=== PATIENT | male | born 1955 | race Caucasian/White ===

== ENCOUNTER 2016-10-28 03:43 | Inpatient (IN) | payer BC, OTHER ==
--- NOTE | 2016-10-28 03:54 | PDOC ---
History of Present Illness - General History Source: Patient Exam Limitations: No Limitations - History of Present Illness Initial Comments: 10/28/16 04:31 The patient is a 60 year old male with significant past medical history of a-fib , CAD (s/p stents), CHF, hypertension, hyperlipidemia, and COPD who presents to the ED with 4 days of worsening SOB. Patient reports he is normally short of breath, however over the past 4 days his SOB exacerbated. He also reports nonproductive cough and chest tightness. He denies fever, chills, diaphoresis, chest pain, jaw pain, shoulder pain, and arm pain. The patient denies abdominal pain, nausea, vomiting, and diarrhea. Allergies: NKDA Social History: No alcohol, tobacco, or drug use reported. Past Surgical History: s/p cardiac stents PCP: Dr. Elisabet Martinez <Suzan Carpenter - Last Filed: 10/28/16 05:56> - General History Source: Patient <Vadim Khan - Last Filed: 10/28/16 06:00> - General Chief Complaint: Shortness of Breath Stated Complaint: DIFFICULTY BREATHING Time Seen by Provider: 10/28/16 03:51 Past History <Suzan Carpenter - Last Filed: 10/28/16 05:56> - Past Medical History Anemia: No Asthma: No Cancer: No Cardiac Disorders: Yes (A Fib) CVA: No COPD: No CHF: No Dementia: No Diabetes: No GI Disorders: Yes (ACID REFLUX) Disorders: No HTN: Yes Hypercholesterolemia: Yes Liver Disease: No Suicide Attempt (Hx): No Seizures: No Thyroid Disease: No - Surgical History Abdominal Surgery: Yes (HERNIA) Appendectomy: No Cardiac Surgery: Yes (STENTS , 2010,, 13) Cholecystectomy: No Lung Surgery: No Neurologic Surgery: No Orthopedic Surgery: No - Immunization History Immunization Up to Date: Yes - Psycho/Social/Smoking Cessation Hx Anxiety: No Suicidal Ideation: No Smoking Status: No Smoking History: Never smoked Have you smoked in the past 12 months: No Number of Cigarettes Smoked Daily: 0 Hx Alcohol Use: Yes Drug/Substance Use Hx: No Substance Use Type: None Hx Substance Use Treatment: No <Vadim Khan - Last Filed: 10/28/16 06:00> - Past Medical History Allergies/Adverse Reactions: Allergies Allergy/AdvReac Type Severity Reaction Status Date / Time lactose Allergy Mild Verified 08/29/16 12:37 Home Medications: Ambulatory Orders Apixaban [Eliquis] 5 mg PO BID 08/29/16 Folic Acid 1 mg PO DAILY 08/29/16 Metoprolol Succinate [Toprol Xl] 150 mg PO DAILY 08/29/16 Rabeprazole Sodium [Aciphex] 20 mg PO DAILY 08/29/16 Ranolazine [Ranexa] 500 mg PO BID 08/29/16 Ramipril [Altace] 2.5 mg PO DAILY #30 capsule 09/08/16 Rosuvastatin Calcium [Crestor] 10 mg PO HS #30 09/08/16 Review of Systems - Review of Systems Able to Perform ROS?: Yes Comments:: 10/28/16 04:31 CONSTITUTIONAL: Absent: fever, chills, diaphoresis, generalized weakness, malaise, loss of appetite HEENT: Absent: rhinorrhea, nasal congestion, throat pain, throat swelling, difficulty swallowing, mouth swelling, ear pain, eye pain, visual Changes CARDIOVASCULAR: Absent: chest pain, syncope, palpitations, irregular heart rate, lightheadedness , peripheral edema RESPIRATORY: +cough, shortness of breath Absent: dyspnea with exertion, orthopnea, wheezing, stridor, hemoptysis GASTROINTESTINAL: Absent: abdominal pain, abdominal distension, nausea, vomiting, diarrhea, constipation, melena, hematochezia GENITOURINARY: Absent: dysuria, frequency, urgency, hesitancy, hematuria, flank pain, genital pain MUSCULOSKELETAL: Absent: myalgia, arthralgia, joint swelling SKIN: Absent: rash, itching, pallor NEUROLOGIC: Absent: headache, focal weakness or paresthesias, dizziness, unsteady gait, seizure, mental status changes, bladder or bowel incontinence PSYCHIATRIC: Absent: anxiety, depression, suicidal or homicidal ideation, hallucinations. <Suzan Carpenter - Last Filed: 10/28/16 05:56> *Physical Exam - Vital Signs Last Vital Signs Temp Pulse Resp BP Pulse Ox 97.8 F 95 H 23 181/91 88 L 10/28/16 03:51 10/28/16 03:51 10/28/16 03:51 10/28/16 03:51 10/28/16 03:51 - Physical Exam Comments: 10/28/16 04:31 GENERAL: Well developed, well nourished. Awake and alert. No acute distress. HEENT: Normocephalic, atraumatic. PERRLA, EOMI. No conjunctival pallor. Sclera are non- icteric. Moist mucous membranes. Oropharynx is clear. NECK: Supple. Full ROM. No JVD. Carotid pulses 2+ and symmetric, without bruits. No thyromegaly. No lymphadenopathy. CARDIOVASCULAR: Tachycardia. Regular rhythm. No murmurs, rubs, or gallops. Distal pulses are 2+ and symmetric. PULMONARY: Decreased breath sounds. Scattered wheezing bilaterally. ABDOMINAL: Soft. Non-tender. Obese. No rebound or guarding. No organomegaly. Normoactive bowel sounds. MUSCULOSKELETAL Normal range of motion at all joints. No bony deformities or tenderness. No CVA tenderness. EXTREMITIES: Venous stasis changes of the lower extremities bilaterally. No cyanosis. No clubbing. No edema. No calf tenderness. SKIN: Warm and dry. Normal capillary refill. No rashes. No jaundice. NEUROLOGICAL: Alert, awake, appropriate. Cranial nerves 2-12 intact. Moving all extremities. No focal neurological deficits. PSYCHIATRIC: Cooperative. Good eye contact. Appropriate mood and affect. <Suzan Carpenter - Last Filed: 10/28/16 05:56> Heart Score/ECG Review - ECG Impressions Comment:: 10/28/16 04:32 A-fib with premature ventricular or aberrantly conducted complexes @77bpm Nonspecific ST abnormality Prolonged QT Abnormal ECG <Suzan Carpenter - Last Filed: 10/28/16 05:56> ED Treatment Course - LABORATORY CBC & Chemistry Diagram: 10/28/16 04:10 10/28/16 04:10 - ADDITIONAL ORDERS Additional order review: 10/28/16 04:10 RBC 4.97 MCV 73.9 L MCHC 30.3 L RDW 19.7 H MPV 7.7 D Neutrophils % 84.3 H Lymphocytes % 7.7 L Monocytes % 6.6 Eosinophils % 0.9 Basophils % 0.5 - Medications Given in the ED: ED Medications Discontinued Medications Generic Name Dose Route Start Last Admin Trade Name Freq PRN Reason Stop Dose Admin Albuterol/Ipratropium 1 amp 10/28/16 03:56 10/28/16 04:17 Duoneb - NEB 10/28/16 03:57 1 amp ONCE STA Administration Albuterol/Ipratropium 1 amp 10/28/16 03:56 10/28/16 04:23 Duoneb - NEB 10/28/16 03:57 1 amp ONCE STA Administration Magnesium Sulfate 2 gm 10/28/16 03:55 10/28/16 04:26 Magnesium Sulfate IVPB 10/28/16 03:56 2 gm ONCE ONE Administration Methylprednisolone Sodium Succinate 125 mg 10/28/16 03:55 10/28/16 04:17 Solu-Medrol - IVPB 10/28/16 03:56 125 mg ONCE ONE Administration <Suzan Carpenter - Last Filed: 10/28/16 05:56> - LABORATORY CBC & Chemistry Diagram: 10/28/16 04:10 10/28/16 04:10 <Vadim Khan - Last Filed: 10/28/16 06:00> Medical Decision Making - Medical Decision Making 10/28/16 05:[address] Elisabet Martinez (via answering service) at 5:56 and patient's case was discussed. <Suzan Carpenter - Last Filed: 10/28/16 05:56> - Medical Decision Making 10/28/16 06:00 Dr. Khan: The scribe's documentation has been prepared under my direction and personally reviewed by me in its entirery. I confirm that the note above accurately reflects all work, treatment, procedures, and medical decision making performed by me. <Vadim Khan - Last Filed: 10/28/16 06:00> *DC/Admit/Observation/Transfer - Attestations Scribe Attestion: 10/28/16 04:33 Documentation prepared by Suzan Carpenter, acting as director medical economics for Vadim Khan MD <Suzan Carpenter - Last Filed: 10/28/16 05:56> - Discharge Dispostion Admit: Yes <Vadim Khan - Last Filed: 10/28/16 06:00> Diagnosis at time of Disposition: CHF (congestive heart failure) COPD (chronic obstructive pulmonary disease) Qualifiers: COPD type: unspecified COPD Qualified Code(s): J44.9 - Chronic obstructive pulmonary disease, unspecified - Discharge Dispostion Condition at time of disposition: Stable - Referrals Referrals: Elisabet Martinez MD [Primary Care Provider] -
[2016-10-28 03:55] VITALS: BMI 39.1
[2016-10-28] MEDS ORDERED: methylPREDNISolone NA SUCC 125 MG/2 ML VIAL IVPB ONE (03:55)
[2016-10-28] MEDS ORDERED: MAGNESIUM SULF 50% (8.12 MEQ/2 ML-1 GM VIAL) IVPB ONE (03:55)
[2016-10-28] MEDS ORDERED: ALBUTEROL SO4 2.5/IPRATROPIUM 0.5 INH SOL 3 ML VIAL.NEB. NEB STA ×3 (03:56→04:54)
[2016-10-28] MEDS ORDERED: methylPREDNISolone NA SUCC 125 MG/2 ML VIAL ONE (04:13)
[2016-10-28] MEDS ORDERED: MAGNESIUM SULF 50% (8.12 MEQ/2 ML-1 GM VIAL) ONE (04:13)
[2016-10-28 04:18] LABS: BASOPHIL 0.5 % (0-2.0); EOSINOPHIL 0.9 % (0-4.5); MCH 22.4 pg (25.7-33.7); MCHC 30.3 g/dl (32.0-35.9); MEAN CELL VOLUME 73.9 fl (80-96); MEAN PLT VOLUME 7.7 fl (7.5-11.1); NEUTROPHILS 84.3 % (42.8-82.8); PLATELET COUNT 176 K/MM3 (134-434); RDW 19.7 % (11.9-15.9); WHITE BLOOD COUNT 8.6 K/mm3 (4.0-10.0)
[2016-10-28 04:30] LABS: INR 2.01 (0.82-1.09); PROTHROMBIN TIME (PATIENT) 22.4 SEC (9.98-11.88)
[2016-10-28 04:55] LABS: ALBUMIN 3.8 g/dl (3.4-5.0); ANION GAP 10 (8-16); BILIRUBIN,TOTAL 0.7 mg/dL (0.2-1.0); CALCIUM 7.9 mg/dL (8.5-10.1); CO2 28 mmol/L (21-32); CREATININE 0.9 mg/dL (0.7-1.3); GLUCOSE,RANDOM 132 mg/dL (74-106); SGOT/AST 11 U/L (15-37); SGPT/ALT 12 U/L (12-78); TOT PROT 7.6 g/dl (6.4-8.2)
[2016-10-28 04:58] LABS: ALK PHOS 78 U/L (45-117); TROPONIN I < 0.02 ng/ml (0.00-0.05)
[2016-10-28] MEDS ORDERED: FUROSEMIDE 40 MG/4 ML INJECTABLE VIAL IVPUSH ONE (06:14)
[2016-10-28] MEDS ORDERED: FUROSEMIDE 40 MG/4 ML INJECTABLE VIAL ONE (06:18)
[2016-10-28] MEDS ORDERED: AZITHROMYCIN 250 MG TABLET (FP) PO ONE (07:21)
[2016-10-28] MEDS: methylPREDNISolone NA SUCC 40 MG/1 ML VIAL IVPB SCH ×3 (07:41→18:20)
--- NOTE | 2016-10-28 09:10 | PN ---
Progress Note (short form) - Note Progress Note: Cardiology Consult Dictated Known to me from office. 1. Chronic AF 2. CAD w/ previous PCI 3. Chronic diastolic CHF Missed two days of lasix, now presents with increased TIPTON. CXR c/w CHF, markedly elevated BNP. REC: 1. Agree w/ IV Lasix 2. Telemetry 3. Repeat echo to assure no change in LVEF 4. Cycle cardiac enzymes
[2016-10-28] MEDS: METOPROLOL SUCCINATE 50 MG TAB.SR.24H (FP) PO SCH (09:28)
[2016-10-28] MEDS: RAMIPRIL 2.5 MG CAPSULE (FP) PO SCH (09:29)
[2016-10-28] MEDS: APIXABAN 5 MG TABLET PO SCH ×2 (09:29→22:12)
[2016-10-28] MEDS: RANOLAZINE E.R. 500 MG TABLET (FP) PO SCH ×2 (09:29→22:12)
[2016-10-28] MEDS: FUROSEMIDE 40 MG/4 ML INJECTABLE VIAL IVPB SCH (09:31)
--- NOTE | 2016-10-28 09:33 | EKG ---
Test Reason : Blood Pressure : / mmHG Vent. Rate : 077 BPM Atrial Rate : 092 BPM P-R Int : 000 ms QRS Dur : 100 ms QT Int : 434 ms P-R-T Axes : 000 058 035 degrees QTc Int : 491 ms ATRIAL FIBRILLATION WITH PREMATURE VENTRICULAR OR ABERRANTLY CONDUCTED COMPLEXES NONSPECIFIC ST ABNORMALITY PROLONGED QT ABNORMAL ECG WHEN COMPARED WITH ECG OF 29-AUG-2016 20:16, BORDERLINE CRITERIA FOR INFERIOR INFARCT ARE NO LONGER PRESENT NON-SPECIFIC CHANGE IN ST SEGMENT IN INFERIOR LEADS NONSPECIFIC T WAVE ABNORMALITY NO LONGER EVIDENT IN LATERAL LEADS Confirmed by ANYA LOUIS, MCKAY ([id number]) on 10/28/2016 9:32:56 AM Referred By: Confirmed By:MCKAY JOYNER MD
[2016-10-28] MEDS ORDERED: METOPROLOL SUCCINATE 50 MG TAB.SR.24H (FP) PO SCH (10:00)
[2016-10-28] MEDS ORDERED: APIXABAN 5 MG TABLET PO SCH (10:00)
[2016-10-28] MEDS ORDERED: RAMIPRIL 2.5 MG CAPSULE (FP) PO SCH (10:00)
[2016-10-28] MEDS ORDERED: ARFORMOTEROL TARTRATE 15 MCG/2 ML VIAL NEB SCH (10:00)
[2016-10-28] MEDS ORDERED: FUROSEMIDE 40 MG/4 ML INJECTABLE VIAL IVPB SCH (10:00)
[2016-10-28] MEDS ORDERED: RANOLAZINE E.R. 500 MG TABLET (FP) PO SCH (10:00)
[2016-10-28] MEDS ORDERED: CEFTRIAXONE 100 ML IVPB SCH (10:00)
--- NOTE | 2016-10-28 10:01 | CONS ---
DATE OF CONSULTATION: 10/28/2016 REQUESTING PHYSICIAN: Elisabet Martinez MD REASON FOR CONSULTATION: Congestive heart failure. CHIEF COMPLAINT: Shortness of breath. HISTORY OF PRESENT ILLNESS: This is a 60-year-old male known to me from office with past medical history of chronic atrial fibrillation on anticoagulation, coronary artery disease status post PCI, obesity, chronic diastolic CHF, hypertension, hyperlipidemia, who presents to the emergency room with several hours of increased dyspnea on exertion. This occurs in the context of him missing 2 doses of Lasix on consecutive days earlier this week because he was going to be traveling. He denies chest pain, cough, fever, chills, palpitations. We have recently lowered his Toprol dose due to orthostatic hypotensive symptoms. He denies syncope. He did have PND symptoms last night prompting him to come to the emergency department. He was given IV Lasix and is currently urinating and is starting to feel better. PAST MEDICAL HISTORY: Is as above. ALLERGIES: He is allergic to LACTOSE. MEDICATIONS: His current medications include Eliquis 5 mg p.o. b.i.d., Brovana for COPD, ceftriaxone started for possible early pneumonia, Lasix 40 mg IV daily, Solu-Medrol 40 mg IV q.8, Toprol XL 150 mg daily, Ramipril 2.5 mg p.o. daily, Ranexa 500 mg p.o. b.i.d., and Crestor 10 mg p.o. at bedtime. FAMILY HISTORY: Noncontributory. It should be noted that his mother was noted to have a cerebral aneurysm and recently in her 90s. SOCIAL HISTORY: He drinks alcohol daily, usually 2-3 drinks per day. He denies history of smoking. 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 PHYSICAL EXAMINATION: Vital signs: He is afebrile with temperature of 97.8, blood pressure 161/89 this morning, O2 saturation 98 on 3 L. Neck: No JVD. Heart: S1, S2, irregular. Chest: With rales at the bases 1/3 up. Abdomen: Obese, soft, nontender.. Extremities: With chronic venous stasis changes and 1+ edema bilaterally. His EKG showed atrial fibrillation at 77 beats per minute with rare VPCs and nonspecific ST changes. Telemetry has shown controlled atrial fibrillation with VPCs. No elevated rates. LABORATORIES: White count 8.6, hematocrit 36.7, platelets 176. INR 2. Sodium 144, BUN 16, creatinine 0.9, magnesium 1.0 which was repleted and a morning value is currently pending, repeat value is pending. Troponin was negative x1. BNP was 2910. Chest x-ray showed increased pulmonary vascular congestion. IMPRESSION: This is a 60-year-old male with a past medical history of chronic atrial fibrillation on Eliquis, coronary artery disease status post percutaneous coronary intervention greater than 1 year ago, chronic diastolic congestive heart failure, now presents with acute on chronic diastolic congestive heart failure in the setting of missing 2 doses of Lasix. His chest x-ray, brain natriuretic peptide level and exam are consistent with mildly decompensated congestive heart failure. RECOMMENDATIONS: 1. Agree with IV Lasix for several days. 2. Continue telemetry to assure atrial fibrillation is well controlled. 3. Will repeat echo today to assure no change in ejection fraction or valve status. 4. Will cycle cardiac enzymes to assure no ischemia. Thank you for the consultation. JB ORO M.D. [id number] MTDD
[2016-10-28 10:16] LABS: ANION GAP 10 (8-16); CALCIUM 8.3 mg/dL (8.5-10.1); CO2 28 mmol/L (21-32); GLUCOSE,RANDOM 241 mg/dL (74-106); MAGNESIUM 1.5 mg/dL (1.8-2.4)
--- NOTE | 2016-10-28 10:31 | HP ---
Admitting History and Physical - Primary Care Physician PCP: Elisabet Martinez - Admission Chief Complaint: AE CHF. AE COPD. PNA History Source: Medical Record - Past Medical History Cardiovascular: Yes: AFIB, CAD (s/p stents), CHF, HTN, Hyperlipdemia Pulmonary: Yes: Sleep Apnea - Past Surgical History Past Surgical History: Yes: Stent - Smoking History Smoking history: Never smoked Have you smoked in the past 12 months: No Aproximately how many cigarettes per day: 0 - Alcohol/Substance Use Hx Alcohol Use: Yes - Social History ADL: Independent History of Recent Travel: No Home Medications - Allergies Allergies/Adverse Reactions: Allergies Allergy/AdvReac Type Severity Reaction Status Date / Time lactose Allergy Mild Verified 08/29/16 12:37 - Home Medications Home Medications: Ambulatory Orders Apixaban [Eliquis] 5 mg PO BID 08/29/16 Folic Acid 1 mg PO DAILY 08/29/16 Metoprolol Succinate [Toprol Xl] 150 mg PO DAILY 08/29/16 Rabeprazole Sodium [Aciphex] 20 mg PO DAILY 08/29/16 Ranolazine [Ranexa] 500 mg PO BID 08/29/16 Ramipril [Altace] 2.5 mg PO DAILY #30 capsule 09/08/16 Rosuvastatin Calcium [Crestor] 10 mg PO HS #30 09/08/16 Review of Systems - Review of Systems Constitutional: denies: Chills, Fever Cardiovascular: denies: Chest Pain Respiratory: reports: SOB Gastrointestinal: denies: Abdominal Pain Physical Examination Vital Signs: Vital Signs Temperature 98.6 F 10/28/16 09:33 Pulse Rate 88 10/28/16 09:33 Respiratory Rate 20 10/28/16 09:33 Blood Pressure 137/79 10/28/16 09:33 O2 Sat by Pulse Oximetry (%) 98 10/28/16 09:33 Constitutional: Yes: Calm Cardiovascular: Yes: Regular Rate and Rhythm, S1, S2 Respiratory: Yes: Diminished Gastrointestinal: Yes: Normal Bowel Sounds, Soft Edema: LLE: Trace, RLE: Trace Labs: CBC, BMP 10/28/16 09:40 Imaging - Results Chest X-ray: Report Reviewed EKG: Report Reviewed Problem List - Problems (1) CHF (congestive heart failure) Code(s): I50.9 - HEART FAILURE, UNSPECIFIED (2) Chronic atrial fibrillation Code(s): I48.2 - CHRONIC ATRIAL FIBRILLATION (3) COPD (chronic obstructive pulmonary disease) Code(s): J44.9 - CHRONIC OBSTRUCTIVE PULMONARY DISEASE, UNSPECIFIED Qualifiers : COPD type: unspecified COPD Qualified Code(s): J44.9 - Chronic obstructive pulmonary disease, unspecified (4) GERD (gastroesophageal reflux disease) Code(s): K21.9 - GASTRO-ESOPHAGEAL REFLUX DISEASE WITHOUT ESOPHAGITIS (5) HTN (hypertension) Code(s): I10 - ESSENTIAL (PRIMARY) HYPERTENSION (6) PNA (pneumonia) Code(s): J18.9 - PNEUMONIA, UNSPECIFIED ORGANISM Assessment/Plan The patient is a 60 year old male with significant past medical history of a-fib , CAD (s/p stents), CHF, hypertension, hyperlipidemia, and COPD who presents to the ED with 4 days of worsening SOB. Patient reports he is normally short of breath, however over the past 4 days his SOB exacerbated. He also reports nonproductive cough and chest tightness. He denies fever, chills, diaphoresis, chest pain, jaw pain, shoulder pain, and arm pain. The patient denies abdominal pain, nausea, vomiting, and diarrhea. Allergies: NKDA Social History: No alcohol, tobacco, or drug use reported. Past Surgical History: s/p cardiac stents PCP: Dr. Elisabet Martinez (1) CHF (congestive heart failure) Code(s): I50.9 - HEART FAILURE, UNSPECIFIED TROP NEG -> F/U BNP 2300 CXr -> CONGESTION CHANGES CARDIO CONSULTED (2) Chronic atrial fibrillation Code(s): I48.2 - CHRONIC ATRIAL FIBRILLATION INR THERAPEUTIC (3) COPD (chronic obstructive pulmonary disease) Code(s): J44.9 - CHRONIC OBSTRUCTIVE PULMONARY DISEASE, UNSPECIFIED Qualifiers : COPD type: unspecified COPD Qualified Code(s): J44.9 - Chronic obstructive pulmonary disease, unspecified IV STEROIDS & ABx PULM CONSULTED (4) GERD (gastroesophageal reflux disease) Code(s): K21.9 - GASTRO-ESOPHAGEAL REFLUX DISEASE WITHOUT ESOPHAGITIS IV PPI (5) HTN (hypertension) Code(s): I10 - ESSENTIAL (PRIMARY) HYPERTENSION (6) PNA (pneumonia) Code(s): J18.9 - PNEUMONIA, UNSPECIFIED ORGANISM ID CONSULTED IV ABx MANAGER RISK MANAGEMENT FM
[2016-10-28] MEDS ORDERED: PNEUMOCOCCAL 23 VACCINE 0.5 ML VIAL IM ONE (11:30)
[2016-10-28] MEDS ORDERED: PNEUMOC 13-VAL CONJ-DIP CRM/PF 0.5 ML DISP.SYRIN IM ONE (11:30)
[2016-10-28] MEDS: ARFORMOTEROL TARTRATE 15 MCG/2 ML VIAL NEB SCH ×2 (11:38→22:15)
--- NOTE | 2016-10-28 11:41 | PN ---
Progress Note (short form) - Note Progress Note: ID consult dictated imp/reccd 60 year old man with chf/copd- had stopped his lasix on Wednesday and Wednesday, resumed Wednesday but developed worsening SOB minimal chronic cough no fevers or chills/no leukocytosis PE and history most c/w CHF/COPD- feels markedly improved after iv steroids and lasix cxray c/w congestion can d/c rocephin continue treatment for chf/copd plese call back if needed Problem List - Problems (1) CHF (congestive heart failure) Code(s): I50.9 - HEART FAILURE, UNSPECIFIED (2) COPD (chronic obstructive pulmonary disease) Code(s): J44.9 - CHRONIC OBSTRUCTIVE PULMONARY DISEASE, UNSPECIFIED Qualifiers : COPD type: unspecified COPD Qualified Code(s): J44.9 - Chronic obstructive pulmonary disease, unspecified
[2016-10-28] MEDS: PANTOPRAZOLE SODIUM 100 ML IVPB SCH (12:14)
[2016-10-28] MEDS: MAGNESIUM OXIDE 400 MG TABLET (FP) PO SCH ×2 (12:14→22:12)
--- NOTE | 2016-10-28 12:17 | CONSULT ---
Consult Consult Specialty:: PULMONARY Referred by:: CHITRA Reason for Consultation:: SOB - History of Present Illness Chief Complaint: SOB History of Present Illness: The patient is a 60 year old male with significant past medical history of a-fib , CAD (s/p stents), CHF, hypertension, hyperlipidemia, and COPD who presents to the ED with 4 days of worsening SOB. Patient reports he is normally short of breath, however over the past 4 days his SOB exacerbated. He also reports nonproductive cough and chest tightness. He denies fever, chills, diaphoresis, chest pain, jaw pain, shoulder pain, and arm pain.The patient denies abdominal pain, nausea, vomiting, and diarrhea. Admits to noncompliance with diuretics and inhalers for a number of days. 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 Cardio/Vascular: Yes: AFIB, CAD (s/p stents), CHF, HTN, Hyperlipdemia Pulmonary: Yes: Sleep Apnea Hepatobiliary: No: Cirrhosis Renal/: No: Renal Failure Heme/Onc: No: Anemia Infectious Disease: No: AIDS Psych: No: Addictions - Past Surgical History Past Surgical History: Yes: Stent - Alcohol/Substance Use Hx Alcohol Use: Yes - Smoking History Smoking history: Never smoked Have you smoked in the past 12 months: No Aproximately how many cigarettes per day: 0 - Social History ADL: Independent History of Recent Travel: No Home Medications - Allergies Allergies/Adverse Reactions: Allergies Allergy/AdvReac Type Severity Reaction Status Date / Time lactose Allergy Mild Verified 08/29/16 12:37 - Home Medications Home Medications: Ambulatory Orders Apixaban [Eliquis] 5 mg PO BID 08/29/16 Folic Acid 1 mg PO DAILY 08/29/16 Metoprolol Succinate [Toprol Xl] 150 mg PO DAILY 08/29/16 Rabeprazole Sodium [Aciphex] 20 mg PO DAILY 08/29/16 Ranolazine [Ranexa] 500 mg PO BID 08/29/16 Ramipril [Altace] 2.5 mg PO DAILY #30 capsule 09/08/16 Rosuvastatin Calcium [Crestor] 10 mg PO HS #30 09/08/16 Family Disease History - Family Disease History Family History: Unremarkable Review of Systems - Review of Systems Constitutional: denies: Fever Eyes: denies: Blurred Vision HENT: denies: Difficult Swallowing Neck: denies: Decreased ROM Cardiovascular: denies: Chest Pain Respiratory: reports: SOB on Exertion. denies: Cough Gastrointestinal: reports: No Symptoms Genitourinary: reports: No Symptoms Breasts: reports: No Symptoms Reported Neurological: reports: No Symptoms Endocrine: reports: No Symptoms Hematology/Lymphatic: reports: No Symptoms Physical Exam Vital Sings: Vital Signs Temperature 98.6 F 10/28/16 09:33 Pulse Rate 88 10/28/16 09:33 Respiratory Rate 20 10/28/16 09:33 Blood Pressure 137/79 10/28/16 09:33 O2 Sat by Pulse Oximetry (%) 98 10/28/16 09:33 Constitutional: Yes: Calm Eyes: Yes: EOM Intact HENT: Yes: Normocephalic Neck: Yes: Trachea Midline Cardiovascular: Yes: Pulse Irregular, S1, S2 Respiratory: Yes: Rales (BIBASILAR) Gastrointestinal: Yes: Soft, Abdomen, Obese Edema: LLE: 2+, RLE: 2+ Neurological: Yes: Alert Labs: CBC, BMP 10/28/16 09:40 REST REVIEWED Imaging - Results Chest X-ray: Image Reviewed EKG: Report Reviewed Problem List - Problems (1) CHF (congestive heart failure) Code(s): I50.9 - HEART FAILURE, UNSPECIFIED (2) COPD (chronic obstructive pulmonary disease) Code(s): J44.9 - CHRONIC OBSTRUCTIVE PULMONARY DISEASE, UNSPECIFIED Qualifiers : COPD type: unspecified COPD Qualified Code(s): J44.9 - Chronic obstructive pulmonary disease, unspecified (3) GERD (gastroesophageal reflux disease) Code(s): K21.9 - GASTRO-ESOPHAGEAL REFLUX DISEASE WITHOUT ESOPHAGITIS (4) HTN (hypertension) Code(s): I10 - ESSENTIAL (PRIMARY) HYPERTENSION (5) Acute on chronic diastolic (congestive) heart failure Code(s): I50.33 - ACUTE ON CHRONIC DIASTOLIC (CONGESTIVE) HEART FAILURE (6) Afib Code(s): I48.91 - UNSPECIFIED ATRIAL FIBRILLATION Assessment/Plan LIKELY ACUTE ON CHRONIC DECOMPENSATED CHF DUE TO MED/DIETARY NONCOMPLIANCE NO NEED FOR STEROIDS/ANTIBIOTICS WOULD CONTINUE TO TREAT FOR CHF O2/DIURETICS/ANTICOAGULATION/BRONCHODILATORS PRN WILL FOLLOW THANK YOU Kassy HIGGINS MD
[2016-10-28 12:49] LABS: TROPONIN I < 0.02 ng/ml (0.00-0.05)
--- NOTE | 2016-10-28 13:43 | CONS ---
DATE OF CONSULTATION: 10/28/2016 REQUESTING PHYSICIAN: Shakeel Jaeger MD HISTORY OF PRESENT ILLNESS: This is a 60-year-old man with a past medical history of heart failure and COPD. He was recently hospitalized in August when he developed severe constipation and partial small bowel obstruction secondary to constipation. He now comes in. He had self-discontinued his Lasix on Wednesday and Wednesday basically because he was busy and he did not want to be urinating extra. On Wednesday, he went out, and the weather was very cold. He started having some difficulty with his breathing. He put himself back on his Lasix, but the breathing difficulty persisted. He noticed he was getting extremely dyspneic just getting up and walking to the bathroom, and given the fact his symptoms were progressing, he came to the emergency room. There was no chest pain. There was minimal cough, which he always has, and there were no fevers or chills. In the ER, he was treated with Solu-Medrol with nebulizers and IV diuretics as well as a dose of antibiotics. I am asked to see him for further antibiotic management. I came in early this morning at 4:00 a.m. He reports already marked improvement in his symptoms. He is able to ambulate to the bathroom and back, which he was not able to do before. PAST MEDICAL HISTORY: Notable for history of chronic atrial fibrillation, coronary artery disease, he had multiple stents, obesity, chronic diastolic heart failure , hypertension, hyperlipidemia, history of partial small bowel obstruction, history of lumbar compression fracture with recent fall. ALLERGIES: He is allergic to LACTOSE. MEDICATIONS: His medications at home include Crestor, Ranexa, Ramipril, aciphex , Toprol XL, folic acid, Eliquis, and Lasix. His current medications include Eliquis, Brovana, Lasix, magnesium oxide, Solu-Medrol, Toprol, Protonix, Ranexa, Crestor, and ceftriaxone. FAMILY HISTORY: Noncontributory. 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 There is no history of cigarette use. He drinks several drinks a day. REVIEW OF SYSTEMS: He has had no more constipation. He has no abdominal pain. He reports his breathing has markedly improved since arriving in the emergency room earlier this morning. PHYSICAL EXAMINATION: General: He is awake and alert. Vital signs: Temperature 98.6, pulse of 83, blood pressure 137/79, stated weight is 265, respiratory rate 20. HEENT: He is normocephalic. His eyes are anicteric. Neck: Supple. Lungs: Have bibasilar crackles. Heart: Regular rate and rhythm. Abdomen: Soft, nontender. Extremities: Have 1+ pitting edema. LABORATORIES: Notable for a white count of 8.6, hemoglobin 11.1, platelets are 176. INR is 2. BUN 16, creatinine 1. Chest x-ray reveals bilateral congestion. SUMMARY: This is a 60-year-old man admitted with worsening shortness of breath, dyspnea on exertion, with mild chronic cough. He has had marked improvement with intravenous steroids and Lasix. Chest x-ray is consistent with congestion. I would suggest we stop his Rocephin and continue treatment for CHF and COPD. Would suggest please call us back if needed. MANSOOR FLEMING M.D. [id number] MTDD
[2016-10-28 20:49] LABS: TROPONIN I < 0.02 ng/ml (0.00-0.05)
[2016-10-28] MEDS ORDERED: ROSUVASTATIN CA 10 MG TABLET (FP) PO SCH (22:00)
[2016-10-28] MEDS ORDERED: LORATADINE 10 MG TABLET PO SCH (22:00)
[2016-10-28] MEDS: guaiFENesin 200 MG/10 ML 10 ML UNIT-DOSE CUPS PO PRN (22:12)
[2016-10-29] MEDS: methylPREDNISolone NA SUCC 40 MG/1 ML VIAL IVPB SCH ×2 (02:18→09:38)
[2016-10-29 07:35] LABS: MCH 23.7 pg (25.7-33.7); MEAN CELL VOLUME 74.2 fl (80-96); MEAN PLT VOLUME 8.2 fl (7.5-11.1); PLATELET COUNT 179 K/MM3 (134-434); RDW 19.9 % (11.9-15.9); WHITE BLOOD COUNT 10.5 K/mm3 (4.0-10.0)
[2016-10-29 08:26] LABS: ALBUMIN 3.7 g/dl (3.4-5.0); ALK PHOS 70 U/L (45-117); ANION GAP 8 (8-16); BILIRUBIN,TOTAL 0.5 mg/dL (0.2-1.0); CALCIUM 8.9 mg/dL (8.5-10.1); CO2 29 mmol/L (21-32); CREATININE 0.8 mg/dL (0.7-1.3); GLUCOSE,RANDOM 153 mg/dL (74-106); SGOT/AST 8 U/L (15-37); SGPT/ALT 14 U/L (12-78); TOT PROT 7.3 g/dl (6.4-8.2)
[2016-10-29 09:35] VITALS: BP 146/82; PULSE 88; TEMP 98.2
[2016-10-29] MEDS: PANTOPRAZOLE SODIUM 100 ML IVPB SCH (09:37)
[2016-10-29] MEDS: RAMIPRIL 2.5 MG CAPSULE (FP) PO SCH (09:38)
[2016-10-29] MEDS: FUROSEMIDE 40 MG/4 ML INJECTABLE VIAL IVPB SCH (09:38)
[2016-10-29] MEDS: APIXABAN 5 MG TABLET PO SCH (09:39)
[2016-10-29] MEDS: MAGNESIUM OXIDE 400 MG TABLET (FP) PO SCH (09:39)
[2016-10-29] MEDS: METOPROLOL SUCCINATE 50 MG TAB.SR.24H (FP) PO SCH (09:39)
[2016-10-29] MEDS: RANOLAZINE E.R. 500 MG TABLET (FP) PO SCH (09:40)
[2016-10-29] MEDS: guaiFENesin 200 MG/10 ML 10 ML UNIT-DOSE CUPS PO PRN (09:52)
[2016-10-29] MEDS ORDERED: ALBUTEROL SO4 6.7 GM HFA INHALER IH PRN (10:46)
--- NOTE | 2016-10-29 10:48 | DS ---
Physical Examination Vital Signs: Vital Signs Temperature 98.2 F 10/29/16 08:05 Pulse Rate 88 10/29/16 08:05 Respiratory Rate 16 10/29/16 08:05 Blood Pressure 146/82 10/29/16 08:05 O2 Sat by Pulse Oximetry (%) 95 10/29/16 06:00 Constitutional: Yes: Well Nourished Eyes: Yes: WNL HENT: Yes: WNL Neck: Yes: WNL Cardiovascular: Yes: Pulse Irregular Respiratory: Yes: WNL Gastrointestinal: Yes: WNL Musculoskeletal: Yes: WNL Extremities: Yes: WNL Edema: Yes Peripheral Pulses WNL: Yes Integumentary: Yes: WNL Wound/Incision: Yes: Clean/Dry Neurological: Yes: WNL ...Motor Strength: WNL Psychiatric: Yes: WNL Labs: CBC, BMP 10/29/16 05:35 Discharge Summary Reason For Visit: COPD CHF Current Active Problems CHF (congestive heart failure) (Acute) COPD (chronic obstructive pulmonary disease) (Acute) GERD (gastroesophageal reflux disease) (Acute) HTN (hypertension) (Acute) PNA (pneumonia) (Acute) Procedures: Principal: cxr Other Procedures: labs Hospital Course: cardiac and pulmonary workup , tlemetry, given iv lasix, steroids, dc home f/u outpatient Condition: Improved - Instructions Diet, Activity, Other Instructions: low sodium Referrals: Elisabet Martinez MD [Primary Care Provider] - Disposition: HOME - Home Medications Comprehensive Discharge Medication List: Ambulatory Orders Apixaban [Eliquis] 5 mg PO BID 08/29/16 Folic Acid 1 mg PO DAILY 08/29/16 Metoprolol Succinate [Toprol Xl] 150 mg PO DAILY 08/29/16 Rabeprazole Sodium [Aciphex] 20 mg PO DAILY 08/29/16 Ranolazine [Ranexa] 500 mg PO BID 08/29/16 Ramipril [Altace] 2.5 mg PO DAILY #30 capsule 09/08/16 Rosuvastatin Calcium [Crestor] 10 mg PO HS #30 09/08/16
--- NOTE | 2016-10-29 12:21 | PN ---
Progress Note, Physician History of Present Illness: seen and examined today in nad. states he is feeling back to baseline. sob has improved. wants to go home. - Objective Vital Signs: Vital Signs Temperature 98.2 F 10/29/16 08:05 Pulse Rate 88 10/29/16 08:05 Respiratory Rate 16 10/29/16 08:05 Blood Pressure 146/82 10/29/16 08:05 O2 Sat by Pulse Oximetry (%) 94 L 10/29/16 11:35 Constitutional: Yes: No Distress, Calm, Obese Eyes: Yes: WNL, Conjunctiva Clear, EOM Intact, PERRL HENT: Yes: WNL, Atraumatic, Normocephalic Neck: Yes: WNL, Supple, Trachea Midline Cardiovascular: Yes: Pulse Irregular, Murmur, S1, S2. No: Regular Rate and Rhythm, Bradycardia, Tachycardia, Bruit, JVD, Gallop, Rub, S3, S4, Varicosities Respiratory: Yes: WNL, Regular, CTA Bilaterally. No: Rales, Rhonchi, Wheezes Gastrointestinal: Yes: WNL, Normal Bowel Sounds, Soft. No: Distention, Tenderness Musculoskeletal: Yes: WNL Extremities: Yes: WNL Edema: Yes Edema: LLE: Trace, RLE: Trace Peripheral Pulses WNL: Yes Peripheral Pulses: Left Doralis Pedis: 2+, Right Dorsalis Pedis: 2+ Integumentary: Yes: WNL Neurological: Yes: WNL, Alert, Oriented, Cran Nerves II-XII Intact ...Motor Strength: WNL Psychiatric: Yes: WNL, Alert, Oriented Labs: CBC, BMP 10/29/16 05:35 10/29/16 05:35 INR, PTT INR 2.01 (0.82-1.09) H 10/28/16 04:18 - ....Imaging Chest X-ray: Report Reviewed, Image Reviewed EKG: Report Reviewed, Image Reviewed Other: Report Reviewed, Image Reviewed (tele-Afib, HR controlled, PVCs, Couplets ) Problem List - Problems (1) Acute on chronic diastolic (congestive) heart failure Code(s): I50.33 - ACUTE ON CHRONIC DIASTOLIC (CONGESTIVE) HEART FAILURE (2) Afib Code(s): I48.91 - UNSPECIFIED ATRIAL FIBRILLATION (3) CAD (coronary artery disease) Code(s): I25.10 - ATHSCL HEART DISEASE OF [place] CORONARY ARTERY W/O ANG PCTRS (4) CHF (congestive heart failure) Code(s): I50.9 - HEART FAILURE, UNSPECIFIED (5) COPD (chronic obstructive pulmonary disease) Code(s): J44.9 - CHRONIC OBSTRUCTIVE PULMONARY DISEASE, UNSPECIFIED Qualifiers : COPD type: unspecified COPD Qualified Code(s): J44.9 - Chronic obstructive pulmonary disease, unspecified (6) Chest pain Code(s): R07.9 - CHEST PAIN, UNSPECIFIED (7) Chronic atrial fibrillation Code(s): I48.2 - CHRONIC ATRIAL FIBRILLATION (8) HTN (hypertension) Code(s): I10 - ESSENTIAL (PRIMARY) HYPERTENSION (9) SOB (shortness of breath) Code(s): R06.02 - SHORTNESS OF BREATH Assessment/Plan 1. Chronic AF 2. CAD w/ previous PCI 3. Chronic diastolic CHF Missed two days of lasix, presents with acute on chronic diastolic CHF REC: Currently euvolemic at his baseline Echo stable with grossly normal LV systolic function Cardiac enyzmes wnl Ok for discharge from a cardiac standpoint Transition back to po Lasix He will follow up within 1 week in the office
[2016-10-31] MEDS ORDERED: METOLAZONE 2.5 MG TABLET (FP) PO SCH (10:00)
== END 2016-10-29 11:36 | disposition home or self-care (01) | DRG 291 ==
LOC: JER 03:43 → JERBED 06:14 → J4W 08:09
PROVIDERS: ADMIT Family Medicine; ATTEND Family Medicine
DX: I50.33 Acute on chronic diastolic (congestive) heart failure (principal); J18.9 Pneumonia, unspecified organism; J44.1 Chronic obstructive pulmonary disease with (acute) exacerbation; I48.91 Unspecified atrial fibrillation; K21.9 Gastro-esophageal reflux disease without esophagitis; R07.9 Chest pain, unspecified; I10 Essential (primary) hypertension; I25.10 Atherosclerotic heart disease of native coronary artery without angina pectoris; Z98.61 Coronary angioplasty status; E78.5 Hyperlipidemia, unspecified
CPT/HCPCS: 36415; 71010-TC; 80048; 80053; 82550; 83735; 83880; 84484; 85025; 85027; 85610; 90732; 93005; 93010; 93306-TC; 94640; 99284-25; G0009

== ENCOUNTER 2017-10-31 18:51 | Emergency (ER) | payer BC, OTHER ==
[2017-10-31 19:06] VITALS: BP 155/85; PULSE 83; TEMP 97.9; BMI 39.9
[2017-10-31] MEDS ORDERED: ALBUTEROL SO4 2.5/IPRATROPIUM 0.5 INH SOL 3 ML VIAL.NEB. NEB ONE ×2 (19:29→19:39)
--- NOTE | 2017-10-31 19:31 | PDOC ---
History of Present Illness - History of Present Illness Initial Comments: 10/31/17 20:01 History of Present Illness: 61 y/o M with a PMH of COPD, CAD (6 stents), presents to the ED with productive cough and chest congestion for 3 days. Patient has not been able to eat or sleep for the past three days, due to symptoms. Patient has take NyQuil and Robitussin with no relief. Patient reports associated rib pain due to coughing. Denies fever, chills. Denies nausea, vomiting, diarrhea. PCP: Dr. Elisabet Martinez Buggyman: Dr. Paddy Steiner Network Solutions Architect: Dr. Kurt Domingo Review of Systems: CONSTITUTIONAL: Absent: fever, chills, diaphoresis, generalized weakness, malaise, loss of appetite HEENT: Absent: rhinorrhea, nasal congestion, throat pain, throat swelling, difficulty swallowing, mouth swelling, ear pain, eye pain, visual changes CARDIOVASCULAR: Absent: chest pain, syncope, palpitations, irregular heart rate , lightheadedness, peripheral edema RESPIRATORY:+productive cough, chest congestion. Absent: shortness of breath, dyspnea with exertion, orthopnea, wheezing, stridor, hemoptysis GASTROINTESTINAL: Absent: abdominal pain, abdominal distension, nausea, vomiting , diarrhea, constipation, melena, hematochezia GENITOURINARY: Absent: dysuria, frequency, urgency, hesitancy, hematuria, flank pain, genital pain MUSCULOSKELETAL: +rib pain Absent: myalgia, arthralgia, joint swelling SKIN: Absent: rash, itching, pallor HEMATOLOGIC/IMMUNOLOGIC: Absent: easy bleeding, easy bruising, lymphadenopathy, frequent infections ENDOCRINE: Absent: unexplained weight gain, unexplained weight loss, heat intolerance, cold intolerance NEUROLOGIC: Absent: headache, focal weakness or paresthesias, dizziness, unsteady gait, seizure, mental status changes, bladder or bowel incontinence PSYCHIATRIC: Absent: anxiety, depression, suicidal or homicidal ideation, hallucinations. <Eneida Robles - Last Filed: 10/31/17 20:02> - History of Present Illness Initial Comments: 10/31/17 19:36 Physical exam: Alert and oriented well-developed well-nourished no acute distress cheerful and cooperative. No tachypnea or dyspnea Afebrile, vital signs stable, with respiratory rate of 18 and unlabored and oxygen saturation 95% room air HEENT clear Neck supple without bruit mass or nodes Breath sounds are clear bilaterally, no wheezes rales or rhonchi CV S1 and S2 distant without murmur rub or gallop pulses full and symmetric no JVD or edema no bruits Abdomen: Significant truncal obesity, however soft without masses tenderness organomegaly Neurological intact Skin clear, no rash, adequate turgor and wet mucous membranes Extremities no CCE Impression: COPD, acute exacerbation, possibly influenza, rule out pneumonia. No significant respiratory distress or hypoxemia. Plan: Nebulizer, chest x-ray, and further medical management depending on results. <Tomy Carter - Last Filed: 10/31/17 20:05> - General Chief Complaint: Cold Symptoms Stated Complaint: COUGH,SORE THROAT Time Seen by Provider: 10/31/17 19:29 Past History <Eneida Robles - Last Filed: 10/31/17 20:02> - Past Medical History Anemia: No Asthma: No Cancer: No Cardiac Disorders: Yes (A Fib) CVA: No COPD: No CHF: No Dementia: No Diabetes: No GI Disorders: Yes (ACID REFLUX) Disorders: No HTN: Yes Hypercholesterolemia: Yes Liver Disease: No Seizures: No Thyroid Disease: No - Surgical History Abdominal Surgery: Yes (HERNIA) Appendectomy: No Cardiac Surgery: Yes (STENTS , 2010,, ) Cholecystectomy: No Lung Surgery: No Neurologic Surgery: No Orthopedic Surgery: No - Immunization History Immunization Up to Date: Yes - Suicide/Smoking/Psychosocial Hx Smoking Status: No Smoking History: Current some day smoker Have you smoked in the past 12 months: Yes Number of Cigarettes Smoked Daily: 0 Cigars Per Day: 1 Information on smoking cessation initiated: Yes 'Breaking Loose' booklet given: 10/31/17 Hx Alcohol Use: No Drug/Substance Use Hx: No Substance Use Type: None Hx Substance Use Treatment: No <Tomy Carter - Last Filed: 10/31/17 20:05> - Past Medical History Allergies/Adverse Reactions: Allergies Allergy/AdvReac Type Severity Reaction Status Date / Time lactose Allergy Mild Verified 08/29/16 12:37 Home Medications: Ambulatory Orders Apixaban [Eliquis] 5 mg PO BID 08/29/16 Rabeprazole Sodium [Aciphex] 20 mg PO DAILY 08/29/16 Ranolazine [Ranexa] 500 mg PO BID 08/29/16 Albuterol Sulfate Inhaler - [Ventolin HFA Inhaler -] 2 puff IH Q4H PRN #1 inhaler 10/29/16 Arformoterol Tartrate [Brovana -] 1 amp NEB BID amp 10/29/16 Loratadine [Claritin -] 10 mg PO HS tablet 10/29/16 Metolazone [Zaroxolyn -] 2.5 mg PO Q2D@1000 #15 tablet 10/29/16 Ramipril [Altace] 2.5 mg PO DAILY capsule 10/29/16 Rosuvastatin [Crestor -] 10 mg PO HS tablet 10/29/16 Febuxostat [Uloric] 40 mg PO DAILY 10/31/17 Furosemide [Lasix] 40 mg PO DAILY 10/31/17 Guaifenesin AC [Robitussin-AC] 1 - 2 tsp PO Q4HWA PRN #120 ml MDD 8 10/31/17 Metoprolol Succinate [Toprol XL -] 100 mg PO DAILY 10/31/17 Oseltamivir Phosphate [Tamiflu] 75 mg PO BID #10 capsule 10/31/17 *Physical Exam - Vital Signs Last Vital Signs Temp Pulse Resp BP Pulse Ox 97.9 F 83 20 155/85 95 10/31/17 18:52 10/31/17 18:52 10/31/17 18:52 10/31/17 18:52 10/31/17 18:52 <Eneida Robles - Last Filed: 10/31/17 20:02> - Vital Signs Last Vital Signs Temp Pulse Resp BP Pulse Ox 97.9 F 83 20 155/85 95 10/31/17 18:52 10/31/17 18:52 10/31/17 18:52 10/31/17 18:52 10/31/17 18:52 <Tomy Carter - Last Filed: 10/31/17 20:05> Medical Decision Making - Medical Decision Making 10/31/17 19:55 X-ray: Increased interstitial markings, no sign of acute infiltrate/pneumonia Patient feels much better after nebulizer treatment. Respiratory rate 16 and 18 unlabored, O2 saturation remains at 95-96% on room air. Encouraged to continue home nebulizers on a regular basis, treated for influenza , stronger cough suppressant for rest, especially at night. Return to ER if eating worsens, otherwise follow-up with grain merchandiser Dr. Steiner early next week. 10/31/17 20:05 <Tomy Carter - Last Filed: 10/31/17 20:05> *DC/Admit/Observation/Transfer - Attestations Scribe Attestion: 10/31/17 20:02 Documentation prepared by Eneida Robles, acting as medical office specialist for Tomy Bejarano MD. <Eneida Robles - Last Filed: 10/31/17 20:02> - Discharge Dispostion Admit: No <Tomy Carter - Last Filed: 10/31/17 20:05> Diagnosis at time of Disposition: Viral bronchitis - Discharge Dispostion Disposition: HOME Condition at time of disposition: Improved - Prescriptions Prescriptions: Guaifenesin AC [Robitussin-AC] 1 - 2 tsp PO Q4HWA PRN #120 ml MDD 8 PRN Reason: Cough Oseltamivir Phosphate [Tamiflu] 75 mg PO BID #10 capsule - Patient Instructions Printed Discharge Instructions: DI for Acute Bronchitis Additional Instructions: Rest, fluids, Tylenol, cough medication, antiviral drug as directed. Return to ER if there is chest pain or shortness of breath, or high fever. Otherwise follow-up with your grain merchandiser early next week.
== END 2017-10-31 20:12 | disposition home or self-care (01) ==
LOC: FER 18:51
PROC: 3E0F7GC Introduction of Other Therapeutic Substance into Respiratory Tract, Via Natural or Artificial Opening (ICD-10-PCS; principal; 2017-10-31)
DX: J20.8 Acute bronchitis due to other specified organisms (principal); B97.89 Other viral agents as the cause of diseases classified elsewhere; J44.9 Chronic obstructive pulmonary disease, unspecified; I25.10 Atherosclerotic heart disease of native coronary artery without angina pectoris; Z95.5 Presence of coronary angioplasty implant and graft
CPT/HCPCS: 71046-TC; 99282-25

== ENCOUNTER 2017-11-25 13:07 | Observation (INO) | payer BC, OTHER ==
[2017-11-25 13:18] VITALS: BMI 39.9
--- NOTE | 2017-11-25 14:10 | PDOC ---
History of Present Illness <Melissa Sinha - Last Filed: 11/25/17 16:34> - History of Present Illness Initial Comments: 11/25/17 14:06 62 y.o. male with a PMH of CAD (s/p stent x6), HTN, CHF, and COPD (2/2 to secondhand smoke) and morbid obesity presents to our ED c/o witnessed syncopal episode yesterday with head trauma and LOC. Patient notes he was feeling lightheaded yesterday during a cab ride from [place] to [facility]. Patient attended a sporting event and drank 2-3 beers over the course of 4 hours. Patient stated he left the game and a friend told him he fell to the ground hitting his head. Patient is unsure how long he was down and denies any pre-syncopal chest pain, dyspnea or palpitations. Patient further notes that 2- 3 years ago he experienced similar episodes w/LOC that stopped after his Beta lila dose was adjusted. 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 Patient denies any chest pain, shortness of breath, abdominal pain, fevers/ chills, nausea/vomiting and diarrhea/constipation NKDA Surgical: s/p stent x6 Social: denies cigarettes, 3-4 alcoholic drinks weekly, denies recreational drugs PMD: Dr. Martinez, Cardiology: Dr. Domingo <Meryl Landaverde - Last Filed: 11/25/17 18:43> - General Chief Complaint: Syncope/Near Syncope Stated Complaint: INJURY, HEADACHE Time Seen by Provider: 11/25/17 13:40 Past History <Melissa Sinha - Last Filed: 11/25/17 16:34> - Past Medical History Anemia: No Asthma: No Cancer: No Cardiac Disorders: Yes (A Fib) CVA: No COPD: No CHF: No Dementia: No Diabetes: No GI Disorders: Yes (ACID REFLUX) Disorders: No HTN: Yes Hypercholesterolemia: Yes Liver Disease: No Seizures: No Thyroid Disease: No - Surgical History Abdominal Surgery: Yes (HERNIA) Appendectomy: No Cardiac Surgery: Yes (STENTS , 2010,, ) Cholecystectomy: No Lung Surgery: No Neurologic Surgery: No Orthopedic Surgery: No - Immunization History Immunization Up to Date: Yes - Suicide/Smoking/Psychosocial Hx Smoking Status: No Smoking History: Never smoked Have you smoked in the past 12 months: Yes Number of Cigarettes Smoked Daily: 0 Cigars Per Day: 1 'Breaking Loose' booklet given: 10/31/17 Hx Alcohol Use: Yes Drug/Substance Use Hx: No Substance Use Type: None Hx Substance Use Treatment: No <Meryl Landaverde - Last Filed: 11/25/17 18:43> - Past Medical History Allergies/Adverse Reactions: Allergies Allergy/AdvReac Type Severity Reaction Status Date / Time lactose Allergy Mild Verified 11/25/17 13:18 Home Medications: Ambulatory Orders Apixaban [Eliquis] 5 mg PO BID 08/29/16 Rabeprazole Sodium [Aciphex] 20 mg PO DAILY 08/29/16 Ranolazine [Ranexa] 500 mg PO BID 08/29/16 Albuterol Sulfate Inhaler - [Ventolin HFA Inhaler -] 2 puff IH Q4H PRN #1 inhaler 10/29/16 Arformoterol Tartrate [Brovana -] 1 amp NEB BID amp 10/29/16 Loratadine [Claritin -] 10 mg PO HS tablet 10/29/16 Metolazone [Zaroxolyn -] 2.5 mg PO Q2D@1000 #15 tablet 10/29/16 Ramipril [Altace] 2.5 mg PO DAILY capsule 10/29/16 Rosuvastatin [Crestor -] 10 mg PO HS tablet 10/29/16 Febuxostat [Uloric] 40 mg PO DAILY 10/31/17 Furosemide [Lasix] 40 mg PO DAILY 10/31/17 Metoprolol Succinate [Toprol XL -] 100 mg PO DAILY 10/31/17 Review of Systems - Review of Systems Constitutional: No: Chills, Fever HEENTM: No: Recent change in vision Respiratory: No: Shortness of Breath Cardiac (ROS): No: Chest Pain ABD/GI: No: Constipated, Diarrhea, Nausea, Vomiting : No: Burning, Dysuria <Meryl Landaverde - Last Filed: 11/25/17 18:43> *Physical Exam - Vital Signs Last Vital Signs Temp Pulse Resp BP Pulse Ox 98.2 F 75 22 131/92 95 11/25/17 13:14 11/25/17 13:14 11/25/17 13:14 11/25/17 13:14 11/25/17 13:14 <Melissa Sinha - Last Filed: 11/25/17 16:34> - Vital Signs Last Vital Signs Temp Pulse Resp BP Pulse Ox 98.2 F 75 22 131/92 95 11/25/17 13:14 11/25/17 13:14 11/25/17 13:14 11/25/17 13:14 11/25/17 13:14 - Physical Exam Comments: 11/25/17 16:32 GENERAL: Awake, alert, moving all 4 extremities HEAD: L parietal/occipital 2 cm hematoma, no lacerations, lesions, (-) Bernabe sign EYES: PERRLA, EOMI, sclera anicteric, conjunctiva clear ENT: oropharynx clear without exudates. Moist mucosa NECK: Normal ROM, supple, no lymphadenopathy, JVD, or masses LUNGS: Breath sounds equal, clear to auscultation bilaterally. No wheezes, and no crackles HEART: Regular rate and rhythm, normal S1 and S2, no murmurs, rubs or gallops ABDOMEN: Soft, protuberant nontender, normoactive bowel sounds. No guarding, no rebound. No masses EXTREMITIES: Normal range of motion, no edema. No clubbing or cyanosis. BACK: No midline spinal tenderness in cervical/thoracic/lumbar region NEUROLOGICAL: Normal speech, cranial nerves intact, intact DTR, non-ataxic, non- antalgic gait, cerebellar finger to nose intact SKIN: Warm, Dry, normal turgor, no rashes or lesions noted. <SaimaMeryl young - Last Filed: 11/25/17 18:43> ED Treatment Course - LABORATORY CBC & Chemistry Diagram: 11/25/17 14:10 11/25/17 14:13 - ADDITIONAL ORDERS Additional order review: Laboratory Results 11/25/17 11/25/17 11/25/17 15:11 14:13 14:13 PT with INR 23.80 H INR 2.11 H B-Natriuretic Peptide 1913.85 H Blood Type A POSITIVE Antibody Screen Negative 11/25/17 14:10 RBC 4.91 MCV 68.0 L MCHC 31.2 L RDW 22.2 H D MPV 8.3 Neutrophils % 82.1 Lymphocytes % 8.3 Monocytes % 8.2 Eosinophils % 0.6 Basophils % 0.8 <Melissa Sinha - Last Filed: 11/25/17 16:34> - LABORATORY CBC & Chemistry Diagram: 11/25/17 14:10 11/25/17 14:13 - RADIOLOGY Radiology Studies Ordered: Category Date Time Status HEAD CT WITHOUT CONTRAST [CT] Stat CT Scan 11/25/17 14:05 Ordered CHEST PA & LAT [RAD] Stat Radiology 11/25/17 14:05 Ordered <SaimaMeryl - Last Filed: 11/25/17 18:43> Medical Decision Making - Medical Decision Making Patient is a 62 y.o. male who presents to ED c/o syncopal episode with head trauma and LOC. CT Head negative for acute bleed. Patient ambulatory, neurologically intact with normal gait. As patient has h/o of CHF and BNP > 4000, as well as no pre-snycopal prodrome, concern for ventricular arrhythmia. Will admit for further cardiac evaluation. Patient accepted by Dr. Carmichael for inpatient telemetry. 11/25/17 18:41 Patient to be signed out to Dr. Holland (Resident) and Dr. Khan (Attending) for continued monitoring while in ED/pending physical transfer to inpatient medicine floor. <Meryl Landaverde - Last Filed: 11/25/17 18:43> *DC/Admit/Observation/Transfer <Jaron Sinhaie - Last Filed: 11/25/17 16:34> - Discharge Dispostion Admit: Yes <Meryl Landaverde - Last Filed: 11/25/17 18:43> Diagnosis at time of Disposition: Syncope - Discharge Dispostion Condition at time of disposition: Fair - Referrals Referrals: Elisabet Martinez MD [Primary Care Provider] -
[2017-11-25 14:18] LABS: BASO % 0.8 % (0-2.0); EOS % 0.6 % (0-4.5); HEMATOCRIT 33.4 % (35.4-49); HEMOGLOBIN 10.4 GM/dL (11.7-16.9); LYMPH % 8.3 % (8-40); MCH 21.2 pg (25.7-33.7); MCHC 31.2 g/dl (32.0-35.9); MEAN PLT VOLUME 8.3 fl (7.5-11.1); MONO % 8.2 % (3.8-10.2); NEUT % 82.1 % (42.8-82.8); PLATELET COUNT 162 K/MM3 (134-434); RBC 4.91 M/mm3 (4.00-5.60); RDW 22.2 % (11.9-15.9); WHITE BLOOD COUNT 8.1 K/mm3 (4.0-10.0)
[2017-11-25 14:22] LABS: ADD RBC MORPHOLOGY YES
[2017-11-25 14:33] LABS: INR 2.11 (0.82-1.09); PROTHROMBIN TIME (PATIENT) 23.8 SEC (9.98-11.88)
[2017-11-25 16:45] LABS: ALBUMIN 3.4 g/dl (3.4-5.0); ALK PHOS 70 U/L (45-117); ANION GAP 15 (8-16); BILIRUBIN,TOTAL 0.7 mg/dL (0.2-1.0); BLOOD UREA NITROGEN 20 mg/dL (7-18); CALCIUM 7.4 mg/dL (8.5-10.1); CHLORIDE 92 mmol/L (98-107); CO2 27 mmol/L (21-32); GLUCOSE,RANDOM 104 mg/dL (74-106); POTASSIUM 3.3 mmol/L (3.5-5.1); SGOT/AST 20 U/L (15-37); SGPT/ALT 17 U/L (12-78); SODIUM 134 mmol/L (136-145)
--- NOTE | 2017-11-25 17:48 | PDOC ---
Attending Attestation - Resident Resident Name: Meryl Landaverde - ED Attending Attestation I have performed the following: I have examined & evaluated the patient, The case was reviewed & discussed with the resident, I agree w/resident's findings & plan, Exceptions are as noted - HPI HPI: 11/25/17 17:56 62 M with h/o CAD (s/p stent x6), HTN, CHF, and COPD (2/2 to secondhand smoke) and morbid obesity, presenting to ED with syncopal episode yesterday. Pt reports that he had a few drinks prior. He was talking to his friend, who witnessed the episode. He denies any prodrome of lightheadedness, dizziness. Denies CP/SOB/palpitations. States that he remembers waking up on the ground. Denies tongue biting or incontinence. Friend states that he suddenly lost consciousness while talking. Pt endorses hitting his head on the ground. Denies any GREEN currently. Denies N/V. - Physicial Exam PE: 11/25/17 18:10 "GENERAL: Awake, alert, and fully oriented, in no acute distress HEAD: No signs of trauma EYES: PERRLA, EOMI, sclera anicteric, conjunctiva clear ENT: Auricles normal inspection, hearing grossly normal, nares patent, oropharynx clear without exudates. Moist mucosa NECK: Nontender, no stepoffs, Normal ROM, supple, no lymphadenopathy, JVD, or masses LUNGS: Breath sounds equal, clear to auscultation bilaterally. No wheezes, and no crackles HEART: Regular rate and rhythm, normal S1 and S2, no murmurs, rubs or gallops ABDOMEN: Soft, nontender, normoactive bowel sounds. No guarding, no rebound. No masses EXTREMITIES: Normal range of motion, no edema. No clubbing or cyanosis. No cords, erythema, or tenderness NEUROLOGICAL: Cranial nerves II through XII intact. 5/5 strength and sensation in all extremities, Normal speech, normal gait SKIN: Warm, Dry, normal turgor, no rashes or lesions noted. " - Medical Decision Making 11/25/17 18:10 62 M with syncopal episode. EKG with no signs of arrhythmia. However, drop syncope concerning for cardiac etiology, especially given pt significant cardiac history. - Labs, trop - CTH - Admit tele
[2017-11-25 20:07] LABS: ANISOCYTOSIS 3+; PLATELET ESTIMATE ADEQUATE
--- NOTE | 2017-11-25 23:53 | HP ---
Admitting History and Physical - Primary Care Physician PCP: Elisabet Martinez - Admission Chief Complaint: Dizziness History of Present Illness: This is a 62 y/o man with a significant medical history of HTN, HLD, Afib (on eliquis), CAD s/p stents x6, CHF, Sleep Apnea. Who presents to the ED with dizziness, SOB, Syncopal episode, and s/p fall x today. Patient reports feeling dizzy during the morning. He reports +LOC after falling, denies blurred vision. He also reports increased SOB since having the flu 2-3 weeks ago. Patient denies fever, chills, GREEN, CP, palpitations, AP, N/V/D, constipation, dysuria. History Source: Patient Limitations to Obtaining History: No Limitations - Past Medical History Cardiovascular: Yes: AFIB, CAD (s/p stents), CHF, HTN, Hyperlipdemia Pulmonary: Yes: Sleep Apnea - Past Surgical History Past Surgical History: Yes: Stent - Smoking History Smoking history: Never smoked Have you smoked in the past 12 months: Yes Aproximately how many cigarettes per day: 0 - Alcohol/Substance Use Hx Alcohol Use: Yes - Social History ADL: Independent History of Recent Travel: No Home Medications - Allergies Allergies/Adverse Reactions: Allergies Allergy/AdvReac Type Severity Reaction Status Date / Time lactose Allergy Mild Verified 11/25/17 13:18 - Home Medications Home Medications: Ambulatory Orders Apixaban [Eliquis] 5 mg PO BID 08/29/16 Rabeprazole Sodium [Aciphex] 20 mg PO DAILY 08/29/16 Ranolazine [Ranexa] 500 mg PO BID 08/29/16 Albuterol Sulfate Inhaler - [Ventolin HFA Inhaler -] 2 puff IH Q4H PRN #1 inhaler 10/29/16 Arformoterol Tartrate [Brovana -] 1 amp NEB BID amp 10/29/16 Ramipril [Altace] 2.5 mg PO DAILY capsule 10/29/16 Rosuvastatin [Crestor -] 10 mg PO HS tablet 10/29/16 Febuxostat [Uloric] 40 mg PO DAILY 10/31/17 Furosemide [Lasix] 40 mg PO DAILY 10/31/17 Metoprolol Succinate [Toprol XL -] 100 mg PO DAILY 10/31/17 Budesonide/Formeterol Fumarate [SYMBICORT 80/4.5mcg -] 1 inh PO DAILY 11/25/17 Fexofenadine HCl [Nicole Allergy] 60 mg PO DAILY 11/25/17 Family Disease History - Family Disease History Family Disease History: Heart Disease: Mother Review of Systems - Review of Systems Constitutional: reports: No Symptoms Eyes: reports: No Symptoms HENT: reports: No Symptoms Neck: reports: No Symptoms Cardiovascular: reports: Shortness of Breath Respiratory: reports: SOB, SOB on Exertion Gastrointestinal: reports: Diarrhea Genitourinary: reports: No Symptoms, Testicular Pain Musculoskeletal: reports: No Symptoms Integumentary: reports: No Symptoms Neurological: reports: Dizziness, Syncope, Unsteady Gait Endocrine: reports: No Symptoms Hematology/Lymphatic: reports: No Symptoms Psychiatric: reports: No Symptoms Physical Examination Vital Signs: Vital Signs Temperature 98.2 F 11/25/17 13:14 Pulse Rate 70 11/25/17 23:16 Respiratory Rate 18 11/25/17 23:16 Blood Pressure 123/54 11/25/17 23:16 O2 Sat by Pulse Oximetry (%) 97 11/25/17 23:16 Constitutional: Yes: Well Nourished, No Distress, Calm, Obese Eyes: Yes: WNL, Conjunctiva Clear, EOM Intact, PERRL HENT: Yes: WNL, Atraumatic, Normocephalic Neck: Yes: WNL, Supple, Trachea Midline Cardiovascular: Yes: Pulse Irregular, S1, S2 Respiratory: Yes: WNL, Regular, CTA Bilaterally Gastrointestinal: Yes: Soft, Abdomen, Obese ...Rectal Exam: Yes: Deferred Renal/: Yes: WNL Breast(s): Yes: WNL Musculoskeletal: Yes: WNL Extremities: Yes: WNL Edema: Yes Edema: LLE: 3+, RLE: 3+ Peripheral Pulses WNL: Yes Neurological: Yes: WNL, Alert, Oriented, Cran Nerves II-XII Intact ...Motor Strength: WNL Psychiatric: Yes: WNL, Alert, Oriented Labs: CBC, BMP 11/25/17 14:10 11/25/17 14:13 Laboratory Results - last 24 hr 11/25/17 11/25/17 11/25/17 14:10 14:13 14:13 WBC 8.1 RBC 4.91 Hgb 10.4 L Hct 33.4 L MCV 68.0 L MCH 21.2 L MCHC 31.2 L RDW 22.2 H D Plt Count 162 MPV 8.3 Neutrophils % 82.1 Lymphocytes % 8.3 Monocytes % 8.2 Eosinophils % 0.6 Basophils % 0.8 Hypochromia 2+ Platelet Estimate Adequate Platelet Comment No clotting detected Polychromasia 1+ Poikilocytosis 1+ Anisocytosis 3+ Microcytosis 2+ PT with INR 23.80 H INR 2.11 H Sodium 134 L Potassium 3.3 L Chloride 92 L D Carbon Dioxide 27 Anion Gap 15 BUN 20 H Creatinine 1.0 D Creat Clearance w eGFR > 60 Random Glucose 104 D Hemoglobin A1c % Calcium 7.4 L Phosphorus Magnesium Total Bilirubin 0.7 D AST 20 D ALT 17 D Alkaline Phosphatase 70 Creatine Kinase Troponin I B-Natriuretic Peptide Total Protein 7.0 Albumin 3.4 Triglycerides Cholesterol Total LDL Cholesterol HDL Cholesterol Blood Type Antibody Screen 11/25/17 11/25/17 11/25/17 14:13 15:11 15:30 WBC RBC Hgb Hct MCV MCH MCHC RDW Plt Count MPV Neutrophils % Lymphocytes % Monocytes % Eosinophils % Basophils % Hypochromia Platelet Estimate Platelet Comment Polychromasia Poikilocytosis Anisocytosis Microcytosis PT with INR INR Sodium Potassium Chloride Carbon Dioxide Anion Gap BUN Creatinine Creat Clearance w eGFR Random Glucose Hemoglobin A1c % Calcium Phosphorus Magnesium Total Bilirubin AST ALT Alkaline Phosphatase Creatine Kinase 122 Troponin I < 0.02 B-Natriuretic Peptide 1913.85 H Total Protein Albumin Triglycerides Cholesterol Total LDL Cholesterol HDL Cholesterol Blood Type A POSITIVE Antibody Screen Negative 11/26/17 11/26/17 11/26/17 00:45 06:05 06:05 WBC 7.9 RBC 5.03 Hgb 10.6 L Hct 34.9 L MCV 69.5 L MCH 21.1 L MCHC 30.3 L RDW 22.1 H Plt Count 149 MPV 8.5 Neutrophils % 82.7 Lymphocytes % 6.8 L Monocytes % 9.5 Eosinophils % 0.7 Basophils % 0.3 Hypochromia Platelet Estimate Platelet Comment Polychromasia Poikilocytosis Anisocytosis Microcytosis PT with INR INR Sodium 137 Potassium 2.9 L* Chloride 94 L Carbon Dioxide 36 H D Anion Gap 7 L BUN 16 Creatinine 0.8 Creat Clearance w eGFR Random Glucose 103 Hemoglobin A1c % Calcium 8.0 L Phosphorus 2.9 Magnesium 1.4 L Total Bilirubin AST ALT Alkaline Phosphatase Creatine Kinase 110 Troponin I < 0.02 B-Natriuretic Peptide Total Protein Albumin Triglycerides 203 H D Cholesterol 136 Total LDL Cholesterol 81 HDL Cholesterol 32 L Blood Type Antibody Screen 11/26/17 11/26/17 06:05 06:05 WBC RBC Hgb Hct MCV MCH MCHC RDW Plt Count MPV Neutrophils % Lymphocytes % Monocytes % Eosinophils % Basophils % Hypochromia Platelet Estimate Platelet Comment Polychromasia Poikilocytosis Anisocytosis Microcytosis PT with INR INR Sodium Potassium Chloride Carbon Dioxide Anion Gap BUN Creatinine Creat Clearance w eGFR Random Glucose Hemoglobin A1c % 6.4 H D Calcium Phosphorus Magnesium Total Bilirubin AST ALT Alkaline Phosphatase Creatine Kinase 97 Troponin I < 0.02 B-Natriuretic Peptide Total Protein Albumin Triglycerides Cholesterol Total LDL Cholesterol HDL Cholesterol Blood Type Antibody Screen Intake & Output 11/23/17 11/24/17 11/25/17 11/26/17 23:59 23:59 23:59 23:59 Weight 122.47 kg Current Medications Generic Name Dose Route Start Last Admin Trade Name Freq PRN Reason Stop Dose Admin Apixaban 5 mg 11/26/17 00:30 11/26/17 01:18 Eliquis - PO 5 mg BID SELIN Administration Arformoterol Tartrate 1 amp 11/26/17 00:30 11/26/17 01:19 Brovana (Restricted To Pulmonology/Resp) - NEB 1 amp BID SELIN Administration Budesonide/Formoterol Fumarate 1 puff 11/26/17 10:00 Symbicort 80/4.5mcg - IH BID SELIN Febuxostat 40 mg 11/26/17 10:00 Uloric - PO DAILY SELIN Furosemide 40 mg 11/26/17 10:00 Lasix - PO DAILY SELIN Loratadine 10 mg 11/26/17 10:00 Claritin - PO DAILY SELIN Metoprolol Succinate 100 mg 11/26/17 10:00 Toprol Xl - PO DAILY SELIN Pantoprazole Sodium 40 mg 11/26/17 10:00 Protonix - PO DAILY SELIN Ramipril 2.5 mg 11/26/17 10:00 Altace - PO DAILY SELIN Ranolazine 500 mg 11/26/17 00:30 11/26/17 01:19 Ranexa - PO 500 mg BID SELIN Administration Rosuvastatin Calcium 10 mg 11/26/17 00:24 11/26/17 01:18 Crestor - PO 10 mg HS SELIN Administration Imaging - Results Chest X-ray: Report Reviewed, Image Reviewed Cat Scan: Report Reviewed, Image Reviewed EKG: Image Reviewed Problem List - Problems (1) Syncope Code(s): R55 - SYNCOPE AND COLLAPSE (2) Fall Code(s): W19.XXXA - UNSPECIFIED FALL, INITIAL ENCOUNTER (3) Head trauma Code(s): S09.90XA - UNSPECIFIED INJURY OF HEAD, INITIAL ENCOUNTER (4) Acute on chronic diastolic (congestive) heart failure Code(s): I50.33 - ACUTE ON CHRONIC DIASTOLIC (CONGESTIVE) HEART FAILURE (5) Afib Code(s): I48.91 - UNSPECIFIED ATRIAL FIBRILLATION (6) CAD (coronary artery disease) Code(s): I25.10 - ATHSCL HEART DISEASE OF [place] CORONARY ARTERY W/O ANG PCTRS (7) COPD (chronic obstructive pulmonary disease) Code(s): J44.9 - CHRONIC OBSTRUCTIVE PULMONARY DISEASE, UNSPECIFIED Qualifiers: COPD type: unspecified COPD Qualified Code(s): J44.9 - Chronic obstructive pulmonary disease, unspecified (8) GERD (gastroesophageal reflux disease) Code(s): K21.9 - GASTRO-ESOPHAGEAL REFLUX DISEASE WITHOUT ESOPHAGITIS (9) HTN (hypertension) Code(s): I10 - ESSENTIAL (PRIMARY) HYPERTENSION (10) DVT prophylaxis Code(s): [id number] - Assessment/Plan This is a 62 y/o man with a PMHx of: HTN, HLD, CAD (stent x6), CHF, Afib (on Eliquis), TO. Placed on Tele Observation for Syncope. Plan: 1. Syncope - Cardiac monitoring - Head CT- neg ICH, mass or lesion - Serial Enzymes - Echo - Carotid Doppler - Appreciate Cardiology consult - Monitor CBC, BMP - Continue Asa - Fall Precautions 2. Fall - See Above 3. Atrial Fibrillation - Stable - Continue Eliquis - [id number] 3 - EKG- Afib rate controlled, no change compared to prior study 4. CAD - s/p stents x6 - Continue home meds 5. CHF - Acute on Chronic HF - BNP 3 improved from last year (2909) - Chest Xray- cardiomegaly, no pulm volume congestion - Continue home meds - Daily weights - Strict INOs - Elevate extremities 6. Hypertension - Stable - Continue Metoprolol with parameters 7. HLD - Continue Lipitor - Monitor LFTs 8. TO - not on CPAP - Recommend sleep study in outpatient setting 9. FEN - Fluid restrictions - Replete lytes prn - Low Na, Low Cholesterol Diet 10. DVT Prophylaxis - OOB - Continue Eliquis Code Status: Full Code Dispo: Tele Observation Visit type - Emergency Visit Emergency Visit: Yes ED Registration Date: 11/25/17 Care time: The patient presented to the Emergency Department on the above date and was hospitalized for further evaluation of their emergent condition. - New Patient This patient is new to me today: Yes Date on this admission: 11/25/17 - Critical Care Critical Care patient: No
[2017-11-26] MEDS: ROSUVASTATIN CA 10 MG TABLET (FP) PO SCH ×2 (01:18→22:24)
[2017-11-26] MEDS: APIXABAN 5 MG TABLET PO SCH ×3 (01:18→22:23)
[2017-11-26] MEDS: ARFORMOTEROL TARTRATE 15 MCG/2 ML VIAL NEB SCH ×3 (01:19→21:17)
[2017-11-26] MEDS: RANOLAZINE E.R. 500 MG TABLET (FP) PO SCH ×3 (01:19→22:23)
[2017-11-26 07:17] LABS: ANION GAP 7 (8-16); BLOOD UREA NITROGEN 16 mg/dL (7-18); CHLORIDE 94 mmol/L (98-107); CHOLESTEROL 136 mg/dL (50-200); CO2 36 mmol/L (21-32); CREATININE 0.8 mg/dL (0.7-1.3); GLUCOSE,RANDOM 103 mg/dL (74-106); LDL CHOLESTEROL (ONLY SJRH) 81 mg/dL (5-100); MAGNESIUM 1.4 mg/dL (1.8-2.4); PHOSPHOROUS 2.9 mg/dL (2.5-4.9); SODIUM 137 mmol/L (136-145); TRIGLYCERIDES 203 mg/dL (35-160)
[2017-11-26 07:19] LABS: HDL CHOLESTEROL 32 mg/dL (40-60)
[2017-11-26 07:58] LABS: POTASSIUM 2.9 mmol/L (3.5-5.1)
[2017-11-26 08:03] LABS: BASO % 0.3 % (0-2.0); EOS % 0.7 % (0-4.5); HEMATOCRIT 34.9 % (35.4-49); HEMOGLOBIN 10.6 GM/dL (11.7-16.9); LYMPH % 6.8 % (8-40); MCH 21.1 pg (25.7-33.7); MCHC 30.3 g/dl (32.0-35.9); MEAN CELL VOLUME 69.5 fl (80-96); MEAN PLT VOLUME 8.5 fl (7.5-11.1); MONO % 9.5 % (3.8-10.2); NEUT % 82.7 % (42.8-82.8); PLATELET COUNT 149 K/MM3 (134-434); RBC 5.03 M/mm3 (4.00-5.60); RDW 22.1 % (11.9-15.9); WHITE BLOOD COUNT 7.9 K/mm3 (4.0-10.0)
--- NOTE | 2017-11-26 09:00 | CON.CARD ---
Consult Consult Specialty:: Cardilogy Referred by:: Dr. Martinez Reason for Consultation:: Syncope - History of Present Illness Chief Complaint: I passed out History of Present Illness: 62 M well known to me: Chronic AF on AC Chronic diastolic CHF CAD s/p PCI COPD Morbid Obesity HTN GERD Went to [employer] (now [employer] and floyd syncopal episode getting out of cab. States he had been drinking "some" and denies antecedent chest pain, SOB, palps. Came to ER to get head CT, because he is on AC and knows to do that from prior falls. He wants to go home, but has significant electrolyte derangements: markedly low K+, Mg2+ with prolonged QT on ECG likely from electrolytes. - History Source History Provided By: Patient, Medical Record - Past Medical History Cardio/Vascular: Yes: AFIB, CAD (s/p stents), CHF (chronic diatolic. ), HTN, Hyperlipdemia Pulmonary: Yes: Sleep Apnea Gastrointestinal: Yes: GERD - Past Surgical History Past Surgical History: Yes: Stent - Alcohol/Substance Use Hx Alcohol Use: Yes - Smoking History Smoking history: Never smoked Have you smoked in the past 12 months: Yes Aproximately how many cigarettes per day: 0 - Social History ADL: Independent History of Recent Travel: No Home Medications - Allergies Allergies/Adverse Reactions: Allergies Allergy/AdvReac Type Severity Reaction Status Date / Time lactose Allergy Mild Verified 11/25/17 13:18 - Home Medications Home Medications: Ambulatory Orders Apixaban [Eliquis] 5 mg PO BID 08/29/16 Rabeprazole Sodium [Aciphex] 20 mg PO DAILY 08/29/16 Ranolazine [Ranexa] 500 mg PO BID 08/29/16 Albuterol Sulfate Inhaler - [Ventolin HFA Inhaler -] 2 puff IH Q4H PRN #1 inhaler 10/29/16 Arformoterol Tartrate [Brovana -] 1 amp NEB BID amp 10/29/16 Ramipril [Altace] 2.5 mg PO DAILY capsule 10/29/16 Rosuvastatin [Crestor -] 10 mg PO HS tablet 10/29/16 Febuxostat [Uloric] 40 mg PO DAILY 10/31/17 Furosemide [Lasix] 40 mg PO DAILY 10/31/17 Metoprolol Succinate [Toprol XL -] 100 mg PO DAILY 10/31/17 Budesonide/Formeterol Fumarate [SYMBICORT 80/4.5mcg -] 1 inh PO DAILY 11/25/17 Fexofenadine HCl [Nicole Allergy] 60 mg PO DAILY 11/25/17 Family Disease History - Family Disease History Family History: Unremarkable Review of Systems - Review of Systems Cardiovascular: reports: Shortness of Breath (chronic TIPTON) Respiratory: reports: SOB on Exertion (chronic TIPTON, unchanged) Neurological: reports: No Symptoms Endocrine: reports: No Symptoms Hematology/Lymphatic: reports: No Symptoms Psychiatric: reports: No Symptoms - Risk Factors Known Risk Factors: Yes: Diabetes Mellitus, Hypercholesterolemia, Hypertension, Other (known CAD) Vital Signs: Vital Signs Temperature 98.6 F 11/26/17 07:27 Pulse Rate 73 11/26/17 07:27 Respiratory Rate 16 11/26/17 07:27 Blood Pressure 150/74 11/26/17 07:27 O2 Sat by Pulse Oximetry (%) 97 11/26/17 07:27 Constitutional: Yes: Calm Eyes: Yes: Conjunctiva Clear, EOM Intact HENT: Yes: Atraumatic, Normocephalic Neck: Yes: Supple, Trachea Midline Respiratory: Yes: CTA Bilaterally Gastrointestinal: Yes: Soft, Abdomen, Obese Cardiovascular: Yes: Pulse Irregular JVD: No Carotid Bruit: No PMI: Non-Displaced Heart Sounds: Yes: S1, S2 (irregular) Edema: Yes Edema: LLE: 1+, RLE: 1+ Neurological: Yes: Alert, Oriented ...Motor Strength: WNL - Other Data Labs, Other Data: CBC, BMP 11/26/17 06:05 11/26/17 06:05 INR, PTT INR 2.11 (0.82-1.09) H 11/25/17 14:13 Troponin, BNP 11/25/17 11/25/17 11/26/17 15:11 15:30 00:45 Troponin I < 0.02 < 0.02 B-Natriuretic Peptide 1913.85 H 11/26/17 06:05 Troponin I < 0.02 B-Natriuretic Peptide Troponin, BNP 11/25/17 11/25/17 11/26/17 15:11 15:30 00:45 Troponin I < 0.02 < 0.02 B-Natriuretic Peptide 1913.85 H 11/26/17 06:05 Troponin I < 0.02 B-Natriuretic Peptide Laboratory Tests 11/25/17 11/25/17 11/26/17 14:13 15:30 00:45 WBC Hgb Plt Count INR 2.11 H Potassium Creatinine Magnesium Creatine Kinase 122 110 Troponin I < 0.02 < 0.02 11/26/17 11/26/17 11/26/17 06:05 06:05 06:05 WBC 7.9 Hgb 10.6 L Plt Count 149 INR Potassium 2.9 L* Creatinine 0.8 Magnesium 1.4 L Creatine Kinase 97 Troponin I < 0.02 AF, NSST changes. Prolonged QT Echo: Pending Prior Cardiac Procedures: PTCA with Stent Ejection Fraction %: LVEF > or = 40 % Imaging - Results Chest X-ray: Image Reviewed EKG: Image Reviewed Assessment/Plan IMP: AF on AC CAD s/p PCI Chronic diastolic CHF COPD Syncopal episode: ?alcohol related? vs. orthostasis vs. arrhythmia Hypokalemia and hypomagnesemia REC: Tele x 24 hours Repleting K+ and Mg2+ Serial ECGs to assure QT normalizes with electrolyte correction Echo Counselling on maintaining adequate hydration and ETOH.
[2017-11-26] MEDS ORDERED: MAGNESIUM 1GM/D5W - 1 GM/100 ML IVPB IVPB ONE (09:45)
[2017-11-26] MEDS: KCL 10 MEQ IVPB 10 MEQ/100 ML INFUS.BAG IVPB SCH ×2 (09:57→22:22)
[2017-11-26] MEDS ORDERED: KCL 10 MEQ IVPB 10 MEQ/100 ML INFUS.BAG IVPB ONE (09:58)
[2017-11-26] MEDS ORDERED: MAGNESIUM SULF 50% (8.12 MEQ/2 ML-1 GM VIAL) ONE (09:58)
[2017-11-26] MEDS ORDERED: BUDESONIDE/FORMETEROL FUMARATE 80/4.5 mcg INHALER IH SCH (10:00)
[2017-11-26] MEDS: PANTOPRAZOLE 40 MG TABLET (FP) PO SCH (10:00)
[2017-11-26] MEDS: BUDESONIDE/FORMETEROL FUMARATE 80/4.5 mcg INHALER IH SCH ×2 (10:00→22:23)
[2017-11-26] MEDS ORDERED: PANTOPRAZOLE 40 MG TABLET (FP) ONE (10:01)
[2017-11-26] MEDS: FEBUXOSTAT 40 MG TAB PO SCH (10:02)
[2017-11-26] MEDS: LORATADINE 10 MG TABLET PO SCH (10:02)
[2017-11-26] MEDS: RAMIPRIL 2.5 MG CAPSULE (FP) PO SCH (10:03)
--- NOTE | 2017-11-26 14:16 | EKG ---
Test Reason : Blood Pressure : / mmHG Vent. Rate : 062 BPM Atrial Rate : 074 BPM P-R Int : 000 ms QRS Dur : 096 ms QT Int : 480 ms P-R-T Axes : 000 062 129 degrees QTc Int : 487 ms ATRIAL FIBRILLATION NONSPECIFIC ST AND T WAVE ABNORMALITY PROLONGED QT ABNORMAL ECG WHEN COMPARED WITH ECG OF 28-OCT-2016 03:55, INVERTED T WAVES HAVE REPLACED NONSPECIFIC T WAVE ABNORMALITY IN ANTERIOR LEADS Confirmed by JB ORO MD ([id number]) on 11/26/2017 2:16:10 PM Referred By: Confirmed By:JB ORO MD
[2017-11-26] MEDS ORDERED: POTASSIUM CHLORIDE TABS 20 MEQ TABLET.ER (FP) PO ONE ×2 (14:45→18:30)
[2017-11-26 17:32] LABS: ANION GAP 9 (8-16); CHLORIDE 94 mmol/L (98-107); CO2 33 mmol/L (21-32); CREATININE 0.9 mg/dL (0.7-1.3); GLUCOSE,RANDOM 186 mg/dL (74-106); MAGNESIUM 1.7 mg/dL (1.8-2.4); SODIUM 136 mmol/L (136-145)
--- NOTE | 2017-11-26 17:34 | PN ---
Progress Note, Physician Chief Complaint: awake alert denies dizziness - Current Medication List Current Medications: Active Medications Apixaban (Eliquis -) 5 mg PO BID [facility] Last Admin: 11/26/17 10:05 Dose: 5 mg Arformoterol Tartrate (Brovana (Restricted To Pulmonology/Resp) -) 1 amp NEB BID [facility] Last Admin: 11/26/17 10:04 Dose: 1 amp Aspirin (Asa -) 81 mg PO DAILY [facility] Budesonide/Formoterol Fumarate (Symbicort 80/4.5mcg -) 1 puff IH BID [facility] Last Admin: 11/26/17 10:00 Dose: Not Given Febuxostat (Uloric -) 40 mg PO DAILY [facility] Last Admin: 11/26/17 10:02 Dose: 40 mg Furosemide (Lasix -) 40 mg PO DAILY [facility] Loratadine (Claritin -) 10 mg PO DAILY [facility] Last Admin: 11/26/17 10:02 Dose: 10 mg Metoprolol Succinate (Toprol Xl -) 100 mg PO DAILY [facility] Last Admin: 11/26/17 10:02 Dose: 100 mg Pantoprazole Sodium (Protonix -) 40 mg PO DAILY [facility] Last Admin: 11/26/17 10:00 Dose: 40 mg Ramipril (Altace -) 2.5 mg PO DAILY [facility] Last Admin: 11/26/17 10:03 Dose: 2.5 mg Ranolazine (Ranexa -) 500 mg PO BID [facility] Last Admin: 11/26/17 10:05 Dose: 500 mg Rosuvastatin Calcium (Crestor -) 10 mg PO [facility] Last Admin: 11/26/17 01:18 Dose: 10 mg - Objective Vital Signs: Vital Signs Temperature 98.2 F 11/26/17 11:48 Pulse Rate 84 11/26/17 16:15 Respiratory Rate 18 11/26/17 11:48 Blood Pressure 125/64 11/26/17 16:15 O2 Sat by Pulse Oximetry (%) 97 11/26/17 07:27 Constitutional: Yes: Mild Distress Eyes: Yes: WNL HENT: Yes: WNL Neck: Yes: WNL Cardiovascular: Yes: Pulse Irregular Respiratory: Yes: WNL Gastrointestinal: Yes: WNL Genitourinary: Yes: WNL Musculoskeletal: Yes: WNL Extremities: Yes: WNL Edema: Yes Peripheral Pulses WNL: Yes Integumentary: Yes: WNL Wound/Incision: Yes: Clean/Dry Neurological: Yes: WNL ...Motor Strength: WNL Psychiatric: Yes: WNL Labs: CBC, BMP 11/26/17 06:05 INR, PTT INR 2.11 (0.82-1.09) H 11/25/17 14:13 Problem List - Problems (1) DVT prophylaxis Code(s): [id number] - (2) Syncope Code(s): R55 - SYNCOPE AND COLLAPSE Qualifiers: Syncope type: unspecified Qualified Code(s): R55 - Syncope and collapse (3) Afib Code(s): I48.91 - UNSPECIFIED ATRIAL FIBRILLATION Qualifiers: Atrial fibrillation type: paroxysmal Qualified Code(s): I48.0 - Paroxysmal atrial fibrillation Assessment/Plan monitor on telemetry for observation cardiology eval echo/carotid pending dc planning tomorrow if normal results
[2017-11-26 17:49] LABS: BLOOD UREA NITROGEN 14 mg/dL (7-18); CALCIUM 8.1 mg/dL (8.5-10.1)
--- NOTE | 2017-11-26 17:57 | HOSP ---
Physical Examination Vital Signs: Vital Signs Temperature 98.2 F 11/26/17 11:48 Pulse Rate 84 11/26/17 16:15 Respiratory Rate 18 11/26/17 11:48 Blood Pressure 125/64 11/26/17 16:15 O2 Sat by Pulse Oximetry (%) 97 11/26/17 07:27 Findings/Remarks: Called by RN that repeat BMP at 4pm shows potassium of 3, magnesium of 1.7. Kdur 40meq given at 4:05pm Replete Mg with MgOx 400mg po once. Recheck BMP, Mg in AM Labs: CBC, BMP 11/26/17 06:05 11/26/17 16:00
[2017-11-26] MEDS ORDERED: MAGNESIUM OXIDE 400 MG TABLET (FP) PO ONE (18:00)
[2017-11-26 22:52] LABS: ALBUMIN 3.2 g/dl (3.4-5.0); ALK PHOS 64 U/L (45-117); ANION GAP 6 (8-16); BILIRUBIN,TOTAL 0.6 mg/dL (0.2-1.0); BLOOD UREA NITROGEN 12 mg/dL (7-18); CALCIUM 7.9 mg/dL (8.5-10.1); CHLORIDE 98 mmol/L (98-107); CO2 34 mmol/L (21-32); GLUCOSE,RANDOM 118 mg/dL (74-106); POTASSIUM 3.4 mmol/L (3.5-5.1); SGOT/AST 13 U/L (15-37); SGPT/ALT 16 U/L (12-78); SODIUM 138 mmol/L (136-145); TOT PROT 6.7 g/dl (6.4-8.2)
[2017-11-27 06:42] LABS: HEMATOCRIT 32.9 % (35.4-49); HEMOGLOBIN 10.3 GM/dL (11.7-16.9); MCH 21.7 pg (25.7-33.7); MCHC 31.4 g/dl (32.0-35.9); MEAN CELL VOLUME 69.1 fl (80-96); MEAN PLT VOLUME 8.9 fl (7.5-11.1); PLATELET COUNT 164 K/MM3 (134-434); RBC 4.76 M/mm3 (4.00-5.60); RDW 22.2 % (11.9-15.9); WHITE BLOOD COUNT 6.7 K/mm3 (4.0-10.0)
[2017-11-27 07:01] LABS: ANION GAP 8 (8-16); BLOOD UREA NITROGEN 12 mg/dL (7-18); CALCIUM 8.8 mg/dL (8.5-10.1); CHLORIDE 100 mmol/L (98-107); CO2 33 mmol/L (21-32); GLUCOSE,RANDOM 114 mg/dL (74-106); MAGNESIUM 1.7 mg/dL (1.8-2.4); POTASSIUM 3.5 mmol/L (3.5-5.1); SODIUM 141 mmol/L (136-145)
[2017-11-27 07:03] LABS: CREATININE 0.8 mg/dL (0.7-1.3)
[2017-11-27] MEDS ORDERED: PT OWN MED DRAWER 7, Y5N ONE (08:35)
--- NOTE | 2017-11-27 09:04 | PN ---
Progress Note, Physician History of Present Illness: Chronic AF on AC Chronic diastolic CHF CAD s/p PCI COPD Morbid Obesity HTN GERD Went to [employer] and floyd syncopal episode getting out of cab. States he had been drinking "some" and denies antecedent chest pain, SOB, palps. Came to ER to get head CT, because he is on AC and knows to do that from prior falls. He wants to go home, but has significant electrolyte derangements: markedly low K+, Mg2+ with prolonged QT on ECG likely from electrolytes. - Current Medication List Current Medications: Active Medications Apixaban (Eliquis -) 5 mg PO BID [facility] Last Admin: 11/26/17 22:23 Dose: 5 mg Arformoterol Tartrate (Brovana (Restricted To Pulmonology/Resp) -) 1 amp NEB BID [facility] Last Admin: 11/26/17 21:17 Dose: 1 amp Aspirin (Asa -) 81 mg PO DAILY [facility] Budesonide/Formoterol Fumarate (Symbicort 80/4.5mcg -) 1 puff IH BID [facility] Last Admin: 11/26/17 22:23 Dose: 1 puff Febuxostat (Uloric -) 40 mg PO DAILY [facility] Last Admin: 11/26/17 10:02 Dose: 40 mg Furosemide (Lasix -) 40 mg PO DAILY [facility] Loratadine (Claritin -) 10 mg PO DAILY [facility] Last Admin: 11/26/17 10:02 Dose: 10 mg Metoprolol Succinate (Toprol Xl -) 100 mg PO DAILY [facility] Last Admin: 11/26/17 10:02 Dose: 100 mg Pantoprazole Sodium (Protonix -) 40 mg PO DAILY [facility] Last Admin: 11/26/17 10:00 Dose: 40 mg Ramipril (Altace -) 2.5 mg PO DAILY [facility] Last Admin: 11/26/17 10:03 Dose: 2.5 mg Ranolazine (Ranexa -) 500 mg PO BID [facility] Last Admin: 11/26/17 22:23 Dose: 500 mg Rosuvastatin Calcium (Crestor -) 10 mg PO HS [facility] Last Admin: 11/26/17 22:24 Dose: 10 mg - Objective Vital Signs: Vital Signs Temperature 98.1 F 11/27/17 02:00 Pulse Rate 81 11/27/17 06:00 Respiratory Rate 18 11/27/17 06:00 Blood Pressure 144/88 11/27/17 06:00 O2 Sat by Pulse Oximetry (%) 97 11/26/17 07:27 Eyes: Yes: WNL, Conjunctiva Clear, EOM Intact HENT: Yes: WNL, Atraumatic, Normocephalic Neck: Yes: WNL, Supple, Trachea Midline Cardiovascular: Yes: Pulse Irregular Respiratory: Yes: WNL, Regular, CTA Bilaterally Gastrointestinal: Yes: WNL, Normal Bowel Sounds Genitourinary: Yes: WNL Musculoskeletal: Yes: WNL Extremities: Yes: WNL Edema: No Integumentary: Yes: WNL Neurological: Yes: WNL, Alert, Oriented ...Motor Strength: WNL Psychiatric: Yes: WNL Labs: CBC, BMP 11/27/17 05:05 11/27/17 05:05 INR, PTT INR 2.11 (0.82-1.09) H 11/25/17 14:13 Assessment/Plan IMP: AF on AC CAD s/p PCI Chronic diastolic CHF COPD Syncopal episode: ?alcohol related? vs. orthostasis vs. arrhythmia Hypokalemia and hypomagnesemia REC: Tele x 24 hours Repleting K+ and Mg2+ Serial ECGs to assure QT normalizes with electrolyte correction Echo Counselling on maintaining adequate hydration and ETOH.
[2017-11-27] MEDS: RANOLAZINE E.R. 500 MG TABLET (FP) PO SCH ×2 (09:18→21:33)
[2017-11-27] MEDS: FEBUXOSTAT 40 MG TAB PO SCH (09:19)
[2017-11-27] MEDS: PANTOPRAZOLE 40 MG TABLET (FP) PO SCH (09:19)
[2017-11-27] MEDS: ASPIRIN 81 MG CHEWABLE TABLETS PO SCH (09:19)
[2017-11-27] MEDS: APIXABAN 5 MG TABLET PO SCH ×2 (09:19→21:33)
[2017-11-27] MEDS: LORATADINE 10 MG TABLET PO SCH (09:19)
[2017-11-27] MEDS: RAMIPRIL 2.5 MG CAPSULE (FP) PO SCH (09:19)
[2017-11-27] MEDS: BUDESONIDE/FORMETEROL FUMARATE 80/4.5 mcg INHALER IH SCH ×2 (09:20→21:33)
[2017-11-27] MEDS: ARFORMOTEROL TARTRATE 15 MCG/2 ML VIAL NEB SCH ×2 (09:30→20:35)
[2017-11-27] MEDS: FUROSEMIDE 40 MG TABLET (FP) PO SCH (10:31)
[2017-11-27] MEDS ORDERED: MAGNESIUM 1GM/D5W 100ML - 100 ML IVPB IVPB ONE (13:10)
--- NOTE | 2017-11-27 13:14 | PN ---
Progress Note, Physician History of Present Illness: no complaints wants to go home - Current Medication List Current Medications: Active Medications Apixaban (Eliquis -) 5 mg PO BID [facility] Last Admin: 11/27/17 09:19 Dose: 5 mg Arformoterol Tartrate (Brovana (Restricted To Pulmonology/Resp) -) 1 amp NEB BID [facility] Last Admin: 11/27/17 09:30 Dose: 1 amp Aspirin (Asa -) 81 mg PO DAILY [facility] Last Admin: 11/27/17 09:19 Dose: 81 mg Budesonide/Formoterol Fumarate (Symbicort 80/4.5mcg -) 1 puff IH BID [facility] Last Admin: 11/27/17 09:20 Dose: 1 puff Febuxostat (Uloric -) 40 mg PO DAILY [facility] Last Admin: 11/27/17 09:19 Dose: 40 mg Furosemide (Lasix -) 40 mg PO DAILY [facility] Last Admin: 11/27/17 10:31 Dose: 40 mg Loratadine (Claritin -) 10 mg PO DAILY [facility] Last Admin: 11/27/17 09:19 Dose: 10 mg Magnesium Sulfate (Magnesium Sulfate) 1 gm IVPB ONCE ONE Stop: 11/27/17 13:11 Metoprolol Succinate (Toprol Xl -) 100 mg PO DAILY [facility] Last Admin: 11/27/17 09:19 Dose: 100 mg Pantoprazole Sodium (Protonix -) 40 mg PO DAILY [facility] Last Admin: 11/27/17 09:19 Dose: 40 mg Potassium Chloride (K-Dur -) 20 meq PO DAILY [facility] Ramipril (Altace -) 2.5 mg PO DAILY [facility] Last Admin: 11/27/17 09:19 Dose: 2.5 mg Ranolazine (Ranexa -) 500 mg PO BID [facility] Last Admin: 11/27/17 09:18 Dose: 500 mg Rosuvastatin Calcium (Crestor -) 10 mg PO HS [facility] Last Admin: 11/26/17 22:24 Dose: 10 mg - Objective Vital Signs: Vital Signs Temperature 98.4 F 11/27/17 10:00 Pulse Rate 84 11/27/17 10:34 Respiratory Rate 18 11/27/17 10:00 Blood Pressure 144/82 11/27/17 10:34 O2 Sat by Pulse Oximetry (%) 97 11/26/17 07:27 Cardiovascular: Yes: S1, S2 Respiratory: Yes: Regular, CTA Bilaterally Gastrointestinal: Yes: Normal Bowel Sounds, Soft Labs: CBC, BMP 11/27/17 05:05 11/27/17 05:05 INR, PTT INR 2.11 (0.82-1.09) H 11/25/17 14:13 Problem List - Problems (1) Electrolyte abnormality Assessment/Plan: correct k and mag follow labs Code(s): E87.8 - OTH DISORDERS OF ELECTROLYTE AND FLUID BALANCE, NEC (2) Prolonged QT interval Assessment/Plan: maybe due to electrolytes follow ekg Code(s): R94.31 - ABNORMAL ELECTROCARDIOGRAM [ECG] [EKG] (3) Syncope Assessment/Plan: recurrent tele cardio Code(s): R55 - SYNCOPE AND COLLAPSE Qualifiers: Syncope type: unspecified Qualified Code(s): R55 - Syncope and collapse (4) Afib Assessment/Plan: on Coumadin therapeutic rate controlled Code(s): I48.91 - UNSPECIFIED ATRIAL FIBRILLATION Qualifiers: Atrial fibrillation type: paroxysmal Qualified Code(s): I48.0 - Paroxysmal atrial fibrillation
[2017-11-27] MEDS: POTASSIUM CHLORIDE TABS 20 MEQ TABLET.ER (FP) PO SCH (13:46)
--- NOTE | 2017-11-27 16:04 | EKG ---
Test Reason : Blood Pressure : / mmHG Vent. Rate : 081 BPM Atrial Rate : 375 BPM P-R Int : 000 ms QRS Dur : 096 ms QT Int : 482 ms P-R-T Axes : 000 075 082 degrees QTc Int : 559 ms ATRIAL FIBRILLATION NONSPECIFIC ST AND T WAVE ABNORMALITY PROLONGED QT ABNORMAL ECG WHEN COMPARED WITH ECG OF 25-NOV-2017 13:43, CURRENT UNDETERMINED RHYTHM PRECLUDES RHYTHM COMPARISON, NEEDS REVIEW T WAVE INVERSION NO LONGER EVIDENT IN ANTERIOR LEADS QT HAS LENGTHENED Confirmed by ANYA LOUIS, MCKAY ([id number]) on 11/27/2017 4:04:07 PM Referred By: Confirmed By:MCKAY JOYNER MD
--- NOTE | 2017-11-27 16:06 | EKG ---
Test Reason : Blood Pressure : / mmHG Vent. Rate : 079 BPM Atrial Rate : 101 BPM P-R Int : 000 ms QRS Dur : 096 ms QT Int : 428 ms P-R-T Axes : 000 044 064 degrees QTc Int : 490 ms ATRIAL FIBRILLATION WITH A COMPETING JUNCTIONAL PACEMAKER WITH PREMATURE VENTRICULAR OR ABERRANTLY CONDUCTED COMPLEXES NONSPECIFIC ST AND T WAVE ABNORMALITY PROLONGED QT ABNORMAL ECG WHEN COMPARED WITH ECG OF 26-NOV-2017 17:45, QT HAS SHORTENED Confirmed by ANYA LOUIS, MCKAY ([id number]) on 11/27/2017 4:05:42 PM Referred By: Confirmed By:MCKAY JOYNER MD
[2017-11-27] MEDS: ROSUVASTATIN CA 10 MG TABLET (FP) PO SCH (21:33)
[2017-11-28 06:06] VITALS: TEMP 98.1
[2017-11-28 06:46] LABS: ANION GAP 7 (8-16); BLOOD UREA NITROGEN 13 mg/dL (7-18); CALCIUM 8.2 mg/dL (8.5-10.1); CHLORIDE 100 mmol/L (98-107); CO2 32 mmol/L (21-32); CREATININE 0.9 mg/dL (0.7-1.3); GLUCOSE,RANDOM 111 mg/dL (74-106); MAGNESIUM 1.4 mg/dL (1.8-2.4); SODIUM 139 mmol/L (136-145)
[2017-11-28] MEDS ORDERED: PT OWN MED DRAWER 7, Y5N ONE ×2 (08:58→11:03)
--- NOTE | 2017-11-28 09:08 | PN ---
Progress Note, Physician History of Present Illness: Chronic AF on AC Chronic diastolic CHF CAD s/p PCI COPD Morbid Obesity HTN GERD Went to [employer] and [place] syncopal episode getting out of cab. States he had been drinking "some" and denies antecedent chest pain, SOB, palps. Came to ER to get head CT, because he is on AC and knows to do that from prior falls. He wants to go home, but has significant electrolyte derangements: markedly low K+, Mg2+ with prolonged QT on ECG likely from electrolytes. - Current Medication List Current Medications: Active Medications Apixaban (Eliquis -) 5 mg PO BID [facility] Last Admin: 11/27/17 21:33 Dose: 5 mg Arformoterol Tartrate (Brovana (Restricted To Pulmonology/Resp) -) 1 amp NEB BID [facility] Last Admin: 11/27/17 20:35 Dose: 1 amp Aspirin (Asa -) 81 mg PO DAILY [facility] Last Admin: 11/27/17 09:19 Dose: 81 mg Budesonide/Formoterol Fumarate (Symbicort 80/4.5mcg -) 1 puff IH BID [facility] Last Admin: 11/27/17 21:33 Dose: 1 puff Febuxostat (Uloric -) 40 mg PO DAILY [facility] Last Admin: 11/27/17 09:19 Dose: 40 mg Furosemide (Lasix -) 40 mg PO DAILY [facility] Last Admin: 11/27/17 10:31 Dose: 40 mg Loratadine (Claritin -) 10 mg PO DAILY [facility] Last Admin: 11/27/17 09:19 Dose: 10 mg Metoprolol Succinate (Toprol Xl -) 100 mg PO DAILY [facility] Last Admin: 11/27/17 09:19 Dose: 100 mg Pantoprazole Sodium (Protonix -) 40 mg PO DAILY [facility] Last Admin: 11/27/17 09:19 Dose: 40 mg Potassium Chloride (K-Dur -) 20 meq PO DAILY [facility] Last Admin: 11/27/17 13:46 Dose: 20 meq Ramipril (Altace -) 2.5 mg PO DAILY [facility] Last Admin: 11/27/17 09:19 Dose: 2.5 mg Ranolazine (Ranexa -) 500 mg PO BID [facility] Last Admin: 11/27/17 21:33 Dose: 500 mg Rosuvastatin Calcium (Crestor -) 10 mg PO HS [facility] Last Admin: 11/27/17 21:33 Dose: 10 mg - Objective Vital Signs: Vital Signs Temperature 98.1 F 11/28/17 06:00 Pulse Rate 76 11/28/17 06:00 Respiratory Rate 20 11/28/17 06:00 Blood Pressure 141/78 11/28/17 06:00 O2 Sat by Pulse Oximetry (%) 96 11/27/17 23:00 Eyes: Yes: WNL, Conjunctiva Clear, EOM Intact HENT: Yes: WNL, Atraumatic, Normocephalic Neck: Yes: WNL, Supple, Trachea Midline Cardiovascular: Yes: WNL, Regular Rate and Rhythm Respiratory: Yes: WNL, Regular, CTA Bilaterally Gastrointestinal: Yes: WNL, Normal Bowel Sounds Genitourinary: Yes: WNL Musculoskeletal: Yes: WNL Extremities: Yes: WNL Edema: No Integumentary: Yes: WNL Neurological: Yes: WNL, Alert, Oriented ...Motor Strength: WNL Psychiatric: Yes: WNL Labs: CBC, BMP 11/27/17 05:05 11/28/17 05:00 INR, PTT INR 2.11 (0.82-1.09) H 11/25/17 14:13 Assessment/Plan IMP: AF on AC CAD s/p PCI Chronic diastolic CHF COPD Syncopal episode: ?alcohol related? vs. orthostasis vs. arrhythmia Hypokalemia and hypomagnesemia REC: Tele x 24 hours Repleting K+ and Mg2+ Serial ECGs to assure QT normalizes with electrolyte correction Echo Counselling on maintaining adequate hydration and ETOH.
[2017-11-28] MEDS: ARFORMOTEROL TARTRATE 15 MCG/2 ML VIAL NEB SCH (09:10)
[2017-11-28] MEDS: RANOLAZINE E.R. 500 MG TABLET (FP) PO SCH (09:19)
[2017-11-28] MEDS: PANTOPRAZOLE 40 MG TABLET (FP) PO SCH (09:19)
[2017-11-28] MEDS: FUROSEMIDE 40 MG TABLET (FP) PO SCH (09:19)
[2017-11-28] MEDS: POTASSIUM CHLORIDE TABS 20 MEQ TABLET.ER (FP) PO SCH (09:19)
[2017-11-28] MEDS: ASPIRIN 81 MG CHEWABLE TABLETS PO SCH (09:19)
[2017-11-28] MEDS: APIXABAN 5 MG TABLET PO SCH (09:19)
[2017-11-28] MEDS: LORATADINE 10 MG TABLET PO SCH (09:19)
[2017-11-28] MEDS: FEBUXOSTAT 40 MG TAB PO SCH (09:19)
[2017-11-28] MEDS: RAMIPRIL 2.5 MG CAPSULE (FP) PO SCH (09:19)
[2017-11-28] MEDS: BUDESONIDE/FORMETEROL FUMARATE 80/4.5 mcg INHALER IH SCH (09:22)
--- NOTE | 2017-11-28 10:17 | PN ---
Progress Note, Physician Chief Complaint: syncope History of Present Illness: NAD - Current Medication List Current Medications: Active Medications Apixaban (Eliquis -) 5 mg PO BID [facility] Last Admin: 11/28/17 09:19 Dose: 5 mg Arformoterol Tartrate (Brovana (Restricted To Pulmonology/Resp) -) 1 amp NEB BID [facility] Last Admin: 11/28/17 09:10 Dose: 1 amp Aspirin (Asa -) 81 mg PO DAILY [facility] Last Admin: 11/28/17 09:19 Dose: 81 mg Budesonide/Formoterol Fumarate (Symbicort 80/4.5mcg -) 1 puff IH BID [facility] Last Admin: 11/28/17 09:22 Dose: 1 puff Febuxostat (Uloric -) 40 mg PO DAILY [facility] Last Admin: 11/28/17 09:19 Dose: 40 mg Furosemide (Lasix -) 40 mg PO DAILY [facility] Last Admin: 11/28/17 09:19 Dose: 40 mg Loratadine (Claritin -) 10 mg PO DAILY [facility] Last Admin: 11/28/17 09:19 Dose: 10 mg Metoprolol Succinate (Toprol Xl -) 100 mg PO DAILY [facility] Last Admin: 11/28/17 09:20 Dose: 100 mg Pantoprazole Sodium (Protonix -) 40 mg PO DAILY [facility] Last Admin: 11/28/17 09:19 Dose: 40 mg Potassium Chloride (K-Dur -) 20 meq PO DAILY [facility] Last Admin: 11/28/17 09:19 Dose: 20 meq Ramipril (Altace -) 2.5 mg PO DAILY [facility] Last Admin: 11/28/17 09:19 Dose: 2.5 mg Ranolazine (Ranexa -) 500 mg PO BID [facility] Last Admin: 11/28/17 09:19 Dose: 500 mg Rosuvastatin Calcium (Crestor -) 10 mg PO HS [facility] Last Admin: 11/27/17 21:33 Dose: 10 mg - Objective Vital Signs: Vital Signs Temperature 98.1 F 11/28/17 06:00 Pulse Rate 76 11/28/17 06:00 Respiratory Rate 20 11/28/17 06:00 Blood Pressure 141/78 11/28/17 06:00 O2 Sat by Pulse Oximetry (%) 96 11/27/17 23:00 Constitutional: Yes: Well Nourished, No Distress, Calm Cardiovascular: Yes: Regular Rate and Rhythm Respiratory: Yes: Regular Gastrointestinal: Yes: Normal Bowel Sounds, Soft Musculoskeletal: Yes: WNL Extremities: Yes: WNL Edema: No Peripheral Pulses WNL: Yes Neurological: Yes: Alert, Oriented Psychiatric: Yes: Alert, Oriented Labs: CBC, BMP 11/27/17 05:05 11/28/17 05:00 INR, PTT INR 2.11 (0.82-1.09) H 11/25/17 14:13 Problem List - Problems (1) Syncope Assessment/Plan: echo reviewed and unremarkable seen by Cardiology Code(s): R55 - SYNCOPE AND COLLAPSE Qualifiers: Syncope type: unspecified Qualified Code(s): R55 - Syncope and collapse (2) Hypokalemia Assessment/Plan: -Kdur daily, ordered to pharmacy Code(s): E87.6 - HYPOKALEMIA (3) Hypomagnesemia Assessment/Plan: -mg oxide 400 mg po BID, ordered to pharmacy Code(s): E83.42 - HYPOMAGNESEMIA Assessment/Plan see problem list D/C home
[2017-11-28 11:59] VITALS: BP 137/84; PULSE 88
--- NOTE | 2017-11-29 23:30 | EKG ---
Test Reason : Blood Pressure : / mmHG Vent. Rate : 086 BPM Atrial Rate : 086 BPM P-R Int : 000 ms QRS Dur : 090 ms QT Int : 402 ms P-R-T Axes : 000 079 047 degrees QTc Int : 481 ms ATRIAL FIBRILLATION WITH OCCASIONAL PREMATURE VENTRICULAR COMPLEXES NONSPECIFIC ST ABNORMALITY PROLONGED QT ABNORMAL ECG WHEN COMPARED WITH ECG OF 27-NOV-2017 10:14, T WAVE VARIATION Confirmed by KAVEH LOUIS, VICKIE ([id number]) on 11/29/2017 11:30:07 PM Referred By: Juan PETERSON Confirmed By:VICKIE LINN MD
== END 2017-11-28 12:05 | disposition home or self-care (01) ==
LOC: JER 13:07 → INTOOBSV 18:09 → JERBED 18:09 → UNDOADMOB 18:09 → JERBED 11-26 06:26 → J4W 11-26 11:45
PROVIDERS: ADMIT Student in an Organized Health Care Education/Training Program; ATTEND Student in an Organized Health Care Education/Training Program
PROC: 3E033GC Introduction of Other Therapeutic Substance into Peripheral Vein, Percutaneous Approach (ICD-10-PCS; principal; 2017-11-26)
PROC: 3E0F7GC Introduction of Other Therapeutic Substance into Respiratory Tract, Via Natural or Artificial Opening (ICD-10-PCS; 2017-11-26)
PROC: 3E0F7GC Introduction of Other Therapeutic Substance into Respiratory Tract, Via Natural or Artificial Opening (ICD-10-PCS; 2017-11-26)
DX: R55 Syncope and collapse (principal); S09.90XA Unspecified injury of head, initial encounter; I10 Essential (primary) hypertension; I25.10 Atherosclerotic heart disease of native coronary artery without angina pectoris; I50.33 Acute on chronic diastolic (congestive) heart failure; I48.91 Unspecified atrial fibrillation; R94.31 Abnormal electrocardiogram [ECG] [EKG]; E78.5 Hyperlipidemia, unspecified; E83.42 Hypomagnesemia; E87.8 Other disorders of electrolyte and fluid balance, not elsewhere classified; J44.9 Chronic obstructive pulmonary disease, unspecified; K21.9 Gastro-esophageal reflux disease without esophagitis; E66.01 Morbid (severe) obesity due to excess calories; Z68.41 Body mass index [BMI] 40.0-44.9, adult; Z95.5 Presence of coronary angioplasty implant and graft; Z91.011 Allergy to milk products; Z79.01 Long term (current) use of anticoagulants; W18.39XA Other fall on same level, initial encounter; Y93.01 Activity, walking, marching and hiking; Y92.89 Other specified places as the place of occurrence of the external cause
CPT/HCPCS: 36415; 70450-TC; 71046-TC-FY; 80048; 80053; 80061; 82550; 83036; 83721; 83735; 83880; 84100; 84484; 85025; 85027; 85610; 86850; 86900; 86901; 93005; 93010; 93306-TC; 93880-TC; 94640; 99285-25; G0378

== ENCOUNTER 2018-11-16 07:14 | Emergency (ER) | payer BC, OTHER ==
[2018-11-16 07:30] VITALS: BMI 39.1
--- NOTE | 2018-11-16 07:44 | PDOC ---
History of Present Illness - History of Present Illness Initial Comments: This is a 62 y/o man with a significant medical history of HTN, HLD, Afib (on eliquis), CAD s/p stents x6, CHF, COPD(2/2 to secondhand smoke), and Sleep Apnea who presents with right arm pain & weakness since last night. Patient states that he was at a hockey game last night when he suddenly had pain and weakness in his upper right arm. Patient denies any injury. He states that he took one of his brothers percocets for the pain.He states that he never has felt this before. He states that he slept in his recliner last night due to the pain. He describes the weakness similar to when one's arm falls asleep. Patient also reports unrelated sob that he attributes to his copd and the cold weather. PCP: Dr. Elisabet Martinez Shipping Weigher: Dr. Paddy Steiner Clinical Rehab Liaison: Dr. Kurt Domingo <Pilar Newby - Last Filed: 11/16/18 11:13> <Efren Choi - Last Filed: 11/16/18 12:24> - General Chief Complaint: Weakness Stated Complaint: RIGHT ARM PAIN Time Seen by Provider: 11/16/18 07:44 Past History <Pilar Newby - Last Filed: 11/16/18 11:13> - Past Medical History Anemia: No Asthma: No Cancer: No Cardiac Disorders: Yes (A Fib) CVA: No COPD: No CHF: No Dementia: No Diabetes: No GI Disorders: Yes (ACID REFLUX) Disorders: No HTN: Yes Hypercholesterolemia: Yes Liver Disease: No Seizures: No Thyroid Disease: No - Surgical History Abdominal Surgery: Yes (HERNIA) Appendectomy: No Cardiac Surgery: Yes (STENTS 6, 2010,, ) Cholecystectomy: No Lung Surgery: No Neurologic Surgery: No Orthopedic Surgery: No - Immunization History Immunization Up to Date: Yes - Suicide/Smoking/Psychosocial Hx Smoking Status: No Smoking History: Never smoked Have you smoked in the past 12 months: No Number of Cigarettes Smoked Daily: 0 Cigars Per Day: 1 Information on smoking cessation initiated: No 'Breaking Loose' booklet given: 10/31/17 Hx Alcohol Use: No Drug/Substance Use Hx: No Substance Use Type: None Hx Substance Use Treatment: No <Efren Choi - Last Filed: 11/16/18 12:24> - Past Medical History Allergies/Adverse Reactions: Allergies Allergy/AdvReac Type Severity Reaction Status Date / Time lactose Allergy Mild Verified 11/25/17 13:18 Home Medications: Ambulatory Orders Apixaban [Eliquis] 5 mg PO BID 08/29/16 Rabeprazole Sodium [Aciphex] 20 mg PO DAILY 08/29/16 Ranolazine [Ranexa] 500 mg PO BID 08/29/16 Albuterol Sulfate Inhaler - [Ventolin HFA Inhaler -] 2 puff IH Q4H PRN #1 inhaler 10/29/16 Arformoterol Tartrate [Brovana -] 1 amp NEB BID amp 10/29/16 Ramipril [Altace] 2.5 mg PO DAILY capsule 10/29/16 Rosuvastatin [Crestor -] 10 mg PO HS tablet 10/29/16 Febuxostat [Uloric] 40 mg PO DAILY 10/31/17 Furosemide [Lasix] 40 mg PO DAILY 10/31/17 Metoprolol Succinate [Toprol XL -] 100 mg PO DAILY 10/31/17 Budesonide/Formeterol Fumarate [SYMBICORT 80/4.5mcg -] 1 inh PO DAILY 11/25/17 Fexofenadine HCl [Nicole Allergy] 60 mg PO DAILY 11/25/17 Aspirin [ASA -] 81 mg PO DAILY #30 tab.chew 11/28/17 Magnesium Oxide [Mag-Ox -] 400 mg PO BID #60 tablet 11/28/17 Potassium Chloride [K-Dur -] 20 meq PO DAILY #30 tablet.er 11/28/17 Oxycodone HCl/Acetaminophen [Percocet 5-325 mg Tablet] 1 tab PO Q6H #10 tablet MDD 3 11/16/18 Review of Systems - Review of Systems Comments:: CONSTITUTIONAL: No fever, no chills, no fatigue EYES: No visual changes ENT: No ear pain, no sore throat CARDIOVASCULAR: No chest pain, no palpitations RESPIRATORY: No cough, +SOB GI: No abdominal pain, no nausea, no vomiting, no constipation, no diarrhea GENITOURINARY: No dysuria, no frequency, no hematuria MUSKULOSKELETAL: +right arm pain & weakness. No back pain. SKIN: No rash NEURO: No headache <Pilar Newby - Last Filed: 11/16/18 11:13> *Physical Exam - Vital Signs Last Vital Signs Temp Pulse Resp BP Pulse Ox 97.7 F 73 16 137/83 96 11/16/18 07:18 11/16/18 07:18 11/16/18 07:18 11/16/18 07:18 11/16/18 07:18 <Pilar Newby - Last Filed: 11/16/18 11:13> - Vital Signs Last Vital Signs Temp Pulse Resp BP Pulse Ox 97.7 F 73 16 137/83 96 11/16/18 07:18 11/16/18 07:18 11/16/18 07:18 11/16/18 07:18 11/16/18 07:18 - Physical Exam Comments: 11/16/18 12:12 EXAMINATION CONSTITUTIONAL: Awake and alert, obese, in mild distress HEAD: Normocephalic; atraumatic EYES: PERRL; EOM intact ENMT: External appears normal; normal oropharynx NECK: Supple; non-tender; no cervical lymphadenopathy CARD: Irregularly irregular; no murmurs, rubs, or gallops RESP: Normal chest excursion with respiration; breath sounds clear and equal bilaterally; no wheezes, rhonchi, or rales ABD: Soft, non-distended; non-tender; no palpable organomegaly, no palpable hernias EXT: Right upper extremity: No obvious deformity, + bony tenderness to the radial head and the olecranon, with limited flexion and supination due to pain; full range of motion without bony tenderness at the shoulder joint/wrist joint; neurovascularly intact distally; distal pulses intact SKIN: Warm, dry, + numerous well demarcated, excoriated, circular lesions measuring approximately 5 mm in diameter to upper extremities bilaterally; NEURO: No focal neurological deficits <Efren Choi - Last Filed: 11/16/18 12:24> Moderate Sedation - Procedure Monitoring Vital Signs: Procedure Monitoring Vital Signs Temperature 97.7 F 11/16/18 07:18 Pulse Rate 73 11/16/18 07:18 Respiratory Rate 16 11/16/18 07:18 Blood Pressure 137/83 11/16/18 07:18 O2 Sat by Pulse Oximetry (%) 96 11/16/18 07:18 <Pilar Newby - Last Filed: 11/16/18 11:13> - Procedure Monitoring Vital Signs: Procedure Monitoring Vital Signs Temperature 97.7 F 11/16/18 07:18 Pulse Rate 73 11/16/18 07:18 Respiratory Rate 16 11/16/18 07:18 Blood Pressure 137/83 11/16/18 07:18 O2 Sat by Pulse Oximetry (%) 96 11/16/18 07:18 <Efren Choi - Last Filed: 11/16/18 12:24> ED Treatment Course - LABORATORY CBC & Chemistry Diagram: 11/16/18 08:16 11/16/18 08:16 - RADIOLOGY Radiograph Interpretation: Right Elbow X-ray Impression: No acute right elbow pathology. Arthritic changes. Reported By: Chandler Lau MD 11/16/18 1016 Right Shoulder X-ray Impression: No acute pathology. Arthritic changes. Right humeral head anchors. Reported By: Chandler Lau MD 11/16/18 1017 Right arm US/Duplex Impression:There is no evidence of deep vein thrombosis in the right upper extremity. Reported By: Clarisse Garvey MD 11/16/18 1005 <Pilar Newby - Last Filed: 11/16/18 11:13> - LABORATORY CBC & Chemistry Diagram: 11/16/18 08:16 11/16/18 08:16 <Efren Choi - Last Filed: 11/16/18 12:24> Medical Decision Making - Medical Decision Making 11/16/18 12:14 Patient is 62-year-old male with multiple comorbidities who presents with atraumatic right elbow and right arm pain for the past 12 hours. Right upper extremity Doppler ultrasound shows no evidence of acute DVT. Right shoulder and elbow x-rays reveal no evidence of fracture dislocation, EGDs noted. I do not suspect an arterial insufficiency. I also do not suspect an acute neurological insult. Will place in a sling with outpatient pain meds and orthopedic follow- up. <Efren Choi - Last Filed: 11/16/18 12:24> *DC/Admit/Observation/Transfer - Attestations Scribe Attestion: 11/16/18 08:30 Documentation prepared by Pilar Newby, acting as medical transport specialist for Efren Choi MD. <Pilar Newby - Last Filed: 11/16/18 11:13> - Attestations Physician Attestion: 11/16/18 12:12 The documentation was prepared by the scribe under my direct supervision. I have reviewed the documentation which correctly represents the findings, medical decision-making and critical action taken by me. <Jimbo,Boris - Last Filed: 11/16/18 12:24> Diagnosis at time of Disposition: Elbow pain, right Afib Qualifiers: Atrial fibrillation type: unspecified Qualified Code(s): I48.91 - Unspecified atrial fibrillation COPD (chronic obstructive pulmonary disease) Qualifiers: COPD type: unspecified COPD Qualified Code(s): J44.9 - Chronic obstructive pulmonary disease, unspecified - Discharge Dispostion Disposition: HOME Condition at time of disposition: Stable - Referrals Referrals: Elisabet Martinez MD [Primary Care Provider] - Caden Borjas MD [Staff Physician] - - Patient Instructions Printed Discharge Instructions: DI for Elbow Pain - Post Discharge Activity
[2018-11-16 08:41] LABS: BASO % 0.6 % (0-2.0); EOS % 1.4 % (0-4.5); HEMOGLOBIN 11.4 GM/dL (11.7-16.9); LYMPH % 8.4 % (8-40); MCH 21.1 pg (25.7-33.7); MCHC 31.7 g/dl (32.0-35.9); MEAN CELL VOLUME 66.6 fl (80-96); MEAN PLT VOLUME 8.5 fl (7.5-11.1); MONO % 9.1 % (3.8-10.2); NEUT % 80.5 % (42.8-82.8); PLATELET COUNT 182 K/MM3 (134-434); RBC 5.41 M/mm3 (4.00-5.60); RDW 21.4 % (11.9-15.9); WHITE BLOOD COUNT 8.8 K/mm3 (4.0-10.0)
[2018-11-16 09:53] LABS: ALBUMIN 3.6 g/dl (3.4-5.0); ALK PHOS 75 U/L (45-117); ANION GAP 10 MMOL/L (8-16); BILIRUBIN,TOTAL 0.5 mg/dL (0.2-1); BLOOD UREA NITROGEN 17 mg/dL (7-18); CALCIUM 8.2 mg/dL (8.5-10.1); CHLORIDE 99 mmol/L (98-107); CO2 29 mmol/L (21-32); GLUCOSE,RANDOM 104 mg/dL (74-106); POTASSIUM 3.4 mmol/L (3.5-5.1); SGOT/AST 17 U/L (15-37); SGPT/ALT 17 U/L (13-61); SODIUM 138 mmol/L (136-145); TOT PROT 7.2 g/dl (6.4-8.2)
[2018-11-16 10:56] LABS: ANISOCYTOSIS 2+; MACROCYTOSIS 0; OVALOCYTE 1+; PLATELET ESTIMATE NORMAL
[2018-11-16 12:38] VITALS: BP 114/55; PULSE 58; TEMP 97.1
== END 2018-11-16 12:37 | disposition home or self-care (01) ==
LOC: JER 07:14
DX: J44.9 Chronic obstructive pulmonary disease, unspecified (principal); I48.91 Unspecified atrial fibrillation; I10 Essential (primary) hypertension; Z79.01 Long term (current) use of anticoagulants; Z95.5 Presence of coronary angioplasty implant and graft; I25.10 Atherosclerotic heart disease of native coronary artery without angina pectoris
CPT/HCPCS: 36415; 73030-TC-RT-FY; 73070-TC-RT-FY; 80053; 85025; 93971; 99282-25

== ENCOUNTER 2019-02-18 05:33 | Inpatient (IN) | payer BC, OTHER ==
--- NOTE | 2019-02-18 05:35 | PDOC ---
Attending Attestation - Resident Resident Name: Lorrie Olivo - ED Attending Attestation I have performed the following: I have examined & evaluated the patient, The case was reviewed & discussed with the resident, I agree w/resident's findings & plan - HPI HPI: 02/18/19 06:53 Pt comes with bilat leg swelling "after drinking white wine." Pt took 120mg lasix yesterday with little urine diuresis. He is anxoius. Pt states that he has not moved much in 2 days due to the weakness in his legs, and the heaviness in his legs. - Physicial Exam PE: 02/18/19 06:55 Agree with resident exam. Pt has cellulitis of the right foot at the 2nd,3rd, 4th toes running up the dorsal aspect of the foot. - Medical Decision Making 02/18/19 06:55 Pt will have labs sent. We will treat his right foot cellulitis with ancef. Pt is in the preliminary stages of his workup. He will be signed out to the day team.
--- NOTE | 2019-02-18 06:45 | PDOC ---
History of Present Illness - General Chief Complaint: Weakness Stated Complaint: LEG WEAKNESS Time Seen by Provider: 02/18/19 05:39 History Source: Patient Exam Limitations: No Limitations - History of Present Illness Initial Comments: Pt is a 63 yo M, with PMH of COPD, CAD (6 stents on eliquis and plavix), HTN, HLD, and hypokalemia, who is presenting with complaints of b/l LE edema over the past 3 days. Pt states she gets LE swelling, which he can usually relieve by taking an extra dose of his Lasix. Pt states he took 120 mg Lasix yesterday, with no relief, and not as much urine production as usual after his doses. Pt states his legs feel "so heavy" to the point he has difficulty ambulating and lifting his legs today. Pt also notes that he was cutting his toenails 3 days ago, and cut his R 3rd toe when clipping his nails, with significant bleeding that was only controlled with pressure. Pt denies any fevers/chills, headache, vision changes, syncope, chest pain, palpitations, SOB from baseline, nausea/ vomiting, abdominal pain, urinary symptoms, diarrhea/constipation. Social: Pt drinks 1/2 to 1 bottle of wine 4-5x per week. Denies any cigarette or drug use. Pt denies any recent travel or sick contacts. Surgical: cardiac stents. Family: no relevant history. 02/18/19 07:52 Past History - Travel Traveled outside of the country in the last 30 days: No Close contact w/someone who was outside of country & ill: No - Past Medical History Allergies/Adverse Reactions: Allergies Allergy/AdvReac Type Severity Reaction Status Date / Time No Known Allergies Allergy Verified 02/18/19 05:53 Home Medications: Ambulatory Orders Apixaban [Eliquis] 5 mg PO BID 08/29/16 Rabeprazole Sodium [Aciphex] 20 mg PO DAILY 08/29/16 Ranolazine [Ranexa] 500 mg PO BID 08/29/16 Ramipril [Altace] 2.5 mg PO DAILY capsule 10/29/16 Rosuvastatin [Crestor -] 10 mg PO HS tablet 10/29/16 Furosemide [Lasix] 40 mg PO DAILY 10/31/17 Metoprolol Succinate [Toprol XL -] 100 mg PO DAILY 10/31/17 Budesonide/Formeterol Fumarate [SYMBICORT 80/4.5mcg -] 1 inh PO DAILY 11/25/17 Fexofenadine HCl [Nicole Allergy] 60 mg PO DAILY 11/25/17 Potassium Chloride [K-Dur -] 20 meq PO DAILY #30 tablet.er 11/28/17 Oxycodone HCl/Acetaminophen [Percocet 5-325 mg Tablet] 1 tab PO Q6H #10 tablet MDD 3 11/16/18 Anemia: No Asthma: No Cancer: No Cardiac Disorders: Yes (A Fib) CVA: No COPD: No CHF: No Dementia: No Diabetes: No GI Disorders: Yes (ACID REFLUX) Disorders: No HTN: Yes Hypercholesterolemia: Yes Liver Disease: No Seizures: No Thyroid Disease: No - Surgical History Abdominal Surgery: Yes (HERNIA) Appendectomy: No Cardiac Surgery: Yes (STENTS , 2010,, ) Cholecystectomy: No Lung Surgery: No Neurologic Surgery: No Orthopedic Surgery: No - Immunization History Immunization Up to Date: Yes - Suicide/Smoking/Psychosocial Hx Smoking Status: No Smoking History: Never smoked Have you smoked in the past 12 months: No Number of Cigarettes Smoked Daily: 0 Cigars Per Day: 1 Information on smoking cessation initiated: No 'Breaking Loose' booklet given: 10/31/17 Hx Alcohol Use: No Drug/Substance Use Hx: No Substance Use Type: None Hx Substance Use Treatment: No Review of Systems - Review of Systems Able to Perform ROS?: Yes Is the patient limited Swedish proficient: No Constitutional: Yes: Weight Stable. No: Chills, Diaphoresis, Fever, Loss of Appetite, Malaise, Weakness HEENTM: No: Blurred Vision, Recent change in vision, Double Vision, Nose Congestion, Throat Pain Respiratory: No: Cough, Orthopnea, Shortness of Breath (no changes from baseline with COPD) Cardiac (ROS): Yes: See HPI, Edema. No: Chest Pain, Irregular Heart Rate, Lightheadedness, Palpitations, Syncope, Chest Tightness ABD/GI: No: Constipated, Diarrhea, Nausea, Poor Appetite, Poor Fluid Intake, Vomiting : No: Burning, Dysuria, Frequency, Pain, Urgency Musculoskeletal: Yes: See HPI, Muscle Pain (pain in lower legs with swelling, difficulty "picking up" his legs and ambulatory). No: Back Pain, Joint Pain Integumentary: Yes: Erythema (redness of RLE). No: Rash Neurological: Yes: Numbness (decreased sensation in b/l LE since swelling). No : Headache, Paresthesia, Unsteady Gait, Dizziness Psychiatric: No: Sleep Pattern Change, Change in Appetite Endocrine: No: Increased Urine, Change in Weight Hematologic/Lymphatic: Yes: Blood Clots (CAD xstents). No: Anemia, Easy Bleeding, Easy Bruising All Other Systems: Reviewed and Negative *Physical Exam - Vital Signs Last Vital Signs Temp Pulse Resp BP Pulse Ox 98.2 F 90 20 152/96 91 L 02/18/19 05:42 02/18/19 05:42 02/18/19 05:42 02/18/19 05:42 02/18/19 05:42 - Physical Exam Comments: 152/96, HR 90, O2 91% on RA (pt baseline low 90s per pt), pt afebrile. Pt in NAD , obese body habitus. Pt alert and oriented x3. 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 No midline spinal tenderness, step-offs, or crepitus. Head normocephalic, atraumatic. Eyes PERRLA, EOMI. Oropharynx without erythema or exudates, no LAD b/l. No nasal congestion, hearing intact. Loud systolic murmur, S1/S2, no JVD. B/l LE edema with pitting to mid shins. Coarse lung sounds b/l with crackles at the posterior bases b/l. No abdominal or CVA tenderness to palpation, no rebound, no guarding. Abdomen soft, protuberant, and with normoactive bowel sounds. Well-healing excoriations over b/l forearms. Erythema and warmth of RLE from mid 3rd toe to R medial foot. B/l LE skin darkening from feet to mid shins. Skin otherwise without jaundice or rash. 02/18/19 07:43 ED Treatment Course - LABORATORY CBC & Chemistry Diagram: 02/18/19 06:14 02/18/19 06:14 - RADIOLOGY Radiology Studies Ordered: Category Date Time Status CHEST X-RAY PORTABLE* [RAD] Stat Radiology 02/18/19 05:54 Ordered DUPLEX VASCUL US-2LEGS [US] Stat Ultrasound 02/18/19 05:54 Ordered Medical Decision Making - Medical Decision Making Pt was seen at bedside, also will be seen by attending Dr. Barbour. Pt presenting with complaints of b/l LE edema over the past 3 days. Pt states she gets LE swelling, which he can usually relieve by taking an extra dose of his Lasix. Pt states he took 120 mg Lasix yesterday, with no relief, and not as much urine production as usual after his doses. Pt states his legs feel "so heavy" to the point he has difficulty ambulating and lifting his legs today. Pt also notes that he was cutting his toenails 3 days ago, and cut his R 3rd toe when clipping his nails, with significant bleeding that was only controlled with pressure. Pt denies any fevers/chills, headache, vision changes, syncope, chest pain, palpitations, SOB from baseline, nausea/vomiting, abdominal pain, urinary symptoms, diarrhea/constipation. Considering new HF vs new renal deficiency vs LE cellulitis vs medication non- compliance vs fluid collection 2/2 electrolyte imbalances (hyperNa). Ordered work-up including CBC, CMP, cardiac profile, BNP, chest x-ray, ECG, chest x-ray, and LE doppler. Will continue to reassess pt and monitor for symptomatic improvement. Pt signed out to day team (Dr. Holguin). 02/18/19 07:47 *DC/Admit/Observation/Transfer Diagnosis at time of Disposition: Swelling of lower extremity - Discharge Dispostion Condition at time of disposition: Stable - Referrals Referrals: Elisabet Martinez MD [Primary Care Provider] - - Patient Instructions - Post Discharge Activity
[2019-02-18] MEDS ORDERED: CEFAZOLIN 1 GM/D5W 1 GM/50 ML BAG IVPB ONE (06:52)
[2019-02-18] MEDS ORDERED: CEFAZOLIN 1 GM/D5W 1 GM/50 ML BAG ONE (07:04)
[2019-02-18 07:07] LABS: BASO % 0.7 % (0-2.0); EOS % 0.5 % (0-4.5); HEMATOCRIT 34.4 % (35.4-49); HEMOGLOBIN 10.6 GM/dL (11.7-16.9); LYMPH % 4.5 % (8-40); MCH 20.8 pg (25.7-33.7); MCHC 30.9 g/dl (32.0-35.9); MEAN CELL VOLUME 67.4 fl (80-96); MEAN PLT VOLUME 8.7 fl (7.5-11.1); NEUT % 85.3 % (42.8-82.8); PLATELET COUNT 193 K/MM3 (134-434); RBC 5.11 M/mm3 (4.00-5.60); RDW 21.5 % (11.9-15.9)
[2019-02-18 07:33] LABS: INR 2.4 (0.83-1.09); PROTHROMBIN TIME (PATIENT) 28.6 SEC (9.7-13.0)
[2019-02-18 07:38] LABS: ALBUMIN 3.2 g/dl (3.4-5.0); ALK PHOS 70 U/L (45-117); ANION GAP 9 MMOL/L (8-16); BILIRUBIN,TOTAL 0.9 mg/dL (0.2-1); BLOOD UREA NITROGEN 26 mg/dL (7-18); CHLORIDE 88 mmol/L (98-107); CO2 35 mmol/L (21-32); CREATININE 1.3 mg/dL (0.55-1.3); GLUCOSE,RANDOM 113 mg/dL (74-106); MAGNESIUM 0.7 mg/dL (1.8-2.4); N-TERMINAL BNP 1146.3 pg/ml (5-125); POTASSIUM 3.1 mmol/L (3.5-5.1); SGOT/AST 24 U/L (15-37); SGPT/ALT 14 U/L (13-61); SODIUM 133 mmol/L (136-145); TOT PROT 7.2 g/dl (6.4-8.2)
[2019-02-18 07:45] LABS: CALCIUM 6.9 mg/dL (8.5-10.1)
[2019-02-18] MEDS ORDERED: POTASSIUM CHLORIDE TABS 20 MEQ TABLET.ER (FP) PO ONE ×3 (08:22→18:15)
[2019-02-18] MEDS ORDERED: MAGNESIUM SULF 50% (8.12 MEQ/2 ML-1 GM VIAL) IVPB ONE (08:48)
[2019-02-18] MEDS ORDERED: CALCIUM GLUCONATE 10% - 1,000 MG/10 ML VIAL IVPB ONE (08:48)
--- NOTE | 2019-02-18 08:50 | PDOC ---
*Physical Exam - Vital Signs Last Vital Signs Temp Pulse Resp BP Pulse Ox 98.2 F 90 20 152/96 91 L 02/18/19 05:42 02/18/19 05:42 02/18/19 05:42 02/18/19 05:42 02/18/19 05:42 ED Treatment Course - LABORATORY CBC & Chemistry Diagram: 02/18/19 06:14 02/18/19 06:14 - ADDITIONAL ORDERS Additional order review: Laboratory Results 02/18/19 02/18/19 06:14 06:14 PT with INR 28.60 H INR 2.40 H Sodium 133 L Potassium 3.1 L Chloride 88 L Carbon Dioxide 35 H Anion Gap 9 BUN 26 H Creatinine 1.3 Creat Clearance w eGFR 55.40 Random Glucose 113 H Calcium 6.9 L* Magnesium 0.7 L Total Bilirubin 0.9 AST 24 ALT 14 Alkaline Phosphatase 70 Creatine Kinase 104 Troponin I < 0.02 B-Natriuretic Peptide 1146.3 H Total Protein 7.2 Albumin 3.2 L 02/18/19 06:14 RBC 5.11 MCV 67.4 L MCHC 30.9 L RDW 21.5 H MPV 8.7 Neutrophils % 85.3 H Lymphocytes % 4.5 L D Monocytes % 9.0 Eosinophils % 0.5 Basophils % 0.7 - Medications Given in the ED: ED Medications Discontinued Medications Generic Name Dose Route Start Last Admin Trade Name Freq PRN Reason Stop Dose Admin Cefazolin Sodium 1 gm in 50 mls @ 100 mls/hr 02/18/19 06:52 02/18/19 07:09 Ancef 1 Gm Premixed Ivpb - IVPB 02/18/19 07:21 100 mls/hr ONCE ONE Administration Potassium Chloride 40 meq 02/18/19 08:22 02/18/19 08:48 K-Dur - PO 02/18/19 08:23 40 meq ONCE ONE Administration Medical Decision Making - Medical Decision Making Patient signed out to me from night team pending labs, US, and admission for leg pain/cellulitis and inability to ambulate - Labs show hypokalemia, hypocalcemia, and hypomagnesemia - Will replete potassium orally, and calcium and mag intravenously Duplex US shows no lower extremity DVT b/l Abx alreagy given for cellulitis. - Will admit to hospital for cellulitis and inability to ambulate - Calling Juan for admission - Patient endorsed to Dr. Graham and accepted for admission *DC/Admit/Observation/Transfer Diagnosis at time of Disposition: Swelling of lower extremity, Cellulitis, Unable to ambulate, Leg weakness, bilateral - Discharge Dispostion Condition at time of disposition: Stable Decision to Admit order: Yes - Referrals Referrals: Elisabet Martinez MD [Primary Care Provider] - - Patient Instructions - Post Discharge Activity
[2019-02-18] MEDS ORDERED: CALCIUM GLUCONATE 10% - 1,000 MG/10 ML VIAL ONE (08:58)
[2019-02-18] MEDS ORDERED: MAGNESIUM 2GM/50ML STERILE WATER IVPB IVPB ONE (09:15)
[2019-02-18 09:54] LABS: EPI CELLS 7.1 /HPF (0-5/HPF); URINE APPEARANCE CLEAR; URINE BACTERIA 0.7 /hpf (NEGATIVE); URINE BILIRUBIN NEGATIVE (NEGATIVE); URINE CASTS 17 /lpf (0-8); URINE COLOR YELLOW; URINE GLUCOSE (UA) NEGATIVE (NEGATIVE); URINE KETONE NEGATIVE (NEGATIVE); URINE LEUK ESTERASE NEGATIVE (NEGATIVE); URINE NITRITE NEGATIVE (NEGATIVE); URINE PROTEIN 1+ (NEGATIVE); URINE RBC 6 /hpf (0-4); URINE WBC 7 /hpf (0-5)
[2019-02-18 12:11] LABS: ANISOCYTOSIS 2+; MACROCYTOSIS 0; OVALOCYTE 1+; PLATELET ESTIMATE NORMAL
[2019-02-18] MEDS ORDERED: COLCHICINE 0.6 MG TABLET (FP) PO ONE (12:32)
--- NOTE | 2019-02-18 12:35 | HP ---
Admitting History and Physical - Admission History of Present Illness: 63 yo M, with PMH of COPD, CAD (6 stents on eliquis and plavix), HTN, HLD, and hypokalemia, who is presenting with complaints of b/l LE edema over the past 3 days. Pt states she gets LE swelling, which he can usually relieve by taking an extra dose of his Lasix. Pt states he took 120 mg Lasix yesterday, with no relief, and not as much urine production as usual after his doses. Pt states his legs feel "so heavy" to the point he has difficulty ambulating and lifting his legs today. Pt also notes that he was cutting his toenails 3 days ago, and cut his R 3rd toe when clipping his nails, with significant bleeding that was only controlled with pressure. Pt denies any fevers/chills, headache, vision changes, syncope, chest pain, palpitations, SOB from baseline, nausea/vomiting, abdominal pain, urinary symptoms, diarrhea/constipation. - Past Medical History Cardiovascular: Yes: AFIB, CAD (s/p stents), CHF, HTN, Hyperlipdemia Pulmonary: Yes: Sleep Apnea Gastrointestinal: Yes: GERD - Past Surgical History Past Surgical History: Yes: Stent - Smoking History Smoking history: Never smoked Have you smoked in the past 12 months: No Aproximately how many cigarettes per day: 0 - Alcohol/Substance Use Hx Alcohol Use: No - Social History ADL: Independent History of Recent Travel: No Home Medications - Allergies Allergies/Adverse Reactions: Allergies Allergy/AdvReac Type Severity Reaction Status Date / Time No Known Allergies Allergy Verified 02/18/19 05:53 - Home Medications Home Medications: Ambulatory Orders Apixaban [Eliquis] 5 mg PO BID 08/29/16 Rabeprazole Sodium [Aciphex] 20 mg PO DAILY 08/29/16 Ranolazine [Ranexa] 500 mg PO BID 08/29/16 Ramipril [Altace] 2.5 mg PO DAILY capsule 10/29/16 Rosuvastatin [Crestor -] 10 mg PO HS tablet 10/29/16 Furosemide [Lasix] 40 mg PO DAILY 10/31/17 Metoprolol Succinate [Toprol XL -] 100 mg PO DAILY 10/31/17 Budesonide/Formeterol Fumarate [SYMBICORT 80/4.5mcg -] 1 inh PO DAILY 11/25/17 Fexofenadine HCl [Nicole Allergy] 60 mg PO DAILY 11/25/17 Potassium Chloride [K-Dur -] 20 meq PO DAILY #30 tablet.er 11/28/17 Oxycodone HCl/Acetaminophen [Percocet 5-325 mg Tablet] 1 tab PO Q6H #10 tablet MDD 3 11/16/18 Family Disease History - Family Disease History Family Disease History: Heart Disease: Mother Review of Systems - Review of Systems Cardiovascular: reports: Edema, Shortness of Breath. denies: Chest Pain Respiratory: reports: SOB, SOB on Exertion Gastrointestinal: denies: Abdominal Pain Integumentary: reports: Erythema Neurological: reports: No Symptoms Physical Examination Vital Signs: Vital Signs Temperature 99 F 02/18/19 12:07 Pulse Rate 99 H 02/18/19 12:07 Respiratory Rate 18 02/18/19 12:07 Blood Pressure 146/79 02/18/19 12:07 O2 Sat by Pulse Oximetry (%) 90 L 02/18/19 10:01 Cardiovascular: Yes: S1, S2 Respiratory: Yes: Regular, CTA Bilaterally Gastrointestinal: Yes: Normal Bowel Sounds, Soft Edema: Yes Integumentary: Yes: Rash Labs: CBC, BMP 02/18/19 06:14 02/18/19 06:14 Problem List - Problems (1) Cellulitis Assessment/Plan: -IV ABX --R/O GOUT --COLCHICINE GIVEN -CULTURES -ID CONSULT Code(s): L03.90 - CELLULITIS, UNSPECIFIED (2) Acute on chronic diastolic (congestive) heart failure Assessment/Plan: -IV LASIX -CARDIO CONSULT -FOLLOW LABS Code(s): I50.33 - ACUTE ON CHRONIC DIASTOLIC (CONGESTIVE) HEART FAILURE (3) Swelling of lower extremity Assessment/Plan: ABOVE DUPLEX NEG Code(s): M79.89 - OTHER SPECIFIED SOFT TISSUE DISORDERS (4) Afib Assessment/Plan: ON ELIQUIS Code(s): I48.91 - UNSPECIFIED ATRIAL FIBRILLATION Qualifiers: Atrial fibrillation type: unspecified Qualified Code(s): I48.91 - Unspecified atrial fibrillation (5) COPD (chronic obstructive pulmonary disease) Code(s): J44.9 - CHRONIC OBSTRUCTIVE PULMONARY DISEASE, UNSPECIFIED Qualifiers: COPD type: unspecified COPD Qualified Code(s): J44.9 - Chronic obstructive pulmonary disease, unspecified
[2019-02-18 14:29] LABS: URIC ACID 6.8 mg/dL (2.6-7.2)
[2019-02-18] MEDS: FUROSEMIDE 40 MG/4 ML INJECTABLE VIAL IVPUSH SCH (15:31)
[2019-02-18] MEDS: ACETAMINOPHEN 325 MG TABLET (FP) PO PRN (15:43)
[2019-02-18] MEDS: oxyCODONE HCL 5 MG TABLET PO PRN (15:43)
--- NOTE | 2019-02-18 16:34 | EKG ---
Test Reason : Blood Pressure : / mmHG Vent. Rate : 094 BPM Atrial Rate : 073 BPM P-R Int : 000 ms QRS Dur : 084 ms QT Int : 438 ms P-R-T Axes : 000 055 089 degrees QTc Int : 547 ms POOR DATA QUALITY, INTERPRETATION MAY BE ADVERSELY AFFECTED ATRIAL FIBRILLATION WITH PREMATURE VENTRICULAR OR ABERRANTLY CONDUCTED COMPLEXES NONSPECIFIC ST AND T WAVE ABNORMALITY ABNORMAL ECG WHEN COMPARED WITH ECG OF 28-NOV-2017 09:22, ATRIAL FIBRILLATION HAS REPLACED JUNCTIONAL RHYTHM NONSPECIFIC T WAVE ABNORMALITY, WORSE IN ANTEROLATERAL LEADS QT HAS LENGTHENED Confirmed by ANYA LOUIS, MCKAY ([id number]) on 02/18/2019 4:34:17 PM Referred By: Confirmed By:MCKAY JOYNER MD
--- NOTE | 2019-02-18 17:08 | CON.CARD ---
Cardiology Consult (text) - Consultation Consultation Note: Asked to evaluate this patient who is well known to Dr. Jean-Baptiste for many years. Please consult him for further recs. Thank you.
[2019-02-18] MEDS: CEFAZOLIN 1 GM in DEXTROSE 5%-WATER - 50 ML IVPB SCH (17:15)
[2019-02-18 19:25] LABS: PH,URINE 6.5 (5.0-8.0); URINE APPEARANCE CLEAR; URINE BILIRUBIN NEGATIVE (NEGATIVE); URINE COLOR YELLOW; URINE GLUCOSE (UA) NEGATIVE (NEGATIVE); URINE KETONE NEGATIVE (NEGATIVE); URINE LEUK ESTERASE NEGATIVE (NEGATIVE); URINE NITRITE NEGATIVE (NEGATIVE); URINE PROTEIN NEGATIVE (NEGATIVE)
[2019-02-18] MEDS ORDERED: PT OWN MED DRAWER 7, Y5N ONE ×2 (20:27→22:47)
[2019-02-18] MEDS ORDERED: RANOLAZINE E.R. 500 MG TABLET (FP) PO SCH (22:00)
[2019-02-18] MEDS: BUDESONIDE/FORMETEROL FUMARATE 80/4.5 mcg INHALER IH SCH (22:51)
[2019-02-18] MEDS: APIXABAN 5 MG TABLET PO SCH (22:51)
[2019-02-18] MEDS: ROSUVASTATIN CA 10 MG TABLET (FP) PO SCH (22:52)
[2019-02-19] MEDS ORDERED: PT OWN MED DRAWER 7, Y5N ONE ×4 (00:46→20:17)
[2019-02-19] MEDS: CEFAZOLIN 1 GM in DEXTROSE 5%-WATER - 50 ML IVPB SCH ×3 (01:09→18:14)
[2019-02-19] MEDS: oxyCODONE HCL 5 MG TABLET PO PRN ×2 (05:36→21:12)
[2019-02-19] MEDS: FUROSEMIDE 40 MG/4 ML INJECTABLE VIAL IVPUSH SCH ×2 (05:37→19:12)
[2019-02-19] MEDS: ACETAMINOPHEN 325 MG TABLET (FP) PO PRN ×2 (05:37→21:12)
[2019-02-19 07:40] LABS: BASO % 0.5 % (0-2.0); EOS % 0.2 % (0-4.5); HEMATOCRIT 35.2 % (35.4-49); LYMPH % 7.3 % (8-40); MCH 21.1 pg (25.7-33.7); MCHC 31.3 g/dl (32.0-35.9); MEAN CELL VOLUME 67.4 fl (80-96); MEAN PLT VOLUME 9.1 fl (7.5-11.1); MONO % 12.6 % (3.8-10.2); NEUT % 79.4 % (42.8-82.8); PLATELET COUNT 207 K/MM3 (134-434); RBC 5.21 M/mm3 (4.00-5.60); RDW 21.8 % (11.9-15.9); WHITE BLOOD COUNT 9.3 K/mm3 (4.0-10.0)
[2019-02-19 07:57] LABS: ALK PHOS 80 U/L (45-117); ANION GAP 11 MMOL/L (8-16); BILIRUBIN,TOTAL 1.5 mg/dL (0.2-1); BLOOD UREA NITROGEN 20 mg/dL (7-18); CALCIUM 7.7 mg/dL (8.5-10.1); CHLORIDE 89 mmol/L (98-107); CO2 34 mmol/L (21-32); CREATININE 1.1 mg/dL (0.55-1.3); GLUCOSE,RANDOM 131 mg/dL (74-106); MAGNESIUM 1.4 mg/dL (1.8-2.4); PHOSPHOROUS 3.3 mg/dL (2.5-4.9); SGOT/AST 31 U/L (15-37); SGPT/ALT 20 U/L (13-61); SODIUM 134 mmol/L (136-145); TOT PROT 7.1 g/dl (6.4-8.2)
[2019-02-19 08:03] LABS: POTASSIUM 2.9 mmol/L (3.5-5.1)
[2019-02-19] MEDS: RAMIPRIL 2.5 MG CAPSULE (FP) PO SCH (10:01)
[2019-02-19] MEDS: COLCHICINE 0.6 MG TABLET (FP) PO SCH (10:01)
[2019-02-19] MEDS: APIXABAN 5 MG TABLET PO SCH ×2 (10:02→21:11)
[2019-02-19] MEDS: BUDESONIDE/FORMETEROL FUMARATE 80/4.5 mcg INHALER IH SCH ×2 (10:02→21:15)
[2019-02-19] MEDS: POTASSIUM CHLORIDE TABS 20 MEQ TABLET.ER (FP) PO SCH ×2 (10:02→21:11)
[2019-02-19] MEDS ORDERED: DEXTROSE 5%-WATER - 50 ML IVPB ONE ×2 (10:30→18:06)
[2019-02-19] MEDS ORDERED: ceFAZolin SODIUM 1 GM VIAL ONE ×2 (10:30→18:05)
--- NOTE | 2019-02-19 11:06 | PN ---
Progress Note, Physician - Current Medication List Current Medications: Active Medications Acetaminophen (Tylenol -) 325 mg PO Q6H PRN PRN Reason: PAIN SCALE Last Admin: 02/19/19 05:37 Dose: 325 mg Apixaban (Eliquis -) 5 mg PO BID [facility] Last Admin: 02/19/19 10:02 Dose: 5 mg Budesonide/Formoterol Fumarate (Symbicort 80/4.5mcg -) 1 puff IH BID [facility] Last Admin: 02/19/19 10:02 Dose: 1 puff Colchicine (Colcrys -) 0.6 mg PO DAILY [facility] Last Admin: 02/19/19 10:01 Dose: 0.6 mg Furosemide (Lasix Injection -) 40 mg IVPUSH BID@0600,1400 [facility] Last Admin: 02/19/19 05:37 Dose: 40 mg Cefazolin Sodium 1 gm/ (Dextrose) 50 mls @ 100 mls/hr IVPB Q8H-IV [facility] Last Admin: 02/19/19 10:01 Dose: 100 mls/hr Metoprolol Succinate (Toprol Xl -) 100 mg PO DAILY [facility] Last Admin: 02/19/19 10:03 Dose: 100 mg Oxycodone HCl (Roxicodone -) 5 mg PO Q6H PRN PRN Reason: PAIN SCALE Last Admin: 02/19/19 05:36 Dose: 5 mg Potassium Chloride (K-Dur -) 20 meq PO DAILY [facility] Last Admin: 02/19/19 10:02 Dose: 20 meq Ramipril (Altace -) 2.5 mg PO DAILY [facility] Last Admin: 02/19/19 10:01 Dose: 2.5 mg Rosuvastatin Calcium (Crestor -) 10 mg PO HS [facility] Last Admin: 02/18/19 22:52 Dose: 10 mg - Objective Vital Signs: Vital Signs Temperature 99.3 F 02/19/19 06:00 Pulse Rate 102 H 02/19/19 06:00 Respiratory Rate 22 H 02/19/19 06:00 Blood Pressure 114/66 02/19/19 06:00 O2 Sat by Pulse Oximetry (%) 94 L 02/18/19 21:00 Cardiovascular: Yes: S1 Respiratory: Yes: Regular, CTA Bilaterally Gastrointestinal: Yes: Normal Bowel Sounds, Soft Extremities: Yes: Erythema Edema: Yes Labs: CBC, BMP 02/19/19 06:20 05/05/19 06:20 INR, PTT INR 2.40 (0.83-1.09) H 02/18/19 06:14 Problem List - Problems (1) Cellulitis Assessment/Plan: -IV ABX --R/O GOUT --COLCHICINE GIVEN -CULTURES -ID CONSULT Code(s): L03.90 - CELLULITIS, UNSPECIFIED (2) Acute on chronic diastolic (congestive) heart failure Assessment/Plan: -IV LASIX -CARDIO CONSULT -FOLLOW LABS Code(s): I50.33 - ACUTE ON CHRONIC DIASTOLIC (CONGESTIVE) HEART FAILURE (3) Swelling of lower extremity Assessment/Plan: ABOVE DUPLEX NEG Code(s): M79.89 - OTHER SPECIFIED SOFT TISSUE DISORDERS (4) Afib Assessment/Plan: ON ELIQUIS Code(s): I48.91 - UNSPECIFIED ATRIAL FIBRILLATION Qualifiers: Atrial fibrillation type: unspecified Qualified Code(s): I48.91 - Unspecified atrial fibrillation (5) COPD (chronic obstructive pulmonary disease) Code(s): J44.9 - CHRONIC OBSTRUCTIVE PULMONARY DISEASE, UNSPECIFIED Qualifiers: COPD type: unspecified COPD Qualified Code(s): J44.9 - Chronic obstructive pulmonary disease, unspecified (6) Gout Assessment/Plan: continue with colchicine Code(s): M10.9 - GOUT, UNSPECIFIED
[2019-02-19] MEDS: KCL 10 MEQ IVPB 10 MEQ/100 ML INFUS.BAG IVPB SCH ×3 (12:30→17:23)
--- NOTE | 2019-02-19 13:33 | PN ---
Progress Note (short form) - Note Progress Note: ID consult dictated imp/reccd 63 yo man pmh obesity, afib, venous stasis admitted with painful lower extremities unresponseve to inreease of lasix possible cellulitis suspect volume overload (history AFIB) continue cefazolin Problem List - Problems (1) Cellulitis Code(s): L03.90 - CELLULITIS, UNSPECIFIED (2) CHF (congestive heart failure) Code(s): I50.9 - HEART FAILURE, UNSPECIFIED
--- NOTE | 2019-02-19 15:52 | CONS ---
DATE OF CONSULTATION: DATE OF DICTATION: 02/18/2019 HISTORY OF PRESENT ILLNESS: This is a 62-year-old man who lives at home. He has complaints of bilateral lower extremity edema that has been increasing with pain in both his feet over the last several days. He reports he frequently has increasing lower extremity edema at which time he doubles up his Lasix with improvement. He tried this this past week but it did not help. He noted increasing pain in his legs. He also notes he has no fevers or chills or headaches. He has no chest pain or abdominal pain. He states his weight has been unchanged. He otherwise feels at baseline. PAST MEDICAL HISTORY: Is notable for atrial fibrillation, coronary artery disease, status post stents, CHF, hypertension, hyperlipidemia, sleep apnea, GERD, and he also reports a history of gout. PAST SURGICAL HISTORY: Unremarkable. SOCIAL HISTORY: He lives with his daughter. They have some pet cats. There is no history of any cigarette use. He drinks a bottle of wine socially several times a week it appears. 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 ALLERGIES: He has no known allergies. MEDICATIONS: Include Eliquis, Aciphex, Ranexa, Altace, Crestor, Lasix, Toprol XL, Symbicort, Nicole, potassium, and Percocet. FAMILY HISTORY: Notable for heart disease in his mother. REVIEW OF SYSTEMS: He reports he is not feeling short of breath. His legs are still erythematous but improved and still quite painful. PHYSICAL EXAMINATION: General: He is an obese man in no acute distress. Vital Signs: He weighs 122 kg, temperature is 98.5, T-max is 99.3, pulse of 104, blood pressure 126/8, respiratory rate is 20. HEENT: He is normocephalic. His eyes are anicteric. Neck: Supple. Lungs: Clear to auscultation. Heart: Regular rate and rhythm. Abdomen: Soft, nontender. Extremities: Notable for bilateral venous stasis changes. He has some mild erythema of both his legs and all of his toes in the lower aspects of both feet are quite tender. LABORATORY DATA: White count on admission was 11, repeat of 9.3, hemoglobin 11, platelets of 207. BUN and creatinine are 20 and 1.1. LFTs are normal. Urinalysis is negative. Urine culture is negative. Duplex of his legs are negative for DVT. Chest x-ray notable for widening of the mediastinum and congestive changes. SUMMARY: In summary this is a 63-year-old man with: 1. Bilateral lower extremity cellulitis. I do not think he has gout but would continue cefazolin as he appears to be improving. 2. History of heart failure and history of atrial fibrillation on Eliquis. Further recommendations to follow. MANSOOR FLEMING M.D. [id number]
[2019-02-19] MEDS: ROSUVASTATIN CA 10 MG TABLET (FP) PO SCH (21:11)
[2019-02-20] MEDS ORDERED: DEXTROSE 5%-WATER - 50 ML IVPB ONE ×3 (01:01→16:56)
[2019-02-20] MEDS ORDERED: ceFAZolin SODIUM 1 GM VIAL ONE ×3 (01:01→16:56)
[2019-02-20] MEDS: CEFAZOLIN 1 GM in DEXTROSE 5%-WATER - 50 ML IVPB SCH ×3 (01:05→17:02)
[2019-02-20] MEDS: POTASSIUM CHLORIDE TABS 20 MEQ TABLET.ER (FP) PO SCH ×4 (05:31→22:20)
[2019-02-20] MEDS: FUROSEMIDE 40 MG/4 ML INJECTABLE VIAL IVPUSH SCH ×2 (05:31→13:25)
[2019-02-20] MEDS ORDERED: POLYETHYLENE GLYCOL 3350 119 GM BTL PO ONE (06:42)
[2019-02-20] MEDS ORDERED: PT OWN MED DRAWER 7, Y5N ONE (08:27)
[2019-02-20] MEDS: COLCHICINE 0.6 MG TABLET (FP) PO SCH (09:29)
[2019-02-20] MEDS: RAMIPRIL 2.5 MG CAPSULE (FP) PO SCH (09:29)
[2019-02-20] MEDS: APIXABAN 5 MG TABLET PO SCH ×2 (09:29→22:19)
[2019-02-20] MEDS: BUDESONIDE/FORMETEROL FUMARATE 80/4.5 mcg INHALER IH SCH ×2 (09:30→22:19)
--- NOTE | 2019-02-20 12:26 | CONS ---
DATE OF CONSULTATION: 02/20/2019 REFERRING PHYSICIAN: Hetal Graham MD HISTORY OF PRESENT ILLNESS: The patient is a 63-year-old man with past medical history of coronary artery disease, status post stent, on Eliquis and Plavix, obstructive sleep apnea syndrome, COPD, and congestive heart failure, who was admitted with swelling of the lower extremities. Patient has been diagnosed with cellulitis, started on IV antibiotics. He has also received IV Lasix for congestive heart failure. Testing included blood work, which showed WBC elevated on admission, 11.0, hemoglobin 10.6, platelet count 193. Repeat on February 19 showed WBC improving to 9.3, hemoglobin 11.0, platelet count 207. Chemistry showed electrolyte abnormalities on admission with a low sodium 133, low potassium 3.1, chloride 88, and CO2 elevated at 35, BUN elevated at 26 to creatinine 1.3. Calcium was low at 6.9, low albumin of 3.2. Repeat blood work on February 19, potassium remains low at 2.9, even lower than previous, sodium 134, chloride 89, BUN 20, creatinine 1.0, albumin low at 3.0. BNP on admission was slightly elevated, 1146. The patient states he continues to have pain in the left more than right lower extremity, although the swelling and redness have improved. He is unable to stand or put weight into his lower extremities because of pain. Patient is now seen in rehabilitation evaluation. Review of past medical and surgical history as above, COPD, obstructive sleep apnea syndrome, coronary artery disease, stent, on chronic anticoagulation, congestive heart failure. SOCIAL HISTORY: Lives in private house with daughter and son-in-law. Eight steps to enter and he stays on the first level. Premorbidly he was independent. Current function, again, non-ambulatory. REVIEW OF SYSTEMS: No dizziness or lightheadedness. No blurry vision, double vision, or change in vision. No nausea, vomiting, difficulty swallowing, difficulty chewing. No chest pain or shortness of breath at rest. No abdominal discomfort. No bowel or bladder complaints, but he has been using a diaper due to immobility. He has swelling in lower extremities, which again is improving, pain in the left more than right ankle, and chronic skin discoloration in the upper extremities as well as a peeling scratch from his cat. EXAMINATION: General: On examination, patient is an overweight man seen sitting at the edge of the bed. He is in no acute distress except for when his lower extremities are examined. HEENT: Normocephalic and atraumatic. His extraocular muscles appear intact. He has no obvious facial weakness. Neck: Supple. Extremities: He has +1 to 2 edema, left more than right distal lower extremity. Skin: He has multiple ecchymotic areas in different states of healing in his upper extremities. He also has a healing scab from laceration in the left forearm. He has had chronic venous changes noted in the lower extremities also, with some hyperpigmentation. Neuromuscular: He is awake, alert, fully oriented x3. Cranial nerves 2-12 appear grossly intact. He has good strength and range in the upper extremities with slight limitation in his shoulder girdle. In the lower extremities, very limited range of motion in the ankles, particularly the left one, which is tender anterolaterally, as well as on the left more than the right foot. He has better range in his knees and hip, some mild weakness proximally. Normal sensation to light touch. Pin not tested due to edema in the lower extremities but normal throughout his upper extremities. OVERALL IMPRESSION: 1. Deficits in mobility and activities of daily living, multifactorial. 2. Cellulitis of the lower extremities. 3. Congestive heart failure with edema. 4. Pain in the left more than right ankle/foot. 5. Electrolyte abnormalities with hypokalemia and hyponatremia, which is improved. 6. Elevated risk for deep vein thrombosis. 7. Obstructive sleep apnea syndrome and chronic obstructive pulmonary disease. 8. Coronary artery disease, status post stent, on Plavix and Eliquis. PLAN, SUGGESTION: 1. Physical therapy at the bedside, to include range of motion, strengthening, bed mobility when appropriate, transfers, sit to stand, and ambulation, which may be limited by pain. 2. When appropriate, out of bed to chair. 3. Follow up chemistry. 4. Infectious disease followup regarding antibiotics. 5. Elevate lower extremities for edema control. 6. The patient is on Eliquis and Plavix. No further DVT prophylaxis needed. 7. Skin precaution. 8. Bowel regimen, monitor for constipation, which may be limited by his ability to get out of bed at this point. 9. Home, possibly with home care versus short-term rehab, based on his response to therapy. Thank you for this referral. SHAYLA CROWE M.D. [id number]
--- NOTE | 2019-02-20 12:45 | PN ---
Progress Note, Physician Chief Complaint: Cellulitis Weakness B/L extremity History of Present Illness: Previous notes and events reviewed awake and alert NAD denies complaints in lower extremity noted with low K and Mg - Current Medication List Current Medications: Active Medications Acetaminophen (Tylenol -) 325 mg PO Q6H PRN PRN Reason: PAIN SCALE Last Admin: 02/19/19 21:12 Dose: 325 mg Apixaban (Eliquis -) 5 mg PO BID [facility] Last Admin: 02/20/19 09:29 Dose: 5 mg Budesonide/Formoterol Fumarate (Symbicort 80/4.5mcg -) 1 puff IH BID [facility] Last Admin: 02/20/19 09:30 Dose: 1 puff Colchicine (Colcrys -) 0.6 mg PO DAILY [facility] Last Admin: 02/20/19 09:29 Dose: 0.6 mg Furosemide (Lasix Injection -) 80 mg IVPUSH BID@0600,1400 [facility] Last Admin: 02/20/19 05:31 Dose: 80 mg Cefazolin Sodium 1 gm/ (Dextrose) 50 mls @ 100 mls/hr IVPB Q8H-IV [facility]ELIN Last Admin: 02/20/19 09:29 Dose: 100 mls/hr Metoprolol Succinate (Toprol Xl -) 100 mg PO DAILY [facility] Last Admin: 02/20/19 09:29 Dose: 100 mg Oxycodone HCl (Roxicodone -) 5 mg PO Q6H PRN PRN Reason: PAIN SCALE Last Admin: 02/19/19 21:12 Dose: 5 mg Polyethylene Glycol (Miralax (For Daily Use) -) 17 gm PO DAILY [facility] Potassium Chloride (K-Dur -) 20 meq PO DAILY [facility] Last Admin: 02/20/19 09:29 Dose: 20 meq Potassium Chloride (K-Dur -) 20 meq PO TID [facility] Last Admin: 02/20/19 05:31 Dose: 20 meq Ramipril (Altace -) 2.5 mg PO DAILY [facility] Last Admin: 02/20/19 09:29 Dose: 2.5 mg Rosuvastatin Calcium (Crestor -) 10 mg PO HS [facility] Last Admin: 02/19/19 21:11 Dose: 10 mg - Objective Vital Signs: Vital Signs Temperature 98.1 F 02/20/19 09:40 Pulse Rate 90 05/06/19 09:40 Respiratory Rate 20 02/20/19 09:40 Blood Pressure 126/73 02/20/19 09:40 O2 Sat by Pulse Oximetry (%) 97 02/20/19 09:00 Constitutional: Yes: No Distress, Calm Eyes: Yes: Conjunctiva Clear HENT: Yes: Atraumatic Cardiovascular: Yes: Regular Rate and Rhythm Respiratory: Yes: Regular, CTA Bilaterally Gastrointestinal: Yes: Normal Bowel Sounds, Soft Musculoskeletal: Yes: Muscle Weakness Extremities: Yes: WNL Edema: No Neurological: Yes: Alert, Oriented Psychiatric: Yes: Alert, Oriented Labs: CBC, BMP 02/19/19 06:20 02/19/19 06:20 INR, PTT INR 2.40 (0.83-1.09) H 02/18/19 06:14 Microbiology 02/18/19 09:24 Urine - Urine Clean Catch Urine Culture - Final NO GROWTH OBTAINED Problem List - Problems (1) Cellulitis Assessment/Plan: -ID on board -IV Cefazolin -no leukocytosis WBC 9.3 -afebrile Code(s): L03.90 - CELLULITIS, UNSPECIFIED (2) Gout Assessment/Plan: -colchicine -uric acid 6.8 Code(s): M10.9 - GOUT, UNSPECIFIED (3) Leg weakness, bilateral Assessment/Plan: -PT -fall precaution Code(s): R29.898 - OTH SYMPTOMS AND SIGNS INVOLVING THE MUSCULOSKELETAL SYSTEM (4) Afib Assessment/Plan: -Apixiban BID -Metoprolol Code(s): I48.91 - UNSPECIFIED ATRIAL FIBRILLATION Qualifiers: Atrial fibrillation type: unspecified Qualified Code(s): I48.91 - Unspecified atrial fibrillation (5) CHF (congestive heart failure) Assessment/Plan: -Furosemide -BNP 1146--repeat -1L fluid restriction -daily weight Code(s): I50.9 - HEART FAILURE, UNSPECIFIED (6) COPD (chronic obstructive pulmonary disease) Assessment/Plan: -Symbicort -O2 via NC -keep SpO2 >90% Code(s): J44.9 - CHRONIC OBSTRUCTIVE PULMONARY DISEASE, UNSPECIFIED Qualifiers: COPD type: unspecified COPD Qualified Code(s): J44.9 - Chronic obstructive pulmonary disease, unspecified (7) HTN (hypertension) Assessment/Plan: -Altace -low Na diet Code(s): I10 - ESSENTIAL (PRIMARY) HYPERTENSION (8) Hypokalemia Assessment/Plan: -K 2.9 -Kdur TID -KCl 10meq IVPB x 2 doses -monitor electrolyte adn replete as needed Code(s): E87.6 - HYPOKALEMIA (9) Hypomagnesemia Assessment/Plan: -Mg 1.4 -Magnesium 1g IVPB x 1 -monitor electrolyte and replete as needed Code(s): E83.42 - HYPOMAGNESEMIA Assessment/Plan see problem list dvt ppx
[2019-02-20] MEDS: KCL 10 MEQ IVPB 10 MEQ/100 ML INFUS.BAG IVPB SCH ×2 (13:26→16:18)
[2019-02-20] MEDS ORDERED: MAGNESIUM SULF 50% (8.12 MEQ/2 ML-1 GM VIAL) IVPB ONE (13:30)
--- NOTE | 2019-02-20 13:45 | PN ---
Progress Note (short form) - Note Progress Note: unable to stand legs are weak and heavy also pain left foot notes erythema improving both legs Vital Signs Period Temp Pulse Resp BP Sys/Tapia Pulse Ox Last 24 Hr 97.8 F-98.8 F 85-102 20-22 108-133/61-95 94-97 cor-rrr llungs clear abd soft,nt ext less erythema of the LLE, swelling of both feet unchanged CBC, BMP 02/19/19 06:20 02/19/19 06:20 Microbiology 02/18/19 09:24 Urine - Urine Clean Catch Urine Culture - Final NO GROWTH OBTAINED Current Medications Acetaminophen (Tylenol -) 325 mg PO Q6H PRN PRN Reason: PAIN SCALE Last Admin: 02/19/19 21:12 Dose: 325 mg Apixaban (Eliquis -) 5 mg PO BID [facility] Last Admin: 02/20/19 09:29 Dose: 5 mg Budesonide/Formoterol Fumarate (Symbicort 80/4.5mcg -) 1 puff IH BID [facility] Last Admin: 02/20/19 09:30 Dose: 1 puff Colchicine (Colcrys -) 0.6 mg PO DAILY [facility] Last Admin: 02/20/19 09:29 Dose: 0.6 mg Furosemide (Lasix Injection -) 80 mg IVPUSH BID@0600,1400 [facility] Last Admin: 02/20/19 13:25 Dose: 80 mg Cefazolin Sodium 1 gm/ (Dextrose) 50 mls @ 100 mls/hr IVPB Q8H-IV [facility] Last Admin: 02/20/19 09:29 Dose: 100 mls/hr Potassium Chloride (Potassium Chloride 10 Meq Premix Ivpb -) 10 meq in 100 mls @ 100 mls/hr IVPB Q60M [facility] Stop: 02/20/19 15:59 Last Admin: 02/20/19 13:26 Dose: 100 mls/hr Metoprolol Succinate (Toprol Xl -) 100 mg PO DAILY [facility] Last Admin: 02/20/19 09:29 Dose: 100 mg Oxycodone HCl (Roxicodone -) 5 mg PO Q6H PRN PRN Reason: PAIN SCALE Last Admin: 02/19/19 21:12 Dose: 5 mg Polyethylene Glycol (Miralax (For Daily Use) -) 17 gm PO DAILY [facility] Potassium Chloride (K-Dur -) 20 meq PO DAILY [facility] Last Admin: 02/20/19 09:29 Dose: 20 meq Potassium Chloride (K-Dur -) 20 meq PO TID [facility] Last Admin: 02/20/19 13:26 Dose: 20 meq Ramipril (Altace -) 2.5 mg PO DAILY [facility] Last Admin: 02/20/19 09:29 Dose: 2.5 mg Rosuvastatin Calcium (Crestor -) 10 mg PO HS [facility] Last Admin: 02/19/19 21:11 Dose: 10 mg imp/reccd possible cellulitis-continue cefazolin, legs less red- plan to switch to keflex when ready for discharge suspect volume overload (history AFIB)-on iv lasix continue cefazolin
--- NOTE | 2019-02-20 15:54 | CON.CARD ---
Consult Consult Specialty:: Cardiology Referred by:: Medicine Reason for Consultation:: edema - History of Present Illness Chief Complaint: edema History of Present Illness: 63M h/o COPD, CAD s/p stents, HTN, HLD, chronic diastolic HF p/w edema. Patient of Dr. Domingo, has had increasing bilateral lower ext edema over the last week. Takes lasix 40 mg daily at home, if he has worsening swelling he doubles the dose and it improves however this time did not improve, took 120 mg of lasix yesterday. Has baseline SOB, hx COPD, not worse than prior. no chest pain, palps, dizziness. Receiving IV lasix, feeling better. - Past Medical History Cardio/Vascular: Yes: AFIB, CAD (s/p stents), CHF, HTN, Hyperlipdemia Pulmonary: Yes: Sleep Apnea Gastrointestinal: Yes: GERD - Past Surgical History Past Surgical History: Yes: Stent - Alcohol/Substance Use Hx Alcohol Use: No - Smoking History Smoking history: Never smoked Have you smoked in the past 12 months: No Aproximately how many cigarettes per day: 0 - Social History ADL: Independent History of Recent Travel: No Home Medications - Allergies Allergies/Adverse Reactions: Allergies Allergy/AdvReac Type Severity Reaction Status Date / Time No Known Allergies Allergy Verified 02/18/19 05:53 - Home Medications Home Medications: Ambulatory Orders Apixaban [Eliquis] 5 mg PO BID 08/29/16 Rabeprazole Sodium [Aciphex] 20 mg PO DAILY 08/29/16 Ranolazine [Ranexa] 500 mg PO BID 08/29/16 Ramipril [Altace] 2.5 mg PO DAILY capsule 10/29/16 Rosuvastatin [Crestor -] 10 mg PO HS tablet 10/29/16 Furosemide [Lasix] 40 mg PO DAILY 10/31/17 Metoprolol Succinate [Toprol XL -] 100 mg PO DAILY 10/31/17 Budesonide/Formeterol Fumarate [SYMBICORT 80/4.5mcg -] 1 inh PO DAILY 11/25/17 Fexofenadine HCl [Nicole Allergy] 60 mg PO DAILY 11/25/17 Potassium Chloride [K-Dur -] 20 meq PO DAILY #30 tablet.er 11/28/17 Oxycodone HCl/Acetaminophen [Percocet 5-325 mg Tablet] 1 tab PO Q6H #10 tablet MDD 3 11/16/18 Family Disease History - Family Disease History Family Disease History: Heart Disease: Mother Review of Systems - Review of Systems Constitutional: reports: No Symptoms Eyes: reports: No Symptoms HENT: reports: No Symptoms Neck: reports: No Symptoms Cardiovascular: reports: No Symptoms Respiratory: reports: No Symptoms Gastrointestinal: reports: No Symptoms Genitourinary: reports: No Symptoms Musculoskeletal: reports: No Symptoms Integumentary: reports: No Symptoms Neurological: reports: No Symptoms Endocrine: reports: No Symptoms Hematology/Lymphatic: reports: No Symptoms Psychiatric: reports: No Symptoms Vital Signs: Vital Signs Temperature 98.5 F 02/20/19 14:26 Pulse Rate 83 02/20/19 14:26 Respiratory Rate 18 02/20/19 14:26 Blood Pressure 102/67 02/20/19 14:26 O2 Sat by Pulse Oximetry (%) 97 02/20/19 09:00 Constitutional: Yes: Well Nourished, No Distress, Calm Eyes: Yes: Conjunctiva Clear, EOM Intact HENT: Yes: Atraumatic, Normocephalic Neck: Yes: Supple, Trachea Midline Respiratory: Yes: Regular, CTA Bilaterally Gastrointestinal: Yes: Normal Bowel Sounds, Soft Cardiovascular: Yes: Pulse Irregular JVD: No Carotid Bruit: No PMI: Non-Displaced Heart Sounds: Yes: S1, S2 Murmur: No: Systolic Murmur Musculoskeletal: No: Back Pain Extremities: No: Cold Edema: Yes Edema: LLE: 1+, RLE: 1+ Peripheral Pulses WNL: Yes Peripheral Pulses: 2+ Left Doralis Pedis, 2+ Right Dorsalis Pedis Integumentary: No: Jaundice Neurological: Yes: Alert, Oriented Psychiatric: No: Agitated - Other Data Labs, Other Data: CBC, BMP 02/19/19 06:20 02/19/19 06:20 INR, PTT INR 2.40 (0.83-1.09) H 02/18/19 06:14 Assessment/Plan EKG: afib, PVCs, no ischemic changes, prolonged QTc CXR: congestive changes Acute on chronic diastolic HF, edema - improving with IV lasix, continue 80 mg IV BID - cont metoprolol, ramipril - monitor daily standing weights, Cr, lytes - h/o hypokalemia, replete lytes for K >4.0, Mg >2.0 cellulitis - manage per primary, ID CAD - continue plavix, statin, bb AFib - continue eliquis, metoprolol HTN - cont home meds HLD - cont home meds COPD - respiratory status at baseline - manage per primary
--- NOTE | 2019-02-20 18:35 | CONSULT ---
Consult Consult Specialty:: Nephrology Reason for Consultation:: fluid overload and hypokalemia - History of Present Illness Chief Complaint: worsening lower ext edema History of Present Illness: Pt is a 63 year old male with pmhx of CAD, COPD, HTN, diastolic CHF and HLD who presents to the ER with worsening lower ext edema. He was found to be fluid overloaded and developed hypokalemia. I was called to evaluate him. He is on lasix 40 mg at home and he takes 80 when he feels that his edema is worse. He took 120 mg of lasix on the day before admission without much urine output. He denies chest pain. He feels that the edema is improving. - History Source History Provided By: Patient, Medical Record - Past Medical History Cardio/Vascular: Yes: AFIB, CAD (s/p stents), CHF, HTN, Hyperlipdemia Pulmonary: Yes: Sleep Apnea Gastrointestinal: Yes: GERD - Past Surgical History Past Surgical History: Yes: Stent - Alcohol/Substance Use Hx Alcohol Use: No - Smoking History Smoking history: Never smoked Have you smoked in the past 12 months: No Aproximately how many cigarettes per day: 0 - Social History ADL: Independent History of Recent Travel: No Home Medications - Allergies Allergies/Adverse Reactions: Allergies Allergy/AdvReac Type Severity Reaction Status Date / Time No Known Allergies Allergy Verified 02/18/19 05:53 - Home Medications Home Medications: Ambulatory Orders Apixaban [Eliquis] 5 mg PO BID 08/29/16 Rabeprazole Sodium [Aciphex] 20 mg PO DAILY 08/29/16 Ranolazine [Ranexa] 500 mg PO BID 08/29/16 Ramipril [Altace] 2.5 mg PO DAILY capsule 10/29/16 Rosuvastatin [Crestor -] 10 mg PO HS tablet 10/29/16 Furosemide [Lasix] 40 mg PO DAILY 10/31/17 Metoprolol Succinate [Toprol XL -] 100 mg PO DAILY 10/31/17 Budesonide/Formeterol Fumarate [SYMBICORT 80/4.5mcg -] 1 inh PO DAILY 11/25/17 Fexofenadine HCl [Nicole Allergy] 60 mg PO DAILY 11/25/17 Potassium Chloride [K-Dur -] 20 meq PO DAILY #30 tablet.er 11/28/17 Oxycodone HCl/Acetaminophen [Percocet 5-325 mg Tablet] 1 tab PO Q6H #10 tablet MDD 3 11/16/18 Family Disease History - Family Disease History Family Disease History: Heart Disease: Mother Review of Systems - Review of Systems Constitutional: reports: Malaise Eyes: reports: No Symptoms HENT: reports: No Symptoms Neck: reports: No Symptoms Cardiovascular: reports: Edema, Shortness of Breath Respiratory: reports: SOB on Exertion Gastrointestinal: reports: No Symptoms Genitourinary: reports: No Symptoms Musculoskeletal: reports: No Symptoms Integumentary: reports: Erythema Neurological: reports: No Symptoms Endocrine: reports: No Symptoms Hematology/Lymphatic: reports: No Symptoms Psychiatric: reports: No Symptoms Physical Exam Vital Signs: Vital Signs Temperature 98.5 F 02/20/19 14:26 Pulse Rate 83 02/20/19 14:26 Respiratory Rate 18 02/20/19 14:26 Blood Pressure 102/67 02/20/19 14:26 O2 Sat by Pulse Oximetry (%) 97 02/20/19 09:00 Constitutional: Yes: Calm Eyes: Yes: Conjunctiva Clear HENT: Yes: Atraumatic Neck: Yes: Supple Cardiovascular: Yes: S1, S2 Respiratory: Yes: On Nasal O2 Gastrointestinal: Yes: Soft Renal/: Yes: WNL Edema: Yes Edema: LLE: 2+, RLE: 2+ Integumentary: Yes: Venous Stasis Changes Neurological: Yes: Oriented Psychiatric: Yes: Oriented Labs: CBC, BMP 02/19/19 06:20 02/19/19 06:20 Laboratory Tests 02/18/19 02/18/19 02/19/19 06:14 17:45 06:20 WBC 11.0 H 9.3 Hgb 11.0 L Plt Count 207 Sodium Potassium Creatinine Magnesium Urine Protein Negative Urine Blood Negative 02/19/19 06:20 WBC Hgb Plt Count Sodium 134 L Potassium 2.9 L* Creatinine 1.1 Magnesium 1.4 L Urine Protein Urine Blood Imaging - Results Chest X-ray: Report Reviewed Problem List - Problems (1) Cellulitis Code(s): L03.90 - CELLULITIS, UNSPECIFIED (2) HTN (hypertension) Code(s): I10 - ESSENTIAL (PRIMARY) HYPERTENSION (3) Hypokalemia Code(s): E87.6 - HYPOKALEMIA (4) Hypomagnesemia Code(s): E83.42 - HYPOMAGNESEMIA Assessment/Plan Current Medications Generic Name Dose Route Start Last Admin Trade Name Freq PRN Reason Stop Dose Admin Acetaminophen 325 mg 02/18/19 13:27 02/19/19 21:12 Tylenol - PO 325 mg Q6H PRN Administration PAIN SCALE Apixaban 5 mg 02/18/19 22:00 02/20/19 09:29 Eliquis - PO 5 mg BID SELIN Administration Budesonide/Formoterol Fumarate 1 puff 02/18/19 22:00 02/20/19 09:30 Symbicort 80/4.5mcg - IH 1 puff BID SELIN Administration Colchicine 0.6 mg 02/19/19 10:00 02/20/19 09:29 Colcrys - PO 0.6 mg DAILY SELIN Administration Furosemide 80 mg 02/19/19 16:23 02/20/19 13:25 Lasix Injection - IVPUSH 80 mg BID@0600,1400 SELIN Administration Cefazolin Sodium 1 gm/ 50 mls @ 100 mls/hr 02/19/19 09:30 02/20/19 17:02 Dextrose IVPB 100 mls/hr Q8H-IV SELIN Administration Metoprolol Succinate 100 mg 02/19/19 10:00 02/20/19 09:29 Toprol Xl - PO 100 mg DAILY SELIN Administration Oxycodone HCl 5 mg 02/18/19 13:27 02/19/19 21:12 Roxicodone - PO 5 mg Q6H PRN Administration PAIN SCALE Polyethylene Glycol 17 gm 02/21/19 10:00 Miralax (For Daily Use) - PO DAILY SELIN Potassium Chloride 20 meq 02/19/19 10:00 02/20/19 09:29 K-Dur - PO 20 meq DAILY SELIN Administration Potassium Chloride 20 meq 02/19/19 22:00 02/20/19 13:26 K-Dur - PO 20 meq TID SELIN Administration Ramipril 2.5 mg 02/19/19 10:00 02/20/19 09:29 Altace - PO 2.5 mg DAILY SELIN Administration Rosuvastatin Calcium 10 mg 02/18/19 22:00 02/19/19 21:11 Crestor - PO 10 mg HS SELIN Administration Impression 1. Hypokalemia 2. hypomagnesemia 3. fluid overload 4. chf 5. hld 6. HTN Plan - replace mag - replace potassium - can add spironolactone if not responding - monitir weights - cardio input appreciated
[2019-02-20] MEDS: ROSUVASTATIN CA 10 MG TABLET (FP) PO SCH (22:19)
[2019-02-21] MEDS ORDERED: DEXTROSE 5%-WATER - 50 ML IVPB ONE ×2 (01:34→08:35)
[2019-02-21] MEDS ORDERED: ceFAZolin SODIUM 1 GM VIAL ONE ×2 (01:34→08:35)
[2019-02-21] MEDS: CEFAZOLIN 1 GM in DEXTROSE 5%-WATER - 50 ML IVPB SCH ×2 (01:53→09:23)
[2019-02-21] MEDS: FUROSEMIDE 40 MG/4 ML INJECTABLE VIAL IVPUSH SCH ×2 (05:36→13:19)
[2019-02-21] MEDS: POTASSIUM CHLORIDE TABS 20 MEQ TABLET.ER (FP) PO SCH ×4 (05:36→21:17)
[2019-02-21] MEDS: oxyCODONE HCL 5 MG TABLET PO PRN ×3 (07:01→21:16)
[2019-02-21] MEDS: ACETAMINOPHEN 325 MG TABLET (FP) PO PRN ×2 (07:03→14:05)
[2019-02-21 07:36] LABS: HEMATOCRIT 37.6 % (35.4-49); HEMOGLOBIN 11.7 GM/dL (11.7-16.9); MCH 21.1 pg (25.7-33.7); MCHC 31.1 g/dl (32.0-35.9); MEAN CELL VOLUME 67.8 fl (80-96); MEAN PLT VOLUME 8.5 fl (7.5-11.1); PLATELET COUNT 270 K/MM3 (134-434); RBC 5.54 M/mm3 (4.00-5.60); WHITE BLOOD COUNT 8.5 K/mm3 (4.0-10.0)
[2019-02-21 07:53] LABS: ALK PHOS 102 U/L (45-117); ANION GAP 8 MMOL/L (8-16); BILIRUBIN,TOTAL 0.7 mg/dL (0.2-1); BLOOD UREA NITROGEN 30 mg/dL (7-18); CALCIUM 8.4 mg/dL (8.5-10.1); CHLORIDE 92 mmol/L (98-107); CO2 34 mmol/L (21-32); GLUCOSE,RANDOM 132 mg/dL (74-106); POTASSIUM 3.6 mmol/L (3.5-5.1); SGOT/AST 118 U/L (15-37); SGPT/ALT 60 U/L (13-61); SODIUM 134 mmol/L (136-145); TOT PROT 7.2 g/dl (6.4-8.2)
[2019-02-21] MEDS ORDERED: PT OWN MED DRAWER 7, Y5N ONE (08:34)
[2019-02-21] MEDS: COLCHICINE 0.6 MG TABLET (FP) PO SCH (09:23)
[2019-02-21] MEDS: APIXABAN 5 MG TABLET PO SCH ×2 (09:23→21:17)
[2019-02-21] MEDS: RAMIPRIL 2.5 MG CAPSULE (FP) PO SCH (09:23)
[2019-02-21] MEDS: POLYETHYLENE GLYCOL 3350 119 GM BTL PO SCH (09:24)
[2019-02-21] MEDS: BUDESONIDE/FORMETEROL FUMARATE 80/4.5 mcg INHALER IH SCH ×2 (09:24→21:18)
[2019-02-21 10:59] LABS: MAGNESIUM 1.9 mg/dL (1.8-2.4)
[2019-02-21 14:41] VITALS: BMI 44.4
--- NOTE | 2019-02-21 15:28 | PN ---
Progress Note (short form) - Note Progress Note: s: no cp sob palps dizzy o: Vital Signs Period Temp Pulse Resp BP Sys/Tapia Pulse Ox Last 24 Hr 97.6 F-98.2 F 79-98 18-19 101-137/61-80 96-98 Constitutional: Yes: Well Nourished, No Distress, Calm Eyes: Yes: Conjunctiva Clear Respiratory: Yes: Regular, CTA Bilaterally Gastrointestinal: Yes: Normal Bowel Sounds, Soft Cardiovascular: Yes: Pulse Irregular JVD: No Heart Sounds: Yes: S1, S2 Murmur: No: Systolic Murmur Musculoskeletal: No: Back Pain Extremities: No: Cold Edema: Yes Edema: LLE: 1+, RLE: 1+ Peripheral Pulses: 2+ Left Doralis Pedis, 2+ Right Dorsalis Pedis Integumentary: No: Jaundice Neurological: Yes: Alert, Oriented Psychiatric: No: Agitated Current Medications Generic Name Dose Route Start Last Admin Trade Name Freq PRN Reason Stop Dose Admin Acetaminophen 325 mg 02/18/19 13:27 02/21/19 14:05 Tylenol - PO 325 mg Q6H PRN Administration PAIN SCALE Apixaban 5 mg 02/18/19 22:00 02/21/19 09:23 Eliquis - PO 5 mg BID SELIN Administration Budesonide/Formoterol Fumarate 1 puff 02/18/19 22:00 02/21/19 09:24 Symbicort 80/4.5mcg - IH 1 puff BID SELIN Administration Colchicine 0.6 mg 02/19/19 10:00 02/21/19 09:23 Colcrys - PO 0.6 mg DAILY SELIN Administration Furosemide 80 mg 02/22/19 10:00 Lasix Injection - IVPUSH DAILY SELIN Cefazolin Sodium 1 gm/ 50 mls @ 100 mls/hr 02/19/19 09:30 02/21/19 09:23 Dextrose IVPB 100 mls/hr Q8H-IV SELIN Administration Metoprolol Succinate 100 mg 02/19/19 10:00 02/21/19 09:23 Toprol Xl - PO 100 mg DAILY SELIN Administration Oxycodone HCl 5 mg 02/21/19 12:04 02/21/19 14:04 Roxicodone - PO 5 mg Q6H PRN Administration PAIN SCALE 6-10 Polyethylene Glycol 17 gm 02/21/19 10:00 02/21/19 09:24 Miralax (For Daily Use) - PO Not Given DAILY [facility] Potassium Chloride 20 meq 02/19/19 10:00 02/21/19 09:23 K-Dur - PO 20 meq DAILY SELIN Administration Potassium Chloride 20 meq 02/19/19 22:00 02/21/19 13:19 K-Dur - PO 20 meq TID SELIN Administration Ramipril 2.5 mg 02/19/19 10:00 02/21/19 09:23 Altace - PO 2.5 mg DAILY SELIN Administration Rosuvastatin Calcium 10 mg 02/18/19 22:00 02/20/19 22:19 Crestor - PO 10 mg HS SELIN Administration CBC, BMP 02/21/19 06:45 02/21/19 06:45 Assessment/Plan EKG: afib, PVCs, no ischemic changes, prolonged QTc CXR: congestive changes Acute on chronic diastolic HF, edema - improving with IV lasix, continue (will change to qd from bid as pt complaining about too much urination and volume has already improved) - cont metoprolol, ramipril - monitor daily standing weights, Cr, lytes - h/o hypokalemia, replete lytes for K >4.0, Mg >2.0 cellulitis - manage per primary, ID CAD - continue plavix, statin, bb AFib - continue eliquis, metoprolol HTN - cont home meds HLD - cont home meds COPD - respiratory status at baseline - manage per primary
--- NOTE | 2019-02-21 16:19 | PN ---
Progress Note, Physician Chief Complaint: Cellulitis Weakness B/L extremity History of Present Illness: Previous notes and events reviewed awake and alert NAD sts ambulating better denies chest pain, SOB - Current Medication List Current Medications: Active Medications Acetaminophen (Tylenol -) 325 mg PO Q6H PRN PRN Reason: PAIN SCALE Last Admin: 02/21/19 14:05 Dose: 325 mg Apixaban (Eliquis -) 5 mg PO BID [facility] Last Admin: 02/21/19 09:23 Dose: 5 mg Budesonide/Formoterol Fumarate (Symbicort 80/4.5mcg -) 1 puff IH BID [facility] Last Admin: 02/21/19 09:24 Dose: 1 puff Colchicine (Colcrys -) 0.6 mg PO DAILY [facility] Last Admin: 02/21/19 09:23 Dose: 0.6 mg Furosemide (Lasix Injection -) 80 mg IVPUSH DAILY [facility] Cefazolin Sodium 1 gm/ (Dextrose) 50 mls @ 100 mls/hr IVPB Q8H-IV [facility] Last Admin: 02/21/19 09:23 Dose: 100 mls/hr Metoprolol Succinate (Toprol Xl -) 100 mg PO DAILY [facility] Last Admin: 02/21/19 09:23 Dose: 100 mg Oxycodone HCl (Roxicodone -) 5 mg PO Q6H PRN PRN Reason: PAIN SCALE 6-10 Last Admin: 02/21/19 14:04 Dose: 5 mg Polyethylene Glycol (Miralax (For Daily Use) -) 17 gm PO DAILY [facility] Last Admin: 02/21/19 09:24 Dose: Not Given Potassium Chloride (K-Dur -) 20 meq PO DAILY [facility] Last Admin: 02/21/19 09:23 Dose: 20 meq Potassium Chloride (K-Dur -) 20 meq PO TID [facility] Last Admin: 02/21/19 13:19 Dose: 20 meq Ramipril (Altace -) 2.5 mg PO DAILY [facility] Last Admin: 02/21/19 09:23 Dose: 2.5 mg Rosuvastatin Calcium (Crestor -) 10 mg PO HS [facility] Last Admin: 02/20/19 22:19 Dose: 10 mg - Objective Vital Signs: Vital Signs Temperature 97.8 F 02/21/19 14:53 Pulse Rate 89 02/21/19 14:53 Respiratory Rate 18 02/21/19 14:53 Blood Pressure 123/65 02/21/19 14:53 O2 Sat by Pulse Oximetry (%) 96 02/21/19 09:00 Constitutional: Yes: No Distress, Calm Eyes: Yes: Conjunctiva Clear HENT: Yes: Atraumatic Cardiovascular: Yes: Pulse Irregular Respiratory: Yes: Regular, CTA Bilaterally Gastrointestinal: Yes: Normal Bowel Sounds, Soft, Abdomen, Obese Musculoskeletal: Yes: Muscle Weakness Extremities: Yes: WNL Edema: Yes Edema: LLE: 1+, RLE: 1+ Neurological: Yes: Alert, Oriented Psychiatric: Yes: Alert, Oriented Labs: CBC, BMP 02/21/19 06:45 02/21/19 06:45 INR, PTT INR 2.40 (0.83-1.09) H 02/18/19 06:14 Microbiology 02/18/19 09:24 Urine - Urine Clean Catch Urine Culture - Final NO GROWTH OBTAINED Problem List - Problems (1) Cellulitis Assessment/Plan: -ID on board -IV Cefazolin -no leukocytosis WBC 8.5 -afebrile Code(s): L03.90 - CELLULITIS, UNSPECIFIED (2) Gout Assessment/Plan: -colchicine -uric acid 6.8 Code(s): M10.9 - GOUT, UNSPECIFIED (3) Leg weakness, bilateral Assessment/Plan: -PT -fall precaution Code(s): R29.898 - OTH SYMPTOMS AND SIGNS INVOLVING THE MUSCULOSKELETAL SYSTEM (4) Afib Assessment/Plan: -Apixiban BID -Metoprolol Code(s): I48.91 - UNSPECIFIED ATRIAL FIBRILLATION Qualifiers: Atrial fibrillation type: unspecified Qualified Code(s): I48.91 - Unspecified atrial fibrillation (5) CHF (congestive heart failure) Assessment/Plan: -Furosemide -BNP 869 -1L fluid restriction -daily weight Code(s): I50.9 - HEART FAILURE, UNSPECIFIED (6) COPD (chronic obstructive pulmonary disease) Assessment/Plan: -Symbicort -O2 via NC -keep SpO2 >90% Code(s): J44.9 - CHRONIC OBSTRUCTIVE PULMONARY DISEASE, UNSPECIFIED Qualifiers: COPD type: unspecified COPD Qualified Code(s): J44.9 - Chronic obstructive pulmonary disease, unspecified (7) HTN (hypertension) Assessment/Plan: -Altace -low Na diet Code(s): I10 - ESSENTIAL (PRIMARY) HYPERTENSION (8) Hypokalemia Assessment/Plan: -K 3.6 -Kdur TID -monitor electrolyte adn replete as needed Code(s): E87.6 - HYPOKALEMIA (9) Hypomagnesemia Assessment/Plan: -Mg 1.9 -monitor electrolyte and replete as needed Code(s): E83.42 - HYPOMAGNESEMIA Assessment/Plan see problem list dvt ppx
[2019-02-21] MEDS ORDERED: PANTOPRAZOLE 40 MG TABLET (FP) PO ONE (16:36)
--- NOTE | 2019-02-21 16:48 | PN ---
Progress Note, Physician History of Present Illness: Pt seen and examined at bedside. He is awake and alert. He denies shortness of breath. He feels that his lower ext edema is improved. - Current Medication List Current Medications: Active Medications Acetaminophen (Tylenol -) 325 mg PO Q6H PRN PRN Reason: PAIN SCALE Last Admin: 02/21/19 14:05 Dose: 325 mg Apixaban (Eliquis -) 5 mg PO BID [facility] Last Admin: 02/21/19 09:23 Dose: 5 mg Budesonide/Formoterol Fumarate (Symbicort 80/4.5mcg -) 1 puff IH BID [facility] Last Admin: 02/21/19 09:24 Dose: 1 puff Cephalexin HCl (Keflex -) 500 mg PO BID [facility] Stop: 02/28/19 21:59 Colchicine (Colcrys -) 0.6 mg PO DAILY [facility] Last Admin: 02/21/19 09:23 Dose: 0.6 mg Furosemide (Lasix Injection -) 80 mg IVPUSH DAILY [facility] Metoprolol Succinate (Toprol Xl -) 100 mg PO DAILY [facility] Last Admin: 02/21/19 09:23 Dose: 100 mg Oxycodone HCl (Roxicodone -) 5 mg PO Q6H PRN PRN Reason: PAIN SCALE 6-10 Last Admin: 02/21/19 14:04 Dose: 5 mg Pantoprazole Sodium (Protonix -) 40 mg PO DAILY [facility] Polyethylene Glycol (Miralax (For Daily Use) -) 17 gm PO DAILY [facility] Last Admin: 02/21/19 09:24 Dose: Not Given Potassium Chloride (K-Dur -) 20 meq PO DAILY [facility] Last Admin: 02/21/19 09:23 Dose: 20 meq Potassium Chloride (K-Dur -) 20 meq PO TID [facility] Last Admin: 02/21/19 13:19 Dose: 20 meq Ramipril (Altace -) 2.5 mg PO DAILY [facility] Last Admin: 02/21/19 09:23 Dose: 2.5 mg Rosuvastatin Calcium (Crestor -) 10 mg PO HS [facility] Last Admin: 02/20/19 22:19 Dose: 10 mg - Objective Vital Signs: Vital Signs Temperature 97.8 F 02/21/19 14:53 Pulse Rate 89 02/21/19 14:53 Respiratory Rate 18 02/21/19 14:53 Blood Pressure 123/65 02/21/19 14:53 O2 Sat by Pulse Oximetry (%) 96 02/21/19 09:00 Constitutional: Yes: Calm Eyes: Yes: Conjunctiva Clear HENT: Yes: Atraumatic Neck: Yes: Supple Cardiovascular: Yes: S1, S2 Respiratory: Yes: CTA Bilaterally Gastrointestinal: Yes: Soft Genitourinary: Yes: WNL Musculoskeletal: Yes: WNL Edema: Yes Edema: LLE: 1+, RLE: 1+ Integumentary: Yes: Venous Stasis Changes Neurological: Yes: Oriented Psychiatric: Yes: Oriented Labs: CBC, BMP 02/21/19 06:45 02/21/19 06:45 INR, PTT INR 2.40 (0.83-1.09) H 02/18/19 06:14 Problem List - Problems (1) Cellulitis Code(s): L03.90 - CELLULITIS, UNSPECIFIED (2) HTN (hypertension) Code(s): I10 - ESSENTIAL (PRIMARY) HYPERTENSION (3) Hypokalemia Code(s): E87.6 - HYPOKALEMIA (4) Hypomagnesemia Code(s): E83.42 - HYPOMAGNESEMIA Assessment/Plan Current Medications Generic Name Dose Route Start Last Admin Trade Name Freq PRN Reason Stop Dose Admin Acetaminophen 325 mg 02/18/19 13:27 02/21/19 14:05 Tylenol - PO 325 mg Q6H PRN Administration PAIN SCALE Apixaban 5 mg 02/18/19 22:00 02/21/19 09:23 Eliquis - PO 5 mg BID [facility] Administration Budesonide/Formoterol Fumarate 1 puff 02/18/19 22:00 02/21/19 09:24 Symbicort 80/4.5mcg - IH 1 puff BID [facility] Administration Cephalexin HCl 500 mg 02/21/19 22:00 Keflex - PO 02/28/19 21:59 BID [facility] Colchicine 0.6 mg 02/19/19 10:00 02/21/19 09:23 Colcrys - PO 0.6 mg DAILY [facility] Administration Furosemide 80 mg 02/22/19 10:00 Lasix Injection - IVPUSH DAILY [facility] Metoprolol Succinate 100 mg 02/19/19 10:00 02/21/19 09:23 Toprol Xl - PO 100 mg DAILY [facility] Administration Oxycodone HCl 5 mg 02/21/19 12:04 02/21/19 14:04 Roxicodone - PO 5 mg Q6H PRN Administration PAIN SCALE 6-10 Pantoprazole Sodium 40 mg 02/22/19 10:00 Protonix - PO DAILY [facility] Polyethylene Glycol 17 gm 02/21/19 10:00 02/21/19 09:24 Miralax (For Daily Use) - PO Not Given DAILY [facility] Potassium Chloride 20 meq 02/19/19 10:00 02/21/19 09:23 K-Dur - PO 20 meq DAILY [facility] Administration Potassium Chloride 20 meq 02/19/19 22:00 02/21/19 13:19 K-Dur - PO 20 meq TID [facility] Administration Ramipril 2.5 mg 02/19/19 10:00 02/21/19 09:23 Altace - PO 2.5 mg DAILY [facility] Administration Rosuvastatin Calcium 10 mg 02/18/19 22:00 02/20/19 22:19 Crestor - PO 10 mg HS [facility] Administration Impression 1. Hypokalemia 2. hypomagnesemia 3. fluid overload 4. chf 5. hld 6. HTN Plan - change lasix to daily - repeat labs in am - potassium stable - monitor lytes - cardio input appreciated
--- NOTE | 2019-02-21 16:49 | PN ---
Progress Note (short form) - Note Progress Note: legs much improved ambulating today with cane! Vital Signs Period Temp Pulse Resp BP Sys/Tapia Pulse Ox Last 24 Hr 97.6 F-98.2 F 79-98 18-19 101-137/61-80 96-98 cor-rrr lungs clear abd soft,nt ext minimal erythema, minimal edema of the feet CBC, BMP 02/21/19 06:45 02/21/19 06:45 Microbiology 02/18/19 09:24 Urine - Urine Clean Catch Urine Culture - Final NO GROWTH OBTAINED a/p cellulitis-improved suspect volume overload (history AFIB)-improved switch to po keflex for one week d/w patient d/w hospitalist please call back if needed Problem List - Problems (1) Cellulitis Code(s): L03.90 - CELLULITIS, UNSPECIFIED (2) CHF (congestive heart failure) Code(s): I50.9 - HEART FAILURE, UNSPECIFIED
[2019-02-21] MEDS: ROSUVASTATIN CA 10 MG TABLET (FP) PO SCH (21:15)
[2019-02-21] MEDS: CEPHALEXIN MONOHYDRATE 500 MG CAPSULE (UD) PO SCH (21:15)
[2019-02-22] MEDS: POTASSIUM CHLORIDE TABS 20 MEQ TABLET.ER (FP) PO SCH ×2 (05:43→10:06)
[2019-02-22] MEDS: oxyCODONE HCL 5 MG TABLET PO PRN (06:16)
[2019-02-22 07:24] LABS: HEMATOCRIT 37.6 % (35.4-49); HEMOGLOBIN 11.6 GM/dL (11.7-16.9); MCH 21.1 pg (25.7-33.7); MCHC 30.9 g/dl (32.0-35.9); MEAN CELL VOLUME 68.3 fl (80-96); MEAN PLT VOLUME 8.5 fl (7.5-11.1); PLATELET COUNT 288 K/MM3 (134-434); RDW 21.5 % (11.9-15.9); WHITE BLOOD COUNT 7.8 K/mm3 (4.0-10.0)
[2019-02-22 07:49] LABS: ALK PHOS 100 U/L (45-117); ANION GAP 6 MMOL/L (8-16); BILIRUBIN,TOTAL 0.6 mg/dL (0.2-1); BLOOD UREA NITROGEN 34 mg/dL (7-18); CALCIUM 8.7 mg/dL (8.5-10.1); CHLORIDE 94 mmol/L (98-107); CO2 31 mmol/L (21-32); GLUCOSE,RANDOM 138 mg/dL (74-106); MAGNESIUM 1.9 mg/dL (1.8-2.4); SGOT/AST 88 U/L (15-37); SGPT/ALT 64 U/L (13-61); SODIUM 131 mmol/L (136-145); TOT PROT 7.1 g/dl (6.4-8.2)
--- NOTE | 2019-02-22 09:41 | DS ---
Physical Examination Vital Signs: Vital Signs Temperature 98 F 02/22/19 06:00 Pulse Rate 83 02/22/19 06:00 Respiratory Rate 18 02/22/19 06:00 Blood Pressure 118/71 02/22/19 06:00 O2 Sat by Pulse Oximetry (%) 94 L 02/21/19 21:00 Constitutional: Yes: No Distress Eyes: Yes: WNL HENT: Yes: WNL Neck: Yes: WNL Cardiovascular: Yes: Pulse Irregular Respiratory: Yes: WNL Gastrointestinal: Yes: WNL Renal/: Yes: WNL Musculoskeletal: Yes: Back Pain Extremities: Yes: Erythema Edema: Yes Edema: LLE: 1+, RLE: 1+ Wound/Incision: Yes: Reddened Neurological: Yes: Pre-Existing Deficit Labs: CBC, BMP 02/22/19 06:05 02/22/19 06:05 Discharge Summary Reason For Visit: CELLULITIS, WEAKNESS OF BOTH LOWER EXTERMITIES Current Active Problems Cellulitis (Acute) Gout (Acute) Leg weakness, bilateral (Acute) Swelling of lower extremity (Acute) Unable to ambulate (Acute) Procedures: Principal: DOPPLERS/LABS Hospital Course: SEVERE LOWER EXTREMITY CELLULITIS WITH EDEMA, TREATED IV ABX AND IV LASIX Condition: Stable - Instructions Diet, Activity, Other Instructions: SEE DR BLAND IN 2 WEEKS FOR LABS Disposition: HOME - Home Medications Comprehensive Discharge Medication List: Ambulatory Orders Apixaban [Eliquis] 5 mg PO BID 08/29/16 Rabeprazole Sodium [Aciphex] 20 mg PO DAILY 08/29/16 Ranolazine [Ranexa] 500 mg PO BID 08/29/16 Ramipril [Altace] 2.5 mg PO DAILY capsule 10/29/16 Rosuvastatin [Crestor -] 10 mg PO HS tablet 10/29/16 Furosemide [Lasix] 40 mg PO DAILY 10/31/17 Metoprolol Succinate [Toprol XL -] 100 mg PO DAILY 10/31/17 Budesonide/Formeterol Fumarate [SYMBICORT 80/4.5mcg -] 1 inh PO DAILY 11/25/17 Fexofenadine HCl [Nicole Allergy] 60 mg PO DAILY 11/25/17 Potassium Chloride [K-Dur -] 20 meq PO DAILY #30 tablet.er 11/28/17 Oxycodone HCl/Acetaminophen [Percocet 5-325 mg Tablet] 1 tab PO Q6H #10 tablet MDD 3 11/16/18 Acetaminophen [Tylenol .Regular Strength -] 325 mg PO Q6H PRN tablet 02/22/19 Cephalexin Monohydrate [Keflex -] 500 mg PO BID #10 capsule 02/22/19 Polyethylene Glycol 3350 [Miralax 119 gm Btl -] 17 gm PO DAILY bottle 02/22/19
[2019-02-22] MEDS ORDERED: PANTOPRAZOLE 40 MG TABLET (FP) PO SCH (10:00)
[2019-02-22] MEDS ORDERED: FUROSEMIDE 40 MG/4 ML INJECTABLE VIAL IVPUSH SCH ×2 (10:00)
[2019-02-22 10:06] VITALS: BP 118/65; PULSE 74; TEMP 97.9
[2019-02-22] MEDS: RAMIPRIL 2.5 MG CAPSULE (FP) PO SCH (10:06)
[2019-02-22] MEDS: COLCHICINE 0.6 MG TABLET (FP) PO SCH (10:06)
[2019-02-22] MEDS: POLYETHYLENE GLYCOL 3350 119 GM BTL PO SCH (10:07)
[2019-02-22] MEDS: CEPHALEXIN MONOHYDRATE 500 MG CAPSULE (UD) PO SCH (10:07)
[2019-02-22] MEDS: APIXABAN 5 MG TABLET PO SCH (10:07)
[2019-02-22] MEDS: BUDESONIDE/FORMETEROL FUMARATE 80/4.5 mcg INHALER IH SCH (10:08)
== END 2019-02-22 11:34 | disposition home or self-care (01) | DRG 602 ==
LOC: JER 05:33 → JERBED 09:58 → J7W 11:48
PROVIDERS: ADMIT Family Medicine; ATTEND Family Medicine
DX: L03.115 Cellulitis of right lower limb (principal); I50.33 Acute on chronic diastolic (congestive) heart failure; E87.1 Hypo-osmolality and hyponatremia; Z68.41 Body mass index [BMI] 40.0-44.9, adult; I11.0 Hypertensive heart disease with heart failure; L03.116 Cellulitis of left lower limb; J44.9 Chronic obstructive pulmonary disease, unspecified; I25.10 Atherosclerotic heart disease of native coronary artery without angina pectoris; E78.5 Hyperlipidemia, unspecified; E87.6 Hypokalemia; E83.42 Hypomagnesemia; E83.51 Hypocalcemia; I48.91 Unspecified atrial fibrillation; M10.9 Gout, unspecified; E66.9 Obesity, unspecified; K21.9 Gastro-esophageal reflux disease without esophagitis; G47.33 Obstructive sleep apnea (adult) (pediatric); I45.81 Long QT syndrome
CPT/HCPCS: 36415; 71045-TC-FY; 80053; 81003; 82550; 83735; 83880; 84100; 84443; 84484; 84550; 85025; 85027; 85610; 87086; 93005; 93010; 93970-TC; 97116-GP; 97162-GP; 99284-25

== ENCOUNTER 2019-03-23 09:46 | Inpatient (IN) | payer BC, OTHER ==
--- NOTE | 2019-03-23 11:58 | PDOC ---
History of Present Illness - General Chief Complaint: Wound Stated Complaint: FAYE ANKLE PAIN Time Seen by Provider: 03/23/19 11:58 History Source: Patient Exam Limitations: No Limitations - History of Present Illness Initial Comments: Pt is a 63 yo M, with PMH of COPD, CAD (6 stents on eliquis and plavix), HTN, HLD, and hypokalemia, who is presenting with complaints of b/l LE edema over the past 2 days. Pt states hr frequently gets LE swelling, which he can usually relieve by taking an extra dose of his Lasix. Pt states he took 80 mg Lasix yesterday (20 mg tablets throughout the day), with no relief. Pt states his legs are swollen, but he is able to walk around his house and up the stairs, and is able to perform his daily activities. Pt admits to drinking wine over the whole weekend (Wednesday-Wednesday), and noticed the edema after that time. Pt states his breathing has improved since his PCP (Dr. Martinez) changed his breathing medications. Pt denies any fevers/chills, headache, vision changes, syncope, chest pain, palpitations, SOB from baseline, nausea/vomiting, abdominal pain, urinary symptoms, diarrhea/constipation. Social: Pt drinks 1/2 to 1 bottle of wine 4-5x per week. Denies any cigarette or drug use. Pt denies any recent travel or sick contacts. Surgical: cardiac stents. Family: no relevant history. 03/23/19 13:23 Past History - Travel Traveled outside of the country in the last 30 days: No Close contact w/someone who was outside of country & ill: No - Past Medical History Allergies/Adverse Reactions: Allergies Allergy/AdvReac Type Severity Reaction Status Date / Time No Known Allergies Allergy Verified 03/23/19 10:08 Home Medications: Ambulatory Orders Apixaban [Eliquis] 5 mg PO BID 08/29/16 Rabeprazole Sodium [Aciphex] 20 mg PO DAILY 08/29/16 Ranolazine [Ranexa] 500 mg PO BID 08/29/16 Ramipril [Altace] 2.5 mg PO DAILY capsule 10/29/16 Rosuvastatin [Crestor -] 10 mg PO HS tablet 10/29/16 Furosemide [Lasix] 40 mg PO DAILY 10/31/17 Metoprolol Succinate [Toprol XL -] 100 mg PO DAILY 10/31/17 Budesonide/Formeterol Fumarate [SYMBICORT 80/4.5mcg -] 1 inh PO DAILY 11/25/17 Fexofenadine HCl [Nicole Allergy] 60 mg PO DAILY 11/25/17 Potassium Chloride [K-Dur -] 20 meq PO DAILY #30 tablet.er 11/28/17 Acetaminophen [Tylenol .Regular Strength -] 325 mg PO Q6H PRN tablet 02/22/19 Polyethylene Glycol 3350 [Miralax 119 gm Btl -] 17 gm PO DAILY bottle 02/22/19 Anemia: No Asthma: No Cancer: No Cardiac Disorders: Yes (A Fib) CVA: No COPD: No CHF: No Dementia: No Diabetes: No GI Disorders: Yes (ACID REFLUX) Disorders: No HTN: Yes Hypercholesterolemia: Yes Liver Disease: No Seizures: No Thyroid Disease: No - Surgical History Abdominal Surgery: Yes (HERNIA) Appendectomy: No Cardiac Surgery: Yes (STENTS , 2010,, ) Cholecystectomy: No Lung Surgery: No Neurologic Surgery: No Orthopedic Surgery: No - Immunization History Immunization Up to Date: Yes - Suicide/Smoking/Psychosocial Hx Smoking Status: No Smoking History: Unknown if ever smoked Have you smoked in the past 12 months: Yes Number of Cigarettes Smoked Daily: 0 Cigars Per Day: 1 'Breaking Loose' booklet given: 10/31/17 Hx Alcohol Use: Yes Drug/Substance Use Hx: No Substance Use Type: None Hx Substance Use Treatment: No Review of Systems - Review of Systems Able to Perform ROS?: Yes Is the patient limited Montenegrin proficient: No Constitutional: Yes: Weight Stable. No: Chills, Diaphoresis, Fever, Loss of Appetite, Malaise, Weakness HEENTM: No: Blurred Vision, Double Vision, Nose Congestion, Throat Pain, Throat Swelling Respiratory: No: Cough, Orthopnea, Shortness of Breath, Wheezing, Productive cough, Hemoptysis Cardiac (ROS): Yes: See HPI, Edema. No: Chest Pain, Irregular Heart Rate, Lightheadedness, Palpitations, Syncope, Chest Tightness ABD/GI: No: Constipated, Diarrhea, Nausea, Poor Appetite, Poor Fluid Intake, Vomiting : No: Burning, Dysuria, Pain, Urgency Musculoskeletal: No: Back Pain, Joint Pain, Muscle Pain, Muscle Weakness Integumentary: No: Rash Neurological: No: Headache, Numbness, Paresthesia, Weakness, Unsteady Gait, Dizziness Psychiatric: No: Sleep Pattern Change, Change in Appetite Endocrine: No: Increased Urine, Change in Weight Hematologic/Lymphatic: Yes: Blood Clots (CAD, stents x6). No: Anemia, Easy Bleeding, Easy Bruising All Other Systems: Reviewed and Negative *Physical Exam - Vital Signs Last Vital Signs Temp Pulse Resp BP Pulse Ox 98.4 F 84 22 H 128/83 96 03/23/19 10:10 03/23/19 10:10 03/23/19 10:10 03/23/19 10:10 03/23/19 10:10 - Physical Exam Comments: Vitals stable, O2 96% (pt baseline), pt afebrile. Pt in NAD, obese body habitus. Pt alert and oriented x3. gear room keeper generally intact, muscular strength and sensation intact. No midline spinal tenderness, step-offs, or crepitus. Head normocephalic, atraumatic. Eyes PERRLA, EOMI. Oropharynx without erythema or exudates, no LAD b/l. No nasal congestion, hearing intact. Clear heart sounds, systolic murmur noted loudest over apex. S1/S2, no JVD. +b/ l pedal edema to mid spencer. Mildly diminished lung sounds throughout, but no respiratory distress, wheezes, crackles, or accessory muscle use. No abdominal or CVA tenderness to palpation, no rebound, no guarding. Abdomen soft, non-distended, and with normoactive bowel sounds. Stasis dermatitis (hyperpigmentation) of LE b/l to mid spencer. No erythema or warmth of skin. 03/23/19 13:20 ED Treatment Course - LABORATORY CBC & Chemistry Diagram: 03/23/19 12:25 03/23/19 12:23 Medical Decision Making - Medical Decision Making Pt was seen at bedside, also will be seen by attending Dr. Vega. Pt presenting with complaints of b/l LE edema. Increased recent alcohol intake. Took 80 mg PO lasix yesterday (usual dose 40 Qday) with minimal relief. Denying SOB, orthopnea , chest pain, leg pain, leg weakness. Is able to function with daily activities , and walk around the house. Considering b/l LE edema 2/2 DVT, electrolyte imbalances, medication non- compliance or decreased efficacy, fluid retention 2/2 alcohol use. Ordered work-up including CBC, CMP, BNP, chest x-ray, LE doppler. Will likely provide Lasix pending chemistry. Will continue to reassess pt and monitor for symptomatic improvement. ECG: Afib with PVCs (HR 76, QRS 98, QTc 582). No TWIs or significant ST segment changes. No significant changes from prior ECG. Chest x-ray: Impression. Cardiomegaly. No evidence of a pulmonary infiltrates, congestive changes. Left basilar region obscured by the cardiac silhouette soft tissues of the chest 03/23/19 13:28 Pt taken for US DVT study. CBC WNL for pt (baseline anemia) CMP K 2.3 Providing [address] Martinez for admission. 03/23/19 14:[address] Carmichael (telemetry, due to hypokalemia) Pt currently in US study. 03/23/19 14:38 *DC/Admit/Observation/Transfer Diagnosis at time of Disposition: Hypokalemia, Swelling of lower extremity COPD (chronic obstructive pulmonary disease) Qualifiers: COPD type: unspecified COPD Qualified Code(s): J44.9 - Chronic obstructive pulmonary disease, unspecified - Discharge Dispostion Condition at time of disposition: Stable Decision to Admit order: Yes - Referrals Referrals: Elisabet Martinez MD [Primary Care Provider] - - Patient Instructions - Post Discharge Activity
[2019-03-23 12:40] LABS: BASO % 0.7 % (0-2.0); EOS % 0.2 % (0-4.5); HEMATOCRIT 37.8 % (35.4-49); HEMOGLOBIN 11.5 GM/dL (11.7-16.9); LYMPH % 7.2 % (8-40); MCH 20.5 pg (25.7-33.7); MCHC 30.3 g/dl (32.0-35.9); MEAN CELL VOLUME 67.7 fl (80-96); MEAN PLT VOLUME 8.8 fl (7.5-11.1); MONO % 9.5 % (3.8-10.2); NEUT % 82.4 % (42.8-82.8); PLATELET COUNT 182 K/MM3 (134-434); RBC 5.58 M/mm3 (4.00-5.60); RDW 21.7 % (11.9-15.9); WHITE BLOOD COUNT 10.8 K/mm3 (4.0-10.0)
[2019-03-23 12:54] LABS: INR 2.23 (0.83-1.09); PROTHROMBIN TIME (PATIENT) 26.5 SEC (9.7-13.0)
[2019-03-23 13:27] LABS: ALBUMIN 3.6 g/dl (3.4-5.0); BILIRUBIN,TOTAL 0.8 mg/dL (0.2-1); CALCIUM 7.3 mg/dL (8.5-10.1); CREATININE 1.1 mg/dL (0.55-1.3); MAGNESIUM 0.9 mg/dL (1.8-2.4); N-TERMINAL BNP 1199.3 pg/ml (5-125); PHOSPHOROUS 4.8 mg/dL (2.5-4.9); TOT PROT 7.6 g/dl (6.4-8.2)
[2019-03-23 14:10] LABS: POTASSIUM 2.7 mmol/L (3.5-5.1)
[2019-03-23] MEDS ORDERED: POTASSIUM CHLORIDE 20 MEQ PREMIX IVPB 100 ML IVPB ONE (14:11)
--- NOTE | 2019-03-23 14:12 | PDOC ---
Documentation entered by Mike Munoz SCRIBE, acting as scribe for Lucien Vega MD. Lucien Vega MD: This documentation has been prepared by the Tammy shaw Xhesika, SCRIBE, under my direction and personally reviewed by me in its entirety. I confirm that the documentation accurately reflects all work, treatment, procedures, and medical decision making performed by me. Attending Attestation - Resident Resident Name: Lorrie Olivo - ED Attending Attestation I have performed the following: I have examined & evaluated the patient, The case was reviewed & discussed with the resident, I agree w/resident's findings & plan, Exceptions are as noted - HPI HPI: 03/23/19 12:32 The patient is a 63 year old male, with a significant PMH of COPD, CAD (6 stents on eliquis and plavix), HTN, HLD, and hypokalemia who presents to the emergency department with bilateral LE edema. The patient states he gets chronic LE swelling, which he can usually relieve by taking an extra dose of his Lasix. He typically takes 40mg daily, which he has been compliant with. However, he has been having worsening swelling over the past week despite this. Pt took an extra dose of his lasix yesterday, but did not notice any improvement. The patient states his legs feel heavy but he is still able to ambulate. The patient notes he was seen here at [facility] a month ago for BLE cellulitis and was treated with keflex, which he has completed. He denies any worsening redness or pain to his legs. Denies F/C. The patient denies chest pain , shortness of breath, headache and dizziness. Denies orthopnea or TIPTON. Denies fever, chills, nausea, vomit, diarrhea and constipation. Denies dysuria, frequency, urgency and hematuria. Allergies: NKDA Past surgical history: cardiac stents. Social history: Pt drinks 1/2 to 1 bottle of wine 4-5x per week. Denies any cigarette or drug use. PCP: Elisabet Obando - Physicial Exam PE: 03/23/19 14:06 "GENERAL: Awake, alert, and fully oriented, in no acute distress. HEAD: No signs of trauma EYES: PERRLA, EOMI, sclera anicteric, conjunctiva clear ENT: Auricles normal inspection, hearing grossly normal, nares patent, oropharynx clear without exudates. Moist mucosa NECK: Nontender, no stepoffs, Normal ROM, supple, no lymphadenopathy, JVD, or masses LUNGS: Breath sounds equal, clear to auscultation bilaterally. No wheezes, and no crackles HEART: Regular rate and rhythm, normal S1 and S2, no murmurs, rubs or gallops ABDOMEN: Soft, nontender, normoactive bowel sounds. No guarding, no rebound. No masses EXTREMITIES: +2 PE BLE, no erythema NEUROLOGICAL: Cranial nerves II through XII intact. 5/5 strength and sensation in all extremities, Normal speech, normal gait, normal cerebellar function SKIN: Warm, Dry, normal turgor, no rashes or lesions noted. - Medical Decision Making 03/23/19 14:06 63 M with BLE edema. Suspect pt is mildly volume overloaded. Pt with no respiratory complaints, no chest pain. - Labs, BNP - CXR - Lasix PRN 03/23/19 14:11 Labs notable for K 2.9 Will hold off on lasix for now
[2019-03-23] MEDS ORDERED: POTASSIUM CHLORIDE TABS 20 MEQ TABLET.ER (FP) PO ONE ×2 (15:20→21:00)
[2019-03-23] MEDS ORDERED: MAGNESIUM SULF 50% (8.12 MEQ/2 ML-1 GM VIAL) IVPB ONE (15:22)
--- NOTE | 2019-03-23 15:28 | HP ---
Admitting History and Physical - Primary Care Physician PCP: Elisabet Martinez - Admission Chief Complaint: leg edema History of Present Illness: Pt is a 63 yo M, with PMH of COPD, CAD (6 stents on eliquis and plavix), HTN, HLD, and hypokalemia, who is presenting with complaints of b/l LE edema over the past 2 days. Pt states hr frequently gets LE swelling, which he can usually relieve by taking an extra dose of his Lasix. Pt states he took 80 mg Lasix yesterday (20 mg tablets throughout the day), with no relief. Pt states his legs are swollen, but he is able to walk around his house and up the stairs, and is able to perform his daily activities. Pt admits to drinking wine over the whole weekend (Wednesday-Wednesday), and noticed the edema after that time. Pt states his breathing has improved since his PCP (Dr. Martinez) changed his breathing medications. Pt denies any fevers/chills, headache, vision changes, syncope, chest pain, palpitations, SOB from baseline, nausea/vomiting, abdominal pain, urinary symptoms, diarrhea/constipation. in ER potassium 2.7, mag 0.9 History Source: Patient - Past Medical History Cardiovascular: Yes: AFIB, CAD (s/p stents), CHF, HTN, Hyperlipdemia Pulmonary: Yes: Sleep Apnea Gastrointestinal: Yes: GERD - Past Surgical History Past Surgical History: Yes: Stent - Smoking History Smoking history: Unknown if ever smoked Have you smoked in the past 12 months: Yes Aproximately how many cigarettes per day: 0 - Alcohol/Substance Use Hx Alcohol Use: Yes - Social History ADL: Independent History of Recent Travel: No Home Medications - Allergies Allergies/Adverse Reactions: Allergies Allergy/AdvReac Type Severity Reaction Status Date / Time No Known Allergies Allergy Verified 03/23/19 10:08 - Home Medications Home Medications: Ambulatory Orders Apixaban [Eliquis] 5 mg PO BID 08/29/16 Rabeprazole Sodium [Aciphex] 20 mg PO DAILY 08/29/16 Ranolazine [Ranexa] 500 mg PO BID 08/29/16 Ramipril [Altace] 2.5 mg PO DAILY capsule 10/29/16 Rosuvastatin [Crestor -] 10 mg PO HS tablet 10/29/16 Furosemide [Lasix] 40 mg PO DAILY 10/31/17 Metoprolol Succinate [Toprol XL -] 100 mg PO DAILY 10/31/17 Budesonide/Formeterol Fumarate [SYMBICORT 80/4.5mcg -] 1 inh PO DAILY 11/25/17 Fexofenadine HCl [Nicole Allergy] 60 mg PO DAILY 11/25/17 Potassium Chloride [K-Dur -] 20 meq PO DAILY #30 tablet.er 11/28/17 Acetaminophen [Tylenol .Regular Strength -] 325 mg PO Q6H PRN tablet 02/22/19 Polyethylene Glycol 3350 [Miralax 119 gm Btl -] 17 gm PO DAILY bottle 02/22/19 Family Disease History - Family Disease History Family Disease History: Heart Disease: Mother Review of Systems - Review of Systems Musculoskeletal: reports: Other (leg swelling) Physical Examination Vital Signs: Vital Signs Temperature 98.4 F 03/23/19 10:10 Pulse Rate 84 03/23/19 10:10 Respiratory Rate 22 H 03/23/19 10:10 Blood Pressure 128/83 03/23/19 10:10 O2 Sat by Pulse Oximetry (%) 96 03/23/19 10:10 Constitutional: Yes: Calm Cardiovascular: Yes: Regular Rate and Rhythm, S1, S2 Respiratory: Yes: CTA Bilaterally Gastrointestinal: Yes: Normal Bowel Sounds, Soft Edema: Yes Labs: CBC, BMP 03/23/19 12:25 03/23/19 12:23 Imaging - Results Chest X-ray: Report Reviewed (no infiltrate) Ultrasound: Report Reviewed (no edema) Problem List - Problems (1) Swelling of lower extremity Assessment/Plan: venous doppler no dvt cardiology IV lasix 40mg bid Code(s): M79.89 - OTHER SPECIFIED SOFT TISSUE DISORDERS (2) Hypokalemia Assessment/Plan: tele potassium ordered now and for later in day recehck in AM Code(s): E87.6 - HYPOKALEMIA (3) Hypomagnesemia Assessment/Plan: repleted recheck in Am Code(s): E83.42 - HYPOMAGNESEMIA
[2019-03-23] MEDS ORDERED: KCL 10 MEQ IVPB 20 MEQ/200 ML INFUS.BAG IVPB ONE (15:32)
--- NOTE | 2019-03-23 15:39 | EKG ---
Test Reason : Blood Pressure : / mmHG Vent. Rate : 076 BPM Atrial Rate : 046 BPM P-R Int : 000 ms QRS Dur : 098 ms QT Int : 518 ms P-R-T Axes : 000 082 137 degrees QTc Int : 582 ms POOR DATA QUALITY, INTERPRETATION MAY BE ADVERSELY AFFECTED ATRIAL FIBRILLATION WITH PREMATURE VENTRICULAR OR ABERRANTLY CONDUCTED COMPLEXES ABNORMAL ECG Confirmed by CATARINA MILLER MD ([id number]) on 03/23/2019 3:38:57 PM Referred By: Confirmed By:CATARINA MILLER MD
--- NOTE | 2019-03-23 16:23 | CON.CARD ---
Cardiology Consult (text) - Consultation Consultation Note: Consult Specialty:: Cardiology Referred by:: Medicine Reason for Consultation:: edema - History of Present Illness Chief Complaint: edema History of Present Illness: 63M h/o COPD, CAD s/p stents, HTN, HLD, chronic diastolic HF p/w edema. Recently admitted for CHF exac, cellulitis, treated with IV lasix and abx. Initially felt well at home, in last 3 days worsening edema. Had been taking lasix 20 mg daily, had been increasing dose to as much as 80 mg daily as of today. In the ER K 2.7. Denies dyspnea. Patient of Dr. Domingo. no chest pain, palps, dizziness. - Past Medical History Cardio/Vascular: Yes: AFIB, CAD (s/p stents), CHF, HTN, Hyperlipdemia Pulmonary: Yes: Sleep Apnea Gastrointestinal: Yes: GERD - Past Surgical History Past Surgical History: Yes: Stent - Alcohol/Substance Use Hx Alcohol Use: No - Smoking History Smoking history: Never smoked Have you smoked in the past 12 months: No Aproximately how many cigarettes per day: 0 - Social History ADL: Independent History of Recent Travel: No Home Medications - Allergies Allergies/Adverse Reactions: Allergies Allergy/AdvReac Type Severity Reaction Status Date / Time No Known Allergies Allergy Verified 03/23/19 10:08 Home Medications Medication Instructions Recorded Apixaban [Eliquis] 5 mg PO BID 08/29/16 Rabeprazole Sodium [Aciphex] 20 mg PO DAILY 08/29/16 Ranolazine [Ranexa] 500 mg PO BID 08/29/16 Ramipril [Altace] 2.5 mg PO DAILY capsule 10/29/16 Rosuvastatin [Crestor -] 10 mg PO HS tablet 10/29/16 Furosemide [Lasix] 40 mg PO DAILY 10/31/17 Metoprolol Succinate [Toprol XL -] 100 mg PO DAILY 10/31/17 Budesonide/Formeterol Fumarate 1 inh PO DAILY 11/25/17 [SYMBICORT 80/4.5mcg -] Fexofenadine HCl [Nicole Allergy] 60 mg PO DAILY 11/25/17 Potassium Chloride [K-Dur -] 20 meq PO DAILY #30 tablet.er 11/28/17 Acetaminophen [Tylenol .Regular 325 mg PO Q6H PRN tablet 02/22/19 Strength -] Polyethylene Glycol 3350 [Miralax 17 gm PO DAILY bottle 02/22/19 119 gm Btl -] Family Disease History - Family Disease History Family Disease History: Heart Disease: Mother Review of Systems - Review of Systems Constitutional: reports: No Symptoms Eyes: reports: No Symptoms HENT: reports: No Symptoms Neck: reports: No Symptoms Cardiovascular: reports: No Symptoms Respiratory: reports: No Symptoms Gastrointestinal: reports: No Symptoms Genitourinary: reports: No Symptoms Musculoskeletal: reports: No Symptoms Integumentary: reports: No Symptoms Neurological: reports: No Symptoms Endocrine: reports: No Symptoms Hematology/Lymphatic: reports: No Symptoms Psychiatric: reports: No Symptoms Vital Signs Period Temp Pulse Resp BP Sys/Tapia Pulse Ox Last 24 Hr 98.4 F 84 22 128/83 96 Constitutional: Yes: Well Nourished, No Distress, Calm Eyes: Yes: Conjunctiva Clear, EOM Intact HENT: Yes: Atraumatic, Normocephalic Neck: Yes: Supple, Trachea Midline Respiratory: Yes: Regular, CTA Bilaterally Gastrointestinal: Yes: Normal Bowel Sounds, Soft Cardiovascular: Yes: Pulse Irregular JVD: No Carotid Bruit: No PMI: Non-Displaced Heart Sounds: Yes: S1, S2 Murmur: No: Systolic Murmur Musculoskeletal: No: Back Pain Extremities: No: Cold Edema: Yes Edema: LLE: 1+, RLE: 1+ Peripheral Pulses WNL: Yes Peripheral Pulses: 2+ Left Doralis Pedis, 2+ Right Dorsalis Pedis Integumentary: No: Jaundice Neurological: Yes: Alert, Oriented Psychiatric: No: Agitated Assessment/Plan EKG: afib, PVCs, no ischemic changes, prolonged QTc CXR: no congestive changes Acute on chronic diastolic HF, edema - repleting K prior to starting IV lasix - cont metoprolol, ramipril - monitor daily standing weights, Cr, lytes hypokalemia - monitoring on tele - K repletion per primary CAD - continue plavix, statin, bb AFib - continue eliquis, metoprolol HTN - cont home meds HLD - cont home meds COPD - respiratory status at baseline - manage per primary
[2019-03-23] MEDS: BUDESONIDE/FORMETEROL FUMARATE 160/4.5 mcg INHALER IH SCH (22:00)
[2019-03-23] MEDS: ROSUVASTATIN CA 10 MG TABLET (FP) PO SCH (22:13)
[2019-03-23] MEDS: APIXABAN 5 MG TABLET PO SCH (22:13)
[2019-03-23] MEDS: RANOLAZINE E.R. 500 MG TABLET (FP) PO SCH (22:13)
[2019-03-24] MEDS: FUROSEMIDE 40 MG/4 ML INJECTABLE VIAL IVPUSH SCH ×2 (06:13→14:10)
[2019-03-24 07:48] LABS: BASO % 0.4 % (0-2.0); EOS % 0.5 % (0-4.5); HEMATOCRIT 36.6 % (35.4-49); HEMOGLOBIN 11.3 GM/dL (11.7-16.9); LYMPH % 7.7 % (8-40); MCH 20.9 pg (25.7-33.7); MCHC 30.8 g/dl (32.0-35.9); MEAN CELL VOLUME 67.6 fl (80-96); MEAN PLT VOLUME 8.8 fl (7.5-11.1); MONO % 10.8 % (3.8-10.2); NEUT % 80.6 % (42.8-82.8); RBC 5.41 M/mm3 (4.00-5.60); RDW 21.6 % (11.9-15.9); WHITE BLOOD COUNT 11.8 K/mm3 (4.0-10.0)
[2019-03-24 09:33] LABS: PH,URINE 6.5 (5.0-8.0); URINE APPEARANCE CLEAR; URINE BILIRUBIN NEGATIVE (NEGATIVE); URINE COLOR YELLOW; URINE GLUCOSE (UA) NEGATIVE (NEGATIVE); URINE KETONE NEGATIVE (NEGATIVE); URINE LEUK ESTERASE NEGATIVE (NEGATIVE); URINE NITRITE NEGATIVE (NEGATIVE); URINE PROTEIN NEGATIVE (NEGATIVE)
[2019-03-24 09:46] LABS: ALBUMIN 3.6 g/dl (3.4-5.0); ALK PHOS 75 U/L (45-117); ANION GAP 5 MMOL/L (8-16); BLOOD UREA NITROGEN 21 mg/dL (7-18); CALCIUM 7.4 mg/dL (8.5-10.1); CHLORIDE 95 mmol/L (98-107); CHOLESTEROL 143 mg/dL (50-200); CO2 34 mmol/L (21-32); CREATININE 1.1 mg/dL (0.55-1.3); GLUCOSE,RANDOM 107 mg/dL (74-106); HDL CHOLESTEROL 39 mg/dL (40-60); MAGNESIUM 1.5 mg/dL (1.8-2.4); POTASSIUM 3.2 mmol/L (3.5-5.1); SGOT/AST 11 U/L (15-37); SGPT/ALT 12 U/L (13-61); SODIUM 134 mmol/L (136-145); TOT PROT 7.5 g/dl (6.4-8.2); TRIGLYCERIDES 148 mg/dL (0-150)
--- NOTE | 2019-03-24 09:47 | PN ---
Progress Note, Physician Chief Complaint: comfortable, no CP or SOB Concerned about his LE edema TELE: AF, 70-80, rare PVC and couplets K improved, still low - Current Medication List Current Medications: Active Medications Apixaban (Eliquis -) 5 mg PO BID [facility] Last Admin: 03/23/19 22:13 Dose: 5 mg Budesonide/Formoterol Fumarate (Symbicort 160/4.5mcg -) 2 puff IH BID [facility] Last Admin: 03/23/19 22:00 Dose: 2 puff Furosemide (Lasix Injection -) 40 mg IVPUSH BID@0600,1400 [facility] Last Admin: 03/24/19 06:13 Dose: 40 mg Metoprolol Succinate (Toprol Xl -) 50 mg PO DAILY [facility] Potassium Chloride (K-Dur -) 40 meq PO DAILY [facility] Ramipril (Altace -) 2.5 mg PO DAILY [facility] Ranolazine (Ranexa -) 500 mg PO BID [facility] Last Admin: 03/23/19 22:13 Dose: 500 mg Rosuvastatin Calcium (Crestor -) 10 mg PO HS [facility] Last Admin: 03/23/19 22:13 Dose: 10 mg - Objective Vital Signs: Vital Signs Temperature 98.2 F 03/24/19 08:40 Pulse Rate 90 03/24/19 08:40 Respiratory Rate 18 03/24/19 08:40 Blood Pressure 139/83 03/24/19 08:40 O2 Sat by Pulse Oximetry (%) 94 L 03/23/19 21:00 Constitutional: Yes: No Distress Eyes: Yes: Conjunctiva Clear Cardiovascular: Yes: Pulse Irregular Respiratory: Yes: CTA Bilaterally Gastrointestinal: Yes: Soft, Abdomen, Obese Edema: Yes Edema: LLE: 1+ (venous stasis), RLE: 1+ (venous stasis) Neurological: Yes: Alert Labs: CBC, BMP 03/24/19 07:00 03/24/19 07:00 INR, PTT INR 2.23 (0.83-1.09) H 03/23/19 12:23 Laboratory Tests 03/24/19 03/24/19 07:00 07:00 WBC 11.8 H Hgb 11.3 L Plt Count Pending Sodium 134 L Potassium 3.2 L BUN 21 H Creatinine 1.1 Magnesium 1.5 L Total Bilirubin 1.0 AST 11 L ALT 12 L - ....Imaging EKG: Image Reviewed Assessment/Plan Assessment/Plan EKG: afib, PVCs, no ischemic changes, prolonged QTc CXR: no congestive changes Acute on chronic diastolic HF, edema: edema is multifactorial (diastolic CHF and venous insuff- consider compression stockings): - repleting K/Mg2+ while diuresing. Cont Tele - cont metoprolol, ramipril - monitor daily standing weights, Cr, lytes Hypokalemia - monitoring on tele - K repletion per primary CAD - continue plavix, statin, bb AFib - continue eliquis, metoprolol, rates controlled. HTN - cont home meds HLD - cont home meds COPD - respiratory status at baseline - manage per primary
[2019-03-24] MEDS ORDERED: FUROSEMIDE 40 MG/4 ML INJECTABLE VIAL IVPUSH SCH (10:00)
[2019-03-24] MEDS: RANOLAZINE E.R. 500 MG TABLET (FP) PO SCH ×2 (10:12→21:28)
[2019-03-24] MEDS: APIXABAN 5 MG TABLET PO SCH ×2 (10:12→21:28)
[2019-03-24] MEDS: POTASSIUM CHLORIDE TABS 20 MEQ TABLET.ER (FP) PO SCH (10:12)
[2019-03-24] MEDS: RAMIPRIL 2.5 MG CAPSULE (FP) PO SCH (10:12)
[2019-03-24] MEDS: BUDESONIDE/FORMETEROL FUMARATE 160/4.5 mcg INHALER IH SCH ×2 (10:13→21:27)
[2019-03-24] MEDS: KCL 10 MEQ IVPB 10 MEQ/100 ML INFUS.BAG IVPB SCH ×3 (12:14→16:27)
[2019-03-24 12:15] LABS: PLATELET COUNT 208 K/MM3 (134-434)
--- NOTE | 2019-03-24 12:41 | CONSULT ---
Consult Consult Specialty:: Nephrology Reason for Consultation:: hypokalemia - History of Present Illness Chief Complaint: lower ext edema History of Present Illness: Pt is a 63 year old male with pmhx of copd, cad, cardiac stents, chf, htn, hld, and hypokalemia who presented to the ER with worsening lower ext edema despite being on lasix. He says that he is unable to walk. He did have wine over the weekend and he felt that the edema worsened after that. He was found to be hypokalemic and I was called to evaluate him. He denies shortness of breath at rest. He denies palpitations or chest pain. He denies dysuria or hematuria. Pt was on potassium supplements at home however he says that they ran out. - History Source History Provided By: Patient, Medical Record - Past Medical History Cardio/Vascular: Yes: AFIB, CAD (s/p stents), CHF, HTN, Hyperlipdemia Pulmonary: Yes: Sleep Apnea Gastrointestinal: Yes: GERD - Past Surgical History Past Surgical History: Yes: Stent - Alcohol/Substance Use Hx Alcohol Use: Yes - Smoking History Smoking history: Unknown if ever smoked Have you smoked in the past 12 months: Yes Aproximately how many cigarettes per day: 0 - Social History ADL: Independent History of Recent Travel: No Home Medications - Allergies Allergies/Adverse Reactions: Allergies Allergy/AdvReac Type Severity Reaction Status Date / Time No Known Allergies Allergy Verified 03/23/19 10:08 - Home Medications Home Medications: Ambulatory Orders Apixaban [Eliquis] 5 mg PO BID 08/29/16 Rabeprazole Sodium [Aciphex] 20 mg PO DAILY 08/29/16 Ranolazine [Ranexa] 500 mg PO BID 08/29/16 Ramipril [Altace] 2.5 mg PO DAILY capsule 10/29/16 Rosuvastatin [Crestor -] 10 mg PO HS tablet 10/29/16 Furosemide [Lasix] 40 mg PO DAILY 10/31/17 Metoprolol Succinate [Toprol XL -] 100 mg PO DAILY 10/31/17 Budesonide/Formeterol Fumarate [SYMBICORT 80/4.5mcg -] 1 inh PO DAILY 11/25/17 Fexofenadine HCl [Nicole Allergy] 60 mg PO DAILY 11/25/17 Potassium Chloride [K-Dur -] 20 meq PO DAILY #30 tablet.er 11/28/17 Acetaminophen [Tylenol .Regular Strength -] 325 mg PO Q6H PRN tablet 02/22/19 Polyethylene Glycol 3350 [Miralax 119 gm Btl -] 17 gm PO DAILY bottle 02/22/19 Family Disease History - Family Disease History Family Disease History: Heart Disease: Mother Review of Systems - Review of Systems Constitutional: reports: Malaise Eyes: reports: No Symptoms HENT: reports: No Symptoms Neck: reports: No Symptoms Cardiovascular: reports: Edema. denies: Palpitations Respiratory: reports: SOB on Exertion Gastrointestinal: reports: No Symptoms Genitourinary: reports: No Symptoms Musculoskeletal: reports: No Symptoms Integumentary: reports: No Symptoms Neurological: reports: No Symptoms Endocrine: reports: No Symptoms Hematology/Lymphatic: reports: No Symptoms Psychiatric: reports: No Symptoms Physical Exam Vital Signs: Vital Signs Temperature 98.2 F 03/24/19 08:40 Pulse Rate 90 03/24/19 08:40 Respiratory Rate 18 03/24/19 08:40 Blood Pressure 139/83 03/24/19 08:40 O2 Sat by Pulse Oximetry (%) 94 L 03/23/19 21:00 Constitutional: Yes: Calm Eyes: Yes: Conjunctiva Clear HENT: Yes: Atraumatic Cardiovascular: Yes: S1, S2 Respiratory: Yes: On Nasal O2 Gastrointestinal: Yes: Soft Renal/: Yes: WNL Musculoskeletal: Yes: WNL Edema: Yes Edema: LLE: 2+, RLE: 2+ Integumentary: Yes: Venous Stasis Changes Neurological: Yes: Oriented Psychiatric: Yes: Oriented Labs: CBC, BMP 03/24/19 07:00 03/24/19 07:00 Laboratory Tests 03/24/19 07:00 Potassium 3.2 L BUN 21 H Creatinine 1.1 Magnesium 1.5 L Imaging - Results Chest X-ray: Report Reviewed Problem List - Problems (1) COPD (chronic obstructive pulmonary disease) Code(s): J44.9 - CHRONIC OBSTRUCTIVE PULMONARY DISEASE, UNSPECIFIED Qualifiers: COPD type: unspecified COPD Qualified Code(s): J44.9 - Chronic obstructive pulmonary disease, unspecified (2) Hypokalemia Code(s): E87.6 - HYPOKALEMIA (3) Hypomagnesemia Code(s): E83.42 - HYPOMAGNESEMIA (4) Swelling of lower extremity Code(s): M79.89 - OTHER SPECIFIED SOFT TISSUE DISORDERS (5) Gout Code(s): M10.9 - GOUT, UNSPECIFIED (6) HTN (hypertension) Code(s): I10 - ESSENTIAL (PRIMARY) HYPERTENSION Assessment/Plan Current Medications Generic Name Dose Route Start Last Admin Trade Name Freq PRN Reason Stop Dose Admin Apixaban 5 mg 03/23/19 22:00 03/24/19 10:12 Eliquis - PO 5 mg BID SELIN Administration Budesonide/Formoterol Fumarate 2 puff 03/23/19 22:00 03/24/19 10:13 Symbicort 160/4.5mcg - IH 2 puff BID SELIN Administration Furosemide 40 mg 03/24/19 06:00 03/24/19 06:13 Lasix Injection - IVPUSH 40 mg BID@0600,1400 SELIN Administration Potassium Chloride 10 meq in 100 mls @ 100 mls/hr 03/24/19 11:30 03/24/19 12: 14 Potassium Chloride 10 Meq Premix Ivpb - IVPB 03/24/19 14:29 100 mls/hr Q60M SELIN Administration Metoprolol Succinate 50 mg 03/24/19 10:00 03/24/19 10:12 Toprol Xl - PO 50 mg DAILY SELIN Administration Potassium Chloride 40 meq 03/24/19 10:00 03/24/19 10:12 K-Dur - PO 40 meq DAILY SELIN Administration Ramipril 2.5 mg 03/24/19 10:00 03/24/19 10:12 Altace - PO 2.5 mg DAILY SELIN Administration Ranolazine 500 mg 03/23/19 22:00 03/24/19 10:12 Ranexa - PO 500 mg BID SELIN Administration Rosuvastatin Calcium 10 mg 03/23/19 22:00 03/23/19 22:13 Crestor - PO 10 mg HS SELIN Administration Impression 1. Hypokalemia 2. hypomagnesemia 3. fluid overload 4. chf 5. hld 6. HTN Plan - replace potassium - replace mag - will need supplements - will give a dose of aldactone - cardio follow up - will need to adhere to diet
[2019-03-24] MEDS ORDERED: MAGNESIUM SULF 50% (8.12 MEQ/2 ML-1 GM VIAL) IVPB ONE (12:43)
[2019-03-24] MEDS ORDERED: SPIRONOLACTONE 25 MG TABLET (FP) PO ONE (12:43)
[2019-03-24] MEDS: MAGNESIUM OXIDE 400 MG TABLET (FP) PO SCH ×2 (13:04→21:28)
--- NOTE | 2019-03-24 15:34 | PN ---
Progress Note, Physician Chief Complaint: B/L lower extremity Edema Hypokalemia Hypomagnesia History of Present Illness: Previous notes and events reviewed awake and alert NAD denies complains of chest pain or SOB - Current Medication List Current Medications: Active Medications Apixaban (Eliquis -) 5 mg PO BID [facility] Last Admin: 03/24/19 10:12 Dose: 5 mg Budesonide/Formoterol Fumarate (Symbicort 160/4.5mcg -) 2 puff IH BID [facility] Last Admin: 03/24/19 10:13 Dose: 2 puff Furosemide (Lasix Injection -) 40 mg IVPUSH BID@0600,1400 [facility] Last Admin: 03/24/19 14:10 Dose: 40 mg Magnesium Oxide (Mag-Ox -) 400 mg PO BID [facility] Last Admin: 03/24/19 13:04 Dose: 400 mg Metoprolol Succinate (Toprol Xl -) 50 mg PO DAILY [facility] Last Admin: 03/24/19 10:12 Dose: 50 mg Potassium Chloride (K-Dur -) 40 meq PO DAILY [facility] Last Admin: 03/24/19 10:12 Dose: 40 meq Ramipril (Altace -) 2.5 mg PO DAILY [facility] Last Admin: 03/24/19 10:12 Dose: 2.5 mg Ranolazine (Ranexa -) 500 mg PO BID [facility] Last Admin: 03/24/19 10:12 Dose: 500 mg Rosuvastatin Calcium (Crestor -) 10 mg PO HS [facility] Last Admin: 03/23/19 22:13 Dose: 10 mg - Objective Vital Signs: Vital Signs Temperature 98.2 F 03/24/19 08:40 Pulse Rate 90 03/24/19 08:40 Respiratory Rate 18 03/24/19 08:40 Blood Pressure 139/83 03/24/19 08:40 O2 Sat by Pulse Oximetry (%) 94 L 03/23/19 21:00 Constitutional: Yes: No Distress, Calm Eyes: Yes: Conjunctiva Clear HENT: Yes: Atraumatic Cardiovascular: Yes: Regular Rate and Rhythm Respiratory: Yes: Regular, CTA Bilaterally Gastrointestinal: Yes: Normal Bowel Sounds, Soft Musculoskeletal: Yes: Muscle Weakness Extremities: Yes: WNL Edema: Yes Edema: LLE: 1+, RLE: 1+ Neurological: Yes: Alert, Oriented Psychiatric: Yes: Alert, Oriented Labs: CBC, BMP 03/24/19 07:00 03/24/19 07:00 INR, PTT INR 2.23 (0.83-1.09) H 03/23/19 12:23 Problem List - Problems (1) COPD (chronic obstructive pulmonary disease) Assessment/Plan: -Symbicort -keep SpO2 >90% -O2 via [place] Code(s): J44.9 - CHRONIC OBSTRUCTIVE PULMONARY DISEASE, UNSPECIFIED Qualifiers: COPD type: unspecified COPD Qualified Code(s): J44.9 - Chronic obstructive pulmonary disease, unspecified (2) Hypokalemia Assessment/Plan: -K 3.2 -KCl PO 40mg daily -monitor electrolyte and replete as needed Code(s): E87.6 - HYPOKALEMIA (3) Hypomagnesemia Assessment/Plan: -Mag 1.5 -Magnesium Oxide 400mg BID -monitor and replete as needed Code(s): E83.42 - HYPOMAGNESEMIA (4) Swelling of lower extremity Assessment/Plan: -Cardiology on board -Furosemide IVP BID -1L fluid restriction -daily weight Code(s): M79.89 - OTHER SPECIFIED SOFT TISSUE DISORDERS (5) Afib Assessment/Plan: -continue Eliquis and Metoprolol -tele monitoring Code(s): I48.91 - UNSPECIFIED ATRIAL FIBRILLATION Qualifiers: Atrial fibrillation type: unspecified Qualified Code(s): I48.91 - Unspecified atrial fibrillation (6) CAD (coronary artery disease) Assessment/Plan: -Aspirin -crestor Code(s): I25.10 - ATHSCL HEART DISEASE OF [place] CORONARY ARTERY W/O ANG PCTRS (7) GERD (gastroesophageal reflux disease) Assessment/Plan: -pantoprazole Code(s): K21.9 - GASTRO-ESOPHAGEAL REFLUX DISEASE WITHOUT ESOPHAGITIS (8) HTN (hypertension) Assessment/Plan: -Ramipril -low Na diet Code(s): I10 - ESSENTIAL (PRIMARY) HYPERTENSION Assessment/Plan see problem list dvt ppx
[2019-03-24 16:45] VITALS: BMI 39.7
[2019-03-24] MEDS: ROSUVASTATIN CA 10 MG TABLET (FP) PO SCH (21:28)
[2019-03-25] MEDS: FUROSEMIDE 40 MG/4 ML INJECTABLE VIAL IVPUSH SCH (05:05)
[2019-03-25 07:14] LABS: HEMATOCRIT 36.9 % (35.4-49); HEMOGLOBIN 11.5 GM/dL (11.7-16.9); MCH 21.5 pg (25.7-33.7); MCHC 31.2 g/dl (32.0-35.9); MEAN CELL VOLUME 68.9 fl (80-96); MEAN PLT VOLUME 8.8 fl (7.5-11.1); RBC 5.35 M/mm3 (4.00-5.60); RDW 21.7 % (11.9-15.9); WHITE BLOOD COUNT 10.7 K/mm3 (4.0-10.0)
[2019-03-25 07:43] LABS: ALBUMIN 3.5 g/dl (3.4-5.0); BILIRUBIN,TOTAL 0.7 mg/dL (0.2-1); BLOOD UREA NITROGEN 20.1 mg/dL (7-18); CALCIUM 7.8 mg/dL (8.5-10.1); MAGNESIUM 1.9 mg/dL (1.8-2.4); TOT PROT 7.4 g/dl (6.4-8.2)
--- NOTE | 2019-03-25 08:37 | PN ---
Progress Note, Physician Chief Complaint: Acute on chronic diastolic CHF Hypokalemia Hypomagnesia History of Present Illness: NAD sitting inchair feels weak worsening hypokalemia today - Current Medication List Current Medications: Active Medications Apixaban (Eliquis -) 5 mg PO BID [facility] Last Admin: 03/24/19 21:28 Dose: 5 mg Budesonide/Formoterol Fumarate (Symbicort 160/4.5mcg -) 2 puff IH BID [facility] Last Admin: 03/24/19 21:27 Dose: 2 puff Furosemide (Lasix Injection -) 40 mg IVPUSH BID@0600,1400 [facility] Last Admin: 03/25/19 05:05 Dose: 40 mg Potassium Chloride (Potassium Chloride 10 Meq Premix Ivpb -) 10 meq in 100 mls @ 100 mls/hr IVPB Q60M [facility] Stop: 03/25/19 11:29 Magnesium Oxide (Mag-Ox -) 400 mg PO BID [facility] Last Admin: 03/24/19 21:28 Dose: 400 mg Metoprolol Succinate (Toprol Xl -) 50 mg PO DAILY [facility] Last Admin: 03/24/19 10:12 Dose: 50 mg Potassium Chloride (K-Dur -) 40 meq PO DAILY [facility] Last Admin: 03/24/19 10:12 Dose: 40 meq Ramipril (Altace -) 2.5 mg PO DAILY [facility] Last Admin: 03/24/19 10:12 Dose: 2.5 mg Ranolazine (Ranexa -) 500 mg PO BID [facility] Last Admin: 03/24/19 21:28 Dose: 500 mg Rosuvastatin Calcium (Crestor -) 10 mg PO HS [facility] Last Admin: 03/24/19 21:28 Dose: 10 mg - Objective Vital Signs: Vital Signs Temperature 98.4 F 03/25/19 07:12 Pulse Rate 86 03/25/19 07:12 Respiratory Rate 18 03/25/19 07:12 Blood Pressure 107/72 03/25/19 07:12 O2 Sat by Pulse Oximetry (%) 97 03/24/19 09:00 Constitutional: Yes: Well Nourished, No Distress, Calm, Obese Cardiovascular: Yes: Regular Rate and Rhythm Respiratory: Yes: Regular Gastrointestinal: Yes: Normal Bowel Sounds, Soft, Abdomen, Obese Musculoskeletal: Yes: Muscle Weakness Edema: Yes Edema: LLE: 2+, RLE: 2+ Peripheral Pulses WNL: Yes Neurological: Yes: Alert, Oriented Psychiatric: Yes: Alert, Oriented Labs: CBC, BMP 03/25/19 05:57 INR, PTT INR 2.23 (0.83-1.09) H 03/23/19 12:23 Problem List - Problems (1) Acute on chronic diastolic (congestive) heart failure Assessment/Plan: -repleting K/Mg2+ while diuresing -continue metoprolol, ramipril -monitor daily standing weights -Cardiology on board -Tele monitor Code(s): I50.33 - ACUTE ON CHRONIC DIASTOLIC (CONGESTIVE) HEART FAILURE Assessment/Plan (1) COPD (chronic obstructive pulmonary disease) Assessment/Plan: -Symbicort -keep SpO2 >90% -O2 via [place] Code(s): J44.9 - CHRONIC OBSTRUCTIVE PULMONARY DISEASE, UNSPECIFIED Qualifiers: COPD type: unspecified COPD Qualified Code(s): J44.9 - Chronic obstructive pulmonary disease, unspecified (2) Hypokalemia Assessment/Plan: -KCl PO 40mg daily -KCL 10 meq IVPB x 3 -monitor electrolyte and replete as needed -Bronchodilators PRN for SOB -Nephrology on board Code(s): E87.6 - HYPOKALEMIA (3) Hypomagnesemia Assessment/Plan: -Magnesium Oxide 400mg BID -monitor and replete as needed Code(s): E83.42 - HYPOMAGNESEMIA (4) Swelling of lower extremity Assessment/Plan: -Cardiology on board -Furosemide IVP BID -1L fluid restriction -daily weight -Low sodium diet Code(s): M79.89 - OTHER SPECIFIED SOFT TISSUE DISORDERS (5) Afib Assessment/Plan: -Rate controlled -continue Eliquis and Metoprolol -tele monitoring Code(s): I48.91 - UNSPECIFIED ATRIAL FIBRILLATION Qualifiers: Atrial fibrillation type: unspecified Qualified Code(s): I48.91 - Unspecified atrial fibrillation (6) CAD (coronary artery disease) Assessment/Plan: -Aspirin -crestor Code(s): I25.10 - ATHSCL HEART DISEASE OF [place] CORONARY ARTERY W/O ANG PCTRS (7) GERD (gastroesophageal reflux disease) Assessment/Plan: -pantoprazole Code(s): K21.9 - GASTRO-ESOPHAGEAL REFLUX DISEASE WITHOUT ESOPHAGITIS (8) HTN (hypertension) Assessment/Plan: -Ramipril -low Na diet Code(s): I10 - ESSENTIAL (PRIMARY) HYPERTENSION
[2019-03-25] MEDS ORDERED: ALBUTEROL SO4 2.5/IPRATROPIUM 0.5 INH SOL 3 ML VIAL.NEB. NEB PRN (08:40)
[2019-03-25] MEDS: RAMIPRIL 2.5 MG CAPSULE (FP) PO SCH (09:52)
[2019-03-25] MEDS: POTASSIUM CHLORIDE TABS 20 MEQ TABLET.ER (FP) PO SCH (09:52)
[2019-03-25] MEDS: APIXABAN 5 MG TABLET PO SCH ×2 (09:52→21:17)
[2019-03-25] MEDS: MAGNESIUM OXIDE 400 MG TABLET (FP) PO SCH ×2 (09:52→21:17)
[2019-03-25] MEDS: KCL 10 MEQ IVPB 10 MEQ/100 ML INFUS.BAG IVPB SCH ×3 (09:52→12:43)
[2019-03-25] MEDS: RANOLAZINE E.R. 500 MG TABLET (FP) PO SCH ×2 (09:52→21:17)
[2019-03-25] MEDS: BUDESONIDE/FORMETEROL FUMARATE 160/4.5 mcg INHALER IH SCH ×2 (09:53→21:16)
--- NOTE | 2019-03-25 11:11 | PN ---
Progress Note, Physician History of Present Illness: Pt seen and examined at bedside. He denies shortness of breath at rest. He complains of lower ext edema. - Current Medication List Current Medications: Active Medications Albuterol/Ipratropium (Duoneb -) 1 amp NEB Q6H PRN PRN Reason: SHORTNESS OF BREATH Apixaban (Eliquis -) 5 mg PO BID [facility] Last Admin: 03/25/19 09:52 Dose: 5 mg Budesonide/Formoterol Fumarate (Symbicort 160/4.5mcg -) 2 puff IH BID [facility] Last Admin: 03/25/19 09:53 Dose: 2 puff Furosemide (Lasix Injection -) 40 mg IVPUSH BID@0600,1400 [facility] Last Admin: 03/25/19 05:05 Dose: 40 mg Potassium Chloride (Potassium Chloride 10 Meq Premix Ivpb -) 10 meq in 100 mls @ 100 mls/hr IVPB Q60M [facility] Stop: 03/25/19 11:29 Last Admin: 03/25/19 09:52 Dose: 100 mls/hr Magnesium Oxide (Mag-Ox -) 400 mg PO BID [facility] Last Admin: 03/25/19 09:52 Dose: 400 mg Metoprolol Succinate (Toprol Xl -) 50 mg PO DAILY [facility] Last Admin: 03/25/19 09:52 Dose: 50 mg Potassium Chloride (K-Dur -) 40 meq PO DAILY [facility] Last Admin: 03/25/19 09:52 Dose: 40 meq Ramipril (Altace -) 2.5 mg PO DAILY [facility] Last Admin: 03/25/19 09:52 Dose: 2.5 mg Ranolazine (Ranexa -) 500 mg PO BID [facility] Last Admin: 03/25/19 09:52 Dose: 500 mg Rosuvastatin Calcium (Crestor -) 10 mg PO HS [facility] Last Admin: 03/24/19 21:28 Dose: 10 mg - Objective Vital Signs: Vital Signs Temperature 98 F 03/25/19 10:07 Pulse Rate 88 03/25/19 10:07 Respiratory Rate 18 03/25/19 10:07 Blood Pressure 108/73 03/25/19 10:07 O2 Sat by Pulse Oximetry (%) 97 03/24/19 09:00 Constitutional: Yes: Calm Eyes: Yes: Conjunctiva Clear HENT: Yes: Atraumatic Neck: Yes: Supple Cardiovascular: Yes: S1, S2 Respiratory: Yes: CTA Bilaterally Gastrointestinal: Yes: Soft Genitourinary: Yes: WNL Musculoskeletal: Yes: WNL Edema: Yes Edema: LLE: 2+, RLE: 2+ Neurological: Yes: Oriented Psychiatric: Yes: Oriented Labs: CBC, BMP 03/25/19 05:57 03/25/19 05:57 INR, PTT INR 2.23 (0.83-1.09) H 03/23/19 12:23 Problem List - Problems (1) COPD (chronic obstructive pulmonary disease) Code(s): J44.9 - CHRONIC OBSTRUCTIVE PULMONARY DISEASE, UNSPECIFIED Qualifiers: COPD type: unspecified COPD Qualified Code(s): J44.9 - Chronic obstructive pulmonary disease, unspecified (2) Hypokalemia Code(s): E87.6 - HYPOKALEMIA (3) Hypomagnesemia Code(s): E83.42 - HYPOMAGNESEMIA (4) Swelling of lower extremity Code(s): M79.89 - OTHER SPECIFIED SOFT TISSUE DISORDERS (5) Gout Code(s): M10.9 - GOUT, UNSPECIFIED (6) HTN (hypertension) Code(s): I10 - ESSENTIAL (PRIMARY) HYPERTENSION Assessment/Plan Current Medications Generic Name Dose Route Start Last Admin Trade Name Freq PRN Reason Stop Dose Admin Albuterol/Ipratropium 1 amp 03/25/19 08:40 Duoneb - NEB Q6H PRN SHORTNESS OF BREATH Apixaban 5 mg 03/23/19 22:00 03/25/19 09:52 Eliquis - PO 5 mg BID SELIN Administration Budesonide/Formoterol Fumarate 2 puff 03/23/19 22:00 03/25/19 09:53 Symbicort 160/4.5mcg - IH 2 puff BID SELIN Administration Furosemide 40 mg 03/24/19 06:00 03/25/19 05:05 Lasix Injection - IVPUSH 40 mg BID@0600,1400 SELIN Administration Potassium Chloride 10 meq in 100 mls @ 100 mls/hr 03/25/19 08:30 03/25/19 09: 52 Potassium Chloride 10 Meq Premix Ivpb - IVPB 03/25/19 11:29 100 mls/hr Q60M SELIN Administration Magnesium Oxide 400 mg 03/24/19 12:45 03/25/19 09:52 Mag-Ox - PO 400 mg BID SELIN Administration Metoprolol Succinate 50 mg 03/24/19 10:00 03/25/19 09:52 Toprol Xl - PO 50 mg DAILY SELIN Administration Potassium Chloride 40 meq 03/24/19 10:00 03/25/19 09:52 K-Dur - PO 40 meq DAILY SELIN Administration Ramipril 2.5 mg 03/24/19 10:00 03/25/19 09:52 Altace - PO 2.5 mg DAILY SELIN Administration Ranolazine 500 mg 03/23/19 22:00 03/25/19 09:52 Ranexa - PO 500 mg BID SELIN Administration Rosuvastatin Calcium 10 mg 03/23/19 22:00 03/24/19 21:28 Crestor - PO 10 mg HS SELIN Administration Impression 1. Hypokalemia 2. hypomagnesemia 3. fluid overload 4. chf 5. hld 6. HTN Plan - add aldactone, discussed with cardio and pt tolerated dose yesterday - cont potassium supplements - monitor lytes - mag improved - will need to adhere to diet
--- NOTE | 2019-03-25 11:13 | PN ---
Progress Note (short form) - Note Progress Note: s: no sob cp palps dizzy; still with le edema TELE: AF, rate ok - Current Medication List Current Medications Generic Name Dose Route Start Last Admin Trade Name Freprashant PRN Reason Stop Dose Admin Albuterol/Ipratropium 1 amp 03/25/19 08:40 Duoneb - NEB Q6H PRN SHORTNESS OF BREATH Apixaban 5 mg 03/23/19 22:00 03/25/19 09:52 Eliquis - PO 5 mg BID SELIN Administration Budesonide/Formoterol Fumarate 2 puff 03/23/19 22:00 03/25/19 09:53 Symbicort 160/4.5mcg - IH 2 puff BID SELIN Administration Furosemide 40 mg 03/24/19 06:00 03/25/19 05:05 Lasix Injection - IVPUSH 40 mg BID@0600,1400 SELIN Administration Potassium Chloride 10 meq in 100 mls @ 100 mls/hr 03/25/19 08:30 03/25/19 09: 52 Potassium Chloride 10 Meq Premix Ivpb - IVPB 03/25/19 11:29 100 mls/hr Q60M SELIN Administration Magnesium Oxide 400 mg 03/24/19 12:45 03/25/19 09:52 Mag-Ox - PO 400 mg BID SELIN Administration Metoprolol Succinate 50 mg 03/24/19 10:00 03/25/19 09:52 Toprol Xl - PO 50 mg DAILY SELIN Administration Potassium Chloride 40 meq 03/24/19 10:00 03/25/19 09:52 K-Dur - PO 40 meq DAILY SELIN Administration Ramipril 2.5 mg 03/24/19 10:00 03/25/19 09:52 Altace - PO 2.5 mg DAILY SELIN Administration Ranolazine 500 mg 03/23/19 22:00 03/25/19 09:52 Ranexa - PO 500 mg BID SELIN Administration Rosuvastatin Calcium 10 mg 03/23/19 22:00 03/24/19 21:28 Crestor - PO 10 mg HS SELIN Administration - Objective Vital Signs: Vital Signs Period Temp Pulse Resp BP Sys/Tapia Pulse Ox Last 24 Hr 98 F-98.4 F 67-96 16-20 101-138/56-91 Constitutional: Yes: No Distress Eyes: Yes: Conjunctiva Clear Cardiovascular: Yes: Pulse Irregular Respiratory: Yes: CTA Bilaterally Gastrointestinal: Yes: Soft, Abdomen, Obese Edema: Yes Edema: LLE: 1+ (venous stasis), RLE: 1+ (venous stasis) Neurological: Yes: Alert no jaundice diaphoresis [id number] Labs: CBC, BMP 03/25/19 05:57 03/25/19 05:57 Assessment/Plan EKG: afib, PVCs, no ischemic changes, prolonged QTc CXR: no congestive changes Acute on chronic diastolic HF, edema, edema is multifactorial (diastolic CHF and venous insuff- consider compression stockings): - repleting K/Mg2+ while diuresing. Cont Tele. - agree with aldactone for help with low k while diuresing - cont metoprolol, ramipril - monitor daily standing weights, Cr, lytes Hypokalemia - monitoring on tele - K repletion per renal CAD - continue plavix, statin, bb AFib - continue eliquis, metoprolol, rates controlled. HTN - cont home meds HLD - cont home meds COPD - respiratory status at baseline - manage per primary
[2019-03-25] MEDS ORDERED: ACETAMINOPHEN 325 MG TABLET (FP) PO PRN (11:18)
[2019-03-25] MEDS: SPIRONOLACTONE 25 MG TABLET (FP) PO SCH ×2 (11:51→21:17)
[2019-03-25] MEDS ORDERED: CLOPIDOGREL BISULFATE 75 MG TABLET (FP) PO SCH (12:30)
[2019-03-25] MEDS: CLOPIDOGREL BISULFATE 75 MG TABLET (FP) PO SCH (12:51)
[2019-03-25] MEDS: FUROSEMIDE 40 MG TABLET (FP) PO SCH (13:35)
[2019-03-25 13:37] LABS: PLATELET COUNT 185 K/MM3 (134-434)
[2019-03-25] MEDS: ROSUVASTATIN CA 10 MG TABLET (FP) PO SCH (21:17)
[2019-03-25] MEDS ORDERED: POTASSIUM CHLORIDE TABS 20 MEQ TABLET.ER (FP) PO ONE (22:00)
[2019-03-26] MEDS: FUROSEMIDE 40 MG TABLET (FP) PO SCH ×2 (05:06→13:56)
[2019-03-26 07:11] LABS: ALBUMIN 3.2 g/dl (3.4-5.0); BILIRUBIN,TOTAL 0.4 mg/dL (0.2-1); BLOOD UREA NITROGEN 20.5 mg/dL (7-18); CALCIUM 8.3 mg/dL (8.5-10.1); CREATININE 0.9 mg/dL (0.55-1.3); MAGNESIUM 1.9 mg/dL (1.8-2.4); POTASSIUM 4.3 mmol/L (3.5-5.1); TOT PROT 7.1 g/dl (6.4-8.2)
--- NOTE | 2019-03-26 08:34 | PN ---
Progress Note, Physician Chief Complaint: Acute on chronic diastolic CHF Hypokalemia Hypomagnesia History of Present Illness: NAD sitting inchair feels weak Hypokalemia resolved after supplementation Walking around the room with walker Physical therapy ordered Volum status improving denies SOB or TIPTON - Current Medication List Current Medications: Active Medications Acetaminophen (Tylenol -) 650 mg PO Q4H PRN PRN Reason: PAIN LEVEL 1-5 Last Admin: 03/25/19 11:51 Dose: 650 mg Albuterol/Ipratropium (Duoneb -) 1 amp NEB Q6H PRN PRN Reason: SHORTNESS OF BREATH Apixaban (Eliquis -) 5 mg PO BID [facility] Last Admin: 03/25/19 21:17 Dose: 5 mg Budesonide/Formoterol Fumarate (Symbicort 160/4.5mcg -) 2 puff IH BID [facility] Last Admin: 03/25/19 21:16 Dose: 2 puff Clopidogrel Bisulfate (Plavix -) 75 mg PO DAILY [facility] Last Admin: 03/25/19 12:51 Dose: 75 mg Furosemide (Lasix -) 40 mg PO BID@0600,1400 [facility] Last Admin: 03/26/19 05:06 Dose: 40 mg Magnesium Oxide (Mag-Ox -) 400 mg PO BID [facility] Last Admin: 03/25/19 21:17 Dose: 400 mg Metoprolol Succinate (Toprol Xl -) 50 mg PO DAILY [facility] Last Admin: 03/25/19 09:52 Dose: 50 mg Potassium Chloride (K-Dur -) 40 meq PO DAILY [facility] Last Admin: 03/25/19 09:52 Dose: 40 meq Ramipril (Altace -) 2.5 mg PO DAILY [facility] Last Admin: 03/25/19 09:52 Dose: 2.5 mg Ranolazine (Ranexa -) 500 mg PO BID [facility] Last Admin: 03/25/19 21:17 Dose: 500 mg Rosuvastatin Calcium (Crestor -) 10 mg PO HS [facility] Last Admin: 03/25/19 21:17 Dose: 10 mg Spironolactone (Aldactone -) 25 mg PO BID [facility] Last Admin: 03/25/19 21:17 Dose: 25 mg - Objective Vital Signs: Vital Signs Temperature 97.8 F 03/26/19 06:00 Pulse Rate 65 03/26/19 06:00 Respiratory Rate 20 03/26/19 06:00 Blood Pressure 123/71 03/26/19 06:00 O2 Sat by Pulse Oximetry (%) 97 03/25/19 22:00 Constitutional: Yes: Well Nourished, No Distress, Calm, Obese Cardiovascular: Yes: Regular Rate and Rhythm Respiratory: Yes: Regular Gastrointestinal: Yes: Normal Bowel Sounds, Soft, Abdomen, Obese Musculoskeletal: Yes: WNL Extremities: Yes: WNL Edema: Yes Edema: LLE: 1+, RLE: 1+ Peripheral Pulses WNL: Yes Neurological: Yes: Alert, Oriented Psychiatric: Yes: Alert, Oriented Labs: CBC, BMP 03/25/19 05:57 03/26/19 05:35 INR, PTT INR 2.23 (0.83-1.09) H 03/23/19 12:23 Problem List - Problems (1) Acute on chronic diastolic (congestive) heart failure Assessment/Plan: -repleting K/Mg2+ while diuresing -continue metoprolol, ramipril -monitor daily standing weights -Cardiology on board -Tele monitor Code(s): I50.33 - ACUTE ON CHRONIC DIASTOLIC (CONGESTIVE) HEART FAILURE Assessment/Plan (1) COPD (chronic obstructive pulmonary disease) Assessment/Plan: -Symbicort -keep SpO2 >90% -O2 via NC -Bronchodilators PRN for SOB Code(s): J44.9 - CHRONIC OBSTRUCTIVE PULMONARY DISEASE, UNSPECIFIED Qualifiers: COPD type: unspecified COPD Qualified Code(s): J44.9 - Chronic obstructive pulmonary disease, unspecified (2) Hypokalemia Assessment/Plan: -KCl PO 40mg daily -monitor electrolyte and replete as needed -Nephrology on board Code(s): E87.6 - HYPOKALEMIA (3) Hypomagnesemia Assessment/Plan: -Magnesium Oxide 400mg BID -monitor and replete as needed Code(s): E83.42 - HYPOMAGNESEMIA (4) Swelling of lower extremity Assessment/Plan: -Cardiology on board -Furosemide IVP BID -1L fluid restriction -daily weight -Low sodium diet Code(s): M79.89 - OTHER SPECIFIED SOFT TISSUE DISORDERS (5) Afib Assessment/Plan: -Rate controlled -continue Eliquis and Metoprolol -tele monitoring Code(s): I48.91 - UNSPECIFIED ATRIAL FIBRILLATION Qualifiers: Atrial fibrillation type: unspecified Qualified Code(s): I48.91 - Unspecified atrial fibrillation (6) CAD (coronary artery disease) Assessment/Plan: -Aspirin -crestor Code(s): I25.10 - ATHSCL HEART DISEASE OF [place] CORONARY ARTERY W/O ANG PCTRS (7) GERD (gastroesophageal reflux disease) Assessment/Plan: -pantoprazole Code(s): K21.9 - GASTRO-ESOPHAGEAL REFLUX DISEASE WITHOUT ESOPHAGITIS (8) HTN (hypertension) Assessment/Plan: -Ramipril -low Na diet Code(s): I10 - ESSENTIAL (PRIMARY) HYPERTENSION
[2019-03-26] MEDS: RANOLAZINE E.R. 500 MG TABLET (FP) PO SCH (09:05)
[2019-03-26] MEDS: SPIRONOLACTONE 25 MG TABLET (FP) PO SCH (09:05)
[2019-03-26] MEDS: MAGNESIUM OXIDE 400 MG TABLET (FP) PO SCH (09:06)
[2019-03-26] MEDS: RAMIPRIL 2.5 MG CAPSULE (FP) PO SCH (09:06)
[2019-03-26] MEDS: APIXABAN 5 MG TABLET PO SCH (09:06)
[2019-03-26] MEDS: CLOPIDOGREL BISULFATE 75 MG TABLET (FP) PO SCH (09:06)
[2019-03-26] MEDS: BUDESONIDE/FORMETEROL FUMARATE 160/4.5 mcg INHALER IH SCH (09:07)
[2019-03-26] MEDS: POTASSIUM CHLORIDE TABS 20 MEQ TABLET.ER (FP) PO SCH (09:07)
--- NOTE | 2019-03-26 10:34 | PN ---
Progress Note (short form) - Note Progress Note: s: no sob cp palps dizzy; pt feeling better, asking to go home TELE: AF, rate ok - Current Medication List Current Medications Generic Name Dose Route Start Last Admin Trade Name Freq PRN Reason Stop Dose Admin Acetaminophen 650 mg 03/25/19 11:18 03/25/19 11:51 Tylenol - PO 650 mg Q4H PRN Administration PAIN LEVEL 1-5 Albuterol/Ipratropium 1 amp 03/25/19 08:40 Duoneb - NEB Q6H PRN SHORTNESS OF BREATH Apixaban 5 mg 03/23/19 22:00 03/26/19 09:06 Eliquis - PO 5 mg BID SELIN Administration Budesonide/Formoterol Fumarate 2 puff 03/23/19 22:00 03/26/19 09:07 Symbicort 160/4.5mcg - IH 2 puff BID SELIN Administration Clopidogrel Bisulfate 75 mg 03/25/19 12:45 03/26/19 09:06 Plavix - PO 75 mg DAILY SELIN Administration Furosemide 40 mg 03/25/19 14:00 03/26/19 05:06 Lasix - PO 40 mg BID@0600,1400 SELIN Administration Magnesium Oxide 400 mg 03/24/19 12:45 03/26/19 09:06 Mag-Ox - PO 400 mg BID SELIN Administration Metoprolol Succinate 50 mg 03/24/19 10:00 03/26/19 09:06 Toprol Xl - PO 50 mg DAILY SELIN Administration Potassium Chloride 40 meq 03/24/19 10:00 03/26/19 09:07 K-Dur - PO 40 meq DAILY SELIN Administration Ramipril 2.5 mg 03/24/19 10:00 03/26/19 09:06 Altace - PO 2.5 mg DAILY SELIN Administration Ranolazine 500 mg 03/23/19 22:00 03/26/19 09:05 Ranexa - PO 500 mg BID SELIN Administration Rosuvastatin Calcium 10 mg 03/23/19 22:00 03/25/19 21:17 Crestor - PO 10 mg HS SELIN Administration Spironolactone 25 mg 03/25/19 11:15 03/26/19 09:05 Aldactone - PO 25 mg BID SELIN Administration - Objective Vital Signs: Vital Signs Period Temp Pulse Resp BP Sys/Tapia Pulse Ox Last 24 Hr 97.7 F-98.2 F 65-89 18-20 105-131/60-78 97-100 Constitutional: Yes: No Distress Eyes: Yes: Conjunctiva Clear Cardiovascular: Yes: Pulse Irregular Respiratory: Yes: CTA Bilaterally Gastrointestinal: Yes: Soft, Abdomen, Obese Edema: Yes, trace le edema bl Neurological: Yes: Alert no jaundice diaphoresis [id number] Labs: CBC, BMP 03/25/19 05:57 03/26/19 05:35 Assessment/Plan EKG: afib, PVCs, no ischemic changes, prolonged QTc CXR: no congestive changes Acute on chronic diastolic HF, edema, edema is multifactorial (diastolic CHF and venous insuff- consider compression stockings): - k repleted now - agree with aldactone for help with low k and diuresing - cont metoprolol, ramipril - pt on po lasix and feeling well, asking to go home. Can continue current lasix/aldactone and f/u with cardio 1 week. Hypokalemia - improved now CAD - continue plavix, statin, bb AFib - continue eliquis, metoprolol, rates controlled. HTN - cont home meds HLD - cont home meds COPD - respiratory status at baseline - manage per primary
--- NOTE | 2019-03-26 12:10 | PN ---
Progress Note, Physician History of Present Illness: Pt seen and examined at bedside. He is awake and alert. He is eager to go home. He denies shortness of breath. He feels that edema was improving. He says that he was taking 20 mg of lasix at home. - Current Medication List Current Medications: Active Medications Acetaminophen (Tylenol -) 650 mg PO Q4H PRN PRN Reason: PAIN LEVEL 1-5 Last Admin: 03/25/19 11:51 Dose: 650 mg Albuterol/Ipratropium (Duoneb -) 1 amp NEB Q6H PRN PRN Reason: SHORTNESS OF BREATH Apixaban (Eliquis -) 5 mg PO BID [facility] Last Admin: 03/26/19 09:06 Dose: 5 mg Budesonide/Formoterol Fumarate (Symbicort 160/4.5mcg -) 2 puff IH BID [facility] Last Admin: 03/26/19 09:07 Dose: 2 puff Clopidogrel Bisulfate (Plavix -) 75 mg PO DAILY [facility] Last Admin: 03/26/19 09:06 Dose: 75 mg Furosemide (Lasix -) 40 mg PO BID@0600,1400 [facility] Last Admin: 03/26/19 05:06 Dose: 40 mg Magnesium Oxide (Mag-Ox -) 400 mg PO BID [facility] Last Admin: 03/26/19 09:06 Dose: 400 mg Metoprolol Succinate (Toprol Xl -) 50 mg PO DAILY [facility] Last Admin: 03/26/19 09:06 Dose: 50 mg Potassium Chloride (K-Dur -) 40 meq PO DAILY [facility] Last Admin: 03/26/19 09:07 Dose: 40 meq Ramipril (Altace -) 2.5 mg PO DAILY [facility] Last Admin: 03/26/19 09:06 Dose: 2.5 mg Ranolazine (Ranexa -) 500 mg PO BID [facility] Last Admin: 03/26/19 09:05 Dose: 500 mg Rosuvastatin Calcium (Crestor -) 10 mg PO HS [facility] Last Admin: 03/25/19 21:17 Dose: 10 mg Spironolactone (Aldactone -) 25 mg PO BID [facility] Last Admin: 03/26/19 09:05 Dose: 25 mg - Objective Vital Signs: Vital Signs Temperature 97.8 F 03/26/19 09:11 Pulse Rate 84 03/26/19 09:11 Respiratory Rate 20 03/26/19 09:11 Blood Pressure 122/75 03/26/19 09:11 O2 Sat by Pulse Oximetry (%) 100 03/26/19 09:11 Constitutional: Yes: Calm Eyes: Yes: Conjunctiva Clear HENT: Yes: Atraumatic Neck: Yes: Supple Cardiovascular: Yes: S1, S2 Respiratory: Yes: CTA Bilaterally Gastrointestinal: Yes: Soft Genitourinary: Yes: WNL Musculoskeletal: Yes: WNL Edema: Yes Edema: LLE: 1+, RLE: 1+ Neurological: Yes: Oriented Psychiatric: Yes: Oriented Labs: CBC, BMP 03/25/19 05:57 03/26/19 05:35 INR, PTT INR 2.23 (0.83-1.09) H 03/23/19 12:23 Problem List - Problems (1) COPD (chronic obstructive pulmonary disease) Code(s): J44.9 - CHRONIC OBSTRUCTIVE PULMONARY DISEASE, UNSPECIFIED Qualifiers: COPD type: unspecified COPD Qualified Code(s): J44.9 - Chronic obstructive pulmonary disease, unspecified (2) Hypokalemia Code(s): E87.6 - HYPOKALEMIA (3) Hypomagnesemia Code(s): E83.42 - HYPOMAGNESEMIA (4) Swelling of lower extremity Code(s): M79.89 - OTHER SPECIFIED SOFT TISSUE DISORDERS (5) Gout Code(s): M10.9 - GOUT, UNSPECIFIED (6) HTN (hypertension) Code(s): I10 - ESSENTIAL (PRIMARY) HYPERTENSION Assessment/Plan Current Medications Generic Name Dose Route Start Last Admin Trade Name Freq PRN Reason Stop Dose Admin Acetaminophen 650 mg 03/25/19 11:18 03/25/19 11:51 Tylenol - PO 650 mg Q4H PRN Administration PAIN LEVEL 1-5 Albuterol/Ipratropium 1 amp 03/25/19 08:40 Duoneb - NEB Q6H PRN SHORTNESS OF BREATH Apixaban 5 mg 03/23/19 22:00 03/26/19 09:06 Eliquis - PO 5 mg BID SELIN Administration Budesonide/Formoterol Fumarate 2 puff 03/23/19 22:00 03/26/19 09:07 Symbicort 160/4.5mcg - IH 2 puff BID SELIN Administration Clopidogrel Bisulfate 75 mg 03/25/19 12:45 03/26/19 09:06 Plavix - PO 75 mg DAILY SELIN Administration Furosemide 40 mg 03/25/19 14:00 03/26/19 05:06 Lasix - PO 40 mg BID@0600,1400 SELIN Administration Magnesium Oxide 400 mg 03/24/19 12:45 03/26/19 09:06 Mag-Ox - PO 400 mg BID SELIN Administration Metoprolol Succinate 50 mg 03/24/19 10:00 03/26/19 09:06 Toprol Xl - PO 50 mg DAILY SELIN Administration Potassium Chloride 40 meq 03/24/19 10:00 03/26/19 09:07 K-Dur - PO 40 meq DAILY SELIN Administration Ramipril 2.5 mg 03/24/19 10:00 03/26/19 09:06 Altace - PO 2.5 mg DAILY SELIN Administration Ranolazine 500 mg 03/23/19 22:00 03/26/19 09:05 Ranexa - PO 500 mg BID SELIN Administration Rosuvastatin Calcium 10 mg 03/23/19 22:00 03/25/19 21:17 Crestor - PO 10 mg HS SELIN Administration Spironolactone 25 mg 03/25/19 11:15 03/26/19 09:05 Aldactone - PO 25 mg BID SELIN Administration Impression 1. Hypokalemia 2. hypomagnesemia 3. fluid overload 4. chf 5. hld 6. HTN Plan - increase lasix home dose from 20 mg to 40 mg daily - add aldactone 25 mg daily - add potassium supplements 20 meq daily - potassium level is improved - pt will need to have bloodwork checked every week, this was explained to him and he agrees - will need to adhere to diet including fluids and salt restriction
[2019-03-26 13:27] VITALS: BP 149/98; PULSE 85; TEMP 97.6
== END 2019-03-26 14:22 | disposition home or self-care (01) | DRG 293 ==
LOC: SUPCPDRO 09:46 → JER 09:46 → JERBED 14:13 → J4S 20:01
PROVIDERS: ADMIT Student in an Organized Health Care Education/Training Program; ATTEND Student in an Organized Health Care Education/Training Program
DX: I11.0 Hypertensive heart disease with heart failure (principal); I50.33 Acute on chronic diastolic (congestive) heart failure; J44.9 Chronic obstructive pulmonary disease, unspecified; I25.10 Atherosclerotic heart disease of native coronary artery without angina pectoris; E78.5 Hyperlipidemia, unspecified; E66.9 Obesity, unspecified; E87.6 Hypokalemia; E83.42 Hypomagnesemia; I45.81 Long QT syndrome; M10.9 Gout, unspecified; I48.91 Unspecified atrial fibrillation; K21.9 Gastro-esophageal reflux disease without esophagitis; Z68.39 Body mass index [BMI] 39.0-39.9, adult
CPT/HCPCS: 36415; 71045-TC-FY; 80048; 80053; 80061; 81003; 82550; 83036; 83721; 83735; 83880; 84100; 84484; 85025; 85027; 85610; 93005; 93010; 93970-TC; 97116-GP; 97161-GP; 99282-25

== ENCOUNTER 2019-04-14 11:52 | Emergency (ER) | payer BC, OTHER ==
[2019-04-14 12:18] VITALS: BP 110/63; PULSE 89; TEMP 97.7; BMI 37.8
[2019-04-14 12:54] LABS: BASO % 0.3 % (0-2.0); EOS % 0.5 % (0-4.5); HEMATOCRIT 41.2 % (35.4-49); HEMOGLOBIN 13.1 GM/dL (11.7-16.9); LYMPH % 7.6 % (8-40); MCH 21.5 pg (25.7-33.7); MCHC 31.9 g/dl (32.0-35.9); MEAN CELL VOLUME 67.6 fl (80-96); MONO % 9.9 % (3.8-10.2); NEUT % 81.7 % (42.8-82.8); PLATELET COUNT 197 K/MM3 (134-434); RDW 21.6 % (11.9-15.9); WHITE BLOOD COUNT 10.8 K/mm3 (4.0-10.0)
--- NOTE | 2019-04-14 12:57 | PDOC ---
History of Present Illness - General Chief Complaint: Wound Stated Complaint: LT LEG PAIN Time Seen by Provider: 04/14/19 12:12 History Source: Patient Exam Limitations: No Limitations Past History - Past Medical History Allergies/Adverse Reactions: Allergies Allergy/AdvReac Type Severity Reaction Status Date / Time No Known Allergies Allergy Verified 04/14/19 12:07 Home Medications: Ambulatory Orders Apixaban [Eliquis] 5 mg PO BID 08/29/16 Rabeprazole Sodium [Aciphex] 20 mg PO DAILY 08/29/16 Ranolazine [Ranexa] 500 mg PO BID 08/29/16 Ramipril [Altace] 2.5 mg PO DAILY capsule 10/29/16 Rosuvastatin [Crestor -] 10 mg PO HS tablet 10/29/16 Budesonide/Formeterol Fumarate [SYMBICORT 80/4.5mcg -] 1 inh PO DAILY 11/25/17 Fexofenadine HCl [Nicole Allergy] 60 mg PO DAILY 11/25/17 Acetaminophen [Tylenol .Regular Strength -] 325 mg PO Q6H PRN tablet 02/22/19 Polyethylene Glycol 3350 [Miralax 119 gm Btl -] 17 gm PO DAILY bottle 02/22/19 Acetaminophen [Tylenol .Regular Strength -] 650 mg PO Q4H PRN tablet 03/26/19 Albuterol 2.5/Ipratropium 0.5 [Duoneb -] 1 amp NEB Q6H PRN amp 03/26/19 Apixaban [Eliquis -] 5 mg PO BID tablet 03/26/19 Budesonide/Formeterol Fumarate [SYMBICORT 160/4.5mcg -] 2 puff IH BID inhaler 03/26/19 Clopidogrel Bisulfate [Plavix -] 75 mg PO DAILY tablet 03/26/19 Furosemide [Lasix] 40 mg PO DAILY #30 tablet 03/26/19 Magnesium Oxide [Mag-Ox -] 400 mg PO BID tablet 03/26/19 Metoprolol Succinate [Toprol XL -] 50 mg PO DAILY #30 tab.sr.24h 03/26/19 Potassium Chloride [K-Dur -] 20 meq PO DAILY #30 tablet.er 03/26/19 Ramipril [Altace] 2.5 mg PO DAILY capsule 03/26/19 Ranolazine [Ranexa -] 500 mg PO BID tab 03/26/19 Rosuvastatin [Crestor -] 10 mg PO HS tablet 03/26/19 Spironolactone [Aldactone -] 25 mg PO BID #30 tablet 03/26/19 Anemia: No Asthma: No Cancer: No Cardiac Disorders: Yes (A Fib) CVA: No COPD: No CHF: No Dementia: No Diabetes: No GI Disorders: Yes (ACID REFLUX) Disorders: No HTN: Yes Hypercholesterolemia: Yes Liver Disease: No Seizures: No Thyroid Disease: No - Surgical History Abdominal Surgery: Yes (HERNIA) Appendectomy: No Cardiac Surgery: Yes ([facility] , 2010,, ) Cholecystectomy: No Lung Surgery: No Neurologic Surgery: No Orthopedic Surgery: No - Immunization History Immunization Up to Date: Yes - Suicide/Smoking/Psychosocial Hx Smoking Status: No Smoking History: Never smoked Have you smoked in the past 12 months: Yes Number of Cigarettes Smoked Daily: 0 Cigars Per Day: 1 Information on smoking cessation initiated: No 'Breaking Loose' booklet given: 10/31/17 Hx Alcohol Use: No Drug/Substance Use Hx: No Substance Use Type: None Hx Substance Use Treatment: No *Physical Exam - Vital Signs Last Vital Signs Temp Pulse Resp BP Pulse Ox 97.7 F 89 16 110/63 97 04/14/19 12:07 04/14/19 12:07 04/14/19 12:07 04/14/19 12:07 04/14/19 12:07 - Physical Exam General Appearance: No: Apparent Distress HEENT: positive: Other (no head trauma) Neck: positive: Supple Respiratory/Chest: positive: Lungs Clear, Normal Breath Sounds. negative: Respiratory Distress Cardiovascular: positive: Regular Rhythm, Regular Rate, S1, S2. negative: Murmur Gastrointestinal/Abdominal: positive: Normal Bowel Sounds, Soft. negative: Tender, Distended, Guarding, Rebound Extremity: positive: Other (chronic venous stasis changes along BLE, +abrasion along lower medial aspect of LLE, no induration or abscess, no drainage from site, no erythema around site, unable to feel or see any FB) Neurologic: positive: Alert, Normal Mood/Affect ED Treatment Course - RADIOLOGY Radiology Studies Ordered: Category Date Time Status LEG TIB/FIB-LEFT [RAD] Stat Radiology 04/14/19 12:31 Ordered Medical Decision Making - Medical Decision Making 63 y/o M hx of COPD, CAD s/p PCI, CHF, HTN, HLD, afib (on eliquis and plavix) presents s/p fall yesterday. Patient states he was getting out of car and the sun hit him; he felt lightheaded and fell to ground. Denies sob, cp, abd pain, n /v, headache, vomiting, LOC, head/neck trauma. Patient with abrasion to LLE; feels like there is something in the leg. States he used a heated needle and tweezers yesterday to see if he could get anything out, but nothing came out. Of note, patient was recently discharged from hospital for hypokalemia. He saw his PCP 3 days and had blood work done which was notable for hyperkalemia per patient (patient is on Aldactone; states his meds were readjusted after getting lab results). Given dizziness prior to fall, plan for further workup No sign of infection along L leg abrasion Plan: Labs, EKG, L tib/fib xray to r/o FB Patient upgraded to ED Endorsed to [employer] Leigh Ann Powell Plan d/w Dr. Nguyen 04/14/19 12:50 *DC/Admit/Observation/Transfer Diagnosis at time of Disposition: Leg abrasion, non-infected Fall Qualifiers: Encounter type: initial encounter Qualified Code(s): W19.XXXA - Unspecified fall, initial encounter - Referrals Referrals: Elisabet Martinez MD [Primary Care Provider] - - Patient Instructions - Post Discharge Activity
--- NOTE | 2019-04-14 13:15 | PDOC ---
*Physical Exam - Vital Signs Last Vital Signs Temp Pulse Resp BP Pulse Ox 97.7 F 89 16 110/63 97 04/14/19 12:07 04/14/19 12:07 04/14/19 12:07 04/14/19 12:07 04/14/19 12:07 ED Treatment Course - LABORATORY CBC & Chemistry Diagram: 04/14/19 12:44 04/14/19 12:44 - ADDITIONAL ORDERS Additional order review: 04/14/19 12:44 RBC 6.10 H MCV 67.6 L MCHC 31.9 L RDW 21.6 H MPV 9.0 Neutrophils % 81.7 Lymphocytes % 7.6 L Monocytes % 9.9 Eosinophils % 0.5 Basophils % 0.3 Medical Decision Making - Medical Decision Making 04/14/19 13:03 Patient received from [facility]. Patient was therefore initial rule out foreign body secondary to an abrasion he sustained on his leg after scraping it the other day. Patient states tripped because he felt dizzy and due to his history of CA, cardiac stent placement, and electrolyte imbalance along with recent change in his antihypertensive medication, patient required lab work, EKG, and x-ray 04/14/19 13:55 Laboratory Tests 04/14/19 04/14/19 12:44 12:44 WBC 10.8 H Hgb 13.1 Hct 41.2 Absolute Neuts (auto) 8.8 H Sodium 131 L Potassium 4.6 Chloride 95 L Carbon Dioxide 26 Anion Gap 10 BUN 35.7 H Creatinine 1.2 Est GFR (CKD-EPI)AfAm 73.11 Est GFR (CKD-EPI)NonAf 63.08 Random Glucose 119 H Calcium 9.3 Total Bilirubin 0.7 AST 31 ALT 21 Alkaline Phosphatase 91 Total Protein 8.1 Albumin 3.8 Pt requesting pain meds. Pt ordered for percocet. Rx for the same sent to pharmacy. Pt recommended to have a few saltines/crackers (salted) today to increase his sodium. *DC/Admit/Observation/Transfer Diagnosis at time of Disposition: Leg abrasion, non-infected, Hyponatremia Fall Qualifiers: Encounter type: initial encounter Qualified Code(s): W19.XXXA - Unspecified fall, initial encounter - Discharge Dispostion Disposition: HOME Condition at time of disposition: Good - Prescriptions Prescriptions: Oxycodone HCl/Acetaminophen [Percocet 5-325 mg Tablet] 1 - 2 tab PO Q6H PRN #12 tab MDD 4 PRN Reason: Pain - Referrals Referrals: Elisabet Martinez MD [Primary Care Provider] - - Patient Instructions Printed Discharge Instructions: DI for Abrasion Additional Instructions: Please keep area clean. Take Percocet as needed for pain. Take 650mg of tylenol as needed for minimal pain relief. - Post Discharge Activity
[2019-04-14 13:34] LABS: ALBUMIN 3.8 g/dl (3.4-5.0); BILIRUBIN,TOTAL 0.7 mg/dL (0.2-1); BLOOD UREA NITROGEN 35.7 mg/dL (7-18); CALCIUM 9.3 mg/dL (8.5-10.1); CREATININE 1.2 mg/dL (0.55-1.3); POTASSIUM 4.6 mmol/L (3.5-5.1); TOT PROT 8.1 g/dl (6.4-8.2)
[2019-04-14 13:50] LABS: ANISOCYTOSIS 2+; MACROCYTOSIS 0; OVALOCYTE 1+; PLATELET ESTIMATE NORMAL
== END 2019-04-14 14:18 | disposition home or self-care (01) ==
LOC: JER 11:52 → JERFT 11:52 → JER 14:18
DX: S80.812A Abrasion, left lower leg, initial encounter (principal); V48.4XXA Person boarding or alighting a car injured in noncollision transport accident, initial encounter; Y92.414 Local residential or business street as the place of occurrence of the external cause; Y93.89 Activity, other specified; Y99.8 Other external cause status; I25.10 Atherosclerotic heart disease of native coronary artery without angina pectoris; I11.0 Hypertensive heart disease with heart failure; Z95.5 Presence of coronary angioplasty implant and graft; I50.9 Heart failure, unspecified; I48.91 Unspecified atrial fibrillation; Z79.01 Long term (current) use of anticoagulants; E78.00 Pure hypercholesterolemia, unspecified; K21.9 Gastro-esophageal reflux disease without esophagitis; E87.5 Hyperkalemia
CPT/HCPCS: 36415; 73590-TC-LT-FY; 80053; 85025; 99282-25

== ENCOUNTER 2019-08-27 12:50 | Inpatient (IN) | payer BC, OTHER ==
[2019-08-27 12:55] VITALS: BMI 39.1
[2019-08-27 14:17] LABS: BASO % 0.6 % (0-2.0); EOS % 0.3 % (0-4.5); HEMATOCRIT 45.7 % (35.4-49); HEMOGLOBIN 14.3 GM/dL (11.7-16.9); LYMPH % 10.1 % (8-40); MCH 21.7 pg (25.7-33.7); MCHC 31.3 g/dl (32.0-35.9); MEAN CELL VOLUME 69.2 fl (80-96); MEAN PLT VOLUME 9.1 fl (7.5-11.1); MONO % 7.3 % (3.8-10.2); NEUT % 81.7 % (42.8-82.8); PLATELET COUNT 196 K/MM3 (134-434); RDW 21.9 % (11.9-15.9); WHITE BLOOD COUNT 10.4 K/mm3 (4.0-10.0)
[2019-08-27 14:35] LABS: ALBUMIN 4.1 g/dl (3.4-5.0); ALK PHOS 81 U/L (45-117); ANION GAP 9 MMOL/L (8-16); BILIRUBIN,TOTAL 0.8 mg/dL (0.2-1); BLOOD UREA NITROGEN 43.4 mg/dL (7-18); CALCIUM 9.4 mg/dL (8.5-10.1); CHLORIDE 99 mmol/L (98-107); CO2 25 mmol/L (21-32); CREATININE 1.7 mg/dL (0.55-1.3); GLUCOSE,RANDOM 114 mg/dL (74-106); INR 1.19 (0.83-1.09); POTASSIUM 5.2 mmol/L (3.5-5.1); PROTHROMBIN TIME (PATIENT) 14.1 SEC (9.7-13.0); SGOT/AST 21 U/L (15-37); SGPT/ALT 21 U/L (13-61); SODIUM 133 mmol/L (136-145)
[2019-08-27] MEDS ORDERED: SODIUM CHLORIDE 500 ML IV STA (14:40)
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
[2019-08-27 14:53] LABS: URINE APPEARANCE CLEAR; URINE BILIRUBIN NEGATIVE (NEGATIVE); URINE COLOR YELLOW; URINE GLUCOSE (UA) NEGATIVE (NEGATIVE); URINE KETONE NEGATIVE (NEGATIVE); URINE LEUK ESTERASE NEGATIVE (NEGATIVE); URINE NITRITE NEGATIVE (NEGATIVE); URINE PROTEIN NEGATIVE (NEGATIVE); URINE UROBILINOGEN 0.2 mg/dL (0.2-1.0)
--- NOTE | 2019-08-27 16:00 | HP ---
Admitting History and Physical - Primary Care Physician PCP: Elisabet Martinez - Admission Chief Complaint: S/p fall History of Present Illness: Patient is 63 y/o male with past medical history of Afib, GERD, Hernia, HTN, HLD , chronic diastolic HF, and CAD with stent placement. Patient presented to ER after fall last night. Patient states having drinks last night and was placed in bed by his daughter. Patient says his daughter then heard a loud noise and came in his room and found that he rolled off of the bed and hit his head on the nightstand. Patient is currently taking Eliquis and Plavix. He does not remember last nights events but felt a bump on the back if his head this morning and began to feel dizzy while at work. Patient currently denies dizziness, visual disturbances, chest pain, headache, or SOB. History Source: Patient Limitations to Obtaining History: No Limitations - Past Medical History Cardiovascular: Yes: AFIB, CAD (s/p stents), CHF, HTN, Hyperlipdemia Pulmonary: Yes: Sleep Apnea Gastrointestinal: Yes: GERD - Past Surgical History Past Surgical History: Yes: Stent - Smoking History Smoking history: Never smoked Have you smoked in the past 12 months: Yes Aproximately how many cigarettes per day: 0 - Alcohol/Substance Use Hx Alcohol Use: Yes - Social History Usual Living Arrangement: Yes: With Child ADL: Independent History of Recent Travel: No Home Medications - Allergies Allergies/Adverse Reactions: Allergies Allergy/AdvReac Type Severity Reaction Status Date / Time No Known Allergies Allergy Verified 04/14/19 12:07 - Home Medications Home Medications: Ambulatory Orders Rabeprazole Sodium [Aciphex] 20 mg PO DAILY 08/29/16 Ranolazine [Ranexa] 500 mg PO BID 08/29/16 Fexofenadine HCl [Nicole Allergy] 60 mg PO DAILY 11/25/17 Polyethylene Glycol 3350 [Miralax 119 gm Btl -] 17 gm PO DAILY bottle 02/22/19 Acetaminophen [Tylenol .Regular Strength -] 650 mg PO Q4H PRN tablet 03/26/19 Apixaban [Eliquis -] 5 mg PO BID tablet 03/26/19 Budesonide/Formeterol Fumarate [SYMBICORT 160/4.5mcg -] 2 puff IH BID inhaler 03/26/19 Clopidogrel Bisulfate [Plavix -] 75 mg PO DAILY tablet 03/26/19 Furosemide [Lasix] 40 mg PO DAILY #30 tablet 03/26/19 Magnesium Oxide [Mag-Ox -] 400 mg PO BID tablet 03/26/19 Metoprolol Succinate [Toprol XL -] 50 mg PO DAILY #30 tab.sr.24h 03/26/19 Ramipril [Altace] 2.5 mg PO DAILY capsule 03/26/19 Rosuvastatin [Crestor -] 10 mg PO HS tablet 03/26/19 Spironolactone [Aldactone -] 25 mg PO BID #30 tablet 03/26/19 Potassium Chloride [K-Dur -] 20 meq PO ASDIR 04/14/19 Fluticasone/Vilanterol [Breo Ellipta 100-25 Mcg INH] 1 each IH 08/27/19 Review of Systems - Review of Systems Constitutional: reports: No Symptoms Eyes: reports: No Symptoms HENT: reports: No Symptoms Neck: reports: No Symptoms Cardiovascular: reports: No Symptoms Respiratory: reports: No Symptoms Gastrointestinal: reports: No Symptoms Genitourinary: reports: No Symptoms Breasts: reports: No Symptoms Reported Musculoskeletal: reports: No Symptoms Integumentary: reports: No Symptoms Neurological: reports: Dizziness Endocrine: reports: No Symptoms Hematology/Lymphatic: reports: Easily Bruised Psychiatric: reports: No Symptoms Physical Examination Vital Signs: Vital Signs Temperature 98 F 08/27/19 12:52 Pulse Rate 78 08/27/19 12:52 Respiratory Rate 18 08/27/19 12:52 Blood Pressure 151/94 08/27/19 12:52 O2 Sat by Pulse Oximetry (%) 99 08/27/19 12:52 Constitutional: Yes: No Distress, Calm Eyes: Yes: Conjunctiva Clear HENT: Yes: Other (occipital hematoma) Cardiovascular: Yes: Regular Rate and Rhythm Respiratory: Yes: Regular, CTA Bilaterally Gastrointestinal: Yes: Normal Bowel Sounds, Soft, Abdomen, Obese Musculoskeletal: Yes: WNL Extremities: Yes: WNL Edema: Yes Edema: LLE: Trace, RLE: Trace Integumentary: Yes: Venous Stasis Changes Neurological: Yes: Alert, Oriented Psychiatric: Yes: Alert, Oriented Labs: CBC, BMP 08/27/19 13:57 08/27/19 13:57 Imaging - Results Cat Scan: Report Reviewed Problem List - Problems (1) At risk for hemorrhage associated with anticoagulation therapy Assessment/Plan: -Tele monitoring -hold Eliquis and Plavix -Cardiology consult -Head CT scan shows no acute cerebral bleed or fracture -Neuro checks q4h Code(s): Z91.89 - OTH PERSONAL RISK FACTORS, NOT ELSEWHERE CLASSIFIED (2) Closed head injury Assessment/Plan: -Head CT scan shows no acute cerebral bleed or fracture -Neuro checks q4h -repeat Head CT in AM Code(s): S09.90XA - UNSPECIFIED INJURY OF HEAD, INITIAL ENCOUNTER (3) Afib Assessment/Plan: -Eliquis on hold -Cardiology consult Code(s): I48.91 - UNSPECIFIED ATRIAL FIBRILLATION Qualifiers: Atrial fibrillation type: unspecified Qualified Code(s): I48.91 - Unspecified atrial fibrillation (4) CAD (coronary artery disease) Assessment/Plan: -Crestor Code(s): I25.10 - ATHSCL HEART DISEASE OF [place] CORONARY ARTERY W/O ANG PCTRS (5) CHF (congestive heart failure) Assessment/Plan: -Cardiology consult -fluid restriction -daily weights -strict I&Os -Ranexa -Furosemide Code(s): I50.9 - HEART FAILURE, UNSPECIFIED (6) COPD (chronic obstructive pulmonary disease) Assessment/Plan: -Pulm on board -Bronchodilators -keep SpO2 >90% -O2 via NC -Symbicort Code(s): J44.9 - CHRONIC OBSTRUCTIVE PULMONARY DISEASE, UNSPECIFIED Qualifiers: COPD type: unspecified COPD Qualified Code(s): J44.9 - Chronic obstructive pulmonary disease, unspecified (7) GERD (gastroesophageal reflux disease) Assessment/Plan: -Pantoprazole Code(s): K21.9 - GASTRO-ESOPHAGEAL REFLUX DISEASE WITHOUT ESOPHAGITIS (8) HTN (hypertension) Assessment/Plan: -Spironolactone -low Na diet Code(s): I10 - ESSENTIAL (PRIMARY) HYPERTENSION (9) Hyponatremia Assessment/Plan: -Na 131 -Renal consult -monitor electrolytes daily Code(s): E87.1 - HYPO-OSMOLALITY AND HYPONATREMIA (10) Hyperkalemia Assessment/Plan: -K 5.2 -monitor electrolyte daily -Renal consult -PO potassium supplement on hold Code(s): E87.5 - HYPERKALEMIA (11) IWONA (acute kidney injury) Assessment/Plan: -Renal consult -BUN/Cr 43.7/1.7 -monitor renal function Code(s): N17.9 - ACUTE KIDNEY FAILURE, UNSPECIFIED Assessment/Plan see problem list dvt ppx
[2019-08-27 16:43] LABS: ANISOCYTOSIS 2+; MACROCYTOSIS 1+; PLATELET ESTIMATE NORMAL
[2019-08-27 16:55] LABS: OVALOCYTE 1+
[2019-08-27] MEDS ORDERED: ALBUTEROL SO4 2.5/IPRATROPIUM 0.5 INH SOL 3 ML VIAL.NEB. NEB PRN (18:23)
[2019-08-27] MEDS ORDERED: ROSUVASTATIN CA 10 MG TABLET (FP) PO SCH (22:00)
[2019-08-27] MEDS: SPIRONOLACTONE 25 MG TABLET (FP) PO SCH (22:49)
[2019-08-27] MEDS: MAGNESIUM OXIDE 400 MG TABLET (FP) PO SCH (22:49)
[2019-08-27] MEDS: BUDESONIDE/FORMETEROL FUMARATE 160/4.5 mcg INHALER IH SCH (22:50)
[2019-08-27] MEDS: RANOLAZINE E.R. 500 MG TABLET (FP) PO SCH (22:50)
[2019-08-28] MEDS ORDERED: ACETAMINOPHEN 325 MG TABLET (FP) PO PRN (01:00)
[2019-08-28 06:32] LABS: BASO % 0.3 % (0-2.0); EOS % 0.5 % (0-4.5); HEMATOCRIT 40.1 % (35.4-49); HEMOGLOBIN 12.9 GM/dL (11.7-16.9); LYMPH % 11.2 % (8-40); MCH 22.1 pg (25.7-33.7); MEAN PLT VOLUME 8.7 fl (7.5-11.1); MONO % 11.9 % (3.8-10.2); NEUT % 76.1 % (42.8-82.8); PLATELET COUNT 164 K/MM3 (134-434); RBC 5.81 M/mm3 (4.00-5.60); WHITE BLOOD COUNT 8.7 K/mm3 (4.0-10.0)
[2019-08-28 07:06] LABS: ALBUMIN 3.6 g/dl (3.4-5.0); BILIRUBIN,TOTAL 0.7 mg/dL (0.2-1); BLOOD UREA NITROGEN 43.7 mg/dL (7-18); CALCIUM 9.1 mg/dL (8.5-10.1); CREATININE 1.3 mg/dL (0.55-1.3); MAGNESIUM 2.3 mg/dL (1.8-2.4); PHOSPHOROUS 4.1 mg/dL (2.5-4.9); POTASSIUM 4.3 mmol/L (3.5-5.1); TOT PROT 6.9 g/dl (6.4-8.2)
--- NOTE | 2019-08-28 08:21 | CONSULT ---
Consult Detox [facility] Reason for Current Admission/Consult: Alcoholism Referred by:: Elisabet Martinez - History History of Present Illness: Patient is 63 y/o male with past medical history of Afib, GERD, Hernia, HTN, HLD , chronic diastolic HF, and CAD with stent placement. Patient presented to ER after fall last night. Patient states having drinks last night and was placed in bed by his daughter. Patient says his daughter then heard a loud noise and came in his room and found that he rolled off of the bed and hit his head on the nightstand. Patient is currently taking Eliquis and Plavix. He does not remember last nights events but felt a bump on the back if his head this morning and began to feel dizzy while at work. Patient currently denies dizziness, visual disturbances, chest pain, headache, or SOB. A detox consult was requested due to the alcohol use prior to the incident of the fall of this patient. - History Source History Provided By: Medical Record Limitations to Obtaining History: Clinical Condition - Alcohol/Substance Use Hx Alcohol Use: Yes (WINE; BOURBAN 2-3X/WEEK) Hx Substance Use: No Hx Substance Use Treatment: No - Past Medical History Cardio/Vascular: Yes: AFIB, CAD (s/p stents), CHF, HTN, Hyperlipdemia Pulmonary: Yes: Sleep Apnea Gastrointestinal: Yes: GERD - Past Surgical History Past Surgical History: Yes: Stent CIWA Score - CIWA Score Nausea/Vomitin-No Nausea/No Vomiting Muscle Tremors: 1-None Visible, but [place] Anxiety: 0-No Anxiety, at Ease Agitation: 0-Normal Activity Paroxysmal Sweats: No Perspiration Orientation: 0-Oriented Tacttile Disturbances: 0-None Auditory Disturbances: 0-None Visual Disturbances: 0-None Assessment Plan - Plan Plan: 63 year old male with multiple medical problems: Afib, CHF, CAD s/ stents, HTN, Hernia, GERD, now in acute renal failure and being monitored on telemetry. Patient has many medical problems and at this time unstable to transfer for detox services. According to reported use of ETOH, he also does not qualify for detox as per criteria. However, once his medical problems have been resolved and other sequelae ruled out, then he may if he wishes enter rehabilitation for alcohol use disorder. Therefore, [facility] services should be offered to the patient but it is a voluntary program. Dr. Iverson - Medication Detox Regimen/Protocol: Not Applicable (Only if he exhibits withdrawal symptoms should librium be offered as a detox protocol.)
[2019-08-28 09:31] VITALS: BP 151/79; PULSE 78; TEMP 98
--- NOTE | 2019-08-28 09:57 | CON.CARD ---
Consult Consult Specialty:: cardio - History of Present Illness Chief Complaint: fall History of Present Illness: 63 M here with fall. found on floor next to bed by dtr the night BLOCK CUTTER, apparently having rolled off the bed and banged head on night table. in setting of etoh use (chronic). states he had only one prior fall, few years ago. states no pre/syncope. in USOH without leg swelling or sob since on current diuretics regimen. no cp. no palpitations. denies new neuro sx's or severe GREEN h/o Afib and prior stents--on eliquis and plavix as outpt. sees dr barragan PMH: HFpEF HTN COPD - Past Medical History Cardio/Vascular: Yes: AFIB, CAD (s/p stents), CHF, HTN, Hyperlipdemia Pulmonary: Yes: Sleep Apnea Gastrointestinal: Yes: GERD - Past Surgical History Past Surgical History: Yes: Stent - Alcohol/Substance Use Hx Alcohol Use: Yes (WINE; BOURBAN 2-3X/WEEK) - Smoking History Smoking history: Never smoked Have you smoked in the past 12 months: No Aproximately how many cigarettes per day: 0 - Social History ADL: Independent History of Recent Travel: No Home Medications - Allergies Allergies/Adverse Reactions: Allergies Allergy/AdvReac Type Severity Reaction Status Date / Time No Known Allergies Allergy Verified 04/14/19 12:07 - Home Medications Home Medications: Ambulatory Orders Rabeprazole Sodium [Aciphex] 20 mg PO DAILY 08/29/16 Ranolazine [Ranexa] 500 mg PO BID 08/29/16 Fexofenadine HCl [Nicole Allergy] 60 mg PO DAILY 11/25/17 Polyethylene Glycol 3350 [Miralax 119 gm Btl -] 17 gm PO DAILY bottle 02/22/19 Acetaminophen [Tylenol .Regular Strength -] 650 mg PO Q4H PRN tablet 03/26/19 Apixaban [Eliquis -] 5 mg PO BID tablet 03/26/19 Budesonide/Formeterol Fumarate [SYMBICORT 160/4.5mcg -] 2 puff IH BID inhaler 03/26/19 Clopidogrel Bisulfate [Plavix -] 75 mg PO DAILY tablet 03/26/19 Furosemide [Lasix] 40 mg PO DAILY #30 tablet 03/26/19 Magnesium Oxide [Mag-Ox -] 400 mg PO BID tablet 03/26/19 Metoprolol Succinate [Toprol XL -] 50 mg PO DAILY #30 tab.sr.24h 03/26/19 Ramipril [Altace] 2.5 mg PO DAILY capsule 03/26/19 Rosuvastatin [Crestor -] 10 mg PO HS tablet 03/26/19 Spironolactone [Aldactone -] 25 mg PO BID #30 tablet 03/26/19 Potassium Chloride [K-Dur -] 20 meq PO ASDIR 04/14/19 Fluticasone/Vilanterol [Breo Ellipta 100-25 Mcg INH] 1 each IH 08/27/19 Family Medical History Family History: Denies (no known cmp) Review of Systems - Review of Systems Constitutional: denies: Chills, Fever Eyes: denies: Eye Pain HENT: denies: Nasal Congestion Neck: denies: Stiffness Cardiovascular: denies: Palpitations Respiratory: denies: Orthopnea, PND Gastrointestinal: denies: Diarrhea, Rectal Bleeding Genitourinary: denies: Burning, Hematuria Musculoskeletal: denies: Muscle Pain Integumentary: denies: Rash Neurological: denies: Numbness, Seizure, Syncope Endocrine: denies: Excessive Sweating Hematology/Lymphatic: denies: Excessive Bleeding Vital Signs: Vital Signs Temperature 98 F 08/28/19 09:00 Pulse Rate 78 08/28/19 09:00 Respiratory Rate 18 08/28/19 09:00 Blood Pressure 151/79 08/28/19 09:00 O2 Sat by Pulse Oximetry (%) 98 08/27/19 23:54 Constitutional: Yes: Well Nourished, No Distress, Obese Eyes: No: Sclera Icterus HENT: No: Nasal Congestion Neck: No: Decreased ROM Respiratory: Yes: CTA Bilaterally. No: Accessory Muscle Use, Rales, Wheezes Gastrointestinal: Yes: Normal Bowel Sounds. No: Distention, Hepatomegaly, Palpable Mass, Tenderness Cardiovascular: Yes: Pulse Irregular JVD: No Carotid Bruit: No PMI: Non-Displaced Heart Sounds: Yes: S1, S2. No: Gallop Murmur: No: Systolic Murmur, Diastolic Murmur Musculoskeletal: Yes: Other (No kyphosis) Extremities: No: Cool, Cyanosis Edema: No Peripheral Pulses: 2+ Left Carotid, 2+ Right Carotid, 2+ Left Doralis Pedis, 2+ Right Dorsalis Pedis Integumentary: No: Jaundice Neurological: Yes: Alert, Oriented (x3) Psychiatric: No: Agitated - Other Data Labs, Other Data: CBC, BMP 08/28/19 05:25 08/28/19 05:25 INR, PTT INR 1.19 (0.83-1.09) H 08/27/19 13:57 Troponin, BNP 08/27/19 13:57 Troponin I < 0.02 Troponin, BNP 08/27/19 13:57 Troponin I < 0.02 Assessment/Plan Echo 12/05: TDS. grossly normal LVSF. RV tds. mild . mild MR/TR. CXR: clear lungs/pleura ECG: AF, nonsp ST-T abn.s (previously present as well) tele: AF, hr's good. artifact s/p fall with head trauma: -in setting of etoh use -CT head x 2 here no acute pathology -? details of etoh use/abuse and falls risk--defer to f/u with dr barragan ( pt's outside cardio) regarding need for ongoing plavix (timing and types of stents?) on top of AC IWONA: -prerenal labs, in setting of etoh use -close to baseline today--cont home BALTAZAR, spironolactone -monitor trend chronic diastolic HF, edema, venous insuff: - on spirono at home for help with low k and diuresing - cont metoprolol, ramipril CAD, prior stents (>> 12 mo ago, per pt): - continue home statin, bb - cont plavix for now--as above - ranexa per dr barragan AFib: - cont home metoprolol for rate contrl - cont eliquis for now--? consider Watchman to avoid retirement AC if pt at risk for etoh related head trauma (though ? if will follow up with TEEs) HTN - controlled - cont home meds COPD - per pmd CV stable for discharge, with f/u with dr barragan
[2019-08-28] MEDS: SPIRONOLACTONE 25 MG TABLET (FP) PO SCH (09:58)
[2019-08-28] MEDS: RANOLAZINE E.R. 500 MG TABLET (FP) PO SCH (10:00)
[2019-08-28] MEDS ORDERED: FUROSEMIDE 40 MG TABLET (FP) PO SCH (10:00)
[2019-08-28] MEDS ORDERED: POLYETHYLENE GLYCOL 3350 119 GM BTL PO SCH (10:00)
[2019-08-28] MEDS ORDERED: RAMIPRIL 2.5 MG CAPSULE (FP) PO SCH (10:00)
[2019-08-28] MEDS: MAGNESIUM OXIDE 400 MG TABLET (FP) PO SCH (10:00)
[2019-08-28] MEDS: BUDESONIDE/FORMETEROL FUMARATE 160/4.5 mcg INHALER IH SCH (10:03)
--- NOTE | 2019-08-28 10:11 | EKG ---
Test Reason : Blood Pressure : / mmHG Vent. Rate : 069 BPM Atrial Rate : 075 BPM P-R Int : 000 ms QRS Dur : 106 ms QT Int : 424 ms P-R-T Axes : 000 054 075 degrees QTc Int : 454 ms ATRIAL FIBRILLATION WHEN COMPARED WITH ECG OF 23-MAR-2019 13:30, QT HAS SHORTENED Confirmed by KAVEH LOUIS, VICKIE ([id number]) on 08/28/2019 10:11:05 AM Referred By: Confirmed By:VICKIE LINN MD
--- NOTE | 2019-08-28 12:30 | DS ---
Physical Examination Vital Signs: Vital Signs Temperature 98 F 08/28/19 09:00 Pulse Rate 78 08/28/19 09:00 Respiratory Rate 18 08/28/19 09:00 Blood Pressure 151/79 08/28/19 09:00 O2 Sat by Pulse Oximetry (%) 98 08/27/19 23:54 Constitutional: Yes: Calm Cardiovascular: Yes: Regular Rate and Rhythm, S1, S2 Respiratory: Yes: CTA Bilaterally Gastrointestinal: Yes: Normal Bowel Sounds, Soft Labs: CBC, BMP 08/28/19 05:25 08/28/19 05:25 Discharge Summary Problems reviewed: Yes Reason For Visit: CLOSED HEAD INJURY Current Active Problems IWNOA (acute kidney injury) (Acute) At risk for hemorrhage associated with anticoagulation therapy (Acute) Closed head injury (Acute) Hyperkalemia (Acute) Other Procedures: head CT done twice no bleed Hospital Course: Patient is 63 y/o male with past medical history of Afib, GERD, Hernia, HTN, HLD , chronic diastolic HF, and CAD with stent placement. Patient presented to ER after fall last night. Patient states having drinks last night and was placed in bed by his daughter. Patient says his daughter then heard a loud noise and came in his room and found that he rolled off of the bed and hit his head on the nightstand. patient seen by cardiology and detox and now ready to go home - Instructions Referrals: Elisabet Martinez MD [Primary Care Provider] - - Home Medications Comprehensive Discharge Medication List: Ambulatory Orders Rabeprazole Sodium [Aciphex] 20 mg PO DAILY 08/29/16 Ranolazine [Ranexa] 500 mg PO BID 08/29/16 Fexofenadine HCl [Nicole Allergy] 60 mg PO DAILY 11/25/17 Polyethylene Glycol 3350 [Miralax 119 gm Btl -] 17 gm PO DAILY bottle 02/22/19 Acetaminophen [Tylenol .Regular Strength -] 650 mg PO Q4H PRN tablet 03/26/19 Apixaban [Eliquis -] 5 mg PO BID tablet 03/26/19 Budesonide/Formeterol Fumarate [SYMBICORT 160/4.5mcg -] 2 puff IH BID inhaler 03/26/19 Clopidogrel Bisulfate [Plavix -] 75 mg PO DAILY tablet 03/26/19 Furosemide [Lasix] 40 mg PO DAILY #30 tablet 03/26/19 Magnesium Oxide [Mag-Ox -] 400 mg PO BID tablet 03/26/19 Metoprolol Succinate [Toprol XL -] 50 mg PO DAILY #30 tab.sr.24h 03/26/19 Ramipril [Altace] 2.5 mg PO DAILY capsule 03/26/19 Rosuvastatin [Crestor -] 10 mg PO HS tablet 03/26/19 Spironolactone [Aldactone -] 25 mg PO BID #30 tablet 03/26/19 Potassium Chloride [K-Dur -] 20 meq PO ASDIR 04/14/19 Fluticasone/Vilanterol [Breo Ellipta 100-25 Mcg INH] 1 each IH 08/27/19
--- NOTE | 2019-08-28 13:10 | CONSULT ---
Consult Consult Specialty:: Nephrology Reason for Consultation:: IWONA - History of Present Illness Chief Complaint: s/p fall History of Present Illness: Pt is a 63 year old male wit pmhx of a-fib, gerd, hernia, htn, hld, chf, and cad who presents after a fall. he was found to have elevated creatinine and I was called to evaluate him. he presented to the hospital after a fall. he did have a few drinks last night. he was seen by me in the past for hypokalemia. he says that his potassium levels have been stable. - History Source History Provided By: Patient - Past Medical History Cardio/Vascular: Yes: AFIB, CAD (s/p stents), CHF, HTN, Hyperlipdemia Pulmonary: Yes: Sleep Apnea Gastrointestinal: Yes: GERD - Past Surgical History Past Surgical History: Yes: Stent - Alcohol/Substance Use Hx Alcohol Use: Yes (WINE; BOURBAN 2-3X/WEEK) - Smoking History Smoking history: Never smoked Have you smoked in the past 12 months: No Aproximately how many cigarettes per day: 0 - Social History ADL: Independent History of Recent Travel: No Home Medications - Allergies Allergies/Adverse Reactions: Allergies Allergy/AdvReac Type Severity Reaction Status Date / Time No Known Allergies Allergy Verified 04/14/19 12:07 - Home Medications Home Medications: Ambulatory Orders Rabeprazole Sodium [Aciphex] 20 mg PO DAILY 08/29/16 Ranolazine [Ranexa] 500 mg PO BID 08/29/16 Fexofenadine HCl [Nicole Allergy] 60 mg PO DAILY 11/25/17 Polyethylene Glycol 3350 [Miralax 119 gm Btl -] 17 gm PO DAILY bottle 02/22/19 Acetaminophen [Tylenol .Regular Strength -] 650 mg PO Q4H PRN tablet 03/26/19 Apixaban [Eliquis -] 5 mg PO BID tablet 03/26/19 Budesonide/Formeterol Fumarate [SYMBICORT 160/4.5mcg -] 2 puff IH BID inhaler 03/26/19 Clopidogrel Bisulfate [Plavix -] 75 mg PO DAILY tablet 03/26/19 Furosemide [Lasix] 40 mg PO DAILY #30 tablet 03/26/19 Magnesium Oxide [Mag-Ox -] 400 mg PO BID tablet 03/26/19 Metoprolol Succinate [Toprol XL -] 50 mg PO DAILY #30 tab.sr.24h 03/26/19 Ramipril [Altace] 2.5 mg PO DAILY capsule 03/26/19 Rosuvastatin [Crestor -] 10 mg PO HS tablet 03/26/19 Spironolactone [Aldactone -] 25 mg PO BID #30 tablet 03/26/19 Fluticasone/Vilanterol [Breo Ellipta 100-25 Mcg INH] 1 each IH 08/27/19 Family Medical History Family History: Denies Review of Systems - Review of Systems Constitutional: reports: No Symptoms Eyes: reports: No Symptoms HENT: reports: No Symptoms Neck: reports: No Symptoms Cardiovascular: reports: No Symptoms Respiratory: reports: No Symptoms Gastrointestinal: reports: No Symptoms Genitourinary: reports: No Symptoms Musculoskeletal: reports: No Symptoms Integumentary: reports: No Symptoms Neurological: reports: No Symptoms Endocrine: reports: No Symptoms Hematology/Lymphatic: reports: No Symptoms Psychiatric: reports: No Symptoms Physical Exam Vital Signs: Vital Signs Temperature 98 F 08/28/19 09:00 Pulse Rate 78 08/28/19 09:00 Respiratory Rate 18 08/28/19 09:00 Blood Pressure 151/79 08/28/19 09:00 O2 Sat by Pulse Oximetry (%) 98 08/28/19 09:00 Constitutional: Yes: Calm Eyes: Yes: Conjunctiva Clear HENT: Yes: Atraumatic Neck: Yes: Supple Cardiovascular: Yes: S1, S2 Respiratory: Yes: CTA Bilaterally Gastrointestinal: Yes: Normal Bowel Sounds, Soft Renal/: Yes: WNL Musculoskeletal: Yes: WNL Edema: Yes Edema: LLE: 1+, RLE: 1+ Neurological: Yes: Oriented Psychiatric: Yes: Oriented Labs: CBC, BMP 08/28/19 05:25 08/28/19 05:25 Imaging - Results Cat Scan: Report Reviewed Problem List - Problems (1) IWONA (acute kidney injury) Code(s): N17.9 - ACUTE KIDNEY FAILURE, UNSPECIFIED (2) Hyperkalemia Code(s): E87.5 - HYPERKALEMIA Assessment/Plan Current Medications Generic Name Dose Route Start Last Admin Trade Name Freq PRN Reason Stop Dose Admin Acetaminophen 650 mg 08/28/19 01:00 08/28/19 01:18 Tylenol - PO 650 mg Q6H PRN Administration PAIN LEVEL 6-10 Albuterol/Ipratropium 1 amp 08/27/19 18:23 Duoneb - NEB Q6H PRN SHORTNESS OF BREATH Budesonide/Formoterol Fumarate 2 puff 08/27/19 22:00 08/28/19 10:03 Symbicort 160/4.5mcg - IH 2 puff BID SELIN Administration Furosemide 40 mg 08/28/19 10:00 08/28/19 09:58 Lasix - PO 40 mg DAILY SELIN Administration Magnesium Oxide 400 mg 08/27/19 22:00 08/28/19 10:00 Mag-Ox - PO 400 mg BID SELIN Administration Metoprolol Succinate 50 mg 08/28/19 10:00 08/28/19 09:58 Toprol Xl - PO 50 mg DAILY SELIN Administration Polyethylene Glycol 17 gm 08/28/19 10:00 08/28/19 10:00 Miralax (For Daily Use) - PO Not Given DAILY SELIN Ramipril 2.5 mg 08/28/19 10:00 08/28/19 10:01 Altace - PO 2.5 mg DAILY SELIN Administration Ranolazine 500 mg 08/27/19 22:00 08/28/19 10:00 Ranexa - PO 500 mg BID SELIN Administration Rosuvastatin Calcium 10 mg 08/27/19 22:00 08/27/19 22:49 Crestor - PO 10 mg HS SELIN Administration Spironolactone 25 mg 08/27/19 22:00 08/28/19 09:58 Aldactone - PO 25 mg BID SELIN Administration Laboratory Tests 08/27/19 08/27/19 13:57 14:13 Potassium 5.2 H Creatinine 1.7 H Urine Protein Negative Urine Blood Negative Impression 1. Hyperkalemia resolved 2. IWONA improved 3. s/p fall 4. chf 5. hld 6. HTN Plan - resume home dose of diuretics - will need to monitor lytes closely - renal function is improved - low sodium diet - can see in office - ua neg for blood or protein
== END 2019-08-28 13:12 | disposition home or self-care (01) | DRG 914 ==
LOC: JER 12:50 → JERBED 15:03 → OBSVTOIN 15:38 → J4W 23:39
PROVIDERS: ADMIT Family Medicine; ATTEND Family Medicine
DX: S09.8XXA Other specified injuries of head, initial encounter (principal); E87.1 Hypo-osmolality and hyponatremia; N17.9 Acute kidney failure, unspecified; I50.32 Chronic diastolic (congestive) heart failure; I48.91 Unspecified atrial fibrillation; I25.10 Atherosclerotic heart disease of native coronary artery without angina pectoris; J44.9 Chronic obstructive pulmonary disease, unspecified; K21.9 Gastro-esophageal reflux disease without esophagitis; E87.5 Hyperkalemia; I11.0 Hypertensive heart disease with heart failure; E78.5 Hyperlipidemia, unspecified; G47.30 Sleep apnea, unspecified; W06.XXXA Fall from bed, initial encounter; Y92.092 Bedroom in other non-institutional residence as the place of occurrence of the external cause; Z95.5 Presence of coronary angioplasty implant and graft
CPT/HCPCS: 36415; 70450-TC; 71045-TC-FY; 72125-TC; 80053; 81003; 82550; 82962; 83735; 84100; 84436; 84443; 84484; 85025; 85610; 87086; 93005; 93010; 99285-25; G0378; J7030

== ENCOUNTER 2019-09-13 10:19 | Emergency (ER) | payer BC, OTHER ==
[2019-09-13 10:35] VITALS: BMI 39.7
--- NOTE | 2019-09-13 12:13 | PDOC ---
History of Present Illness - General Chief Complaint: Pain Stated Complaint: LT LEG PAIN,REDNESS R/O DVT Time Seen by Provider: 09/13/19 10:38 History Source: Patient Exam Limitations: No Limitations - History of Present Illness Initial Comments: 09/13/19 12:07 63-year-old male with a history of A. fib, CAD status post stents on Eliquis and Plavix, GERD, hypertension, hyperlipidemia, sleep apnea, PVD presents complaining of acute left lower extremity pain which awoke him from sleep at 4 AM this morning. Evaluated at this ED 2 weeks ago after falling out of bed due to alcohol intoxication. Denies any new trauma, recent travel, calf pain, shortness of breath, chest pain, foot pain, fever, chills or any other symptoms. Took Advil at 4 AM without relief of pain. ROS: GENERAL/CONSTITUTIONAL: No fever, chills, weakness, dizziness HEAD, EYES, EARS, NOSE AND THROAT: No changes in vision, No ear pain or discharge, No sore throat CARDIOVASCULAR: No chest pain RESPIRATORY: No shortness of breath or cough GASTROINTESTINAL: No pain, nausea, vomiting, diarrhea or constipation GENITOURINARY: No dysuria MUSCULOSKELETAL: No neck or back pain, left lower extremity pain SKIN: No rash NEUROLOGIC: No headache, vertigo, loss of consciousness, or loss of sensation PE: GENERAL: well-appearing, NAD, obese HEAD: NCAT EYES: Pupils equal, round and reactive to light, sclera anicteric, conjunctiva clear ENT: pharynx: no erythema, no exudate, uvula midline NECK: supple CHEST: nontender RESP: clear, no w/r/r CARDIO: rrr, no m/g/r ABD: +BS, soft, nontender, non distended BACK: no midline spinal ttp, no CVAT EXTREMITIES: Hyperpigmentation to bilateral lower extremities, LLE with<1mm open skin to medial aspect of mid tib-fib area, tenderness to palpation, no warmth or erythema noted, normal range of motion, no pitting edema, + pedal pulses, superficial varicose veins noted NEUROLOGICAL: Normal speech, normal gait SKIN: Warm, Dry Is this a multiple visit Asthma Patient?: No Past History - Past Medical History Allergies/Adverse Reactions: Allergies Allergy/AdvReac Type Severity Reaction Status Date / Time No Known Allergies Allergy Verified 09/13/19 10:34 Home Medications: Ambulatory Orders Rabeprazole Sodium [Aciphex] 20 mg PO DAILY 08/29/16 Ranolazine [Ranexa] 500 mg PO BID 08/29/16 Fexofenadine HCl [Nicole Allergy] 60 mg PO DAILY 11/25/17 Polyethylene Glycol 3350 [Miralax 119 gm Btl -] 17 gm PO DAILY bottle 02/22/19 Acetaminophen [Tylenol .Regular Strength -] 650 mg PO Q4H PRN tablet 03/26/19 Apixaban [Eliquis -] 5 mg PO BID tablet 03/26/19 Budesonide/Formeterol Fumarate [SYMBICORT 160/4.5mcg -] 2 puff IH BID inhaler 03/26/19 Clopidogrel Bisulfate [Plavix -] 75 mg PO DAILY tablet 03/26/19 Furosemide [Lasix] 40 mg PO DAILY #30 tablet 03/26/19 Magnesium Oxide [Mag-Ox -] 400 mg PO BID tablet 03/26/19 Metoprolol Succinate [Toprol XL -] 50 mg PO DAILY #30 tab.sr.24h 03/26/19 Ramipril [Altace] 2.5 mg PO DAILY capsule 03/26/19 Rosuvastatin [Crestor -] 10 mg PO HS tablet 03/26/19 Spironolactone [Aldactone -] 25 mg PO BID #30 tablet 03/26/19 Fluticasone/Vilanterol [Breo Ellipta 100-25 Mcg INH] 1 each IH 08/27/19 Anemia: No Asthma: No Cancer: No Cardiac Disorders: Yes (A Fib) CVA: No COPD: No CHF: No Dementia: No Diabetes: No GI Disorders: Yes (ACID REFLUX) Disorders: No HTN: Yes Hypercholesterolemia: Yes Liver Disease: No Seizures: No Thyroid Disease: No - Surgical History Abdominal Surgery: Yes (HERNIA) Appendectomy: No Cardiac Surgery: Yes (STENTS , 2010,, ) Cholecystectomy: No Lung Surgery: No Neurologic Surgery: No Orthopedic Surgery: No - Immunization History Immunization Up to Date: Yes - Psycho Social/Smoking Cessation Hx Smoking Status: No Smoking History: Never smoked Have you smoked in the past 12 months: Yes Number of Cigarettes Smoked Daily: 0 Cigars Per Day: 1 Information on smoking cessation initiated: No 'Breaking Loose' booklet given: 10/31/17 Hx Alcohol Use: Yes (WEEKLY) Drug/Substance Use Hx: No Substance Use Type: None Hx Substance Use Treatment: No *Physical Exam - Vital Signs Last Vital Signs Temp Pulse Resp BP Pulse Ox 97.9 F 67 19 134/80 98 09/13/19 10:31 09/13/19 10:31 09/13/19 10:31 09/13/19 10:31 09/13/19 10:31 ED Treatment Course - RADIOLOGY Radiology Studies Ordered: Category Date Time Status DUPLEX VASCUL US-1 LEG [US] Stat Ultrasound 09/13/19 10:48 Taken Medical Decision Making - Medical Decision Making 09/13/19 15:26 63-year-old male with history of A. fib, CAD status post stent on Eliquis and Plavix, hypertension, hyperlipidemia, PVD presents complaining of acute left lower extremity pain to the medial aspect of the tib-fib since 3 AM today. Denies trauma, fever, chills, calf pain, shortness of breath, chest pain. Left lower extremity ultrasound negative for DVT. History of left tib-fib negative for fracture or foreign body on my reading. Attempted to contact PMD Shanique Villanueva 3 times unsuccessfully however patient assures me he can arrange follow-up within 2 to 3 days on his own. Ordered Toradol 15 mg IM here Discharge with prescription for cephalexin and acetaminophen with codeine as directed. Return precautions discussed. Discharge - Discharge Information Problems reviewed: Yes Clinical Impression/Diagnosis: Pain of left lower extremity Condition: Stable Disposition: HOME - Admission No - Follow up/Referral - Patient Discharge Instructions Additional Instructions: Today your ultrasound was negative for blood clot in your left leg and your tib- fib x-ray does not show any foreign body or fractures. Take cephalexin 500 mg 1 tablet every 8 hours for 7 days and acetaminophen with codeine 1 tablet every 6 hours as needed for pain. Follow-up with your doctor within 2 to 3 days. Return to ED if worsening pain, swelling, fever, chills, shortness of breath, chest pain or any worsening symptoms. - Post Discharge Activity
[2019-09-13] MEDS ORDERED: KETOROLAC TROMETHAMINE 30 MG/1 ML VIAL IM ONE (14:07)
[2019-09-13] MEDS ORDERED: KETOROLAC TROMETHAMINE 30 MG/1 ML VIAL ONE ×2 (14:39→15:09)
[2019-09-13] MEDS ORDERED: KETOROLAC TROMETHAMINE 15 MG/ML VIAL IM ONE (14:43)
[2019-09-13 15:51] VITALS: BP 135/67; PULSE 87; TEMP 98
== END 2019-09-13 15:55 | disposition home or self-care (01) ==
LOC: JER 10:19
DX: M79.605 Pain in left leg (principal); I48.91 Unspecified atrial fibrillation; I25.10 Atherosclerotic heart disease of native coronary artery without angina pectoris; I10 Essential (primary) hypertension; E78.5 Hyperlipidemia, unspecified; Z79.01 Long term (current) use of anticoagulants; K92.9 Disease of digestive system, unspecified
CPT/HCPCS: 73590-TC-LT-FY; 93971-TC; 99281-25

== ENCOUNTER 2019-11-11 04:02 | Inpatient (IN) | payer BC, OTHER ==
--- NOTE | 2019-11-11 07:20 | PDOC ---
Attending Attestation - Resident Resident Name: David Carballo - ED Attending Attestation I have performed the following: I have examined & evaluated the patient, The case was reviewed & discussed with the resident, I agree w/resident's findings & plan, Exceptions are as noted - HPI HPI: 11/11/19 07:56 63yo male with etoh last night who noticed a red swollen tender leg when he got home and took off his pants. Pt with two abrasions to the LE and a hematoma. Pt on eliquis for afib. Pt denies trauma. pt states redness from toes to knee, but has not spread above the knee. Pt denies seeing this redness or swelling prior to yesterday. pt denies f/c. Pt denies cp/sob. No abd pain. No other complaints. Pt with a very tender RLE with a hematoma, 2 wounds to the skin. - Physicial Exam PE: 11/11/19 08:02 Gen: aaox3, uncomfortable heart: +s1s2 irreg, +holosystolic murmur lungs: cta b/l abd: soft, obese, nt/nd +bs ext: RLE redness, warmth, ttp, 2 wounds without drainage, hematoma to anterior spencer and medial calf, warmth, cellulitis from toes to knee, not above the knee, LLE pulses intact no warmth LLE, Pulses intact b/l - Medical Decision Making 11/11/19 08:05 a/p: 63yo male with cad, afib on eliquis with RLE wounds, infection -concern for cellulitis -no f/c, but extensive cellulitis to RLE, pulses intact -hematoma to anterior spencer -will send labs, cultures, vbg, lactate -will start broad spectrum abx -will need admission -PMD Dr. Martinez 11/11/19 10:07 cxr shows cardiomegaly elevated lactate elevated K- hemolyzed, will repeat pt received iv bolus fluids will repeat chem and lactate no elevated wbc xrays without air or fx call placed to Dr. Martinez for admission pt received IV abx case discussed with Dr. Martinez who accepts pt to service Discharge - Discharge Information Problems reviewed: Yes Clinical Impression/Diagnosis: Cellulitis, leg, Leg hematoma Condition: Guarded - Admission Yes - Follow up/Referral Referrals: Elisabet Martinez MD [Primary Care Provider] - - Patient Discharge Instructions - Post Discharge Activity
[2019-11-11] MEDS ORDERED: morphine CARPU-JECT 4 MG/1 ML DISP.SYRIN IVPUSH ONE (07:44)
[2019-11-11] MEDS ORDERED: VANCOMYCIN 1 GM PREMIX - 1 GM/200 ML BAG IVPB ONE (07:44)
[2019-11-11] MEDS ORDERED: PIPERACILLIN/TAZOB 3.375 GM 3.375 GM in DEXTROSE 5%-WATER - 50 ML IVPB ONE (07:44)
[2019-11-11] MEDS ORDERED: SODIUM CHLORIDE 500 ML IV STA (07:45)
--- NOTE | 2019-11-11 07:46 | PDOC ---
History of Present Illness - General Chief Complaint: Edema Stated Complaint: RT LEG SWOLLEN Time Seen by Provider: 11/11/19 07:09 - History of Present Illness Initial Comments: 11/11/19 08:02 HPI: 63 y/o M with hx of Afib on eliquis, GERD, HTN, COPD, HLD, chronic diastolic HF , CAD s/p multiple stents on plavix presenting with right leg swelling and pain. He noticed it around 9pm last night. Leg swelling is present from ankle to knee. Erythema is present in entire leg up to knee and he notes abnormal discoloration with purple spots. He reports significant pain at focal lesion in lower third at site where he states his kitten scratched him. Pain is 10/10. He tried advil with minimal improvement. Pain is worse with ambulation. Pain is intermittent and sharp. He denies fever, chills, chest pain, SOB, dysuria, abd pain, n/v. Of note, he reports heavy drinking last night and does not think he sustained any trauma last night but is unsure PMHx: as noted above ROS: as noted SHx: occasional cigars; +alcohol use; no rec drugs Allergies: NKDA ROS: GENERAL/CONSTITUTIONAL: No fever or chills. No weakness. HEAD, EYES, EARS, NOSE AND THROAT: No change in vision. No ear pain or discharge. No sore throat. CARDIOVASCULAR: No chest pain or shortness of breath RESPIRATORY: No cough, wheezing, or hemoptysis. GASTROINTESTINAL: No nausea, vomiting, diarrhea or constipation. GENITOURINARY: No dysuria, frequency, or change in urination. MUSCULOSKELETAL: +leg pain SKIN: No rash NEUROLOGIC: No headache, vertigo, loss of consciousness, or change in strength/ sensation. ENDOCRINE: No increased thirst. No abnormal weight change HEMATOLOGIC/LYMPHATIC: No anemia, easy bleeding, or history of blood clots. ALLERGIC/IMMUNOLOGIC: No hives or skin allergy. PE: GENERAL: Awake, alert, and fully oriented, no acute distress HEAD: No signs of trauma, normocephalic, atraumatic EYES: EOMI, sclera anicteric, conjunctiva clear ENT: Auricles normal inspection, hearing grossly normal, nares patent, oropharynx clear without exudates. Moist mucosa NECK: Normal ROM, no lymphadenopathy LUNGS: No increased work of breathing, symmetrical chest rise, clear to auscultation bilaterally, no wheezes, crackles or rhonchi HEART: tachycardia, regular rhythm, normal S1 and S2, +murmur, peripheral pulses 2+ and equal bilaterally. ABDOMEN: Soft, nondistended, nontender, normoactive bowel sounds. No guarding, no rebound. No masses. No CVAT MUSCULOSKELETAL: FROM NEUROLOGICAL: Cranial nerves II through XII grossly intact. Normal speech, normal gait, no focal sensorimotor deficits SKIN: Right leg with significant erythema from foot to knee, 2+ pitting edema, anterior lower leg with echymosis and underlying fluctaunce and hematoma, no drainage, ttp Past History - Past Medical History Allergies/Adverse Reactions: Allergies Allergy/AdvReac Type Severity Reaction Status Date / Time No Known Allergies Allergy Verified 11/11/19 04:36 Home Medications: Ambulatory Orders Rabeprazole Sodium [Aciphex] 20 mg PO DAILY 08/29/16 Ranolazine [Ranexa] 500 mg PO BID 08/29/16 Fexofenadine HCl [Nicole Allergy] 60 mg PO DAILY 11/25/17 Polyethylene Glycol 3350 [Miralax 119 gm Btl -] 17 gm PO DAILY bottle 02/22/19 Acetaminophen [Tylenol .Regular Strength -] 650 mg PO Q4H PRN tablet 03/26/19 Apixaban [Eliquis -] 5 mg PO BID tablet 03/26/19 Budesonide/Formeterol Fumarate [SYMBICORT 160/4.5mcg -] 2 puff IH BID inhaler 03/26/19 Clopidogrel Bisulfate [Plavix -] 75 mg PO DAILY tablet 03/26/19 Furosemide [Lasix] 40 mg PO DAILY #30 tablet 03/26/19 Magnesium Oxide [Mag-Ox -] 400 mg PO BID tablet 03/26/19 Metoprolol Succinate [Toprol XL -] 50 mg PO DAILY #30 tab.sr.24h 03/26/19 Ramipril [Altace] 2.5 mg PO DAILY capsule 03/26/19 Rosuvastatin [Crestor -] 10 mg PO HS tablet 03/26/19 Spironolactone [Aldactone -] 25 mg PO BID #30 tablet 03/26/19 Acetaminophen W/ Codeine #3 [Tylenol # 3 -] 1 tab PO Q6H 4 Days #15 tablet MDD 4 09/13/19 Cephalexin Monohydrate [Keflex -] 500 mg PO Q8H 7 Days #21 capsule 09/13/19 Fluticasone/Vilanterol [Breo Ellipta 200-25 Mcg INH] 1 each IH DAILY 11/11/19 Anemia: No Asthma: No Cancer: No Cardiac Disorders: Yes (A Fib) CVA: No COPD: No CHF: No Dementia: No Diabetes: No GI Disorders: Yes (ACID REFLUX) Disorders: No HTN: Yes Hypercholesterolemia: Yes Liver Disease: No Seizures: No Thyroid Disease: No - Surgical History Abdominal Surgery: Yes (HERNIA) Appendectomy: No Cardiac Surgery: Yes (STENTS , 2010,, ) Cholecystectomy: No Lung Surgery: No Neurologic Surgery: No Orthopedic Surgery: No - Immunization History Immunization Up to Date: Yes - Psycho Social/Smoking Cessation Hx Smoking Status: No Smoking History: Unknown if ever smoked Have you smoked in the past 12 months: No Number of Cigarettes Smoked Daily: 0 Cigars Per Day: 1 Information on smoking cessation initiated: No 'Breaking Loose' booklet given: 10/31/17 Hx Alcohol Use: No Drug/Substance Use Hx: No Substance Use Type: None Hx Substance Use Treatment: No *Physical Exam - Vital Signs Last Vital Signs Temp Pulse Resp BP Pulse Ox 97.6 F 101 H 20 120/80 92 L 11/11/19 04:15 11/11/19 04:15 11/11/19 04:15 11/11/19 04:15 11/11/19 04:15 ED Treatment Course - LABORATORY CBC & Chemistry Diagram: 11/11/19 07:30 11/11/19 07:30 - RADIOLOGY Radiology Studies Ordered: Category Date Time Status ANKLE & FOOT-LEFT* [RAD] Stat Radiology 11/11/19 07:44 Ordered CHEST X-RAY PORTABLE* [RAD] Stat Radiology 11/11/19 07:43 Ordered LEG TIB/FIB-LEFT [RAD] Stat Radiology 11/11/19 07:44 Ordered Medical Decision Making - Medical Decision Making 11/11/19 10:57 63 y/o M with hx of Afib on eliquis, GERD, HTN, COPD, HLD, chronic diastolic HF , CAD s/p multiple stents on plavix presenting with 1 day of right leg swelling , erythema, and pain. VSS, AF. PE with Right leg with significant erythema from foot to knee, 2+ pitting edema, anterior lower leg with echymosis and underlying fluctaunce and hematoma, no drainage, ttp. DDx includes cellulitis with hematoma, nec fasc, osteo -cbc, cmp, esr, crp, lactate, bcx, trop, coags, t&s, ekg, cxr, ua, right leg XR -ivf, empiric vanc/zosyn, morphine -will admit to Dr Martinez for IV abx of cellulitis 11/11/19 11:00 lactate 2.9; will repeat Discharge - Discharge Information Problems reviewed: Yes Clinical Impression/Diagnosis: Cellulitis, leg Qualifiers: Laterality: right Qualified Code(s): L03.115 - Cellulitis of right lower limb Leg hematoma Qualifiers: Encounter type: initial encounter Laterality: right Qualified Code(s): S80.11XA - Contusion of right lower leg, initial encounter Condition: Guarded - Follow up/Referral - Patient Discharge Instructions - Post Discharge Activity
[2019-11-11] MEDS ORDERED: VANCOMYCIN 1 GRAM (PRE-DOCKED) 1,000 MG/250 ML BAG IVPB ONE (07:51)
[2019-11-11] MEDS ORDERED: PIPERACILLIN/TAZOB 3.375 GM 3.375 GM/50 ML BAG IVPB ONE (07:51)
[2019-11-11] MEDS ORDERED: morphine SULFATE 4 MG/ML VIAL ONE (07:51)
[2019-11-11 09:10] LABS: BASO % 0.5 % (0-2.0); EOS % 0.5 % (0-4.5); HEMOGLOBIN 16.1 GM/dL (11.7-16.9); LYMPH % 14.2 % (8-40); MCH 26.4 pg (25.7-33.7); MCHC 32.8 g/dl (32.0-35.9); MEAN CELL VOLUME 80.5 fl (80-96); MONO % 14.5 % (3.8-10.2); NEUT % 70.3 % (42.8-82.8); PLATELET COUNT 175 K/MM3 (134-434); RBC 6.09 M/mm3 (4.00-5.60); RDW 23.7 % (11.9-15.9); WHITE BLOOD COUNT 8.2 K/mm3 (4.0-10.0)
[2019-11-11 09:14] LABS: VENOUS PC02 46 mmHg (38-52); VENOUS PO2 < 49 mmHg (28-48)
[2019-11-11 09:21] LABS: ALBUMIN 3.9 g/dl (3.4-5.0); BILIRUBIN,TOTAL 0.6 mg/dL (0.2-1); BLOOD UREA NITROGEN 41.4 mg/dL (7-18); CALCIUM 9.6 mg/dL (8.5-10.1); CREATININE 1.5 mg/dL (0.55-1.3)
[2019-11-11 09:22] LABS: POTASSIUM 5.9 mmol/L (3.5-5.1)
[2019-11-11 09:25] LABS: INR 1.28 (0.83-1.09); PROTHROMBIN TIME (PATIENT) 15.1 SEC (9.7-13.0)
[2019-11-11 09:28] LABS: ACTIVATED PTT 35.1 SECONDS (25.2-36.5)
--- NOTE | 2019-11-11 10:42 | EKG ---
Test Reason : Blood Pressure : / mmHG Vent. Rate : 069 BPM Atrial Rate : 075 BPM P-R Int : 000 ms QRS Dur : 088 ms QT Int : 420 ms P-R-T Axes : 000 084 053 degrees QTc Int : 450 ms ATRIAL FIBRILLATION NONSPECIFIC ST ABNORMALITY ABNORMAL ECG WHEN COMPARED WITH ECG OF 27-AUG-2019 13:51, NO SIGNIFICANT CHANGE WAS FOUND Confirmed by JB ORO MD ([id number]) on 11/11/2019 10:42:02 AM Referred By: Confirmed By:JB ORO MD
[2019-11-11 10:58] LABS: ALBUMIN 3.6 g/dl (3.4-5.0); BILIRUBIN,TOTAL 0.8 mg/dL (0.2-1); BLOOD UREA NITROGEN 39.5 mg/dL (7-18); CALCIUM 8.5 mg/dL (8.5-10.1); CREATININE 1.4 mg/dL (0.55-1.3); POTASSIUM 4.4 mmol/L (3.5-5.1); TOT PROT 6.9 g/dl (6.4-8.2)
--- NOTE | 2019-11-11 11:57 | HP ---
Admitting History and Physical - Primary Care Physician PCP: Elisabet Martinez - Admission Chief Complaint: LEG PAIN ULCER RIGHT SIDED History of Present Illness: 63 y/o M with hx of Afib on eliquis, GERD, HTN, COPD, HLD, chronic diastolic HF , CAD s/p multiple stents on plavix presenting with right leg swelling and pain. He noticed it around 9pm last night. Leg swelling is present from ankle to knee. Erythema is present in entire leg up to knee and he notes abnormal discoloration with purple spots. He reports significant pain at focal lesion in lower third at site where he states his kitten scratched him. Pain is 10/10. He tried advil with minimal improvement. Pain is worse with ambulation. Pain is intermittent and sharp. He denies fever, chills, chest pain, SOB, dysuria, abd pain, n/v. Of note, he reports heavy drinking last night and does not think he sustained any trauma last night but is unsure History Source: Medical Record Limitations to Obtaining History: Clinical Condition - Past Medical History Cardiovascular: Yes: AFIB, CAD (s/p stents), CHF, HTN, Hyperlipdemia Pulmonary: Yes: Sleep Apnea Gastrointestinal: Yes: GERD - Past Surgical History Past Surgical History: Yes: Stent - Smoking History Smoking history: Unknown if ever smoked Have you smoked in the past 12 months: No Aproximately how many cigarettes per day: 0 - Alcohol/Substance Use Hx Alcohol Use: No - Social History ADL: Independent History of Recent Travel: No Home Medications - Allergies Allergies/Adverse Reactions: Allergies Allergy/AdvReac Type Severity Reaction Status Date / Time No Known Allergies Allergy Verified 11/11/19 04:36 - Home Medications Home Medications: Ambulatory Orders Rabeprazole Sodium [Aciphex] 20 mg PO DAILY 08/29/16 Ranolazine [Ranexa] 500 mg PO BID 08/29/16 Fexofenadine HCl [Nicole Allergy] 60 mg PO DAILY 11/25/17 Polyethylene Glycol 3350 [Miralax 119 gm Btl -] 17 gm PO DAILY bottle 02/22/19 Acetaminophen [Tylenol .Regular Strength -] 650 mg PO Q4H PRN tablet 03/26/19 Apixaban [Eliquis -] 5 mg PO BID tablet 03/26/19 Budesonide/Formeterol Fumarate [SYMBICORT 160/4.5mcg -] 2 puff IH BID inhaler 03/26/19 Clopidogrel Bisulfate [Plavix -] 75 mg PO DAILY tablet 03/26/19 Furosemide [Lasix] 40 mg PO DAILY #30 tablet 03/26/19 Magnesium Oxide [Mag-Ox -] 400 mg PO BID tablet 03/26/19 Metoprolol Succinate [Toprol XL -] 50 mg PO DAILY #30 tab.sr.24h 03/26/19 Ramipril [Altace] 2.5 mg PO DAILY capsule 03/26/19 Rosuvastatin [Crestor -] 10 mg PO HS tablet 03/26/19 Spironolactone [Aldactone -] 25 mg PO BID #30 tablet 03/26/19 Acetaminophen W/ Codeine #3 [Tylenol # 3 -] 1 tab PO Q6H 4 Days #15 tablet MDD 4 09/13/19 Cephalexin Monohydrate [Keflex -] 500 mg PO Q8H 7 Days #21 capsule 09/13/19 Fluticasone/Vilanterol [Breo Ellipta 200-25 Mcg INH] 1 each IH DAILY 11/11/19 Review of Systems - Review of Systems Constitutional: reports: Weakness Cardiovascular: reports: Shortness of Breath Respiratory: reports: SOB Gastrointestinal: reports: Other Genitourinary: reports: No Symptoms Musculoskeletal: reports: Joint Swelling, Muscle Weakness Integumentary: reports: Blister, Erythema, Rash Neurological: reports: Unsteady Gait Physical Examination Vital Signs: Vital Signs Temperature 98.6 F 11/11/19 09:22 Pulse Rate 74 11/11/19 09:35 Respiratory Rate 16 11/11/19 09:35 Blood Pressure 126/99 11/11/19 09:35 O2 Sat by Pulse Oximetry (%) 98 11/11/19 09:35 Constitutional: Yes: Moderate Distress Cardiovascular: Yes: Pulse Irregular Respiratory: Yes: WNL Gastrointestinal: Yes: Soft, Abdomen, Obese Renal/: Yes: WNL Musculoskeletal: Yes: Muscle Weakness Extremities: Yes: Deformity, Erythema Edema: LLE: 2+, RLE: 2+ Integumentary: Yes: Pressure Ulcer, Rash, Skin Tear, Venous Stasis Changes Wound/Incision: Yes: Open to air, Kirill Removed Neurological: Yes: Pre-Existing Deficit ...Motor Strength: LLE, RLE Psychiatric: Yes: Other Labs: CBC, BMP 11/11/19 07:30 11/11/19 10:24 Problem List - Problems (1) Cellulitis, leg Code(s): L03.119 - CELLULITIS OF UNSPECIFIED PART OF LIMB Qualifiers: Laterality: right Qualified Code(s): L03.115 - Cellulitis of right lower limb (2) Leg hematoma Code(s): S80.10XA - CONTUSION OF UNSPECIFIED LOWER LEG, INITIAL ENCOUNTER Qualifiers: Encounter type: initial encounter Laterality: right Qualified Code(s): S80.11XA - Contusion of right lower leg, initial encounter (3) IWONA (acute kidney injury) Code(s): N17.9 - ACUTE KIDNEY FAILURE, UNSPECIFIED (4) Abdominal distension Code(s): R14.0 - ABDOMINAL DISTENSION (GASEOUS) (5) Acute on chronic diastolic (congestive) heart failure Code(s): I50.33 - ACUTE ON CHRONIC DIASTOLIC (CONGESTIVE) HEART FAILURE (6) Afib Code(s): I48.91 - UNSPECIFIED ATRIAL FIBRILLATION Qualifiers: (7) Cellulitis Code(s): L03.90 - CELLULITIS, UNSPECIFIED Assessment/Plan IV ABX ID/VASC SX EVAL ELEVATED LEG PAIN CONTROL THIAMINE AND FOLIC ACID FOR H/O ETOH DEPENDENCE
[2019-11-11] MEDS ORDERED: ACETAMINOPHEN 325 MG TABLET (FP) PO PRN (12:03)
[2019-11-11] MEDS ORDERED: ALBUTEROL SO4 2.5/IPRATROPIUM 0.5 INH SOL 3 ML VIAL.NEB. NEB PRN (12:03)
--- NOTE | 2019-11-11 13:30 | PN ---
Progress Note (short form) - Note Progress Note: ID consult dictated imp/reccd 63 yo man with cad, afib on a/c was out drinking last night with friends noted a large area of discoloration anterior spencer RLE when getting ready for bed (new) no fevers or chills denies trauma to the area cellulitis RLE hematoma right anterior spencer chronic venous stasis bilateral LE afib on a/c cad on plavix vascular to see continue vanco/zosyn f/u cultures xrays no fracture Problem List - Problems (1) Cellulitis, leg Code(s): L03.119 - CELLULITIS OF UNSPECIFIED PART OF LIMB Qualifiers: Laterality: right Qualified Code(s): L03.115 - Cellulitis of right lower limb (2) Hematoma Code(s): T14.8XXA - OTHER INJURY OF UNSPECIFIED BODY REGION, INITIAL ENCOUNTER (3) Chronic venous stasis Code(s): I87.8 - OTHER SPECIFIED DISORDERS OF VEINS (4) Afib Code(s): I48.91 - UNSPECIFIED ATRIAL FIBRILLATION Qualifiers:
[2019-11-11] MEDS: morphine SULFATE 4 MG/ML VIAL IVPUSH PRN ×2 (13:32→20:24)
--- NOTE | 2019-11-11 13:50 | CONS ---
INFECTIOUS DISEASE CONSULTATION DATE OF CONSULTATION: DATE OF DICTATION: 11/11/2019 This is a 63-year-old man with a past medical history of atrial fibrillation, coronary artery disease. He is on Eliquis. He went out yesterday evening with his friends, and he had several drinks. After he got home, when he was taking his pants off, he noted that his right leg had an area of discoloration and that the leg was erythematous. He went to sleep and waited for his daughter to come home as he thought he had had too many drinks and it was not safe for him to drive. She brought him to the emergency room. He had no fevers or chills. They have pet cats, but the cat had scratched his left leg, not his right, and he otherwise feels well. PAST MEDICAL HISTORY: Notable for atrial fibrillation, coronary artery disease with stents, CHF, hypertension, hyperlipidemia, sleep apnea, GERD, and gout. SOCIAL HISTORY: He lives with his daughter. They have pet cats. He does not smoke cigarettes. He drinks wine socially. 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 ALLERGIES: He has no known drug allergies. MEDICATIONS AN OUTPATIENT: Include AcipHex, Ranexa, Nicole, MiraLAX, Eliquis, Symbicort, Plavix, Lasix, magnesium oxide, Toprol-XL, Altace, Crestor, Aldactone, and Ellipta inhaler. REVIEW OF SYSTEMS: He denies any fevers or chills. The left leg is at its baseline. He feels the right leg is more swollen, and the discoloration is new. PHYSICAL EXAMINATION: Vital Signs: He is afebrile, temperature is 98.6. Pulse is 74. Blood pressure is 126/99. Respiratory rate of 16. He is saturating 98% on room air. General: He is an obese man in no acute distress. HEENT: He is normocephalic. His eyes are anicteric. Neck: Supple. Lungs: Diminished breath sounds at the bases. Heart: Regular rate and rhythm. Abdomen: Protuberant. I cannot palpate any organomegaly. Extremities: He has right lower leg erythema. The left lower extremity has venous stasis changes. He has a large hematoma on the lateral aspect of his spencer, and he has surrounding erythema and warmth. There is no fluctuance to the leg. Of note, the patient does not recall any trauma. In summary, this is a 63-year-old, morbidly obese man with: 1. Right lower extremity cellulitis with an anterior spencer hematoma as well. He was started on vancomycin and Zosyn in the emergency room, which we will continue for now pending vascular surgery evaluation. I suspect this is a large hematoma with some surrounding cellulitis. 2. History of coronary artery disease. 3. Atrial fibrillation on anticoagulants. MANSOOR FLEMING M.D. [id number]
--- NOTE | 2019-11-11 15:00 | CONSULT ---
Consult - History of Present Illness History of Present Illness: 63 yo male Afib on Coumadin, ASCVD s/p stents, with chronic swelling and discoloration of both calves. He developed painful area on right calf which has quickly developed into hemorhagic blister. Calf tender. No fever or chills. He denies trauma but has multiple cat scratches on legs. No history of DVT. He does not use compression hose. - Past Medical History Cardio/Vascular: Yes: AFIB, CAD (s/p stents), CHF, HTN, Hyperlipdemia Pulmonary: Yes: Sleep Apnea Gastrointestinal: Yes: GERD - Past Surgical History Past Surgical History: Yes: Stent - Alcohol/Substance Use Hx Alcohol Use: No - Smoking History Smoking history: Unknown if ever smoked Have you smoked in the past 12 months: No Aproximately how many cigarettes per day: 0 - Social History ADL: Independent History of Recent Travel: No Home Medications - Allergies Allergies/Adverse Reactions: Allergies Allergy/AdvReac Type Severity Reaction Status Date / Time No Known Allergies Allergy Verified 11/11/19 04:36 - Home Medications Home Medications: Ambulatory Orders Rabeprazole Sodium [Aciphex] 20 mg PO DAILY 08/29/16 Ranolazine [Ranexa] 500 mg PO BID 08/29/16 Fexofenadine HCl [Nicole Allergy] 60 mg PO DAILY 11/25/17 Polyethylene Glycol 3350 [Miralax 119 gm Btl -] 17 gm PO DAILY bottle 02/22/19 Acetaminophen [Tylenol .Regular Strength -] 650 mg PO Q4H PRN tablet 03/26/19 Apixaban [Eliquis -] 5 mg PO BID tablet 03/26/19 Budesonide/Formeterol Fumarate [SYMBICORT 160/4.5mcg -] 2 puff IH BID inhaler 03/26/19 Clopidogrel Bisulfate [Plavix -] 75 mg PO DAILY tablet 03/26/19 Furosemide [Lasix] 40 mg PO DAILY #30 tablet 03/26/19 Magnesium Oxide [Mag-Ox -] 400 mg PO BID tablet 03/26/19 Metoprolol Succinate [Toprol XL -] 50 mg PO DAILY #30 tab.sr.24h 03/26/19 Ramipril [Altace] 2.5 mg PO DAILY capsule 03/26/19 Rosuvastatin [Crestor -] 10 mg PO HS tablet 03/26/19 Spironolactone [Aldactone -] 25 mg PO BID #30 tablet 03/26/19 Acetaminophen W/ Codeine #3 [Tylenol # 3 -] 1 tab PO Q6H 4 Days #15 tablet MDD 4 09/13/19 Cephalexin Monohydrate [Keflex -] 500 mg PO Q8H 7 Days #21 capsule 09/13/19 Fluticasone/Vilanterol [Breo Ellipta 200-25 Mcg INH] 1 each IH DAILY 11/11/19 Physical Exam Vital Signs: Vital Signs Temperature 98.6 F 11/11/19 09:22 Pulse Rate 74 11/11/19 09:35 Respiratory Rate 16 11/11/19 09:35 Blood Pressure 126/99 11/11/19 09:35 O2 Sat by Pulse Oximetry (%) 98 11/11/19 09:35 Constitutional: Yes: No Distress, Obese Eyes: Yes: WNL, Conjunctiva Clear HENT: Yes: WNL Neck: Yes: Supple Cardiovascular: Yes: Pulse Irregular Gastrointestinal: Yes: Soft Edema: Yes (2+ brawny edema both calv) Edema: LLE: 2+, RLE: 2+ Peripheral Pulses WNL: Yes (Palp DP) Wound/Incision: Yes: Other (Right anterior calf ~ 5 cm circular ecchymotic area with blistered skin. Slight erythema extnding up to proximal medial calf. no open wound.) Labs: CBC, BMP 11/11/19 07:30 11/11/19 10:24 Problem List - Problems (1) Cellulitis, leg Assessment/Plan: Area of hemorrhagic tissue on anterior calf with local cellulitis. Unclear if this represents the result of traumna with bleeding from coumadion or a primary infection with hemolytic bacteria. Culture of blister fluid obtained. Continue antibiotics and topical Silvadene. Leg elevation and elastic wrap for edema. Code(s): L03.119 - CELLULITIS OF UNSPECIFIED PART OF LIMB Qualifiers: Laterality: right Qualified Code(s): L03.115 - Cellulitis of right lower limb
[2019-11-11 15:42] LABS: URINE APPEARANCE Clear; URINE BILIRUBIN Negative (NEGATIVE); URINE COLOR Yellow; URINE GLUCOSE (UA) Negative (NEGATIVE); URINE KETONE Trace (NEGATIVE); URINE LEUK ESTERASE Negative (NEGATIVE); URINE NITRITE Negative (NEGATIVE); URINE PROTEIN Negative (NEGATIVE); URINE UROBILINOGEN 0.2 mg/dL (0.2-1.0)
[2019-11-11 15:47] LABS: ANISOCYTOSIS 1+; OVALOCYTE 1+
[2019-11-11 16:24] LABS: URINE BACTERIA RARE /hpf (NEGATIVE); URINE RBC 0-2 /hpf (0-4)
[2019-11-11] MEDS ORDERED: DEXTROSE 5%-WATER - 50 ML IVPB ONE (17:49)
[2019-11-11] MEDS ORDERED: PIPERACILLIN/TAZOBACTAM 3.375 GM VIAL IVPB ONE (17:49)
[2019-11-11] MEDS: PIPERACILLIN/TAZOB 3.375 GM 3.375 GM in DEXTROSE 5%-WATER - 50 ML IVPB SCH (18:33)
[2019-11-11] MEDS: VANCOMYCIN 1 GRAM (PRE-DOCKED) 1,000 MG/250 ML BAG IVPB SCH (20:28)
[2019-11-11] MEDS: DOCUSATE SODIUM 100 MG CAPSULE (FP) PO SCH (22:15)
[2019-11-11] MEDS: SILVER SULFADIAZINE 1% TOP CREAM 400 GM JAR TP SCH (22:15)
[2019-11-11] MEDS: SPIRONOLACTONE 25 MG TABLET (FP) PO SCH (22:15)
[2019-11-11] MEDS: APIXABAN 5 MG TABLET PO SCH (22:16)
[2019-11-11] MEDS: ROSUVASTATIN CA 10 MG TABLET (FP) PO SCH (22:16)
[2019-11-11] MEDS: RANOLAZINE E.R. 500 MG TABLET (FP) PO SCH (22:16)
[2019-11-11] MEDS: oxyCODONE HCL 5 MG TABLET PO PRN (22:23)
[2019-11-11] MEDS: BUDESONIDE/FORMETEROL FUMARATE 160/4.5 mcg INHALER IH SCH (22:24)
[2019-11-12] MEDS ORDERED: DEXTROSE 5%-WATER - 50 ML IVPB ONE ×2 (01:00→09:04)
[2019-11-12] MEDS ORDERED: PIPERACILLIN/TAZOBACTAM 3.375 GM VIAL IVPB ONE ×2 (01:00→09:03)
[2019-11-12] MEDS: PIPERACILLIN/TAZOB 3.375 GM 3.375 GM in DEXTROSE 5%-WATER - 50 ML IVPB SCH ×2 (01:44→11:41)
[2019-11-12] MEDS: morphine SULFATE 4 MG/ML VIAL IVPUSH PRN ×4 (02:28→22:25)
[2019-11-12 08:28] LABS: HEMATOCRIT 46.5 % (35.4-49); HEMOGLOBIN 15.1 GM/dL (11.7-16.9); MCH 26.4 pg (25.7-33.7); MCHC 32.5 g/dl (32.0-35.9); MEAN CELL VOLUME 81.1 fl (80-96); MEAN PLT VOLUME 8.8 fl (7.5-11.1); PLATELET COUNT 147 K/MM3 (134-434); RBC 5.74 M/mm3 (4.00-5.60); RDW 23.3 % (11.9-15.9); WHITE BLOOD COUNT 7.7 K/mm3 (4.0-10.0)
[2019-11-12 08:46] LABS: ALBUMIN 3.5 g/dl (3.4-5.0); BILIRUBIN,TOTAL 0.8 mg/dL (0.2-1); BLOOD UREA NITROGEN 31.3 mg/dL (7-18); CALCIUM 9.2 mg/dL (8.5-10.1); CREATININE 1.1 mg/dL (0.55-1.3); POTASSIUM 4.7 mmol/L (3.5-5.1); TOT PROT 6.9 g/dl (6.4-8.2)
[2019-11-12 08:53] LABS: IRON SERUM 115 ug/dL (50-175); TOTAL IRON BINDING CAPACITY 402 ug/dL (250-450)
[2019-11-12] MEDS: VANCOMYCIN 1 GRAM (PRE-DOCKED) 1,000 MG/250 ML BAG IVPB SCH (09:17)
[2019-11-12] MEDS: RANOLAZINE E.R. 500 MG TABLET (FP) PO SCH ×2 (09:18→21:12)
[2019-11-12] MEDS: APIXABAN 5 MG TABLET PO SCH ×2 (09:18→21:10)
[2019-11-12] MEDS: CLOPIDOGREL BISULFATE 75 MG TABLET (FP) PO SCH (09:18)
[2019-11-12] MEDS: PANTOPRAZOLE 40 MG TABLET PO SCH (09:18)
[2019-11-12] MEDS: SPIRONOLACTONE 25 MG TABLET (FP) PO SCH ×2 (09:18→21:10)
[2019-11-12] MEDS: FUROSEMIDE 40 MG TABLET (FP) PO SCH (09:18)
[2019-11-12] MEDS: BUDESONIDE/FORMETEROL FUMARATE 160/4.5 mcg INHALER IH SCH ×2 (09:21→21:12)
--- NOTE | 2019-11-12 11:11 | PN ---
Progress Note (short form) - Note Progress Note: Afebrile Complains of pain in leg, requiring Morphine Wound and blood cultures no growth. Unclear if this is infection or soft tissue injury causing pain. Continue topical and IV antibiotics. Problem List - Problems (1) Cellulitis, leg Code(s): L03.119 - CELLULITIS OF UNSPECIFIED PART OF LIMB Qualifiers: Laterality: right Qualified Code(s): L03.115 - Cellulitis of right lower limb
--- NOTE | 2019-11-12 12:05 | PN ---
Progress Note (short form) - Note Progress Note: no complaints still with leg pain hematoma drained by vascular yesterday and culture sent Vital Signs Period Temp Pulse Resp BP Sys/Tapia Pulse Ox Last 24 Hr 97.8 F-99.3 F 69-88 16-18 102-142/64-85 96 cor-rrr lungs clear wound - dressing removed and wound examined hematoma smaller, now open, less edema, still some erythema and tenderness CBC, BMP 11/12/19 07:10 11/12/19 07:10 Microbiology 11/11/19 07:30 Blood - Peripheral Venous Blood Culture - Preliminary NO GROWTH OBTAINED AFTER 24 HOURS, INCUBATION TO CONTINUE FOR 4 DAYS. 11/11/19 07:30 Blood - Peripheral Venous Blood Culture - Preliminary NO GROWTH OBTAINED AFTER 24 HOURS, INCUBATION TO CONTINUE FOR 4 DAYS. 11/11/19 14:51 Leg - Right Lower Gram Stain - Final- NO PMNS 11/11/19 14:51 Leg - Right Lower Wound Culture - Preliminary NO GROWTH OBTAINED AFTER 24 HOURS INCUBATION, REINCUBATED. 11/11/19 14:25 Urine - Urine Clean Catch Urine Culture - Final NO GROWTH OBTAINED a/p cellulitis RLE hematoma right anterior spencer chronic venous stasis bilateral LE afib on a/c cad on plavix suspect hematoma with cellulitis will switch to unasyn with plans for po augmentin when ready for discharge
[2019-11-12] MEDS ORDERED: LORazepam 2 MG TABLET PO PRN (12:23)
--- NOTE | 2019-11-12 12:23 | PN ---
Progress Note, Physician Chief Complaint: AWAKE ALERT C/O LEG PAIN - Current Medication List Current Medications: Active Medications Acetaminophen (Tylenol -) 650 mg PO Q6H PRN PRN Reason: PAIN 1-3 Albuterol/Ipratropium (Duoneb -) 1 amp NEB Q6H PRN PRN Reason: SHORTNESS OF BREATH Last Admin: 11/11/19 20:00 Dose: 1 amp Apixaban (Eliquis -) 5 mg PO BID [facility] Last Admin: 11/12/19 09:18 Dose: 5 mg Budesonide/Formoterol Fumarate (Symbicort 160/4.5mcg -) 2 puff IH BID [facility] Last Admin: 11/12/19 09:21 Dose: 2 puff Clopidogrel Bisulfate (Plavix -) 75 mg PO DAILY [facility] Last Admin: 11/12/19 09:18 Dose: 75 mg Docusate Sodium (Colace -) 300 mg PO HS [facility] Last Admin: 11/11/19 22:15 Dose: 300 mg Furosemide (Lasix -) 40 mg PO DAILY [facility] Last Admin: 11/12/19 09:18 Dose: 40 mg Ampicillin Sodium/Sulbactam (Sodium 3 gm/ Sodium Chloride) 100 mls @ 200 mls/ hr IVPB Q6H-IV [facility] Metoprolol Succinate (Toprol Xl -) 50 mg PO DAILY [facility] Last Admin: 11/12/19 09:18 Dose: 50 mg Morphine Sulfate (Morphine Sulfate) 4 mg IVPUSH Q6H PRN PRN Reason: PAIN LEVEL 7 - 10 Last Admin: 11/12/19 08:24 Dose: 4 mg Oxycodone HCl (Roxicodone -) 5 mg PO Q6H PRN PRN Reason: PAIN LEVEL 4 - 6 Last Admin: 11/11/19 22:23 Dose: 5 mg Pantoprazole Sodium (Protonix -) 40 mg PO DAILY [facility] Last Admin: 11/12/19 09:18 Dose: 40 mg Ranolazine (Ranexa -) 500 mg PO BID [facility] Last Admin: 11/12/19 09:18 Dose: 500 mg Rosuvastatin Calcium (Crestor -) 10 mg PO HS [facility] Last Admin: 11/11/19 22:16 Dose: 10 mg Silver Sulfadiazine (Silvadene -) 1 applic TP DAILY [facility] Last Admin: 11/11/19 22:15 Dose: 1 applic Spironolactone (Aldactone -) 25 mg PO BID [facility] Last Admin: 11/12/19 09:18 Dose: 25 mg - Objective Vital Signs: Vital Signs Temperature 97.8 F 11/12/19 10:00 Pulse Rate 88 11/12/19 10:00 Respiratory Rate 18 11/12/19 10:00 Blood Pressure 118/75 11/12/19 10:00 O2 Sat by Pulse Oximetry (%) 96 11/11/19 21:00 Constitutional: Yes: Mild Distress Cardiovascular: Yes: Pulse Irregular Respiratory: Yes: WNL Gastrointestinal: Yes: Soft, Abdomen, Obese Genitourinary: Yes: WNL Edema: Yes Integumentary: Yes: Erythema, Pressure Ulcer, Rash, Venous Stasis Changes Wound/Incision: Yes: Dressing Dry and Intact Neurological: Yes: Pre-Existing Deficit Labs: CBC, BMP 11/12/19 07:10 11/12/19 07:10 INR, PTT INR 1.28 (0.83-1.09) H 11/11/19 07:30 Problem List - Problems (1) Cellulitis, leg Code(s): L03.119 - CELLULITIS OF UNSPECIFIED PART OF LIMB Qualifiers: Laterality: right Qualified Code(s): L03.115 - Cellulitis of right lower limb (2) Leg hematoma Code(s): S80.10XA - CONTUSION OF UNSPECIFIED LOWER LEG, INITIAL ENCOUNTER Qualifiers: Encounter type: initial encounter Laterality: right Qualified Code(s): S80.11XA - Contusion of right lower leg, initial encounter (3) IWONA (acute kidney injury) Code(s): N17.9 - ACUTE KIDNEY FAILURE, UNSPECIFIED (4) Abdominal distension Code(s): R14.0 - ABDOMINAL DISTENSION (GASEOUS) (5) Acute on chronic diastolic (congestive) heart failure Code(s): I50.33 - ACUTE ON CHRONIC DIASTOLIC (CONGESTIVE) HEART FAILURE (6) Afib Code(s): I48.91 - UNSPECIFIED ATRIAL FIBRILLATION Qualifiers: (7) Cellulitis Code(s): L03.90 - CELLULITIS, UNSPECIFIED Assessment/Plan IV ABX AWAIT WOUND CULTURES DRESSING TO LEFS PER VASC SX ID/VASC SX EVAL APPRECIATED ELEVATED LEG PAIN CONTROL THIAMINE AND FOLIC ACID FOR H/O ETOH DEPENDENCE
[2019-11-12] MEDS: oxyCODONE HCL 5 MG TABLET PO PRN ×2 (13:19→20:01)
[2019-11-12] MEDS: GABAPENTIN 100 MG CAPSULE PO SCH ×2 (13:20→21:11)
[2019-11-12] MEDS: SILVER SULFADIAZINE 1% TOP CREAM 400 GM JAR TP SCH (15:05)
[2019-11-12] MEDS: AMPICILLIN NA/SULBACTAM NA 3 GM in SODIUM CHLORIDE 100 ML IVPB SCH ×2 (15:06→21:10)
[2019-11-12] MEDS ORDERED: PT OWN MED DRAWER 7, Y5N ONE (21:05)
[2019-11-12] MEDS: ROSUVASTATIN CA 10 MG TABLET (FP) PO SCH (21:11)
[2019-11-12] MEDS: DOCUSATE SODIUM 100 MG CAPSULE (FP) PO SCH (21:11)
[2019-11-13] MEDS ORDERED: PT OWN MED DRAWER 7, Y5N ONE ×4 (02:47→21:32)
[2019-11-13] MEDS: AMPICILLIN NA/SULBACTAM NA 3 GM in SODIUM CHLORIDE 100 ML IVPB SCH ×4 (02:53→21:38)
[2019-11-13] MEDS: oxyCODONE HCL 5 MG TABLET PO PRN ×2 (03:20→09:26)
[2019-11-13] MEDS: morphine SULFATE 4 MG/ML VIAL IVPUSH PRN ×3 (04:58→20:19)
[2019-11-13] MEDS: GABAPENTIN 100 MG CAPSULE PO SCH ×3 (05:21→21:39)
[2019-11-13] MEDS: FUROSEMIDE 40 MG TABLET (FP) PO SCH (09:19)
[2019-11-13] MEDS: SPIRONOLACTONE 25 MG TABLET (FP) PO SCH ×2 (09:20→21:39)
[2019-11-13] MEDS: PANTOPRAZOLE 40 MG TABLET PO SCH (09:20)
[2019-11-13] MEDS: FOLIC ACID 1 MG TABLET (FP) PO SCH (09:20)
[2019-11-13] MEDS: APIXABAN 5 MG TABLET PO SCH ×2 (09:20→21:40)
[2019-11-13] MEDS: CLOPIDOGREL BISULFATE 75 MG TABLET (FP) PO SCH (09:20)
[2019-11-13] MEDS: RANOLAZINE E.R. 500 MG TABLET (FP) PO SCH ×2 (09:21→21:41)
[2019-11-13] MEDS: THIAMINE HCL 100 MG TABLET (FP) PO SCH (09:21)
[2019-11-13] MEDS: SILVER SULFADIAZINE 1% TOP CREAM 400 GM JAR TP SCH (09:22)
[2019-11-13] MEDS: BUDESONIDE/FORMETEROL FUMARATE 160/4.5 mcg INHALER IH SCH ×2 (09:22→21:42)
--- NOTE | 2019-11-13 11:00 | PN ---
Progress Note, Physician Chief Complaint: RLE cellulitis+ hematoma hyponatremia History of Present Illness: NAD RLE edema improved Hematoma drained by Vascular sx On IV abx - Current Medication List Current Medications: Active Medications Acetaminophen (Tylenol -) 650 mg PO Q6H PRN PRN Reason: PAIN 1-3 Albuterol/Ipratropium (Duoneb -) 1 amp NEB Q6H PRN PRN Reason: SHORTNESS OF BREATH Last Admin: 11/11/19 20:00 Dose: 1 amp Apixaban (Eliquis -) 5 mg PO BID [facility] Last Admin: 11/13/19 09:20 Dose: 5 mg Budesonide/Formoterol Fumarate (Symbicort 160/4.5mcg -) 2 puff IH BID [facility] Last Admin: 11/13/19 09:22 Dose: 2 puff Clopidogrel Bisulfate (Plavix -) 75 mg PO DAILY [facility] Last Admin: 11/13/19 09:20 Dose: 75 mg Docusate Sodium (Colace -) 300 mg PO HS [facility] Last Admin: 11/12/19 21:11 Dose: 300 mg Folic Acid (Folic Acid -) 1 mg PO DAILY [facility] Last Admin: 11/13/19 09:20 Dose: 1 mg Furosemide (Lasix -) 40 mg PO DAILY [facility] Last Admin: 11/13/19 09:19 Dose: 40 mg Gabapentin (Neurontin -) 100 mg PO TID [facility] Last Admin: 11/13/19 05:21 Dose: 100 mg Ampicillin Sodium/Sulbactam (Sodium 3 gm/ Sodium Chloride) 100 mls @ 200 mls/ hr IVPB Q6H-IV [facility] Last Admin: 11/13/19 09:21 Dose: 200 mls/hr Lorazepam (Ativan) 0.5 mg PO TID PRN PRN Reason: AGITATION Metoprolol Succinate (Toprol Xl -) 50 mg PO DAILY [facility] Last Admin: 11/13/19 09:20 Dose: 50 mg Morphine Sulfate (Morphine Sulfate) 4 mg IVPUSH Q6H PRN PRN Reason: PAIN LEVEL 7 - 10 Last Admin: 11/13/19 04:58 Dose: 4 mg Oxycodone HCl (Roxicodone -) 5 mg PO Q6H PRN PRN Reason: PAIN LEVEL 4 - 6 Last Admin: 11/13/19 09:26 Dose: 5 mg Pantoprazole Sodium (Protonix -) 40 mg PO DAILY [facility] Last Admin: 11/13/19 09:20 Dose: 40 mg Ranolazine (Ranexa -) 500 mg PO BID [facility] Last Admin: 11/13/19 09:21 Dose: 500 mg Rosuvastatin Calcium (Crestor -) 10 mg PO HS [facility] Last Admin: 11/12/19 21:11 Dose: 10 mg Silver Sulfadiazine (Silvadene -) 1 applic TP DAILY [facility] Last Admin: 11/13/19 09:22 Dose: 1 applic Spironolactone (Aldactone -) 25 mg PO BID [facility] Last Admin: 11/13/19 09:20 Dose: 25 mg Thiamine HCl (Vitamin B1 -) 100 mg PO DAILY [facility] Last Admin: 11/13/19 09:21 Dose: 100 mg - Objective Vital Signs: Vital Signs Temperature 97.7 F 11/13/19 09:37 Pulse Rate 84 11/13/19 09:37 Respiratory Rate 20 11/13/19 09:37 Blood Pressure 135/76 11/13/19 09:37 O2 Sat by Pulse Oximetry (%) 95 11/12/19 21:00 Constitutional: Yes: Well Nourished, No Distress, Calm, Obese Cardiovascular: Yes: Regular Rate and Rhythm Respiratory: Yes: Regular Gastrointestinal: Yes: Normal Bowel Sounds, Soft, Abdomen, Obese Genitourinary: Yes: WNL Musculoskeletal: Yes: Muscle Pain (RLE) Extremities: Yes: Erythema (RLE) Edema: Yes (RLE non pitting edema) Peripheral Pulses WNL: Yes Wound/Incision: Yes: Dressing Dry and Intact Neurological: Yes: Alert, Oriented Psychiatric: Yes: Alert, Oriented Labs: CBC, BMP 11/12/19 07:10 11/12/19 07:10 INR, PTT INR 1.28 (0.83-1.09) H 11/11/19 07:30 Problem List - Problems (1) Cellulitis, leg Assessment/Plan: -IV abx -ID on board -Cultures: Microbiology 11/11/19 07:30 Blood - Peripheral Venous Blood Culture - Preliminary NO GROWTH OBTAINED AFTER 48 HOURS, INCUBATION TO CONTINUE FOR 3 DAYS. 11/11/19 07:30 Blood - Peripheral Venous Blood Culture - Preliminary NO GROWTH OBTAINED AFTER 48 HOURS, INCUBATION TO CONTINUE FOR 3 DAYS. 11/11/19 14:51 Leg - Right Lower Gram Stain - Final 11/11/19 14:51 Leg - Right Lower Wound Culture - Preliminary NO GROWTH OBTAINED AFTER 24 HOURS INCUBATION, REINCUBATED. 11/11/19 14:25 Urine - Urine Clean Catch Urine Culture - Final NO GROWTH OBTAINED -afebrile -no leukocytosis Problems reviewed: Yes Code(s): L03.119 - CELLULITIS OF UNSPECIFIED PART OF LIMB Qualifiers: Laterality: right Qualified Code(s): L03.115 - Cellulitis of right lower limb (2) Leg hematoma Assessment/Plan: -drained by Vascular surgery Problems reviewed: Yes Code(s): S80.10XA - CONTUSION OF UNSPECIFIED LOWER LEG, INITIAL ENCOUNTER Qualifiers: Encounter type: initial encounter Laterality: right Qualified Code(s): S80.11XA - Contusion of right lower leg, initial encounter (3) Hyponatremia Assessment/Plan: -improving -1 L fluid restriction -nephrology consult Problems reviewed: Yes Code(s): E87.1 - HYPO-OSMOLALITY AND HYPONATREMIA (4) IWONA (acute kidney injury) Assessment/Plan: -Improved, at baseline Problems reviewed: Yes Code(s): N17.9 - ACUTE KIDNEY FAILURE, UNSPECIFIED Assessment/Plan see problem list Seen by PT, walked 70 ft
--- NOTE | 2019-11-13 11:23 | PN ---
Progress Note (short form) - Note Progress Note: vascular surgery Patient seen and examined at bedside still with extremely tender Right LE. He is OOB and tolerating his diet. Patient denies any CP, SOB, N/V fever or chills. Vital Signs Temp 97.7 F 11/13/19 09:37 Pulse 84 11/13/19 09:37 Resp 20 11/13/19 09:37 BP 135/76 11/13/19 09:37 Pulse Ox 95 11/12/19 21:00 Intake & Output 11/12/19 11/12/19 11/13/19 11:59 23:59 11:59 Intake Total 900 1200 500 Balance 900 1200 500 Intake: IVPB 300 400 200 Oral 300 800 300 Tube Feeding 300 Other: Voiding Method Toilet Toilet Urinal # Unmeasured Voids Void 2 1 1 Bowel Movement No No No CBC, BMP 11/12/19 07:10 11/12/19 07:10 PE: A&OX3, NAD Unlabored resp on RA Right LE (2+ brawny edema both calves) Edema: LLE: 2+, RLE: 2+ Peripheral Pulses WNL: Yes (Palp DP) Wound/Incision: Yes: Other (Right anterior calf ~ 5 cm circular ecchymotic area with unroofed blistered skin and very tender to touch. Slight erythema extending up to proximal medial calf. no active d/c Problem List - Problems (1) Cellulitis Assessment/Plan: Area of hemorrhagic tissue on anterior calf with local cellulitis. -Culture of blister fluid pending -Continue antibiotics and topical Silvadene. -Leg elevation and elastic wrap for edema. Code(s): L03.90 - CELLULITIS, UNSPECIFIED (2) Swelling of lower extremity Code(s): M79.89 - OTHER SPECIFIED SOFT TISSUE DISORDERS
[2019-11-13 12:13] VITALS: BMI 40.5
--- NOTE | 2019-11-13 14:52 | CONSULT ---
Consult Consult Specialty:: Nephrology Reason for Consultation:: hypekalemia and iwona - History of Present Illness Chief Complaint: right leg pain and edema History of Present Illness: Pt is a 63 year old male with pmhx of ckd, a-fib, gerd, htn, copd, hld, diastolic chf, and cad who presents to the ER with right leg pain and swelling. He was found to have hyperkalemia and to be in IWONA. I was called to evaluate him. He denies shortness of breath. He feels that his left leg does not have edema. He denies fevers or chills. He says his cat may have scratched him. He did take advil. - History Source History Provided By: Patient, Medical Record - Past Medical History Cardio/Vascular: Yes: AFIB, CAD (s/p stents), CHF, HTN, Hyperlipdemia Pulmonary: Yes: Sleep Apnea Gastrointestinal: Yes: GERD - Past Surgical History Past Surgical History: Yes: Stent - Alcohol/Substance Use Hx Alcohol Use: No - Smoking History Smoking history: Unknown if ever smoked Have you smoked in the past 12 months: No Aproximately how many cigarettes per day: 0 - Social History ADL: Independent History of Recent Travel: No Home Medications - Allergies Allergies/Adverse Reactions: Allergies Allergy/AdvReac Type Severity Reaction Status Date / Time No Known Allergies Allergy Verified 11/11/19 04:36 - Home Medications Home Medications: Ambulatory Orders Rabeprazole Sodium [Aciphex] 20 mg PO DAILY 08/29/16 Ranolazine [Ranexa] 500 mg PO BID 08/29/16 Fexofenadine HCl [Nicole Allergy] 60 mg PO DAILY 11/25/17 Polyethylene Glycol 3350 [Miralax 119 gm Btl -] 17 gm PO DAILY bottle 02/22/19 Acetaminophen [Tylenol .Regular Strength -] 650 mg PO Q4H PRN tablet 03/26/19 Apixaban [Eliquis -] 5 mg PO BID tablet 03/26/19 Budesonide/Formeterol Fumarate [SYMBICORT 160/4.5mcg -] 2 puff IH BID inhaler 03/26/19 Clopidogrel Bisulfate [Plavix -] 75 mg PO DAILY tablet 03/26/19 Furosemide [Lasix] 40 mg PO DAILY #30 tablet 03/26/19 Magnesium Oxide [Mag-Ox -] 400 mg PO BID tablet 03/26/19 Metoprolol Succinate [Toprol XL -] 50 mg PO DAILY #30 tab.sr.24h 03/26/19 Ramipril [Altace] 2.5 mg PO DAILY capsule 03/26/19 Rosuvastatin [Crestor -] 10 mg PO HS tablet 03/26/19 Spironolactone [Aldactone -] 25 mg PO BID #30 tablet 03/26/19 Acetaminophen W/ Codeine #3 [Tylenol # 3 -] 1 tab PO Q6H 4 Days #15 tablet MDD 4 09/13/19 Cephalexin Monohydrate [Keflex -] 500 mg PO Q8H 7 Days #21 capsule 09/13/19 Fluticasone/Vilanterol [Breo Ellipta 200-25 Mcg INH] 1 each IH DAILY 11/11/19 Family Medical History Family History: Denies Review of Systems - Review of Systems Constitutional: reports: Malaise Eyes: reports: No Symptoms HENT: reports: No Symptoms Neck: reports: No Symptoms Cardiovascular: reports: No Symptoms Respiratory: reports: No Symptoms Gastrointestinal: reports: No Symptoms Genitourinary: reports: No Symptoms Musculoskeletal: reports: Other (right leg trauma) Neurological: reports: No Symptoms Hematology/Lymphatic: reports: No Symptoms Psychiatric: reports: No Symptoms Physical Exam Vital Signs: Vital Signs Temperature 97.7 F 11/13/19 09:37 Pulse Rate 84 11/13/19 09:37 Respiratory Rate 20 11/13/19 09:37 Blood Pressure 135/76 11/13/19 09:37 O2 Sat by Pulse Oximetry (%) 95 11/12/19 21:00 Constitutional: Yes: Calm Eyes: Yes: Conjunctiva Clear HENT: Yes: Atraumatic Neck: Yes: Supple Cardiovascular: Yes: S1, S2 Respiratory: Yes: CTA Bilaterally Gastrointestinal: Yes: Normal Bowel Sounds, Soft Renal/: Yes: WNL Musculoskeletal: Yes: WNL Edema: Yes Edema: RLE: Trace Neurological: Yes: Oriented Psychiatric: Yes: Oriented Labs: CBC, BMP 11/12/19 07:10 11/12/19 07:10 Laboratory Tests 11/11/19 11/11/19 11/11/19 07:30 07:33 10:24 Sodium 131 L 130 L Potassium 5.9 H BUN 39.5 H Creatinine 1.5 H 1.4 H Lactic Acid 2.9 H* 11/11/19 11/12/19 10:24 07:10 Sodium 134 L Potassium BUN Creatinine 1.1 Lactic Acid 1.2 Imaging - Results Chest X-ray: Report Reviewed Problem List - Problems (1) Cellulitis, leg Code(s): L03.119 - CELLULITIS OF UNSPECIFIED PART OF LIMB Qualifiers: Laterality: right Qualified Code(s): L03.115 - Cellulitis of right lower limb (2) IWONA (acute kidney injury) Code(s): N17.9 - ACUTE KIDNEY FAILURE, UNSPECIFIED (3) Hyperkalemia Code(s): E87.5 - HYPERKALEMIA Assessment/Plan Current Medications Generic Name Dose Route Start Last Admin Trade Name Freq PRN Reason Stop Dose Admin Acetaminophen 650 mg 11/11/19 12:03 Tylenol - PO Q6H PRN PAIN 1-3 Albuterol/Ipratropium 1 amp 11/11/19 12:03 11/11/19 20:00 Duoneb - NEB 1 amp Q6H PRN Administration SHORTNESS OF BREATH Apixaban 5 mg 11/11/19 22:00 11/13/19 09:20 Eliquis - PO 5 mg BID SELIN Administration Budesonide/Formoterol Fumarate 2 puff 11/11/19 22:00 11/13/19 09:22 Symbicort 160/4.5mcg - IH 2 puff BID SELIN Administration Clopidogrel Bisulfate 75 mg 11/12/19 10:00 11/13/19 09:20 Plavix - PO 75 mg DAILY SELIN Administration Docusate Sodium 300 mg 11/11/19 22:00 11/12/19 21:11 Colace - PO 300 mg HS SELIN Administration Folic Acid 1 mg 11/13/19 10:00 11/13/19 09:20 Folic Acid - PO 1 mg DAILY SELIN Administration Furosemide 40 mg 11/12/19 10:00 11/13/19 09:19 Lasix - PO 40 mg DAILY SELIN Administration Gabapentin 100 mg 11/12/19 14:00 11/13/19 05:21 Neurontin - PO 100 mg TID SELIN Administration Ampicillin Sodium/Sulbactam 100 mls @ 200 mls/hr 11/12/19 15:00 11/13/19 09: 21 Sodium 3 gm/ Sodium Chloride IVPB 200 mls/hr Q6H-IV SELIN Administration Lorazepam 0.5 mg 11/12/19 12:23 Ativan PO TID PRN AGITATION Metoprolol Succinate 50 mg 11/12/19 10:00 11/13/19 09:20 Toprol Xl - PO 50 mg DAILY SELIN Administration Morphine Sulfate 4 mg 11/11/19 12:03 11/13/19 12:14 Morphine Sulfate IVPUSH 4 mg Q6H PRN Administration PAIN LEVEL 7 - 10 Oxycodone HCl 5 mg 11/11/19 12:03 11/13/19 09:26 Roxicodone - PO 5 mg Q6H PRN Administration PAIN LEVEL 4 - 6 Pantoprazole Sodium 40 mg 11/12/19 10:00 11/13/19 09:20 Protonix - PO 40 mg DAILY SELIN Administration Ranolazine 500 mg 11/11/19 22:00 11/13/19 09:21 Ranexa - PO 500 mg BID SELIN Administration Rosuvastatin Calcium 10 mg 11/11/19 22:00 11/12/19 21:11 Crestor - PO 10 mg HS SELIN Administration Silver Sulfadiazine 1 applic 11/11/19 16:45 11/13/19 09:22 Silvadene - TP 1 applic DAILY SELIN Administration Spironolactone 25 mg 11/11/19 22:00 11/13/19 09:20 Aldactone - PO 25 mg BID SELIN Administration Thiamine HCl 100 mg 11/13/19 10:00 11/13/19 09:21 Vitamin B1 - PO 100 mg DAILY SELIN Administration Impression 1. Hyperkalemia resolved 2. IWONA improved 3. right leg trauma/scratch 4. chf 5. hld 6. 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
--- NOTE | 2019-11-13 16:45 | PN ---
Progress Note (short form) - Note Progress Note: still with leg pain-requiring pain meds Vital Signs Period Temp Pulse Resp BP Sys/Tapia Pulse Ox Last 24 Hr 97.6 F-98.5 F 69-84 18-20 122-143/57-85 95 cor-rrr llungs clear abd soft,nt ext less erythema less tenderness, open wound at hematoma site CBC, BMP 11/12/19 07:10 11/12/19 07:10 Microbiology 11/11/19 14:51 Leg - Right Lower Gram Stain - Final 11/11/19 14:51 Leg - Right Lower Wound Culture - Final NO AEROBIC OR ANAEROBIC GROWTH OBTAINED. 11/11/19 07:30 Blood - Peripheral Venous Blood Culture - Preliminary NO GROWTH OBTAINED AFTER 48 HOURS, INCUBATION TO CONTINUE FOR 3 DAYS. 11/11/19 07:30 Blood - Peripheral Venous Blood Culture - Preliminary NO GROWTH OBTAINED AFTER 48 HOURS, INCUBATION TO CONTINUE FOR 3 DAYS. 11/11/19 14:25 Urine - Urine Clean Catch Urine Culture - Final NO GROWTH OBTAINED a/p cellulitis RLE hematoma right anterior spencer chronic venous stasis bilateral LE afib on a/c cad on plavix suspect hematoma with cellulitis pain control can switch to po augmentin when pain is controlled and patient is ready for discharge
[2019-11-13] MEDS: ROSUVASTATIN CA 10 MG TABLET (FP) PO SCH (21:39)
[2019-11-13] MEDS: DOCUSATE SODIUM 100 MG CAPSULE (FP) PO SCH (21:40)
[2019-11-14] MEDS: oxyCODONE HCL 5 MG TABLET PO PRN ×4 (00:16→22:30)
[2019-11-14] MEDS ORDERED: PT OWN MED DRAWER 7, Y5N ONE ×3 (03:49→14:52)
[2019-11-14] MEDS: AMPICILLIN NA/SULBACTAM NA 3 GM in SODIUM CHLORIDE 100 ML IVPB SCH ×4 (03:54→22:34)
[2019-11-14] MEDS: GABAPENTIN 100 MG CAPSULE PO SCH ×2 (05:57→14:58)
[2019-11-14] MEDS: morphine SULFATE 4 MG/ML VIAL IVPUSH PRN (05:58)
[2019-11-14 09:30] LABS: ALBUMIN 3.3 g/dl (3.4-5.0); BLOOD UREA NITROGEN 17.5 mg/dL (7-18); CALCIUM 9.4 mg/dL (8.5-10.1); POTASSIUM 4.3 mmol/L (3.5-5.1)
[2019-11-14] MEDS: APIXABAN 5 MG TABLET PO SCH ×2 (09:49→22:32)
[2019-11-14] MEDS: FOLIC ACID 1 MG TABLET (FP) PO SCH (09:50)
[2019-11-14] MEDS: FUROSEMIDE 40 MG TABLET (FP) PO SCH (09:50)
[2019-11-14] MEDS: SPIRONOLACTONE 25 MG TABLET (FP) PO SCH ×2 (09:50→22:32)
[2019-11-14] MEDS: RANOLAZINE E.R. 500 MG TABLET (FP) PO SCH ×2 (09:50→22:32)
[2019-11-14] MEDS: PANTOPRAZOLE 40 MG TABLET PO SCH (09:50)
[2019-11-14] MEDS: CLOPIDOGREL BISULFATE 75 MG TABLET (FP) PO SCH (09:50)
[2019-11-14] MEDS: THIAMINE HCL 100 MG TABLET (FP) PO SCH (09:51)
[2019-11-14] MEDS: BUDESONIDE/FORMETEROL FUMARATE 160/4.5 mcg INHALER IH SCH ×2 (09:52→22:34)
--- NOTE | 2019-11-14 10:32 | PN ---
Progress Note, Physician Chief Complaint: RLE cellulitis+ hematoma hyponatremia History of Present Illness: NAD RLE edema improved but still severe pain Hematoma drained by Vascular sx On IV abx - Current Medication List Current Medications: Active Medications Acetaminophen (Tylenol -) 650 mg PO Q6H PRN PRN Reason: PAIN 1-3 Albuterol/Ipratropium (Duoneb -) 1 amp NEB Q6H PRN PRN Reason: SHORTNESS OF BREATH Last Admin: 11/11/19 20:00 Dose: 1 amp Apixaban (Eliquis -) 5 mg PO BID [facility] Last Admin: 11/14/19 09:49 Dose: 5 mg Budesonide/Formoterol Fumarate (Symbicort 160/4.5mcg -) 2 puff IH BID [facility] Last Admin: 11/14/19 09:52 Dose: 2 puff Clopidogrel Bisulfate (Plavix -) 75 mg PO DAILY [facility] Last Admin: 11/14/19 09:50 Dose: 75 mg Docusate Sodium (Colace -) 300 mg PO HS [facility] Last Admin: 11/13/19 21:40 Dose: 300 mg Folic Acid (Folic Acid -) 1 mg PO DAILY [facility] Last Admin: 11/14/19 09:50 Dose: 1 mg Furosemide (Lasix -) 40 mg PO DAILY [facility] Last Admin: 11/14/19 09:50 Dose: 40 mg Gabapentin (Neurontin -) 100 mg PO TID [facility] Last Admin: 11/14/19 05:57 Dose: 100 mg Ampicillin Sodium/Sulbactam (Sodium 3 gm/ Sodium Chloride) 100 mls @ 200 mls/ hr IVPB Q6H-IV [facility] Last Admin: 11/14/19 09:37 Dose: 200 mls/hr Lorazepam (Ativan) 0.5 mg PO TID PRN PRN Reason: AGITATION Metoprolol Succinate (Toprol Xl -) 50 mg PO DAILY [facility] Last Admin: 11/14/19 09:50 Dose: 50 mg Oxycodone HCl (Roxicodone -) 5 mg PO Q6H PRN PRN Reason: PAIN LEVEL 4 - 6 Last Admin: 11/14/19 09:39 Dose: 5 mg Oxycodone HCl (Roxicodone -) 10 mg PO Q6H PRN PRN Reason: PAIN LEVEL 7 - 10 Pantoprazole Sodium (Protonix -) 40 mg PO DAILY [facility] Last Admin: 11/14/19 09:50 Dose: 40 mg Ranolazine (Ranexa -) 500 mg PO BID [facility] Last Admin: 11/14/19 09:50 Dose: 500 mg Rosuvastatin Calcium (Crestor -) 10 mg PO HS [facility] Last Admin: 11/13/19 21:39 Dose: 10 mg Silver Sulfadiazine (Silvadene -) 1 applic TP DAILY [facility] Last Admin: 11/13/19 09:22 Dose: 1 applic Spironolactone (Aldactone -) 25 mg PO BID [facility] Last Admin: 11/14/19 09:50 Dose: 25 mg Thiamine HCl (Vitamin B1 -) 100 mg PO DAILY [facility] Last Admin: 11/14/19 09:51 Dose: 100 mg - Objective Vital Signs: Vital Signs Temperature 97.9 F 11/14/19 06:00 Pulse Rate 76 11/14/19 06:00 Respiratory Rate 18 11/14/19 06:00 Blood Pressure 126/78 11/14/19 06:00 O2 Sat by Pulse Oximetry (%) 95 11/13/19 21:00 Constitutional: Yes: Well Nourished, No Distress, Calm, Obese Cardiovascular: Yes: Regular Rate and Rhythm Respiratory: Yes: Regular Gastrointestinal: Yes: Normal Bowel Sounds, Soft, Abdomen, Obese Genitourinary: Yes: WNL Musculoskeletal: Yes: Muscle Pain (RLE) Extremities: Yes: Erythema (RLE) Edema: Yes (RLE non pitting edema) Peripheral Pulses WNL: Yes Wound/Incision: Yes: Dressing Dry and Intact Neurological: Yes: Alert, Oriented Psychiatric: Yes: Alert, Oriented Labs: CBC, BMP 11/12/19 07:10 11/14/19 07:45 INR, PTT INR 1.28 (0.83-1.09) H 11/11/19 07:30 Problem List - Problems (1) Cellulitis, leg Assessment/Plan: -IV abx -ID on board -Cultures: Microbiology 11/11/19 07:30 Blood - Peripheral Venous Blood Culture - Preliminary NO GROWTH OBTAINED AFTER 48 HOURS, INCUBATION TO CONTINUE FOR 3 DAYS. 11/11/19 07:30 Blood - Peripheral Venous Blood Culture - Preliminary NO GROWTH OBTAINED AFTER 48 HOURS, INCUBATION TO CONTINUE FOR 3 DAYS. 11/11/19 14:51 Leg - Right Lower Gram Stain - Final 11/11/19 14:51 Leg - Right Lower Wound Culture - Preliminary NO GROWTH OBTAINED AFTER 24 HOURS INCUBATION, REINCUBATED. 11/11/19 14:25 Urine - Urine Clean Catch Urine Culture - Final NO GROWTH OBTAINED -afebrile -no leukocytosis -Acetaminophen 650 mg po Q6H PRN for pain 1-3 -Oxycodone 5 mg po Q6H for pain 4-6 -Oxycodone 10 mg po Q6H for pain 7-10 Problems reviewed: Yes Code(s): L03.119 - CELLULITIS OF UNSPECIFIED PART OF LIMB Qualifiers: Laterality: right Qualified Code(s): L03.115 - Cellulitis of right lower limb (2) Leg hematoma Assessment/Plan: -drained by Vascular surgery Problems reviewed: Yes Code(s): S80.10XA - CONTUSION OF UNSPECIFIED LOWER LEG, INITIAL ENCOUNTER Qualifiers: Encounter type: initial encounter Laterality: right Qualified Code(s): S80.11XA - Contusion of right lower leg, initial encounter (3) Hyponatremia Assessment/Plan: -improving -1 L fluid restriction -nephrology consult Problems reviewed: Yes Code(s): E87.1 - HYPO-OSMOLALITY AND HYPONATREMIA (4) IWONA (acute kidney injury) Assessment/Plan: -Improved, at baseline Problems reviewed: Yes Code(s): N17.9 - ACUTE KIDNEY FAILURE, UNSPECIFIED Assessment/Plan see problem list Seen by PT, walked 70 ft If pain improved in AM, would switch to PO abx and D/c home with f/u o/p
[2019-11-14] MEDS: SILVER SULFADIAZINE 1% TOP CREAM 400 GM JAR TP SCH (12:29)
--- NOTE | 2019-11-14 18:41 | PN ---
Progress Note, Physician History of Present Illness: Pt seen and examined at bedside. He is awake and alert. he denies shortness of breath. - Current Medication List Current Medications: Active Medications Acetaminophen (Tylenol -) 650 mg PO Q6H PRN PRN Reason: PAIN 1-3 Albuterol/Ipratropium (Duoneb -) 1 amp NEB Q6H PRN PRN Reason: SHORTNESS OF BREATH Last Admin: 11/11/19 20:00 Dose: 1 amp Apixaban (Eliquis -) 5 mg PO BID COUNTS INCLUDE 234 BEDS AT THE [facility] Last Admin: 11/14/19 09:49 Dose: 5 mg Budesonide/Formoterol Fumarate (Symbicort 160/4.5mcg -) 2 puff IH BID COUNTS INCLUDE 234 BEDS AT THE [facility] Last Admin: 11/14/19 09:52 Dose: 2 puff Clopidogrel Bisulfate (Plavix -) 75 mg PO DAILY COUNTS INCLUDE 234 BEDS AT THE [facility] Last Admin: 11/14/19 09:50 Dose: 75 mg Docusate Sodium (Colace -) 300 mg PO HS COUNTS INCLUDE 234 BEDS AT THE [facility] Last Admin: 11/13/19 21:40 Dose: 300 mg Folic Acid (Folic Acid -) 1 mg PO DAILY COUNTS INCLUDE 234 BEDS AT THE [facility] Last Admin: 11/14/19 09:50 Dose: 1 mg Furosemide (Lasix -) 40 mg PO DAILY COUNTS INCLUDE 234 BEDS AT THE [facility] Last Admin: 11/14/19 09:50 Dose: 40 mg Gabapentin (Neurontin -) 300 mg PO TID COUNTS INCLUDE 234 BEDS AT THE [facility] Ampicillin Sodium/Sulbactam (Sodium 3 gm/ Sodium Chloride) 100 mls @ 200 mls/ hr IVPB Q6H-IV COUNTS INCLUDE 234 BEDS AT THE [facility] Last Admin: 11/14/19 14:58 Dose: 200 mls/hr Lorazepam (Ativan) 0.5 mg PO TID PRN PRN Reason: AGITATION Metoprolol Succinate (Toprol Xl -) 50 mg PO DAILY COUNTS INCLUDE 234 BEDS AT THE [facility] Last Admin: 11/14/19 09:50 Dose: 50 mg Oxycodone HCl (Roxicodone -) 5 mg PO Q6H PRN PRN Reason: PAIN LEVEL 4 - 6 Last Admin: 11/14/19 09:39 Dose: 5 mg Oxycodone HCl (Roxicodone -) 10 mg PO Q6H PRN PRN Reason: PAIN LEVEL 7 - 10 Last Admin: 11/14/19 15:55 Dose: 10 mg Pantoprazole Sodium (Protonix -) 40 mg PO DAILY COUNTS INCLUDE 234 BEDS AT THE [facility] Last Admin: 11/14/19 09:50 Dose: 40 mg Ranolazine (Ranexa -) 500 mg PO BID COUNTS INCLUDE 234 BEDS AT THE [facility] Last Admin: 11/14/19 09:50 Dose: 500 mg Rosuvastatin Calcium (Crestor -) 10 mg PO HS COUNTS INCLUDE 234 BEDS AT THE [facility] Last Admin: 11/13/19 21:39 Dose: 10 mg Silver Sulfadiazine (Silvadene -) 1 applic TP DAILY COUNTS INCLUDE 234 BEDS AT THE [facility] Last Admin: 11/14/19 12:29 Dose: 1 applic Spironolactone (Aldactone -) 25 mg PO BID COUNTS INCLUDE 234 BEDS AT THE [facility] Last Admin: 11/14/19 09:50 Dose: 25 mg Thiamine HCl (Vitamin B1 -) 100 mg PO DAILY COUNTS INCLUDE 234 BEDS AT THE [facility] Last Admin: 11/14/19 09:51 Dose: 100 mg - Objective Vital Signs: Vital Signs Temperature 97.6 F 11/14/19 15:54 Pulse Rate 73 11/14/19 15:54 Respiratory Rate 20 11/14/19 15:54 Blood Pressure 132/80 11/14/19 15:54 O2 Sat by Pulse Oximetry (%) 95 11/14/19 10:30 Constitutional: Yes: Calm Eyes: Yes: Conjunctiva Clear HENT: Yes: Atraumatic Neck: Yes: Supple Cardiovascular: Yes: S1, S2 Respiratory: Yes: CTA Bilaterally Gastrointestinal: Yes: Soft Genitourinary: Yes: WNL Musculoskeletal: Yes: WNL Edema: Yes Edema: RLE: 1+ Neurological: Yes: Oriented Psychiatric: Yes: Oriented Labs: CBC, BMP 11/12/19 07:10 11/14/19 07:45 INR, PTT INR 1.28 (0.83-1.09) H 11/11/19 07:30 Problem List - Problems (1) Cellulitis, leg Code(s): L03.119 - CELLULITIS OF UNSPECIFIED PART OF LIMB Qualifiers: Laterality: right Qualified Code(s): L03.115 - Cellulitis of right lower limb (2) IWONA (acute kidney injury) Code(s): N17.9 - ACUTE KIDNEY FAILURE, UNSPECIFIED (3) Hyperkalemia Code(s): E87.5 - HYPERKALEMIA Assessment/Plan Current Medications Generic Name Dose Route Start Last Admin Trade Name Freq PRN Reason Stop Dose Admin Acetaminophen 650 mg 11/11/19 12:03 Tylenol - PO Q6H PRN PAIN 1-3 Albuterol/Ipratropium 1 amp 11/11/19 12:03 11/11/19 20:00 Duoneb - NEB 1 amp Q6H PRN Administration SHORTNESS OF BREATH Apixaban 5 mg 11/11/19 22:00 11/14/19 09:49 Eliquis - PO 5 mg BID SELIN Administration Budesonide/Formoterol Fumarate 2 puff 11/11/19 22:00 11/14/19 09:52 Symbicort 160/4.5mcg - IH 2 puff BID SELIN Administration Clopidogrel Bisulfate 75 mg 11/12/19 10:00 11/14/19 09:50 Plavix - PO 75 mg DAILY SELIN Administration Docusate Sodium 300 mg 11/11/19 22:00 11/13/19 21:40 Colace - PO 300 mg HS SELIN Administration Folic Acid 1 mg 11/13/19 10:00 11/14/19 09:50 Folic Acid - PO 1 mg DAILY SELIN Administration Furosemide 40 mg 11/12/19 10:00 11/14/19 09:50 Lasix - PO 40 mg DAILY SELIN Administration Gabapentin 300 mg 11/14/19 22:00 Neurontin - PO TID SELIN Ampicillin Sodium/Sulbactam 100 mls @ 200 mls/hr 11/12/19 15:00 11/14/19 14: 58 Sodium 3 gm/ Sodium Chloride IVPB 200 mls/hr Q6H-IV SELIN Administration Lorazepam 0.5 mg 11/12/19 12:23 Ativan PO TID PRN AGITATION Metoprolol Succinate 50 mg 11/12/19 10:00 11/14/19 09:50 Toprol Xl - PO 50 mg DAILY SELIN Administration Oxycodone HCl 5 mg 11/11/19 12:03 11/14/19 09:39 Roxicodone - PO 5 mg Q6H PRN Administration PAIN LEVEL 4 - 6 Oxycodone HCl 10 mg 11/14/19 10:29 11/14/19 15:55 Roxicodone - PO 10 mg Q6H PRN Administration PAIN LEVEL 7 - 10 Pantoprazole Sodium 40 mg 11/12/19 10:00 11/14/19 09:50 Protonix - PO 40 mg DAILY SELIN Administration Ranolazine 500 mg 11/11/19 22:00 11/14/19 09:50 Ranexa - PO 500 mg BID SELIN Administration Rosuvastatin Calcium 10 mg 11/11/19 22:00 11/13/19 21:39 Crestor - PO 10 mg HS SELIN Administration Silver Sulfadiazine 1 applic 11/11/19 16:45 11/14/19 12:29 Silvadene - TP 1 applic DAILY SELIN Administration Spironolactone 25 mg 11/11/19 22:00 11/14/19 09:50 Aldactone - PO 25 mg BID SELIN Administration Thiamine HCl 100 mg 11/13/19 10:00 11/14/19 09:51 Vitamin B1 - PO 100 mg DAILY SELIN Administration Impression 1. Hyperkalemia resolved 2. IWONA improved 3. right leg trauma/scratch 4. chf 5. hld 6. HTN Plan - potassium stable - renal function is improved - avoid etoh - potassium supplements on hold - avoid nsaids
[2019-11-14] MEDS: GABAPENTIN 300 MG CAPSULE PO SCH (22:31)
[2019-11-14] MEDS: ROSUVASTATIN CA 10 MG TABLET (FP) PO SCH (22:32)
[2019-11-14] MEDS: DOCUSATE SODIUM 100 MG CAPSULE (FP) PO SCH (22:32)
[2019-11-15] MEDS: AMPICILLIN NA/SULBACTAM NA 3 GM in SODIUM CHLORIDE 100 ML IVPB SCH ×2 (02:37→08:45)
[2019-11-15] MEDS: oxyCODONE HCL 5 MG TABLET PO PRN ×2 (04:40→11:06)
[2019-11-15] MEDS: GABAPENTIN 300 MG CAPSULE PO SCH ×2 (06:17→14:54)
[2019-11-15] MEDS ORDERED: PT OWN MED DRAWER 7, Y5N ONE ×2 (07:47→10:46)
[2019-11-15] MEDS: CLOPIDOGREL BISULFATE 75 MG TABLET (FP) PO SCH (10:48)
[2019-11-15] MEDS: PANTOPRAZOLE 40 MG TABLET PO SCH (10:48)
[2019-11-15] MEDS: APIXABAN 5 MG TABLET PO SCH (10:48)
[2019-11-15] MEDS: SPIRONOLACTONE 25 MG TABLET (FP) PO SCH (10:48)
[2019-11-15] MEDS: FOLIC ACID 1 MG TABLET (FP) PO SCH (10:48)
[2019-11-15] MEDS: FUROSEMIDE 40 MG TABLET (FP) PO SCH (10:49)
[2019-11-15] MEDS: THIAMINE HCL 100 MG TABLET (FP) PO SCH (10:49)
[2019-11-15] MEDS: RANOLAZINE E.R. 500 MG TABLET (FP) PO SCH (10:49)
[2019-11-15] MEDS: BUDESONIDE/FORMETEROL FUMARATE 160/4.5 mcg INHALER IH SCH (10:50)
--- NOTE | 2019-11-15 10:50 | DS ---
Physical Examination Vital Signs: Vital Signs Temperature 98.2 F 11/15/19 06:00 Pulse Rate 86 11/15/19 06:00 Respiratory Rate 18 11/15/19 06:00 Blood Pressure 100/64 11/15/19 06:00 O2 Sat by Pulse Oximetry (%) 97 11/14/19 21:00 Findings/Remarks: 63 y/o M with hx of Afib on eliquis, GERD, HTN, COPD, HLD, chronic diastolic HF , CAD s/p multiple stents on plavix presenting with right leg swelling and pain. He noticed it around 9pm last night. Leg swelling is present from ankle to knee. Erythema is present in entire leg up to knee and he notes abnormal discoloration with purple spots. He reports significant pain at focal lesion in lower third at site where he states his kitten scratched him. Pain is 10/10. He tried advil with minimal improvement. Pain is worse with ambulation. Pain is intermittent and sharp. He denies fever, chills, chest pain, SOB, dysuria, abd pain, n/v. Of note, he reports heavy drinking last night and does not think he sustained any trauma last night but is unsure (1) Cellulitis, leg Assessment/Plan: -IV abx---> switch to PO augmentin 1 tab bid x 7 days -ID on board -Cultures: Microbiology 11/11/19 07:30 Blood - Peripheral Venous Blood Culture - Preliminary NO GROWTH OBTAINED AFTER 96 HOURS, INCUBATION TO CONTINUE FOR 1 DAYS. 11/11/19 07:30 Blood - Peripheral Venous Blood Culture - Preliminary NO GROWTH OBTAINED AFTER 96 HOURS, INCUBATION TO CONTINUE FOR 1 DAYS. 11/11/19 14:51 Leg - Right Lower Gram Stain - Final 11/11/19 14:51 Leg - Right Lower Wound Culture - Final NO AEROBIC OR ANAEROBIC GROWTH OBTAINED. 11/11/19 14:25 Urine - Urine Clean Catch Urine Culture - Final NO GROWTH OBTAINED -afebrile -no leukocytosis -Acetaminophen 650 mg po Q6H PRN for pain 1-3 -Oxycodone 5 mg po Q6H for pain 4-6 -Oxycodone 10 mg po Q6H for pain 7-10 Problems reviewed: Yes Code(s): L03.119 - CELLULITIS OF UNSPECIFIED PART OF LIMB Qualifiers: Laterality: right Qualified Code(s): L03.115 - Cellulitis of right lower limb (2) Leg hematoma Assessment/Plan: -drained by Vascular surgery Problems reviewed: Yes Code(s): S80.10XA - CONTUSION OF UNSPECIFIED LOWER LEG, INITIAL ENCOUNTER Qualifiers: Encounter type: initial encounter Laterality: right Qualified Code(s): S80.11XA - Contusion of right lower leg, initial encounter (3) Hyponatremia Assessment/Plan: -improving -1 L fluid restriction -nephrology consult Problems reviewed: Yes Code(s): E87.1 - HYPO-OSMOLALITY AND HYPONATREMIA (4) IWONA (acute kidney injury) Assessment/Plan: -Improved, at baseline Problems reviewed: Yes Code(s): N17.9 - ACUTE KIDNEY FAILURE, UNSPECIFIED Constitutional: Yes: Well Nourished, No Distress, Calm Cardiovascular: Yes: Regular Rate and Rhythm Respiratory: Yes: Regular Gastrointestinal: Yes: Normal Bowel Sounds, Soft, Abdomen, Obese Renal/: Yes: WNL Musculoskeletal: Yes: WNL Extremities: Yes: Erythema (RLE) Edema: Yes Peripheral Pulses WNL: Yes Neurological: Yes: Alert, Oriented Psychiatric: Yes: Alert, Oriented Labs: CBC, BMP 11/12/19 07:10 11/14/19 07:45 Discharge Summary Problems reviewed: Yes Reason For Visit: CELLULITIS,SWELLING OF LOWER EXTREMITY Current Active Problems Cellulitis, leg (Acute) Leg hematoma (Acute) Laboratory Last Values WBC 7.7 K/mm3 (4.0-10.0) 11/12/19 07:10 RBC 5.74 M/mm3 (4.00-5.60) H 11/12/19 07:10 Hgb 15.1 GM/dL (11.7-16.9) 11/12/19 07:10 Hct 46.5 % (35.4-49) 11/12/19 07:10 MCV 81.1 fl (80-96) 11/12/19 07:10 MCH 26.4 pg (25.7-33.7) 11/12/19 07:10 MCHC 32.5 g/dl (32.0-35.9) 11/12/19 07:10 RDW 23.3 % (11.9-15.9) H 11/12/19 07:10 Plt Count 147 K/MM3 (134-434) 11/12/19 07:10 MPV 8.8 fl (7.5-11.1) 11/12/19 07:10 Absolute Neuts (auto) 5.8 K/mm3 (1.5-8.0) 11/11/19 07:30 Neutrophils % 70.3 % (42.8-82.8) 11/11/19 07:30 Lymphocytes % 14.2 % (8-40) D 11/11/19 07:30 Monocytes % 14.5 % (3.8-10.2) H 11/11/19 07:30 Eosinophils % 0.5 % (0-4.5) 11/11/19 07:30 Basophils % 0.5 % (0-2.0) 11/11/19 07:30 Nucleated RBC % 0 % (0-0) 11/11/19 07:30 Anisocytosis 1+ 11/11/19 07:30 Ovalocytes 1+ 11/11/19 07:30 Kathi Cells 1+ 11/11/19 07:30 ESR 17 mm/hr (0-20) 11/11/19 07:30 PT with INR 15.10 SEC (9.7-13.0) H 11/11/19 07:30 INR 1.28 (0.83-1.09) H 11/11/19 07:30 PTT (Actin FS) 35.1 SECONDS (25.2-36.5) 11/11/19 07:30 VBG pH 7.30 (7.31-7.41) L 11/11/19 07:30 POC VBG pCO2 46 mmHg (38-52) 11/11/19 07:30 POC VBG pO2 < 49 mmHg (28-48) H 11/11/19 07:30 VBG HCO3 21.9 mmol/L (23-29) L 11/11/19 07:30 VBG O2 Sat (Kade) 51.2 % (70-80) L 11/11/19 07:30 VBG Base Excess -4.5 meq/l (-2-2) L 11/11/19 07:30 Sodium 135 mmol/L (136-145) L 11/14/19 07:45 Potassium 4.3 mmol/L (3.5-5.1) 11/14/19 07:45 Chloride 100 mmol/L (98-107) 11/14/19 07:45 Carbon Dioxide 27 mmol/L (21-32) 11/14/19 07:45 Anion Gap 8 MMOL/L (8-16) 11/14/19 07:45 BUN 17.5 mg/dL (7-18) 11/14/19 07:45 Creatinine 1.0 mg/dL (0.55-1.3) 11/14/19 07:45 Est GFR (CKD-EPI)AfAm 91.13 11/14/19 07:45 Est GFR (CKD-EPI)NonAf 78.63 11/14/19 07:45 Random Glucose 113 mg/dL (74-106) H 11/14/19 07:45 Hemoglobin A1c % 6.1 % (4.2-6.3) 11/12/19 07:10 Lactic Acid 1.2 mmol/L (0.4-2.0) 11/11/19 10:24 Calcium 9.4 mg/dL (8.5-10.1) 11/14/19 07:45 Iron 115 ug/dL (50-175) 11/12/19 07:10 TIBC 402 ug/dL (250-450) 11/12/19 07:10 Iron Saturation 28 % (17.5-39) 11/12/19 07:10 Unsaturated IBC 287 ug/dL (200-275) H 11/12/19 07:10 Total Bilirubin 1.0 mg/dL (0.2-1) 11/14/19 07:45 AST 18 U/L (15-37) 11/14/19 07:45 ALT 18 U/L (13-61) 11/14/19 07:45 Alkaline Phosphatase 70 U/L (45-117) 11/14/19 07:45 Troponin I < 0.02 ng/ml (0.00-0.05) 11/11/19 07:30 C-Reactive Protein 1.1 MG/DL (0.00-0.3) H 11/11/19 07:30 Total Protein 7.0 g/dl (6.4-8.2) 11/14/19 07:45 Albumin 3.3 g/dl (3.4-5.0) L 11/14/19 07:45 Urine Color Yellow 11/11/19 14:25 Urine Appearance Clear 11/11/19 14:25 Urine pH 5.0 (5.0-8.0) 11/11/19 14:25 Ur Specific [place] 1.020 (1.010-1.035) 11/11/19 14:25 Urine Protein Negative (NEGATIVE) 11/11/19 14:25 Urine Glucose (UA) Negative (NEGATIVE) 11/11/19 14:25 Urine Ketones Trace (NEGATIVE) 11/11/19 14:25 Urine Blood 1+ (NEGATIVE) H 11/11/19 14:25 Urine Nitrite Negative (NEGATIVE) 11/11/19 14:25 Urine Bilirubin Negative (NEGATIVE) 11/11/19 14:25 Urine Urobilinogen 0.2 mg/dL (0.2-1.0) 11/11/19 14:25 Ur Leukocyte Esterase Negative (NEGATIVE) 11/11/19 14:25 Urine RBC (Auto) 0-2 /hpf (0-4) 11/11/19 14:25 U Pathogenic Cast Auto None /lpf (NEGATIVE) 11/11/19 14:25 Urine Bacteria (Auto) Rare /hpf (NEGATIVE) 11/11/19 14:25 Blood Type A POSITIVE 11/11/19 10:24 Antibody Screen Negative 11/11/19 10:24 Vital Signs Temp 98.2 F 11/15/19 06:00 Pulse 86 11/15/19 06:00 Resp 18 11/15/19 06:00 BP 100/64 11/15/19 06:00 Pulse Ox 97 11/14/19 21:00 Intake & Output 11/14/19 11/14/19 11/15/19 11:59 23:59 11:59 Intake Total 450 900 100 Balance 450 900 100 Intake: IVPB 100 200 100 Oral 350 700 Other: Voiding Method Toilet Toilet Toilet # Unmeasured Voids Void 2 2 1 Bowel Movement No Yes No Condition: Stable - Instructions Referrals: Elisabet Martinez MD [Primary Care Provider] - Juan Miguel Curry MD [Staff Physician] - Disposition: VNS/HOME HEALTH CARE - Home Medications Comprehensive Discharge Medication List: Ambulatory Orders Rabeprazole Sodium [Aciphex] 20 mg PO DAILY 08/29/16 Ranolazine [Ranexa] 500 mg PO BID 08/29/16 Fexofenadine HCl [Nicole Allergy] 60 mg PO DAILY 11/25/17 Polyethylene Glycol 3350 [Miralax 119 gm Btl -] 17 gm PO DAILY bottle 02/22/19 Acetaminophen [Tylenol .Regular Strength -] 650 mg PO Q4H PRN tablet 03/26/19 Apixaban [Eliquis -] 5 mg PO BID tablet 03/26/19 Budesonide/Formeterol Fumarate [SYMBICORT 160/4.5mcg -] 2 puff IH BID inhaler 03/26/19 Clopidogrel Bisulfate [Plavix -] 75 mg PO DAILY tablet 03/26/19 Furosemide [Lasix] 40 mg PO DAILY #30 tablet 03/26/19 Magnesium Oxide [Mag-Ox -] 400 mg PO BID tablet 03/26/19 Metoprolol Succinate [Toprol XL -] 50 mg PO DAILY #30 tab.sr.24h 03/26/19 Ramipril [Altace] 2.5 mg PO DAILY capsule 03/26/19 Rosuvastatin [Crestor -] 10 mg PO HS tablet 03/26/19 Spironolactone [Aldactone -] 25 mg PO BID #30 tablet 03/26/19 Cephalexin Monohydrate [Keflex -] 500 mg PO Q8H 7 Days #21 capsule 09/13/19 Fluticasone/Vilanterol [Breo Ellipta 200-25 Mcg INH] 1 each IH DAILY 11/11/19 Acetaminophen [Tylenol .Regular Strength -] 650 mg PO Q6H PRN tablet 11/14/19 Albuterol 2.5/Ipratropium 0.5 [Duoneb -] 1 amp NEB Q6H PRN amp 11/14/19 Amoxicillin/Potassium Clav [Augmentin 875-125 Tablet] 1 each PO BID #14 tablet 11/14/19 Apixaban [Eliquis -] 5 mg PO BID tablet 11/14/19 Budesonide/Formeterol Fumarate [SYMBICORT 160/4.5mcg -] 2 puff IH BID inhaler 11/14/19 Clopidogrel Bisulfate [Plavix -] 75 mg PO DAILY tablet 11/14/19 Docusate Sodium [Colace -] 300 mg PO HS capsule 11/14/19 Folic Acid - 1 mg PO DAILY tablet 11/14/19 Furosemide [Lasix -] 40 mg PO DAILY tablet 11/14/19 Gabapentin 300 mg PO TID #90 capsule 11/14/19 Metoprolol Succinate [Toprol XL -] 50 mg PO DAILY tab.sr.24h 11/14/19 Ranolazine [Ranexa -] 500 mg PO BID tab 11/14/19 Rosuvastatin [Crestor -] 10 mg PO HS tablet 11/14/19 Silver Sulfadiazine 1% Top Cr [Silvadene -] 1 applic TP DAILY #400 g 11/14/19 Spironolactone [Aldactone -] 25 mg PO BID tablet 11/14/19 Thiamine HCl [Vitamin B1 -] 100 mg PO DAILY #30 tablet 11/14/19 oxyCODONE HCL [Roxicodone -] 5 mg PO Q6H PRN #40 tablet MDD 4 11/14/19 oxyCODONE HCL [Roxicodone -] 10 mg PO Q6H PRN #40 tablet MDD 4 11/14/19 Prescription Drug Monitoring Program (I-STOP) results: I-STOP reviewed and no issues identified
[2019-11-15] MEDS: SILVER SULFADIAZINE 1% TOP CREAM 400 GM JAR TP SCH (12:03)
--- NOTE | 2019-11-15 12:42 | PN ---
Progress Note, Physician History of Present Illness: Pt seen and examined at bedside. He is awake and alert. He denies shortness of breath. - Current Medication List Current Medications: Active Medications Acetaminophen (Tylenol -) 650 mg PO Q6H PRN PRN Reason: PAIN 1-3 Albuterol/Ipratropium (Duoneb -) 1 amp NEB Q6H PRN PRN Reason: SHORTNESS OF BREATH Last Admin: 11/11/19 20:00 Dose: 1 amp Apixaban (Eliquis -) 5 mg PO BID [facility] Last Admin: 11/15/19 10:48 Dose: 5 mg Budesonide/Formoterol Fumarate (Symbicort 160/4.5mcg -) 2 puff IH BID [facility] Last Admin: 11/15/19 10:50 Dose: 2 puff Clopidogrel Bisulfate (Plavix -) 75 mg PO DAILY [facility] Last Admin: 11/15/19 10:48 Dose: 75 mg Docusate Sodium (Colace -) 300 mg PO HS [facility] Last Admin: 11/14/19 22:32 Dose: 300 mg Folic Acid (Folic Acid -) 1 mg PO DAILY [facility] Last Admin: 11/15/19 10:48 Dose: 1 mg Furosemide (Lasix -) 40 mg PO DAILY [facility] Last Admin: 11/15/19 10:49 Dose: 40 mg Gabapentin (Neurontin -) 300 mg PO TID [facility] Last Admin: 11/15/19 06:17 Dose: 300 mg Ampicillin Sodium/Sulbactam (Sodium 3 gm/ Sodium Chloride) 100 mls @ 200 mls/ hr IVPB Q6H-IV [facility] Last Admin: 11/15/19 08:45 Dose: 200 mls/hr Lorazepam (Ativan) 0.5 mg PO TID PRN PRN Reason: AGITATION Metoprolol Succinate (Toprol Xl -) 50 mg PO DAILY [facility] Last Admin: 11/15/19 10:48 Dose: 50 mg Oxycodone HCl (Roxicodone -) 5 mg PO Q6H PRN PRN Reason: PAIN LEVEL 4 - 6 Last Admin: 11/14/19 09:39 Dose: 5 mg Oxycodone HCl (Roxicodone -) 10 mg PO Q6H PRN PRN Reason: PAIN LEVEL 7 - 10 Last Admin: 11/15/19 11:06 Dose: 10 mg Pantoprazole Sodium (Protonix -) 40 mg PO DAILY [facility] Last Admin: 11/15/19 10:48 Dose: 40 mg Ranolazine (Ranexa -) 500 mg PO BID [facility] Last Admin: 11/15/19 10:49 Dose: 500 mg Rosuvastatin Calcium (Crestor -) 10 mg PO HS [facility] Last Admin: 11/14/19 22:32 Dose: 10 mg Silver Sulfadiazine (Silvadene -) 1 applic TP DAILY [facility] Last Admin: 11/15/19 12:03 Dose: Not Given Spironolactone (Aldactone -) 25 mg PO BID [facility] Last Admin: 11/15/19 10:48 Dose: 25 mg Thiamine HCl (Vitamin B1 -) 100 mg PO DAILY [facility] Last Admin: 11/15/19 10:49 Dose: 100 mg - Objective Vital Signs: Vital Signs Temperature 98.2 F 11/15/19 06:00 Pulse Rate 86 11/15/19 06:00 Respiratory Rate 18 11/15/19 06:00 Blood Pressure 100/64 11/15/19 06:00 O2 Sat by Pulse Oximetry (%) 97 11/14/19 21:00 Constitutional: Yes: Calm Eyes: Yes: Conjunctiva Clear HENT: Yes: Atraumatic Neck: Yes: Supple Cardiovascular: Yes: S1, S2 Respiratory: Yes: CTA Bilaterally Gastrointestinal: Yes: Soft Genitourinary: Yes: WNL Musculoskeletal: Yes: WNL Edema: Yes Edema: RLE: 1+ Wound/Incision: Yes: Dressing Dry and Intact Neurological: Yes: Oriented Psychiatric: Yes: Oriented Labs: CBC, BMP 11/12/19 07:10 11/14/19 07:45 INR, PTT INR 1.28 (0.83-1.09) H 11/11/19 07:30 Problem List - Problems (1) Cellulitis, leg Code(s): L03.119 - CELLULITIS OF UNSPECIFIED PART OF LIMB Qualifiers: Laterality: right Qualified Code(s): L03.115 - Cellulitis of right lower limb (2) IWONA (acute kidney injury) Code(s): N17.9 - ACUTE KIDNEY FAILURE, UNSPECIFIED (3) Hyperkalemia Code(s): E87.5 - HYPERKALEMIA Assessment/Plan Current Medications Generic Name Dose Route Start Last Admin Trade Name Freq PRN Reason Stop Dose Admin Acetaminophen 650 mg 11/11/19 12:03 Tylenol - PO Q6H PRN PAIN 1-3 Albuterol/Ipratropium 1 amp 11/11/19 12:03 11/11/19 20:00 Duoneb - NEB 1 amp Q6H PRN Administration SHORTNESS OF BREATH Apixaban 5 mg 11/11/19 22:00 11/15/19 10:48 Eliquis - PO 5 mg BID SELIN Administration Budesonide/Formoterol Fumarate 2 puff 11/11/19 22:00 11/15/19 10:50 Symbicort 160/4.5mcg - IH 2 puff BID SELIN Administration Clopidogrel Bisulfate 75 mg 11/12/19 10:00 11/15/19 10:48 Plavix - PO 75 mg DAILY SELIN Administration Docusate Sodium 300 mg 11/11/19 22:00 11/14/19 22:32 Colace - PO 300 mg HS SELIN Administration Folic Acid 1 mg 11/13/19 10:00 11/15/19 10:48 Folic Acid - PO 1 mg DAILY SELIN Administration Furosemide 40 mg 11/12/19 10:00 11/15/19 10:49 Lasix - PO 40 mg DAILY SELIN Administration Gabapentin 300 mg 11/14/19 22:00 11/15/19 06:17 Neurontin - PO 300 mg TID SELIN Administration Ampicillin Sodium/Sulbactam 100 mls @ 200 mls/hr 11/12/19 15:00 11/15/19 08: 45 Sodium 3 gm/ Sodium Chloride IVPB 200 mls/hr Q6H-IV SELIN Administration Lorazepam 0.5 mg 11/12/19 12:23 Ativan PO TID PRN AGITATION Metoprolol Succinate 50 mg 11/12/19 10:00 11/15/19 10:48 Toprol Xl - PO 50 mg DAILY SELIN Administration Oxycodone HCl 5 mg 11/11/19 12:03 11/14/19 09:39 Roxicodone - PO 5 mg Q6H PRN Administration PAIN LEVEL 4 - 6 Oxycodone HCl 10 mg 11/14/19 10:29 11/15/19 11:06 Roxicodone - PO 10 mg Q6H PRN Administration PAIN LEVEL 7 - 10 Pantoprazole Sodium 40 mg 11/12/19 10:00 11/15/19 10:48 Protonix - PO 40 mg DAILY SELIN Administration Ranolazine 500 mg 11/11/19 22:00 11/15/19 10:49 Ranexa - PO 500 mg BID SELIN Administration Rosuvastatin Calcium 10 mg 11/11/19 22:00 11/14/19 22:32 Crestor - PO 10 mg HS SELIN Administration Silver Sulfadiazine 1 applic 11/11/19 16:45 11/15/19 12:03 Silvadene - TP Not Given DAILY [facility] Spironolactone 25 mg 11/11/19 22:00 11/15/19 10:48 Aldactone - PO 25 mg BID SELIN Administration Thiamine HCl 100 mg 11/13/19 10:00 11/15/19 10:49 Vitamin B1 - PO 100 mg DAILY SELIN Administration Impression 1. Hyperkalemia resolved 2. IWONA improved 3. right leg trauma/scratch 4. chf 5. hld 6. HTN Plan - cont diuretics - potassium stable - renal function stable - will need close outpt follow up - explained that he needs his labs monitored - avoid nsaids
[2019-11-15 14:51] VITALS: BP 152/82; PULSE 89; TEMP 97.4
== END 2019-11-15 14:51 | disposition home health service (06) | DRG 603 ==
LOC: JER 04:02 → JERBED 10:11 → J5S 11:18
PROVIDERS: ADMIT Family Medicine; ATTEND Family Medicine
DX: L03.115 Cellulitis of right lower limb (principal); I50.32 Chronic diastolic (congestive) heart failure; N17.9 Acute kidney failure, unspecified; E87.1 Hypo-osmolality and hyponatremia; Z68.41 Body mass index [BMI] 40.0-44.9, adult; I25.10 Atherosclerotic heart disease of native coronary artery without angina pectoris; I48.0 Paroxysmal atrial fibrillation; J44.9 Chronic obstructive pulmonary disease, unspecified; E78.5 Hyperlipidemia, unspecified; I48.91 Unspecified atrial fibrillation; Z79.01 Long term (current) use of anticoagulants; K21.9 Gastro-esophageal reflux disease without esophagitis; I11.0 Hypertensive heart disease with heart failure; S80.11XA Contusion of right lower leg, initial encounter; I87.2 Venous insufficiency (chronic) (peripheral); E66.9 Obesity, unspecified; E87.5 Hyperkalemia; X58.XXXA Exposure to other specified factors, initial encounter; Y93.89 Activity, other specified; Y92.89 Other specified places as the place of occurrence of the external cause; Y99.8 Other external cause status
CPT/HCPCS: 36415; 71045-TC-FY; 73590-TC-RT-FY; 73610-TC-RT-FY; 73630-TC-RT-FY; 80053; 81003; 82803; 83036; 83540; 83550; 83605; 84484; 85025; 85027; 85610; 85651; 85730; 86140; 86850; 86900; 86901; 87040; 87070; 87086; 87205; 93005; 93010; 94640; 97116-GP; 97161-GP; 99284-25

== ENCOUNTER 2019-11-26 20:03 | Emergency (ER) | payer BC, OTHER ==
[2019-11-26 20:32] VITALS: TEMP 98; BMI 37.5
--- NOTE | 2019-11-26 20:42 | PDOC ---
History of Present Illness - General Chief Complaint: Irregular Heart Beat Stated Complaint: HYPOTENSION Time Seen by Provider: 11/26/19 20:10 - History of Present Illness Initial Comments: 11/26/19 22:17 Pt is a 64y/o male with COPD, diastolic CHF, HTN, a-fib (on Eliquis), CAD s/p PCI with stents (on Plavix), and hx alcohol dependence, recently hospitalized for right leg cellulitis (11/11/19-11/15/19), given Unasyn then switched to Augmentin) who presents by EMS with progressive dyspnea over the course of today. He also reports decrease in appetite and PO intake the last 3 days. Per EMS, pt was bradycardic with HR down to 24 as well as low voltage on EKG. He reports no recent changes in metoprolol. He also reports dark stool recently. Last drink was prior to previous admission per patient. He denies chest pain, nausea, vomiting, fever, chills. Pt has hx of alcohol use and in the last year has decreased intake to twice a week. 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 Cards: Dr. Domingo PCP: Dr. Graham Past History - Past Medical History Allergies/Adverse Reactions: Allergies Allergy/AdvReac Type Severity Reaction Status Date / Time No Known Allergies Allergy Verified 11/22/19 14:12 Home Medications: Ambulatory Orders Rabeprazole Sodium [Aciphex] 20 mg PO DAILY 08/29/16 Fexofenadine HCl [Nicole Allergy] 60 mg PO DAILY 11/25/17 Furosemide [Lasix] 40 mg PO DAILY #30 tablet 03/26/19 Ramipril [Altace] 2.5 mg PO DAILY capsule 03/26/19 Fluticasone/Vilanterol [Breo Ellipta 200-25 Mcg INH] 1 each IH DAILY 11/11/19 Amoxicillin/Potassium Clav [Augmentin 875-125 Tablet] 1 each PO BID #14 tablet 11/14/19 Apixaban [Eliquis -] 5 mg PO BID tablet 11/14/19 Budesonide/Formeterol Fumarate [SYMBICORT 160/4.5mcg -] 2 puff IH BID inhaler 11/14/19 Clopidogrel Bisulfate [Plavix -] 75 mg PO DAILY tablet 11/14/19 Docusate Sodium [Colace -] 300 mg PO HS capsule 11/14/19 Folic Acid - 1 mg PO DAILY tablet 11/14/19 Gabapentin 300 mg PO TID #90 capsule 11/14/19 Metoprolol Succinate [Toprol XL -] 50 mg PO DAILY tab.sr.24h 11/14/19 Ranolazine [Ranexa -] 500 mg PO BID tab 11/14/19 Rosuvastatin [Crestor -] 10 mg PO HS tablet 11/14/19 Silver Sulfadiazine 1% Top Cr [Silvadene -] 1 applic TP DAILY #400 g 11/14/19 Spironolactone [Aldactone -] 25 mg PO BID tablet 11/14/19 Thiamine HCl [Vitamin B1 -] 100 mg PO DAILY #30 tablet 11/14/19 Anemia: No Asthma: No Cancer: No Cardiac Disorders: Yes (A Fib) CVA: No COPD: No CHF: No Dementia: No Diabetes: No GI Disorders: Yes (ACID REFLUX) Disorders: No HTN: Yes Hypercholesterolemia: Yes Liver Disease: No Seizures: No Thyroid Disease: No - Surgical History Abdominal Surgery: Yes (HERNIA) Appendectomy: No Cardiac Surgery: Yes (STENTS 6, 2010,, ) Cholecystectomy: No Lung Surgery: No Neurologic Surgery: No Orthopedic Surgery: No (rotator cuff) - Immunization History Td Vaccination: Yes TDAP Vaccination: Yes Immunization Up to Date: Yes - Psycho Social/Smoking Cessation Hx Smoking Status: No Smoking History: Never smoked Have you smoked in the past 12 months: No Number of Cigarettes Smoked Daily: 0 Cigars Per Day: 1 Information on smoking cessation initiated: No 'Breaking Loose' booklet given: 10/31/17 Hx Alcohol Use: Yes Drug/Substance Use Hx: No Substance Use Type: None Hx Substance Use Treatment: No *Physical Exam - Vital Signs Last Vital Signs Temp Pulse Resp BP Pulse Ox 98 F 66 18 115/74 100 11/26/19 20:29 11/26/19 20:29 11/26/19 20:29 11/26/19 20:29 11/26/19 20:29 - Physical Exam General Appearance: Yes: Nourished, Mild Distress, Other (tachypneic, pale, diaphoretic, 2 liters NC O2) HEENT: positive: EOMI, KEVIN Neck: positive: Trachea midline Respiratory/Chest: positive: Lungs Clear Cardiovascular: positive: Systolic Murmur, Other (bradycardic, irregular rhythm) Gastrointestinal/Abdominal: positive: Normal Bowel Sounds, Tender (periumbilical ) Integumentary: positive: Mottled (left LE), Other (right LE bandaging from cellulitis) Neurologic: positive: Fully Oriented, Alert, Normal Mood/Affect ED Treatment Course - LABORATORY CBC & Chemistry Diagram: 11/26/19 20:50 11/26/19 20:50 Medical Decision Making - Medical Decision Making 11/26/19 21:00 Pt is a 64y/o male with COPD, diastolic CHF, HTN, a-fib (on Eliquis), CAD s/p PCI with stents (on Plavix), and alcohol dependence, recently hospitalized for right leg cellulitis (11/11/19-11/15/19), given Unasyn then switched to Augmentin ) who presents by EMS with progressive dyspnea over the course of today. He also reports decrease in appetite and PO intake the last 3 days. Per EMS, pt was bradycardic with HR down to 24 as well as low voltage on EKG. He reports no recent changes in metoprolol. He also reports dark stool recently. Last drink was prior to previous admission per patient. He drinks 2x week for the last year. Was daily prior to that. He denies chest pain, nausea, vomiting, fever, chills. Cards: Dr. Domingo PCP: Dr. Graham ddx: symptomatic bradycardia 2/2 kanwal block vs metoprolol toxicity 2/2 recent abx use and infection orders: EKG, labs, CXR, dopamine drip 5mcg, 1L NS 21:20 Pt began dry heaving. He endorses prior alcohol use. Single dose of Reglan ordered. Starting Protonix load and drip and octreotide load and drip. Spoke to Dr. Brumfield at [facility] and will accept pt. HR is still in 30-40s, will increase dopamine to 10mcg. Transfer center will notify us when bed is available. EKG- bradycardia HR 33, low voltage, RAD, a-fib with slow ventricular response, QTc 418 CXR- no atelectasis or pneumonia orders: Protonix, octreotide, Reglan 21:30 Peripheral access difficult. Femoral line placed right side. X-ray confirmation in place. K 7.2, Cr 3.3- normal K and Cr last admission BNP 5400, was 1200 in March 2019; trop negative Hb 15-->9.8 since 11/12/19 orders: Lasix 40mg, insulin 10U, calcium gluconate, dextrose, albuterol, sodium bicarb 22:30 EMS has been dispatched to [facility]. Pt's BP 115/40s. HR 60s-70s. He is alert and oriented, receiving neb. lactic acid 3.2 23:28 HR 70s Pt reports breathing is better after albuterol. Pt appears more comfortable, improved color and not diaphoretic. 11/26/19 23:34 Discharge - Discharge Information Problems reviewed: Yes Clinical Impression/Diagnosis: Symptomatic bradycardia Condition: Critical Disposition: TRANSFER ACUTE CARE/OTHER HOSP - Follow up/Referral Referrals: Elisabet Martinez MD [Primary Care Provider] - - Patient Discharge Instructions - Post Discharge Activity - Transfer to Acute Care Facility Receiving Facility Name: [facility]
[2019-11-26] MEDS ORDERED: SODIUM CHLORIDE 1,000 ML IV SCH (20:45)
[2019-11-26] MEDS ORDERED: DOBUTAMINE 250 MG/D5W - 250,000 MCG/250 ML INFUS.BAG IV SCH (20:45)
[2019-11-26] MEDS ORDERED: DOPAMINE 400 MG/D5W - 400,000 MCG/250 ML INFUS.BAG IVPB SCH (20:45)
[2019-11-26] MEDS ORDERED: DOPAMINE 400 MG/D5W - 400,000 MCG/250 ML INFUS.BAG IVPB ONE (20:59)
[2019-11-26 21:03] LABS: BASO % 0.4 % (0-2.0); EOS % 0.1 % (0-4.5); HEMATOCRIT 30.4 % (35.4-49); HEMOGLOBIN 9.8 GM/dL (11.7-16.9); LYMPH % 6.7 % (8-40); MCHC 32.1 g/dl (32.0-35.9); MEAN PLT VOLUME 8.4 fl (7.5-11.1); MONO % 9.1 % (3.8-10.2); NEUT % 83.7 % (42.8-82.8); PLATELET COUNT 301 K/MM3 (134-434); RBC 3.61 M/mm3 (4.00-5.60); RDW 20.7 % (11.9-15.9); WHITE BLOOD COUNT 12.9 K/mm3 (4.0-10.0)
--- NOTE | 2019-11-26 21:21 | PDOC ---
Documentation entered by Tianna Erazo SCRIBE, acting as scribe for Lyssa Leiva MD. Lyssa Leiva MD: This documentation has been prepared by the preetibe, Tianna Erazo SCRIBE, under my direction and personally reviewed by me in its entirety. I confirm that the documentation accurately reflects all work, treatment, procedures, and medical decision making performed by me. Attending Attestation - Resident Resident Name: ScarletTamika - ED Attending Attestation I have performed the following: I have examined & evaluated the patient, The case was reviewed & discussed with the resident, I agree w/resident's findings & plan, Exceptions are as noted - HPI HPI: 11/26/19 21:23 The patient is a 64-year-old male with a past medical history significant for Afib, CAD s/p multiple stents, HTN, COPD, HLD, who presents to the emergency department with 3 days of malaise, nausea, dark colored stool and 1 day history of shortness of breath. - Physicial Exam PE: 11/26/19 21:18 NAD, pale appearin bradycarda, CHRISTELLE CTABL distended,soft, nontender bandages to BLE + brusiing to exremities, + cold extremities. A&o x 3 11/26/19 21:20 - Medical Decision Making 11/26/19 21:15 Call placed to [facility]. Waiting for a call back from Dr. Jaquez Case discussed with Dr. Jaquez 11/26/19 21:19 64yoM presents w/ symptommatic bradycardia in setting of 3d of malaise, dark stools and 1 day of SOB. Extremities cool, pt w/ pallor, concern for clinical cardiogenic shock. - labs - ekg - patient monitor - zoll on standby for external pacing - ivf - dopamine - admt CCU @ [facility].
[2019-11-26 21:24] LABS: INR 2.53 (0.83-1.09); PROTHROMBIN TIME (PATIENT) 30.1 SEC (9.7-13.0)
[2019-11-26 21:26] LABS: ACTIVATED PTT 35.9 SECONDS (25.2-36.5)
[2019-11-26] MEDS ORDERED: METOCLOPRAMIDE HCL INJECTION 10 MG/2 ML VIAL ONE ×2 (21:29→21:38)
[2019-11-26] MEDS ORDERED: PANTOPRAZOLE SODIUM 40 MG VIAL IVPUSH ONE (21:37)
[2019-11-26] MEDS ORDERED: METOCLOPRAMIDE HCL INJECTION 10 MG/2 ML VIAL IM ONE (21:38)
[2019-11-26] MEDS ORDERED: OCTREOTIDE ACETATE 50 MCG/1 ML - 1 ML VIAL IVPUSH ONE (21:38)
[2019-11-26 21:39] LABS: ALBUMIN 3.3 g/dl (3.4-5.0); ALK PHOS 62 U/L (45-117); ANION GAP 10 MMOL/L (8-16); BILIRUBIN,TOTAL 0.6 mg/dL (0.2-1); BLOOD UREA NITROGEN 54.8 mg/dL (7-18); CALCIUM 8.9 mg/dL (8.5-10.1); CHLORIDE 100 mmol/L (98-107); CO2 23 mmol/L (21-32); CREATININE 3.3 mg/dL (0.55-1.3); GLUCOSE,RANDOM 127 mg/dL (74-106); N-TERMINAL BNP 5427.8 pg/ml (5-125); SGOT/AST 34 U/L (15-37); SGPT/ALT 17 U/L (13-61); SODIUM 133 mmol/L (136-145); TOT PROT 6.7 g/dl (6.4-8.2)
[2019-11-26 21:45] LABS: POTASSIUM 7.2 mmol/L (3.5-5.1)
[2019-11-26] MEDS ORDERED: OCTREOTIDE ACETATE 200 MCG, OCTREOTIDE ACETATE 1,000 MCG in DEXTROSE 5%-WATER - 496 ML IVPB SCH (21:45)
[2019-11-26] MEDS ORDERED: PANTOPRAZOLE SODIUM 80 MG in SODIUM CHLORIDE 100 ML IVPB SCH (21:45)
[2019-11-26] MEDS ORDERED: DEXTROSE 50%-WATER - 25 GM/50 ML VIAL IVPUSH ONE ×2 (21:46→21:48)
[2019-11-26] MEDS ORDERED: CALCIUM GLUCONATE 10% - 1,000 MG/10 ML VIAL IVPB ONE (21:46)
[2019-11-26] MEDS ORDERED: SODIUM BICARBONATE 8.4% 50 MEQ/50 ML DISP.SYRIN IVPUSH ONE (21:46)
[2019-11-26] MEDS ORDERED: INSULIN REGULAR HUMAN 100 UNITS/ML *VIAL IVPUSH ONE (21:46)
[2019-11-26] MEDS ORDERED: CALCIUM GLUCONATE 10% - 1,000 MG/10 ML VIAL IVPUSH ONE (21:48)
[2019-11-26] MEDS ORDERED: ALBUTEROL SO4 0.083% IH SOL 2.5 MG/3 ML VIAL.NEB. NEB ONE ×2 (21:59→22:31)
[2019-11-26] MEDS ORDERED: CALCIUM CHLORIDE 1 GM/10 ML *DISP.SYRIN ONE ×2 (22:00→22:42)
[2019-11-26] MEDS ORDERED: DEXTROSE 50%-WATER - 25 GM/50 ML VIAL ONE ×2 (22:00→22:06)
[2019-11-26] MEDS ORDERED: SODIUM BICARBONATE 8.4% - 50 ML ONE ×2 (22:06→22:31)
[2019-11-26] MEDS ORDERED: OCTREOTIDE ACETATE 100 MCG/1 ML ONE (22:08)
[2019-11-26] MEDS ORDERED: INSULIN REGULAR HUMAN 100 UNITS/ML *VIAL ONE (22:08)
[2019-11-26 22:09] LABS: ANISOCYTOSIS 2+
--- NOTE | 2019-11-26 22:20 | PDOC ---
*Physical Exam - Vital Signs Last Vital Signs Temp Pulse Resp BP Pulse Ox 98 F 32 L 12 111/69 98 11/26/19 20:29 11/26/19 21:16 11/26/19 21:16 11/26/19 21:16 11/26/19 21:16 ED Treatment Course - LABORATORY CBC & Chemistry Diagram: 11/26/19 20:50 11/26/19 20:50 - ADDITIONAL ORDERS Additional order review: Laboratory Results 11/26/19 11/26/19 11/26/19 20:50 20:50 20:50 PT with INR 30.10 H INR 2.53 H PTT (Actin FS) 35.9 Sodium 133 L Potassium 7.2 H* Chloride 100 Carbon Dioxide 23 Anion Gap 10 BUN 54.8 H Creatinine 3.3 H Est GFR (CKD-EPI)AfAm 21.37 Est GFR (CKD-EPI)NonAf 18.44 Random Glucose 127 H Calcium 8.9 Total Bilirubin 0.6 AST 34 ALT 17 Alkaline Phosphatase 62 Creatine Kinase 48 Troponin I < 0.02 B-Natriuretic Peptide 5427.8 H Total Protein 6.7 Albumin 3.3 L Blood Type A POSITIVE Antibody Screen Negative 11/26/19 20:50 RBC 3.61 L MCV 84.0 MCHC 32.1 RDW 20.7 H MPV 8.4 Neutrophils % 83.7 H Lymphocytes % 6.7 L D Monocytes % 9.1 Eosinophils % 0.1 Basophils % 0.4 - Medications Given in the ED: ED Medications Discontinued Medications Generic Name Dose Route Start Last Admin Trade Name Freq PRN Reason Stop Dose Admin Metoclopramide HCl 10 mg 11/26/19 21:38 11/26/19 22:03 Reglan Injection - IM 11/26/19 21:39 10 mg ONCE ONE Administration Medical Decision Making - Medical Decision Making Procedure note for central line placement for vascular access and vasopressor administration 11/26/19 22:21 Discharge - Discharge Information Problems reviewed: Yes Clinical Impression/Diagnosis: Symptomatic bradycardia Condition: Critical Disposition: TRANSFER ACUTE CARE/OTHER HOSP - Follow up/Referral Referrals: Elisabet Martinez MD [Primary Care Provider] - - Patient Discharge Instructions - Post Discharge Activity Procedures - Central Line Central Line Lumen: triple Central Line Position: femoral (R) Complications: none Post Central Line Insertion: sutured, good blood return
[2019-11-26] MEDS: ALBUTEROL SO4 0.083% IH SOL 2.5 MG/3 ML VIAL.NEB. NEB SCH ×2 (22:25→22:39)
[2019-11-26] MEDS ORDERED: FUROSEMIDE 40 MG/4 ML INJECTABLE VIAL IVPUSH ONE (22:27)
[2019-11-26] MEDS ORDERED: PANTOPRAZOLE SODIUM 40 MG VIAL ONE (22:32)
[2019-11-26] MEDS ORDERED: FUROSEMIDE 40 MG/4 ML INJECTABLE VIAL ONE (22:42)
[2019-11-26 23:54] VITALS: BP 115/49; PULSE 69
--- NOTE | 2019-11-27 09:18 | EKG ---
Test Reason : Blood Pressure : / mmHG Vent. Rate : 033 BPM Atrial Rate : 028 BPM P-R Int : 000 ms QRS Dur : 106 ms QT Int : 566 ms P-R-T Axes : 000 095 073 degrees QTc Int : 418 ms ATRIAL FIBRILLATION WITH SLOW VENTRICULAR RESPONSE RIGHTWARD AXIS LOW VOLTAGE QRS SEPTAL INFARCT , AGE UNDETERMINED ABNORMAL ECG WHEN COMPARED WITH ECG OF 11-NOV-2019 08:22, VENT. RATE HAS DECREASED BY 36 BPM SEPTAL INFARCT IS NOW PRESENT Confirmed by Omer Deras ([id number]) on 11/27/2019 9:17:49 AM Referred By: Confirmed By:Omer Deras
== END 2019-11-27 00:21 | disposition short-term general hospital (02) ==
LOC: JER 20:03
PROC: 3E0F7GC Introduction of Other Therapeutic Substance into Respiratory Tract, Via Natural or Artificial Opening (ICD-10-PCS; principal; 2019-11-26)
PROC: 3E0337Z Introduction of Electrolytic and Water Balance Substance into Peripheral Vein, Percutaneous Approach (ICD-10-PCS; 2019-11-26)
PROC: 3E033VG Introduction of Insulin into Peripheral Vein, Percutaneous Approach (ICD-10-PCS; 2019-11-26)
PROC: 3E033GC Introduction of Other Therapeutic Substance into Peripheral Vein, Percutaneous Approach (ICD-10-PCS; 2019-11-26)
PROC: 04HK33Z Insertion of Infusion Device into Right Femoral Artery, Percutaneous Approach (ICD-10-PCS; 2019-11-26)
PROC: 0T9B70Z Drainage of Bladder with Drainage Device, Via Natural or Artificial Opening (ICD-10-PCS; 2019-11-26)
DX: R00.1 Bradycardia, unspecified (principal); I25.10 Atherosclerotic heart disease of native coronary artery without angina pectoris; I11.0 Hypertensive heart disease with heart failure; Z95.5 Presence of coronary angioplasty implant and graft; I50.9 Heart failure, unspecified; I48.91 Unspecified atrial fibrillation; Z79.01 Long term (current) use of anticoagulants; Z79.02 Long term (current) use of antithrombotics/antiplatelets; J44.9 Chronic obstructive pulmonary disease, unspecified; K21.9 Gastro-esophageal reflux disease without esophagitis; F10.10 Alcohol abuse, uncomplicated; Z87.2 Personal history of diseases of the skin and subcutaneous tissue
CPT/HCPCS: 36415; 71045-TC-FY; 73502-TC-RT-FY; 80053; 82550; 83605; 83880; 84484; 85025; 85610; 85730; 86850; 86900; 86901; 93005; 93010; 99285-25; J7030

== ENCOUNTER 2021-01-14 18:55 | Inpatient (IN) | payer BC, OTHER ==
[2021-01-14 19:10] VITALS: BMI 38.4
[2021-01-14] MEDS ORDERED: ACETAMINOPHEN 1000 MG/100 ML VIAL (NON FORMULARY) IVPB ONE (19:53)
[2021-01-14] MEDS ORDERED: RANOLAZINE E.R. 500 MG TABLET (FP) PO ONE (20:42)
[2021-01-14] MEDS ORDERED: metoPROLOL SUCCINATE 25 MG TAB.SR.24H (FP) PO ONE (20:43)
[2021-01-14] MEDS ORDERED: TORSEMIDE 20 MG TABLET (FP) PO ONE (20:45)
[2021-01-14 21:08] LABS: VENOUS BASE EXCESS 1.9 mmol/L (-2-2); VENOUS O2 SATURATION 87.6 % (70-80); VENOUS PCO2 47.7 mmHg (38-52); VENOUS PH 7.385 (7.310-7.410)
[2021-01-14 21:11] LABS: BASO % 0.6 % (0-2.0); HEMATOCRIT 53.6 % (35.4-49); HEMOGLOBIN 17.6 GM/dL (11.7-16.9); LYMPH % 3.2 % (8-40); MCH 29.9 pg (25.7-33.7); MCHC 32.8 g/dl (32.0-35.9); MEAN CELL VOLUME 90.9 fl (80-96); MEAN PLT VOLUME 8.3 fl (7.5-11.1); MONO % 5.5 % (3.8-10.2); NEUT % 90.7 % (42.8-82.8); PLATELET COUNT 103 K/MM3 (134-434); RDW 15.6 % (11.9-15.9); WHITE BLOOD COUNT 4.8 K/mm3 (4.0-10.0)
[2021-01-14 21:21] LABS: INR 2.01 (0.83-1.09); PROTHROMBIN TIME (PATIENT) 23.8 SEC (9.7-13.0)
[2021-01-14 21:24] LABS: ACTIVATED PTT 37.2 SECONDS (25.2-36.5)
[2021-01-14 21:29] LABS: CHLORIDE 97 mmol/L (98-107); SODIUM 135 mmol/L (136-145)
[2021-01-14] MEDS ORDERED: POTASSIUM CHLORIDE TABS 20 MEQ TABLET.ER (FP) PO ONE ×2 (21:30→21:55)
[2021-01-14 21:32] LABS: ALBUMIN 3.4 g/dl (3.4-5.0); ANION GAP 6 MMOL/L (8-16); BLOOD UREA NITROGEN 16.6 mg/dL (7-18); CALCIUM 7.8 mg/dL (8.5-10.1); CO2 32 mmol/L (21-32); GLUCOSE,RANDOM 120 mg/dL (74-106); MAGNESIUM 0.9 mg/dL (1.8-2.4)
[2021-01-14] MEDS ORDERED: MAGNESIUM SULF 50% (8.12 MEQ/2 ML-1 GM VIAL) IVPB ONE (21:34)
[2021-01-14 21:35] LABS: BILIRUBIN,DIRECT 0.6 mg/dL (0.0-0.2); CREATININE 1.5 mg/dL (0.55-1.3); PHOSPHOROUS 2.7 mg/dL (2.5-4.9); SGOT/AST 30 U/L (15-37); SGPT/ALT 18 U/L (13-61)
[2021-01-14] MEDS ORDERED: SODIUM CHLORIDE 0.9% 500 ML INFUS.BAG IV ONE (21:36)
[2021-01-14 21:37] LABS: BILIRUBIN,TOTAL 1.6 mg/dL (0.2-1); TOT PROT 7.3 g/dl (6.4-8.2)
[2021-01-14 21:38] LABS: ALK PHOS 67 U/L (45-117); N-TERMINAL BNP 9975.8 pg/ml (5-125)
[2021-01-14] MEDS ORDERED: ASPIRIN 81 MG CHEWABLE TABLETS PO ONE (21:42)
[2021-01-14] MEDS ORDERED: ACETAMINOPHEN INJECTION 100 ML IVPB ONE (21:55)
[2021-01-14] MEDS ORDERED: metoPROLOL SUCCINATE 25 MG TAB.SR.24H (FP) ONE (21:55)
[2021-01-14] MEDS ORDERED: ASPIRIN 81 MG CHEWABLE TABLETS ONE (21:55)
[2021-01-14 22:01] LABS: LDH 289 U/L (87-246)
[2021-01-14] MEDS ORDERED: FUROSEMIDE 40 MG/4 ML INJECTABLE VIAL IVPUSH ONE (22:35)
[2021-01-14] MEDS: ALBUTEROL SO4 2.5/IPRATROPIUM 0.5 INH SOL 3 ML VIAL.NEB. NEB SCH (23:03)
[2021-01-14] MEDS ORDERED: MAGNESIUM SULFATE IN WATER 4 GM/100 ML IVPB IVPB ONE (23:16)
[2021-01-14] MEDS ORDERED: FUROSEMIDE 40 MG/4 ML INJECTABLE VIAL ONE (23:17)
[2021-01-15 07:34] LABS: EOS % 0.1 % (0-4.5); HEMATOCRIT 53.2 % (35.4-49); HEMOGLOBIN 17.9 GM/dL (11.7-16.9); MCH 30.4 pg (25.7-33.7); MCHC 33.6 g/dl (32.0-35.9); MEAN CELL VOLUME 90.7 fl (80-96); MEAN PLT VOLUME 8.4 fl (7.5-11.1); MONO % 4.9 % (3.8-10.2); PLATELET COUNT 90 K/MM3 (134-434); RBC 5.87 M/mm3 (4.00-5.60); RDW 16.1 % (11.9-15.9)
[2021-01-15 07:57] LABS: CHLORIDE 100 mmol/L (98-107); POTASSIUM 4.5 mmol/L (3.5-5.1); SODIUM 139 mmol/L (136-145)
[2021-01-15 08:45] LABS: ALBUMIN 3.2 g/dl (3.4-5.0); ANION GAP 14 MMOL/L (8-16); BLOOD UREA NITROGEN 25.1 mg/dL (7-18); CALCIUM 7.7 mg/dL (8.5-10.1); CO2 25 mmol/L (21-32); GLUCOSE,RANDOM 119 mg/dL (74-106); MAGNESIUM 1.9 mg/dL (1.8-2.4)
[2021-01-15 08:48] LABS: CREATININE 1.6 mg/dL (0.55-1.3); SGOT/AST 99 U/L (15-37); SGPT/ALT 34 U/L (13-61)
[2021-01-15 08:49] LABS: BILIRUBIN,TOTAL 1.8 mg/dL (0.2-1); TOT PROT 7.4 g/dl (6.4-8.2)
[2021-01-15 08:51] LABS: ALK PHOS 62 U/L (45-117)
[2021-01-15] MEDS ORDERED: FUROSEMIDE 40 MG/4 ML INJECTABLE VIAL IVPUSH SCH (10:45)
[2021-01-15] MEDS ORDERED: BUDESONIDE/FORMETEROL FUMARATE 160/4.5 mcg INHALER IH SCH (10:45)
[2021-01-15] MEDS ORDERED: UMECLIDINIUM/VILANTEROL (ANORO) 62.5/25 MCG INHALER IH SCH (11:00)
[2021-01-15] MEDS ORDERED: APIXABAN 5 MG TABLET ONE ×2 (11:21→23:02)
[2021-01-15] MEDS ORDERED: ASPIRIN 81 MG CHEWABLE TABLETS ONE (11:21)
[2021-01-15] MEDS ORDERED: FUROSEMIDE 40 MG/4 ML INJECTABLE VIAL ONE ×2 (11:21→16:16)
[2021-01-15 11:47] LABS: ANISOCYTOSIS 0; MACROCYTOSIS 0; PLATELET ESTIMATE DECREASED
[2021-01-15] MEDS ORDERED: METOPROLOL TARTRATE 25 MG TABLET (FP) PO SCH (12:00)
[2021-01-15] MEDS: APIXABAN 5 MG TABLET PO SCH ×2 (12:24→23:04)
[2021-01-15] MEDS: ASPIRIN 81 MG CHEWABLE TABLETS PO SCH (12:24)
[2021-01-15] MEDS ORDERED: METOPROLOL TARTRATE 25 MG TABLET (FP) ONE (12:59)
[2021-01-15] MEDS ORDERED: FLUTICASONE/UMECLIDIN/VILANTER (TRELEGY ELLIPTA 100-62.5-25) INAHLER IH SCH (16:00)
[2021-01-15] MEDS: FUROSEMIDE 40 MG/4 ML INJECTABLE VIAL IVPUSH SCH (16:26)
[2021-01-15] MEDS: FLUTICASONE/UMECLIDIN/VILANTER (TRELEGY ELLIPTA 100-62.5-25) INAHLER IH SCH (17:37)
[2021-01-15] MEDS ORDERED: ACETAMINOPHEN 325 MG TABLET (FP) ONE (18:13)
[2021-01-15] MEDS: RANOLAZINE E.R. 500 MG TABLET (FP) PO SCH (23:20)
[2021-01-16] MEDS: FUROSEMIDE 40 MG/4 ML INJECTABLE VIAL IVPUSH SCH ×2 (07:16→14:14)
[2021-01-16 07:46] LABS: BASO % 1.5 % (0-2.0); LYMPH % 7.6 % (8-40); MCH 30.8 pg (25.7-33.7); MEAN CELL VOLUME 90.6 fl (80-96); MEAN PLT VOLUME 8.8 fl (7.5-11.1); MONO % 9.7 % (3.8-10.2); NEUT % 81.2 % (42.8-82.8); PLATELET COUNT 74 K/MM3 (134-434); RBC 5.51 M/mm3 (4.00-5.60); RDW 15.5 % (11.9-15.9); WHITE BLOOD COUNT 4.6 K/mm3 (4.0-10.0)
[2021-01-16 08:19] LABS: CALCIUM 7.9 mg/dL (8.5-10.1)
[2021-01-16 08:20] LABS: BLOOD UREA NITROGEN 29.8 mg/dL (7-18)
[2021-01-16 08:23] LABS: CREATININE 1.2 mg/dL (0.55-1.3); PHOSPHOROUS 3.3 mg/dL (2.5-4.9)
[2021-01-16] MEDS ORDERED: POTASSIUM CHLORIDE TABS 20 MEQ TABLET.ER (FP) PO ONE (08:30)
[2021-01-16] MEDS: KCL 10 MEQ IVPB 10 MEQ/100 ML INFUS.BAG IVPB SCH ×3 (10:38→14:14)
[2021-01-16] MEDS: ASPIRIN 81 MG CHEWABLE TABLETS PO SCH (10:38)
[2021-01-16] MEDS: APIXABAN 5 MG TABLET PO SCH ×2 (10:38→22:41)
[2021-01-16] MEDS: RANOLAZINE E.R. 500 MG TABLET (FP) PO SCH ×2 (10:38→22:41)
[2021-01-16] MEDS: metoPROLOL SUCCINATE 25 MG TAB.SR.24H (FP) PO SCH (10:38)
[2021-01-16] MEDS: FLUTICASONE/UMECLIDIN/VILANTER (TRELEGY ELLIPTA 100-62.5-25) INAHLER IH SCH (10:39)
[2021-01-16] MEDS ORDERED: CLOPIDOGREL BISULFATE 75 MG TABLET (FP) PO SCH (12:00)
[2021-01-16] MEDS ORDERED: BUDESONIDE/FORMETEROL FUMARATE 160/4.5 mcg INHALER IH SCH (12:00)
[2021-01-16] MEDS: FERROUS SO4 325 MG TABLET (FP) PO SCH (12:39)
[2021-01-16] MEDS: FEBUXOSTAT 40 MG TAB PO SCH ×2 (12:39→14:12)
[2021-01-16] MEDS: FOLIC ACID 1 MG TABLET (FP) PO SCH (12:39)
[2021-01-16] MEDS ORDERED: POTASSIUM CHLORIDE ORAL LIQUID 20 MEQ/15 ML PO ONE ×2 (15:43→22:00)
[2021-01-17] MEDS: FUROSEMIDE 40 MG/4 ML INJECTABLE VIAL IVPUSH SCH ×2 (07:00→14:34)
[2021-01-17 07:48] LABS: BASO % 0.5 % (0-2.0); EOS % 0.1 % (0-4.5); HEMATOCRIT 50.5 % (35.4-49); LYMPH % 10.4 % (8-40); MCH 30.5 pg (25.7-33.7); MCHC 33.7 g/dl (32.0-35.9); MEAN CELL VOLUME 90.6 fl (80-96); MEAN PLT VOLUME 8.7 fl (7.5-11.1); MONO % 15.4 % (3.8-10.2); NEUT % 73.6 % (42.8-82.8); PLATELET COUNT 74 K/MM3 (134-434); RBC 5.58 M/mm3 (4.00-5.60); RDW 15.7 % (11.9-15.9); WHITE BLOOD COUNT 4.3 K/mm3 (4.0-10.0)
[2021-01-17 08:13] LABS: POTASSIUM 3.5 mmol/L (3.5-5.1)
[2021-01-17 08:18] LABS: CALCIUM 7.6 mg/dL (8.5-10.1)
[2021-01-17 08:21] LABS: ALBUMIN 3.2 g/dl (3.4-5.0); BLOOD UREA NITROGEN 28.4 mg/dL (7-18)
[2021-01-17 08:22] LABS: MAGNESIUM 1.9 mg/dL (1.8-2.4)
[2021-01-17 08:23] LABS: BILIRUBIN,TOTAL 0.9 mg/dL (0.2-1)
[2021-01-17 08:28] LABS: TOT PROT 6.9 g/dl (6.4-8.2)
[2021-01-17] MEDS: APIXABAN 5 MG TABLET PO SCH ×2 (10:12→21:53)
[2021-01-17] MEDS: metoPROLOL SUCCINATE 25 MG TAB.SR.24H (FP) PO SCH (10:12)
[2021-01-17] MEDS: FEBUXOSTAT 40 MG TAB PO SCH (10:13)
[2021-01-17] MEDS: FERROUS SO4 325 MG TABLET (FP) PO SCH (10:13)
[2021-01-17] MEDS: FOLIC ACID 1 MG TABLET (FP) PO SCH (10:13)
[2021-01-17] MEDS: RANOLAZINE E.R. 500 MG TABLET (FP) PO SCH ×2 (10:13→21:53)
[2021-01-17] MEDS: POTASSIUM CHLORIDE TABS 20 MEQ TABLET.ER (FP) PO SCH (10:59)
[2021-01-17] MEDS: FLUTICASONE/UMECLIDIN/VILANTER (TRELEGY ELLIPTA 100-62.5-25) INAHLER IH SCH (11:11)
[2021-01-18] MEDS: FUROSEMIDE 40 MG/4 ML INJECTABLE VIAL IVPUSH SCH ×2 (06:23→16:11)
[2021-01-18] MEDS ORDERED: PT OWN MED DRAWER 7, Y5N ONE (09:29)
[2021-01-18] MEDS: RANOLAZINE E.R. 500 MG TABLET (FP) PO SCH ×2 (10:11→22:35)
[2021-01-18] MEDS: APIXABAN 5 MG TABLET PO SCH ×2 (10:11→22:35)
[2021-01-18] MEDS: FOLIC ACID 1 MG TABLET (FP) PO SCH (10:11)
[2021-01-18] MEDS: metoPROLOL SUCCINATE 25 MG TAB.SR.24H (FP) PO SCH (10:12)
[2021-01-18] MEDS: POTASSIUM CHLORIDE TABS 20 MEQ TABLET.ER (FP) PO SCH ×2 (10:12→22:40)
[2021-01-18] MEDS: PANTOPRAZOLE 40 MG TABLET PO SCH (10:12)
[2021-01-18] MEDS: FEBUXOSTAT 40 MG TAB PO SCH (10:13)
[2021-01-18] MEDS: FLUTICASONE/UMECLIDIN/VILANTER (TRELEGY ELLIPTA 100-62.5-25) INAHLER IH SCH (11:03)
[2021-01-18 11:04] LABS: BASO % 0.5 % (0-2.0); EOS % 0.3 % (0-4.5); HEMATOCRIT 50.9 % (35.4-49); HEMOGLOBIN 16.8 GM/dL (11.7-16.9); LYMPH % 13.8 % (8-40); MCH 29.8 pg (25.7-33.7); MEAN CELL VOLUME 90.2 fl (80-96); NEUT % 71.4 % (42.8-82.8); PLATELET COUNT 86 K/MM3 (134-434); RBC 5.64 M/mm3 (4.00-5.60); RDW 15.8 % (11.9-15.9); WHITE BLOOD COUNT 3.9 K/mm3 (4.0-10.0)
[2021-01-18 11:19] LABS: CALCIUM 8.6 mg/dL (8.5-10.1)
[2021-01-18 11:20] LABS: ALBUMIN 3.2 g/dl (3.4-5.0); BLOOD UREA NITROGEN 27.2 mg/dL (7-18); MAGNESIUM 1.9 mg/dL (1.8-2.4)
[2021-01-18 11:23] LABS: CREATININE 1.1 mg/dL (0.55-1.3)
[2021-01-18 11:25] LABS: BILIRUBIN,TOTAL 0.8 mg/dL (0.2-1); TOT PROT 6.9 g/dl (6.4-8.2)
[2021-01-18 11:31] LABS: POTASSIUM 3.8 mmol/L (3.5-5.1)
[2021-01-19] MEDS: FUROSEMIDE 40 MG/4 ML INJECTABLE VIAL IVPUSH SCH ×2 (07:19→14:20)
[2021-01-19] MEDS: APIXABAN 5 MG TABLET PO SCH ×2 (09:10→21:48)
[2021-01-19] MEDS: FOLIC ACID 1 MG TABLET (FP) PO SCH (09:10)
[2021-01-19] MEDS: PANTOPRAZOLE 40 MG TABLET PO SCH (09:11)
[2021-01-19] MEDS: RANOLAZINE E.R. 500 MG TABLET (FP) PO SCH ×2 (09:11→21:48)
[2021-01-19] MEDS: POTASSIUM CHLORIDE TABS 20 MEQ TABLET.ER (FP) PO SCH ×2 (09:11→21:48)
[2021-01-19] MEDS: metoPROLOL SUCCINATE 25 MG TAB.SR.24H (FP) PO SCH (09:11)
[2021-01-19] MEDS: FEBUXOSTAT 40 MG TAB PO SCH (09:11)
[2021-01-19] MEDS: FLUTICASONE/UMECLIDIN/VILANTER (TRELEGY ELLIPTA 100-62.5-25) INAHLER IH SCH (09:11)
[2021-01-19 11:48] LABS: BASO % 0.7 % (0-2.0); EOS % 0.9 % (0-4.5); HEMATOCRIT 48.7 % (35.4-49); HEMOGLOBIN 16.4 GM/dL (11.7-16.9); LYMPH % 11.6 % (8-40); MCH 30.4 pg (25.7-33.7); MCHC 33.7 g/dl (32.0-35.9); MEAN CELL VOLUME 90.2 fl (80-96); NEUT % 71.8 % (42.8-82.8); PLATELET COUNT 89 K/MM3 (134-434); RDW 15.4 % (11.9-15.9); WHITE BLOOD COUNT 4.9 K/mm3 (4.0-10.0)
[2021-01-19] MEDS: LORATADINE 10 MG TABLET PO SCH (12:12)
[2021-01-19 12:29] LABS: ALBUMIN 3.2 g/dl (3.4-5.0); BLOOD UREA NITROGEN 20.7 mg/dL (7-18); CALCIUM 8.8 mg/dL (8.5-10.1); CREATININE 0.8 mg/dL (0.55-1.3); POTASSIUM 3.7 mmol/L (3.5-5.1); TOT PROT 6.8 g/dl (6.4-8.2)
[2021-01-19 12:31] LABS: ANISOCYTOSIS 0; MACROCYTOSIS 0; PLATELET ESTIMATE DECREASED
[2021-01-20] MEDS: FUROSEMIDE 40 MG/4 ML INJECTABLE VIAL IVPUSH SCH ×2 (06:45→06:48)
[2021-01-20 08:07] LABS: BASO % 0.4 % (0-2.0); EOS % 0.4 % (0-4.5); HEMATOCRIT 47.9 % (35.4-49); HEMOGLOBIN 16.3 GM/dL (11.7-16.9); LYMPH % 11.6 % (8-40); MCH 30.3 pg (25.7-33.7); MEAN CELL VOLUME 89.1 fl (80-96); MEAN PLT VOLUME 9.3 fl (7.5-11.1); NEUT % 75.6 % (42.8-82.8); PLATELET COUNT 100 K/MM3 (134-434); RBC 5.37 M/mm3 (4.00-5.60); RDW 15.3 % (11.9-15.9); WHITE BLOOD COUNT 5.4 K/mm3 (4.0-10.0)
[2021-01-20 08:28] LABS: POTASSIUM 3.7 mmol/L (3.5-5.1)
[2021-01-20 08:36] LABS: BLOOD UREA NITROGEN 15.1 mg/dL (7-18); CALCIUM 8.7 mg/dL (8.5-10.1)
[2021-01-20 08:37] LABS: ALBUMIN 3.1 g/dl (3.4-5.0)
[2021-01-20 08:40] LABS: CREATININE 0.8 mg/dL (0.55-1.3)
[2021-01-20 08:41] LABS: BILIRUBIN,TOTAL 1.1 mg/dL (0.2-1); TOT PROT 6.6 g/dl (6.4-8.2)
[2021-01-20] MEDS: LORATADINE 10 MG TABLET PO SCH (09:42)
[2021-01-20] MEDS: APIXABAN 5 MG TABLET PO SCH (09:42)
[2021-01-20] MEDS: PANTOPRAZOLE 40 MG TABLET PO SCH (09:42)
[2021-01-20] MEDS: FOLIC ACID 1 MG TABLET (FP) PO SCH (09:42)
[2021-01-20] MEDS: RANOLAZINE E.R. 500 MG TABLET (FP) PO SCH (09:42)
[2021-01-20] MEDS: metoPROLOL SUCCINATE 25 MG TAB.SR.24H (FP) PO SCH (09:42)
[2021-01-20] MEDS: POTASSIUM CHLORIDE TABS 20 MEQ TABLET.ER (FP) PO SCH (09:42)
[2021-01-20] MEDS: FLUTICASONE/UMECLIDIN/VILANTER (TRELEGY ELLIPTA 100-62.5-25) INAHLER IH SCH (09:45)
[2021-01-20] MEDS: FEBUXOSTAT 40 MG TAB PO SCH (10:28)
[2021-01-20 11:05] VITALS: BP 136/95; PULSE 79; TEMP 97.7
[2021-01-20 12:07] LABS: HEP B CORE AB, TOT Negative (Negative)
[2021-01-21] MEDS ORDERED: TORSEMIDE 20 MG TABLET (FP) PO SCH (10:00)
== END 2021-01-20 12:15 | disposition home or self-care (01) | DRG 292 ==
LOC: JER 18:55 → JERBED 21:50 → J4W 01-16 01:10
PROVIDERS: ADMIT Internal Medicine; ATTEND Family Medicine
DX: I11.0 Hypertensive heart disease with heart failure (principal); N17.9 Acute kidney failure, unspecified; I24.8 Other forms of acute ischemic heart disease; I48.20 Chronic atrial fibrillation, unspecified; E66.01 Morbid (severe) obesity due to excess calories; J44.9 Chronic obstructive pulmonary disease, unspecified; Z79.01 Long term (current) use of anticoagulants; I25.10 Atherosclerotic heart disease of native coronary artery without angina pectoris; I87.2 Venous insufficiency (chronic) (peripheral); F10.20 Alcohol dependence, uncomplicated; E87.6 Hypokalemia; E83.42 Hypomagnesemia; I27.20 Pulmonary hypertension, unspecified; K21.9 Gastro-esophageal reflux disease without esophagitis; Z20.822 Contact with and (suspected) exposure to COVID-19; I50.33 Acute on chronic diastolic (congestive) heart failure; D69.6 Thrombocytopenia, unspecified; R94.5 Abnormal results of liver function studies; R19.7 Diarrhea, unspecified; I35.0 Nonrheumatic aortic (valve) stenosis
CPT/HCPCS: 36415; 70450-TC; 71045-TC-FY; 71250-TC; 76705-TC; 80048; 80053; 82248; 82550; 82553; 82607; 82728; 82747; 82803; 83605; 83615; 83735; 83880; 84100; 84132; 84439; 84443; 84484; 85014; 85025; 85379; 85610; 85730; 86140; 86704; 86706; 86707; 86708; 86709; 86803; 87040; 87340; 87804; 93005; 93010; 93306-TC; 93970-TC; 94761; 97116-GP; 97161-GP; 99285-25; C9803; J0131; U0003; U0005